=== PATIENT | female | born 1995 | race Caucasian/White ===

== ENCOUNTER 2021-01-03 15:23 | Emergency (ER) | payer OTHER, SELFPAY ==
[2021-01-03 15:32] VITALS: BP 114/52; PULSE 82; RESP 18; TEMP 37.6; O2SAT 100
--- NOTE | 2021-01-03 15:37 | ED.URI ---
HPI - URI/Sore Throat General Chief Complaint: Upper Respiratory Infection Stated Complaint: chills fever nausea Time Seen by Provider: 01/03/21 15:37 Source: patient and family Mode of arrival: ambulatory History of Present Illness HPI Narrative: patient received her second covid 19 Pfizer injection yesterday afternoon. 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 Patient reports her symptoms of nasal congestion body aches and fever started last night. Patient has not taken anything for her symptoms. Patient denies any shortness of breath or chest pain. Patient states she did not have the symptoms after she received her first visor injection. Patient has not notified her employee health of her symptoms. MD elicited complaint: fever and nasal congestion Related Data Home Medications Medication Instructions Recorded Confirmed No Home Medications 01/03/21 01/03/21 Allergies Allergy/AdvReac Type Severity Reaction Status Date / Time No Known Allergies Allergy Verified 01/03/21 15:38 Review of Systems Review of Systems: CONSTITUTIONAL: Denies chills, or sweats. Reports fever and generalized body aches EYES: Denies visual changes, redness, or discharge. ENT: Denies otalgia. Reports nasal congestion runny nose and sore throat CARDIOVASCULAR: Denies chest pain, palpitations, or edema. RESPIRATORY: Denies dyspnea. Reports occasional cough GASTROINTESTINAL: Denies abdominal pain, nausea, vomiting, or diarrhea. GENITOURINARY: Denies dysuria or hematuria. SKIN: Denies rash or itching. MUSCULOSKELETAL: Denies back pain, joint pain, or myalgia. Reports generalized body aches NEUROLOGIC: Denies headache, numbness, or weakness. PSYCHIATRIC: Denies anxiety or depression. [facility] Past Medical History Medical History (Updated 01/03/21 @ 15:51 by PREMA Butler) Upper respiratory infection Comments At time of signature, agree with nursing past medical, surgical, social and family history. There is no relevant family history pertinent to the presenting complaint Exam Narrative: The patient is a well-developed, well-nourished in no acute distress. SKIN: Skin is warm and dry without erythema, swelling or exudate. There is good turgor. No tenting. HEAD: Atraumatic. Normocephalic. No temporal or scalp tenderness. EYES: Moist and bright. Sclera and conjunctivae normal. No discharge. PERRLA. Extraocular motions intact. Gross visual acuity intact. EARS: Pinna is normal shape and contour. Clear external auditory canals. TM pearly geronimo with good cone of light, no erythema or suppuration. Bilateral cerumen noted no gross hearing deficit. NOSE: pink, moist mucosa with good air movement. Clear rhinorrhea without nasal flaring. Septum midline. Mouth: moist mucous membranes. THROAT; mild erythema noted to posterior oropharynx with moderate postnasal drainage. Without exudate or ulceration.. Uvula midline. Normal movement of soft palate. NECK: Supple and nontender with full range of motion without discomfort. No meningeal signs. LUNGS: Equal and bilateral breath sounds without wheezes, rales or rhonchi. CHEST: The chest wall is without retractions or use of accessory muscles. HEART: Has a regular rate and rhythm without murmur, gallops, click or rub. ABDOMEN: Soft, nontender with positive active bowel sounds. No rebound tenderness. EXTREMITIES: Without cyanosis, clubbing or edema. Equal 2+ distal pulses and 2 second capillary refill noted. NEUROLOGIC: alert, active, . The patient moves all extremities with normal muscle strength. Normal muscle tone is noted. Normal coordination is noted. NO focal neurological findings noted. Course Vital Signs Vital signs: Vital Signs Temperature 37.6 C H 01/03/21 15:32 Pulse Rate 82 01/03/21 15:32 Respiratory Rate 18 01/03/21 15:32 Blood Pressure 114/52 L 01/03/21 15:32 Pulse Oximetry 100 01/03/21 15:3
== END 2021-01-03 15:48 | disposition home or self-care (01) ==
PROVIDERS: Emergency Provider Nurse Practitioner Family
DX: J06.9 Acute upper respiratory infection, unspecified (principal); T50.B95A Adverse effect of other viral vaccines, initial encounter
CPT/HCPCS: 99202; G0463

== ENCOUNTER → 2021-01-07 02:45 | Outpatient (CLI) | payer OTHER, SELFPAY ==
[2021-01-08 15:30] LABS: SARS-CoV-2 RNA PCR Negative
== END ==
PROVIDERS: Visit Provider Nurse Practitioner Family
DX: Z20.822 Contact with and (suspected) exposure to COVID-19 (principal); J06.9 Acute upper respiratory infection, unspecified
CPT/HCPCS: C9803; U0003; U0005

== ENCOUNTER 2021-11-21 16:57 | Emergency (ER) | payer OTHER, SELFPAY ==
[2021-11-21 17:04] VITALS: BP 122/64; PULSE 88; RESP 20; TEMP 37.3; O2SAT 100
--- NOTE | 2021-11-21 17:09 | ED.FEMALEGU ---
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 She reports she has done 2 rounds of treatment [id number] for yeast infection, she did Monistat 1 in the day Monistat 3 with no relief in symptoms. She reports a new sexual partner 1 week ago. She reports her symptoms started the next day. She denies abdominal pain, nausea, vomiting, abnormal vaginal bleeding. Reports her last menstrual period was on October 21. MD elicited complaint: vaginal discharge Related Data Allergies Allergy/AdvReac Type Severity Reaction Status Date / Time No Known Allergies Allergy Verified 11/21/21 17:15 Review of Systems Review of Systems: CONSTITUTIONAL: Denies malaise, chills, sweats, or fever. CARDIOVASCULAR: Denies chest pain, palpitations, or edema. RESPIRATORY: Denies cough or dyspnea. GASTROINTESTINAL: Denies abdominal pain, nausea, vomiting, diarrhea GENITOURINARY: Denies dysuria, frequency, urgency, suprapubic pressure. Denies flank pain or hematuria. Reports thick yellow vaginal discharge, vaginal itching, vaginal burning SKIN: Denies rash or itching. MUSCULOSKELETAL: Denies back pain or myalgia. All systems reviewed & are unremarkable except as noted in HPI and below PMFSH Past Medical History Medical History (Updated 11/21/21 @ 17:43 by Emley Coughlin NP) Upper respiratory infection Comments At time of signature, agree with nursing past medical, surgical, social and family history. There is no relevant family history pertinent to the presenting complaint Exam Narrative: GENERAL: Well-appearing, well-nourished, and in no acute distress. HEAD: Normocephalic. EYES: PERRLA, conjunctivae clear. NECK: Supple. No lymphadenopathy CHEST: Clear to auscultation. No respiratory distress. HEART: Regular rate and rhythm. ABDOMEN: Soft, nontender upon palpation, nondistended, normal active bowel sounds, no palpable or pulsatile masses, no guarding. No CVA tenderness SKIN: Warm, dry, no rash. NEURO: Alert and oriented x3. PSYCH: Normal mood and affect : External Female Exam: normal external appearance Speculum Exam - Vagina: normal appearance of the vagina Speculum Exam - Cervix: normal appearance of the cervix and Abnormal cervical discharge present yellow Bimanual exam- vagina & uterus: normal bimanual exam Course Course Emergency Course: Patient is aware of diagnosis, understands and agrees to treatment plan. Anticipatory guidance given. Patient agrees to follow-up as directed and is aware of reasons to seek care at the emergency department. Portions of this record may have been created with voice recognition software Level of Care: Express Care Visit Vital Signs Vital signs: Reviewed. MDM - Female Genitourinary MDM Narrative Medical decision making narrative: Exam findings and UA show no acute concerns or changes; patient is non-toxic appearing and is in no distress. Patient is appropriate for outpatient treatment and follow-up. Differential Diagnosis Differential diagnosis: Likely urinary tract infection and cystitis Critical Care Time Critical Care Time Critical Care Time: No Discharge Plan Discharge Clinical Impression: Problematic vaginal discharge Patient Disposition: Home, Self-Care Condition: Stable Instructions: Antibiotic Form, Vaginal Discharge (ED) Additional Instructions: You have been tested for potential bacterial vaginosis, vaginal yeast, gonorrhea, chlamydia, and trichomoniasis today. You have received antibiotics to treat gonorrhea today, a prescription has been called into your pharmacy to treat chlamydia and trichomoniasis. You will receive a phone call in 2-3 days with the resu
[2021-11-21] MEDS: cefTRIAXone 500 MG, LIDOCAINE HCL 1% LOCAL INJ 1 ML IM (17:47)
== END 2021-11-21 18:07 | disposition home or self-care (01) ==
PROVIDERS: Emergency Provider Nurse Practitioner
DX: N89.8 Other specified noninflammatory disorders of vagina (principal)
CPT/HCPCS: 81025; 87070; 87491; 87591; 87661; 96372; 99214; G0463; J0696

== ENCOUNTER 2021-11-25 19:24 | Emergency (ER) | payer OTHER, SELFPAY ==
[2021-11-25 19:32] VITALS: BP 124/68; PULSE 87; RESP 16; TEMP 37.3; O2SAT 100
--- NOTE | 2021-11-25 19:52 | ED.GENADULT ---
HPI - General Adult General Chief complaint: Urogenital-Female Stated complaint: STD swab Source: patient Mode of arrival: ambulatory Limitations: no limitations History of Present Illness HPI narrative: Patient presents for evaluation of a bump to the vaginal area since yesterday. She was evaluated here on 11/21/2021 for vaginal discharge. She was given an injection of Rocephin and was discharged with doxycycline, Flagyl, fluconazole. She states discharge was milky at that time of her evaluation on 11/21 and is similar in appearance but has decreased in the amount since her date of service. Her LMP was 10/22/21. She has a hx of regular menstruation. Not on contraception. She is sexually active with a new male sex partner, not using condoms. He is asymptomatic. She reports some pelvic cramping. She has some burning on the skin at the site of the bump . Denies urinary symptoms otherwise. She is wondering if her symptoms are 2/2 shaving in that area. No additional complaints or concerns. Related Data Allergies Allergy/AdvReac Type Severity Reaction Status Date / Time No Known Allergies Allergy Verified 11/25/21 19:51 Review of Systems Review of Systems: CONSTITUTIONAL: Denies fever, chills, or sweats. EYES: Denies visual changes, redness, or discharge. ENT: Denies rhinorrhea, congestion, sore throat, or otalgia. CARDIOVASCULAR: Denies chest pain, palpitations, or edema. RESPIRATORY: Denies cough or dyspnea. GASTROINTESTINAL: Denies abdominal pain, nausea, vomiting, or diarrhea. GENITOURINARY: Reports milky vaginal discharge. Denies dysuria or hematuria. SKIN: Reports a bump to the vaginal area. Reports burning sensation to the skin at the site of her bump . Denies rash or itching. MUSCULOSKELETAL: Denies back pain, joint pain, or myalgia. NEUROLOGIC: Denies headache, numbness, dizziness, or weakness. PSYCHIATRIC: Denies anxiety or depression. [facility] Past Medical History Medical History (Updated 11/25/21 @ 20:12 by Gerald Byrne, PREMA, ) Upper respiratory infection Surgical History Surgical History History of appendectomy Family History Family History Mother COPD (chronic obstructive pulmonary disease) Social History Social History (Updated 11/25/21 @ 19:56 by PREMA Alford, ) Smoking packs per day: 0.5 Smoking cigarettes per day: 10.0 Smoking status: Current every day smoker Alcohol intake: current Alcohol use details: social Substance use: never Living arrangements: alone Gender identity (if verbalized by the patient): Female Sexual Orientation (if Verbalized by the Patient): Straight or Heterosexual Spiritual care concerns: No Exam Narrative: GENERAL: Well-appearing, well-nourished, and in no acute distress. HEAD: Normocephalic, atraumatic. EYES: PERRLA and EOMI. ENT: Nares clear, no rhinorrhea or epistaxis. Mucous membranes moist. Oropharynx without tonsillar hypertrophy exudate or other lesions. Bilateral TMs pearly magaña nonbulging NECK: Supple. No adenopathy or masses. No carotid bruits or JVD CHEST: Clear to auscultation. No respiratory distress. No wheezes rales or rhonchi HEART: Regular rate and rhythm. No murmur heard. Normal peripheral pulses. ABDOMEN: Soft, nontender, nondistended, normal active bowel sounds. EXTREMITIES: Normal range of motion. No edema. SKIN: Warm, dry, no rash. There is a raised area of skin noted to the left labia which is less than 1 mm in size NEURO: No focal deficits. Alert and oriented x3. PSYCH: Normal mood and affect. Course Course Emergency Course: This is a 26-year-old female who presented for evaluation of a bump to the skin of her labia. On physical exam she is small area of skin colored tissue suspected to be a skin tag. This likely would be condyloma. She has an appointment with an OB/GY
== END 2021-11-25 20:15 | disposition home or self-care (01) ==
PROVIDERS: Emergency Provider Nurse Practitioner
DX: N90.89 Other specified noninflammatory disorders of vulva and perineum (principal); Z11.3 Encounter for screening for infections with a predominantly sexual mode of transmission; F17.210 Nicotine dependence, cigarettes, uncomplicated
CPT/HCPCS: 81003; 81025; 99212; G0463

== ENCOUNTER 2022-02-06 18:47 | Emergency (ER) | payer OTHER, SELFPAY ==
--- NOTE | ~2022-02-06 | US_ITS ---
EXAMINATION: US OB <=14 wk fetus w TV DATE: 02/06/2022 21:16 INDICATION: Abdominal pain in . TECHNIQUE: Real-time transabdominal and transvaginal pelvic ultrasound was performed. COMPARISON: None. FINDINGS: TRANSABDOMINAL ULTRASOUND: The uterus measures 10.5 x 6.3 x 6.4 cm. TRANSVAGINAL ULTRASOUND: There is an intrauterine gestational sac with mean diameter of 10 mm, which correlates with an estimated gestational age of 5 weeks and 5 days +/- 4 days. A yolk sac is identifi ed. No pole is visible. The right ovary measures 2.9 x 2.4 x 2.0 cm. The left ovary measures 2. 5 x 0.9 x 0.9 cm. There is normal vascular flow in the ovaries. There is no free fluid in the pelvis. IMPRESSION: 1. Single intrauterine gestation with estimated date of delivery of 10/04/2022. Reviewed, dictated and finalized at location A.
[2022-02-06 18:52] VITALS: BP 127/61; PULSE 78; RESP 18; TEMP 36.5; O2SAT 100
[2022-02-06 19:34] LABS: Appearance Urine Clear (Clear); Basophils Percent Auto 0.3 % (0.2-1.2); Bilirubin Urine Negative (Negative); Blood Urine Negative (Negative); Color Urine Yellow (Yellow); Eosinophils Absolute Auto 0.1 K/mm3 (0-0.3); Eosinophils Percent Auto 1.5 % (0-4.4); Glucose Urine UA Negative (Negative); Hematocrit 37.4 % (37.0-47.0); Hemoglobin 12.3 g/dL (12.0-15.0); Immature Granulocyte Absolute 0.02 K/mm3 (0.00-0.031); Immature Granulocyte Percent A 0.3 % (0-0.5); Ketones Urine Trace mg/dL (Negative); Leukocyte Esterase Ur Negative LEU/UL (Negative); Lymphocytes Absolute Auto 2.43 K/mm3 (0.9-3.2); Mean Corpuscular HGB Conc 32.9 g/dl (32-36); Mean Corpuscular Hemoglobin 31.7 pg (26-34); Mean Corpuscular Volume 96.4 fl (80-100); Mean Platelet Volume 9.8 fl (7.4-10.4); Monocytes Absolute Auto 0.7 K/mm3 (0.1-0.6); Monocytes Percent Auto 10.3 % (2.6-8.5); Neutrophils Absolute Auto 3.8 K/mm3 (1.3-6.7); Neutrophils Percent Auto 53.6 % (45.5-73.1); Nitrate Urine Negative (Negative); Platelet Count Result 269 k/mm3 (150-375); Protein Urine Negative (Negative); Red Blood Count 3.88 M/mm3 (4.2-5.4); Red Cell Distribution Width 12.2 % (11.5-14.5); Specific Grav Ur 1.025 (1.001-1.035); Urobilinogen Urine 0.2 mg/dL (<2.0); White Blood Count 7.2 K/mm3 (4.5-10.0); pH Urine 6.5 (5.0-9.0)
--- NOTE | 2022-02-06 19:42 | ED.GENADULT ---
HPI - General Adult General Chief complaint: Abdominal Pain Stated complaint: positive HCG at home with dizziness Time Seen by Provider: 02/06/22 19:08 History of Present Illness HPI narrative: Patient is a 26-year-old G4, P2 SAB 1 who presents ER with lower abdominal pain. Patient's LMP was 12/28/2021. No vaginal bleeding or discharge. Has been having pain near her right ovary throughout the day. No radiation. Sharp. No aggravating or alleviating factors. She does have a positive test. Concern for ectopic . Related Data Home Medications Medication Instructions Recorded Confirmed No Home Medications 02/06/22 02/06/22 Allergies Allergy/AdvReac Type Severity Reaction Status Date / Time No Known Allergies Allergy Verified 02/06/22 19:24 Review of Systems Review of Systems: All systems reviewed & are unremarkable except as noted in HPI and below Constitutional: Constitutional: Denies chills, Denies fatigue and Denies fever(s) Respiratory: Respiratory: Denies cough and Denies dyspnea Gastrointestinal: Gastrointestinal: Denies abdominal pain, Denies nausea and Denies vomiting Genitourinary: Genitourinary: Denies hematuria, Denies nocturia, Denies dysuria and Reports pelvic pain PMFSH Past Medical History Medical History (Updated 02/06/22 @ 22:20 by Bertram Navarro MD) Upper respiratory infection Surgical History Surgical History History of appendectomy Family History Family History Mother COPD (chronic obstructive pulmonary disease) Social History Social History (Updated 11/25/21 @ 19:56 by Gerald Byrne [facility], ) Smoking packs per day: 0.5 Smoking cigarettes per day: 10.0 Smoking status: Current every day smoker Alcohol intake: current Alcohol use details: social Substance use: never Gender identity (if verbalized by the patient): Female Sexual Orientation (if Verbalized by the Patient): Straight or Heterosexual Spiritual care concerns: No Exam Narrative: GENERAL: Well-appearing, well-nourished, and in no acute distress. HEAD: Normocephalic, atraumatic. EYES: PERRL and EOMI. CHEST: Clear to auscultation. No respiratory distress. HEART: Regular rate and rhythm. Normal peripheral pulses. ABDOMEN: Soft, nontender, nondistended. Mild right adnexal tenderness. EXTREMITIES: Normal range of motion. No edema. SKIN: Warm, dry, no rash. NEURO: Alert and oriented x3. PSYCH: Normal mood and affect. Course Course Emergency Course: No ectopic . Discharge home. Vital Signs Vital signs: Vital Signs Temperature 97.7 F 02/06/22 18:52 Pulse Rate 78 02/06/22 18:52 Respiratory Rate 18 02/06/22 18:52 Blood Pressure 127/61 02/06/22 18:52 Pulse Oximetry 100 02/06/22 18:52 Oxygen Delivery Room Air 02/06/22 18:52 Temperature 97.7 F 02/06/22 18:52 Pulse Rate 68 02/06/22 20:50 Respiratory Rate 17 02/06/22 20:50 Blood Pressure 142/99 H 02/06/22 20:50 Pulse Oximetry 100 02/06/22 20:50 Oxygen Delivery Room Air 02/06/22 18:52 Medical Decision Making Vital Signs Vital Signs: Vital Signs Temperature 97.7 F 02/06/22 18:52 Pulse Rate 78 02/06/22 18:52 Respiratory Rate 18 02/06/22 18:52 Blood Pressure 127/61 02/06/22 18:52 Pulse Oximetry 100 02/06/22 18:52 Oxygen Delivery Room Air 02/06/22 18:52 Temperature 97.7 F 02/06/22 18:52 Pulse Rate 68 02/06/22 20:50 Respiratory Rate 17 02/06/22 20:50 Blood Pressure 142/99 H 02/06/22 20:50 Pulse Oximetry 100 02/06/22 20:50 Oxygen Delivery Room Air 02/06/22 18:52 Lab Data Result diagrams: 02/06/22 19:27 02/06/22 19:27 Labs: Lab Results 02/06/22 02/06/22 02/06/22 Range/Units 19:27 19:27 19:27 WBC 7.2 (4.5-10.0) K/mm3 RBC 3.88 L (4.2-5.4) M/mm3 H
[2022-02-06 19:44] LABS: Mucus Urine Rare /lpf; RBC Urine 0-2 /hpf (0-2); Squamous Epithelial Cell Urine Rare /hpf (Few); WBC Urine 0-3 /hpf
[2022-02-06 19:45] LABS: Anion Gap 10 mmol/L (8-16); Blood Urea Nitrogen 7 mg/dL (7-17); Calcium 9.1 mg/dL (8.4-10.2); Carbon Dioxide 23 mmol/L (22-30); Chloride 104 mmol/L (98-107); Estimated Glomerular Filt Rate > 60; Glucose 81 mg/dL (65-110); Potassium 3.4 mmol/L (3.4-5.0); Sodium 137 mmol/L (137-145)
[2022-02-06 19:50] LABS: Add Urine Microscopic? YES
--- NOTE | 2022-02-06 20:19 | PC.NURSE ---
Patient taken to US at this time.
[2022-02-06 20:50] VITALS: BP 142/99; PULSE 68; RESP 17; O2SAT 100
== END 2022-02-06 22:26 | disposition home or self-care (01) ==
PROVIDERS: Emergency Provider Emergency Medicine
DX: O26.891 Other specified pregnancy related conditions, first trimester (principal); R10.30 Lower abdominal pain, unspecified; O99.331 Smoking (tobacco) complicating pregnancy, first trimester; F17.210 Nicotine dependence, cigarettes, uncomplicated; Z3A.01 Less than 8 weeks gestation of pregnancy
CPT/HCPCS: 36415; 76801; 76817; 80048; 81001; 81025; 84702; 85025; 99284

== ENCOUNTER 2022-07-01 16:22 | Emergency (ER) | payer OTHER, SELFPAY ==
--- NOTE | 2022-07-01 16:32 | ED.URI ---
HPI - URI/Sore Throat General Chief Complaint: Upper Respiratory Infection Stated Complaint: Sore Throat Source: patient and RN notes reviewed History of Present Illness HPI Narrative: 26-year-old male presents urgent care to get side. Patient is reporting a sore throat times 3 days. Patient also reporting body aches and bilateral ear pain. Denies any vomiting, diarrhea, chest pain, shortness of breath. Denies any fevers or chills. Some parts of this dictation were generated by voice recognition software and may contain typographical and/or grammatical inaccuracies. Related Data Allergies Allergy/AdvReac Type Severity Reaction Status Date / Time No Known Allergies Allergy Verified 07/01/22 16:47 Review of Systems Review of Systems: CONSTITUTIONAL: Denies fever, chills, or sweats. EYES: Denies visual changes, redness, or discharge. ENT: Reports otalgia and sore throat CARDIOVASCULAR: Denies chest pain, palpitations, or edema. RESPIRATORY: Denies cough or dyspnea. GASTROINTESTINAL: Denies abdominal pain, nausea, vomiting, or diarrhea. GENITOURINARY: Denies dysuria or hematuria. SKIN: Denies rash or itching. MUSCULOSKELETAL: Reports myalgia. NEUROLOGIC: Denies headache, numbness, or weakness. [facility] Past Medical History Medical History (Updated 07/01/22 @ 17:03 by Suze Arroyo APRN) Upper respiratory infection Surgical History Surgical History History of appendectomy Family History Family History Mother COPD (chronic obstructive pulmonary disease) Social History Social History (Updated 11/25/21 @ 19:56 by Gerald Byrne, [facility], ) Smoking packs per day: 0.5 Smoking cigarettes per day: 10.0 Smoking status: Current every day smoker Alcohol intake: current Alcohol use details: social Substance use: never Living arrangements: alone Gender identity (if verbalized by the patient): Female Sexual Orientation (if Verbalized by the Patient): Straight or Heterosexual Spiritual care concerns: No Comments At the time of my signature, I reviewed and agree with the nursing past medical, surgical, social, and family history. There is no relevant family history pertinent to the patient complaint. Exam Narrative: GENERAL: This is a well-nourished, well-developed patient, in no apparent distress. HEAD: normocephalic, atraumatic. EYES: PERRL. Sclera clear/white. Vision is grossly intact. EARS: External ears normal, auditory canals clear and without drainage, TMs normal without perforation. Hearing grossly intact. NOSE: External nose normal with no obvious nasal discharge, nares without redness, no rhinorrhea. THROAT: Mucous membranes moist, posterior pharynx erythemic, no exudate noted. NECK: mild lymphadenopathy CARDIOVASCULAR: Regular rate and rhythm without murmurs, gallops, or rubs. RESPIRATORY: Clear to auscultation. Breath sounds equal bilaterally. No wheezes, rales, or rhonchi. GASTROINTESTINAL: Abdomen soft, non-tender, nondistended. Bowel sounds are active. No hepato-splenomegaly, or palpable masses. No guarding. SKIN: warm, intact with no suspicious lesions or rash, good texture and turgor. NEURO: awake, alert, and oriented to person, place and time. There were no obvious focal neurologic abnormalities. Course Course Level of Care: Express Care Visit Vital Signs Vital signs: Vital Signs Temperature 98.8 F 07/01/22 16:50 Pulse Rate 100 07/01/22 16:50 Respiratory Rate 20 07/01/22 16:50 Blood Pressure 115/82 07/01/22 16:50 Pulse Oximetry 99 07/01/22 16:50 Oxygen Delivery Room Air 07/01/22 16:50 Temperature 98.8 F 07/01/22 16:50 Pulse Rate 100 07/01/22 16:50 Respiratory Rate 20 07/01/22 16:50 Blood Pressure 115/82 07/01/22 16:50 Pulse Oximetry 99 07/01/22 16:50 Oxygen Delivery Room Air 07/01/22 16:50 Reviewed MDM
[2022-07-01 16:50] VITALS: BP 115/82; PULSE 100; RESP 20; TEMP 37.1; O2SAT 99
== END 2022-07-01 17:21 | disposition home or self-care (01) ==
PROVIDERS: Emergency Provider Nurse Practitioner Family; PCP Emergency Medicine
DX: J02.0 Streptococcal pharyngitis (principal); F17.210 Nicotine dependence, cigarettes, uncomplicated
CPT/HCPCS: 87880; 99213; G0463

== ENCOUNTER 2022-10-07 16:09 | Emergency (ER) | payer OTHER, SELFPAY ==
[2022-10-07 16:15] VITALS: BP 101/59; PULSE 91; RESP 20; TEMP 37.1; O2SAT 96
--- NOTE | 2022-10-07 16:43 | ED.EYEPROB ---
HPI - Eye Problem General Stated complaint: pink eye Source: patient and RN notes reviewed Mode of arrival: ambulatory Limitations: no limitations Related Data Allergies Allergy/AdvReac Type Severity Reaction Status Date / Time No Known Allergies Allergy Verified 07/01/22 16:47 Review of Systems Review of Systems: CONSTITUTIONAL: Denies malaise, chills, sweats, or fever. EYES: Denies visual changes. Reports redness, irritation, discharge. ENT: Denies rhinorrhea, congestion, sinus pain, otalgia or sore throat. SKIN: Denies rash or itching. NEUROLOGIC: Denies numbness, weakness, or headache. PSYCHIATRIC: Denies anxiety or depression. All systems reviewed & are unremarkable except as noted in HPI and below PMFSH Past Medical History Medical History (Updated 10/07/22 @ 16:50 by Emely Coughlin NP) Upper respiratory infection Surgical History Surgical History History of appendectomy Family History Family History Mother COPD (chronic obstructive pulmonary disease) Social History Social History (Updated 11/25/21 @ 19:56 by PREMA Alford, ) Smoking packs per day: 0.5 Smoking cigarettes per day: 10.0 Smoking status: Current every day smoker Alcohol intake: current Alcohol use details: social Substance use: never Living arrangements: alone Gender identity (if verbalized by the patient): Female Sexual Orientation (if Verbalized by the Patient): Straight or Heterosexual Spiritual care concerns: No Comments At time of signature, agree with nursing past medical, surgical, social and family history. There is no relevant family history pertinent to the presenting complaint Exam Narrative: GENERAL: Well-appearing, well-nourished, and in no acute distress. HEAD: Normocephalic, atraumatic. EYES: PERRLA, sclera clear, and EOMI. No nystagmus. Bilateral conjunctivae injected. Upper and lower eyelid unremarkable, no periorbital edema noted ENT: Nares clear, turbinates pink, no rhinorrhea or epistaxis. Mucous membranes moist. TM pearly magaña with sharp light reflex bilaterally; no tragal tenderness. NECK: Supple. CHEST: No respiratory distress. Speaks in full sentences. HEART: Regular rate and rhythm. SKIN: Warm, dry, no visible rash. NEURO: Alert and oriented x3. PSYCH: Normal mood and affect Course Course Emergency Course: Patient is aware of diagnosis, understands and agrees to treatment plan. Anticipatory guidance given. Patient agrees to follow-up as directed and is aware of reasons to seek care at the emergency department. Portions of this record may have been created with voice recognition software Level of Care: Express Care Visit Vital Signs Vital signs: Vital Signs Temperature 98.8 F 10/07/22 16:15 Pulse Rate 91 10/07/22 16:15 Respiratory Rate 20 10/07/22 16:15 Blood Pressure 101/59 L 10/07/22 16:15 Pulse Oximetry 96 10/07/22 16:15 Oxygen Delivery Room Air 10/07/22 16:15 Temperature 98.8 F 10/07/22 16:15 Pulse Rate 91 10/07/22 16:15 Respiratory Rate 20 10/07/22 16:15 Blood Pressure 101/59 L 10/07/22 16:15 Pulse Oximetry 96 10/07/22 16:15 Oxygen Delivery Room Air 10/07/22 16:15 Reviewed. MDM - Eye Problem MDM Narrative Medical decision making narrative: Consideration of the following conditions may be warranted for the presenting problem, they are not final diagnoses: Bacterial conjunctivitis, allergic conjunctivitis, viral conjunctivitis, foreign body, blepharitis, chalazion, hordeolum, corneal abrasion, preseptal cellulitis, orbital cellulitis. No evidence of proptosis, ophthalmoplegia, vision loss, pain with eye movement. Exam findings show no acute concerns or changes; patient is non-toxic appearing and is in no distress. Patient is appropriate for outpatient treatment and follow-up. Cri
== END 2022-10-07 17:04 | disposition home or self-care (01) ==
PROVIDERS: Emergency Provider Nurse Practitioner
DX: H10.9 Unspecified conjunctivitis (principal); F17.210 Nicotine dependence, cigarettes, uncomplicated
CPT/HCPCS: 99213; G0463

== ENCOUNTER 2022-10-11 14:37 | Emergency (ER) | payer OTHER, SELFPAY ==
[2022-10-11 14:46] VITALS: BP 123/69; PULSE 75; RESP 16; TEMP 37.3; O2SAT 100
--- NOTE | 2022-10-11 14:50 | ED.EYEPROB ---
HPI - Eye Problem General Chief complaint: Eye Problems Stated complaint: pink eye Time Seen by Provider: 10/11/22 14:51 Source: patient Mode of arrival: ambulatory Limitations: no limitations History of Present Illness HPI Narrative: 26-year-old female presented for complaint of left eye pain and photosensitivity for 2 days. This comes following a diagnosis of pink eye on 10/07/22, started Polytrim abx, and has used pink eye drops. States after using the pink eye drops her vision worsened, states she has blurred vision and cannot keep the eyes open. Denies continued purulent drainage, eye lid swelling, headache, dizziness, nausea or vomiting. States she has had similar problem about one year ago after treatment for pink eye. MD chief complaint: eye pain Related Data Allergies Allergy/AdvReac Type Severity Reaction Status Date / Time No Known Allergies Allergy Verified 07/01/22 16:47 Review of Systems Review of Systems: CONSTITUTIONAL: Denies body aches, fever, chills EYES:Endorses redness and pain to left eye, photophobia, visual changes ENT: Denies rhinorrhea, congestion, sore throat, or otalgia. CARDIOVASCULAR: Denies chest pain, palpitations RESPIRATORY: Denies cough or dyspnea. GASTROINTESTINAL: Denies abdominal pain, nausea, vomiting, or diarrhea. SKIN: Denies rash, itching, or wounds. MUSCULOSKELETAL: Denies back pain, joint pain, or myalgia. NEUROLOGIC: Denies headache, numbness, tingling, or weakness. All systems reviewed & are unremarkable except as noted in HPI and below PMFSH Past Medical History Medical History Upper respiratory infection Surgical History Surgical History History of appendectomy Family History Family History Mother COPD (chronic obstructive pulmonary disease) Social History Social History Smoking packs per day: 0.5 Smoking cigarettes per day: 10.0 Smoking status: Current every day smoker Alcohol intake: current Alcohol use details: social Substance use: never Living arrangements: alone Gender identity (if verbalized by the patient): Female Sexual Orientation (if Verbalized by the Patient): Straight or Heterosexual Spiritual care concerns: No Comments At time of signature, I have reviewed and agree with nursing past medical, surgical, social and family history unless otherwise noted. Please see nursing chart for further information. There is no relevant family history pertinent to the presenting complaint Exam Narrative: GENERAL: Well-appearing HEAD: Normocephalic, atraumatic. EYES: Wearing glasses/ photosensitive; mild left conjunctival injection; no eye lid swelling, redness or purulent drainage. Unable to tolerate further physical eye exam, Lid eversion was not tolerated. ENT: Mucous membranes pink and moist. No rhinorrhea. CHEST: Unlabored respirations. ABDOMEN: Soft, nontender, nondistended SKIN: Warm, dry, no rash. Normal skin turgor. NEURO: No focal deficits. Alert and oriented x3 Course Course Emergency Course: Patient is aware of diagnosis, understands and agrees to treatment plan. Anticipatory guidance given. Patient agrees to follow-up as directed and is aware of reasons to seek care at the emergency department. Portions of this record may have been created with voice recognition software Level of Care: Express Care Visit Vital Signs Vital signs: Vital Signs Temperature 99.2 F 10/11/22 14:46 Pulse Rate 75 10/11/22 14:46 Respiratory Rate 16 10/11/22 14:46 Blood Pressure 123/69 10/11/22 14:46 Pulse Oximetry 100 10/11/22 14:46 Oxygen Delivery Room Air 10/11/22 14:46 Temperature 99.2 F 10/11/22 14:46 Pulse Rate 75 10/11/22 14:46 Respiratory Rate 16 10/11/22 14:46
== END 2022-10-11 15:10 | disposition left against medical advice (07) ==
PROVIDERS: Emergency Provider Nurse Practitioner Family
DX: H53.142 Visual discomfort, left eye (principal); F17.210 Nicotine dependence, cigarettes, uncomplicated
CPT/HCPCS: 99213; G0463

== ENCOUNTER 2023-02-28 17:55 | Emergency (ER) | payer OTHER, SELFPAY ==
[2023-02-28 18:00] VITALS: BP 124/62; PULSE 85; RESP 20; TEMP 36.9; O2SAT 100
--- NOTE | 2023-02-28 18:14 | ED.URI ---
HPI - URI/Sore Throat General Chief Complaint: Upper Respiratory Infection Stated Complaint: cough Time Seen by Provider: 02/28/23 18:14 Source: patient, RN notes reviewed and old records reviewed Mode of arrival: ambulatory Limitations: no limitations History of Present Illness HPI Narrative: 27 year old female who presents to [facility] care with complaints of 2 weeks duration of cough which tends to be worse at night. Patient reports that she has used some cough drops and has taken some Robitussin cough syrup without improvement.Patient denies any fevers, chills or sweats. patient reports that cough is worse at night and she is just not resting. MD elicited complaint: cough Onset (ago): week(s) (2) Description of mucous: yellow Treatments prior to arrival: cold medicine (Robitussin) Related Data Allergies Allergy/AdvReac Type Severity Reaction Status Date / Time No Known Allergies Allergy Verified 07/01/22 16:47 Review of Systems Review of Systems: CONSTITUTIONAL: Denies malaise, chills, sweats, or fever. EYES: Denies visual changes, redness, or discharge. ENT: Reports some rhinorrhea, congestion,no sinus pain, no otalgia and no sore throat. CARDIOVASCULAR: Denies chest pain, palpitations, or edema. RESPIRATORY: Reports cough.? Denies dyspnea. GASTROINTESTINAL: Denies abdominal pain, nausea, vomiting, diarrhea SKIN: Denies rash or itching. MUSCULOSKELETAL: Denies myalgia. NEUROLOGIC: Denies headache. All systems reviewed & are unremarkable except as noted in HPI and below PMFSH Past Medical History Medical History Upper respiratory infection Surgical History Surgical History History of appendectomy Family History Family History Mother COPD (chronic obstructive pulmonary disease) Social History Social History Smoking packs per day: 0.5 Smoking cigarettes per day: 10.0 Smoking status: Current every day smoker Alcohol intake: current Alcohol use details: social Substance use: never Living arrangements: alone Gender identity (if verbalized by the patient): Female Sexual Orientation (if Verbalized by the Patient): Straight or Heterosexual Spiritual care concerns: No Comments At time of signature, agree with nursing past medical, surgical, social and family history. There is no relevant family history pertinent to the presenting complaint Exam Narrative: GENERAL: Well-appearing, well-nourished, and in no acute distress. HEAD: Normocephalic EYES: PERRLA, conjunctivae clear ENT: Nares clear, turbinates edematous and erythematous, clear discharge. Mucous membranes moist. TM pearly [place] with dull light reflex bilaterally; no tragal tenderness. Oropharynx erythematous without lesions. Tonsils not enlarged and without exudate, no drooling, no hoarseness, no trismus, uvula midline. NECK: Supple. No lymphadenopathy CHEST: Clear to auscultation, breath sounds equal. No wheezing, rhonchi, rales, or stridor. No respiratory distress, speaks in full sentences. cough noted SAO2 100% on room air HEART: Regular rate and rhythm. No murmur heard. SKIN: Warm, dry, no rash. NEURO: Alert and oriented x3. PSYCH: Normal mood and affect Course Course Emergency Course: Patient is aware of diagnosis, understands and agrees to treatment plan.? Anticipatory guidance given.? Patient agrees to follow-up as directed and is aware of reasons to seek care at the emergency department. Portions of this record may have been created with voice recognition software Level of Care: Express Care Visit Vital Signs Vital signs: Vital Signs Temperature 36.9 C 02/28/23 18:00 Pulse Rate 85 02/28/23 18:00 Respiratory Rate 20 02/28/23 18:00 Blood Pressure 12
== END 2023-02-28 18:37 | disposition home or self-care (01) ==
PROVIDERS: Emergency Provider Registered Nurse
DX: R05.1 Acute cough (principal); F17.210 Nicotine dependence, cigarettes, uncomplicated
CPT/HCPCS: 99213; G0463

== ENCOUNTER 2023-04-14 08:48 | Emergency (ER) | payer OTHER, SELFPAY ==
[2023-04-14 08:52] VITALS: BP 119/62; PULSE 77; RESP 18; TEMP 36.6; O2SAT 100
--- NOTE | 2023-04-14 09:26 | ED.FEMALEGU ---
HPI - Female Genitourinary General Chief complaint: Urogenital-Female Stated complaint: Poss UTI Time Seen by Provider: 04/14/23 09:26 Source: patient and RN notes reviewed Mode of arrival: ambulatory Limitations: no limitations History of Present Illness HPI Narrative: 27-year-old female presents with concern for urinary tract infection. She reports she had a 3 day history bladder spasms with urine frequency. She reports she had hematuria today. She reports slight nausea. She denies fever, abdominal pain, vomiting. She reports history of urinary tract infections MD elicited complaint: UTI Related Data Allergies Allergy/AdvReac Type Severity Reaction Status Date / Time No Known Allergies Allergy Verified 07/01/22 16:47 Review of Systems Review of Systems: CONSTITUTIONAL: Denies malaise, chills, sweats, or fever. CARDIOVASCULAR: Denies chest pain, palpitations, or edema. RESPIRATORY: Denies cough or dyspnea. GASTROINTESTINAL: Denies abdominal pain, vomiting, diarrhea. Reports nausea GENITOURINARY: Reports frequency, urgency, suprapubic pressure, hematuria. Denies flank pain SKIN: Denies rash or itching. MUSCULOSKELETAL: Denies back pain or myalgia. All systems reviewed & are unremarkable except as noted in HPI and below PMFSH Past Medical History Medical History Upper respiratory infection Surgical History Surgical History History of appendectomy Family History Family History Mother COPD (chronic obstructive pulmonary disease) Social History Social History Smoking packs per day: 0.5 Smoking cigarettes per day: 10.0 Smoking status: Current every day smoker Alcohol intake: current Alcohol use details: social Substance use: never Living arrangements: alone Gender identity (if verbalized by the patient): Female Sexual Orientation (if Verbalized by the Patient): Straight or Heterosexual Spiritual care concerns: No Comments At time of signature, agree with nursing past medical, surgical, social and family history. There is no relevant family history pertinent to the presenting complaint Exam Narrative: GENERAL: Well-appearing, well-nourished, and in no acute distress. HEAD: Normocephalic. EYES: PERRLA, conjunctivae clear. NECK: Supple. No lymphadenopathy CHEST: Clear to auscultation. No respiratory distress. HEART: Regular rate and rhythm. ABDOMEN: Soft, nontender upon palpation, nondistended, normal active bowel sounds, no palpable or pulsatile masses, no guarding. No CVA tenderness SKIN: Warm, dry, no rash. NEURO: Alert and oriented x3. PSYCH: Normal mood and affect Course Course Emergency Course: Patient is aware of diagnosis, understands and agrees to treatment plan. Anticipatory guidance given. Patient agrees to follow-up as directed and is aware of reasons to seek care at the emergency department. Portions of this record may have been created with voice recognition software Level of Care: Express Care Visit Vital Signs Vital signs: Vital Signs Temperature 97.8 F 04/14/23 08:52 Pulse Rate 77 04/14/23 08:52 Respiratory Rate 18 04/14/23 08:52 Blood Pressure 119/62 04/14/23 08:52 Pulse Oximetry 100 04/14/23 08:52 Oxygen Delivery Room Air 04/14/23 08:52 Temperature 97.8 F 04/14/23 08:52 Pulse Rate 77 04/14/23 08:52 Respiratory Rate 18 04/14/23 08:52 Blood Pressure 119/62 04/14/23 08:52 Pulse Oximetry 100 04/14/23 08:52 Oxygen Delivery Room Air 04/14/23 08:52 Reviewed. MDM - Female Genitourinary MDM Narrative Medical decision making narrative: Exam findings and UA show no acute concerns or changes; patient is non-toxic appearing and is in no distress. Patient is appropriate for outpatie
== END 2023-04-14 09:42 | disposition home or self-care (01) ==
PROVIDERS: Emergency Provider Nurse Practitioner
DX: N39.0 Urinary tract infection, site not specified (principal); B96.20 Unspecified Escherichia coli [E. coli] as the cause of diseases classified elsewhere; F17.210 Nicotine dependence, cigarettes, uncomplicated
CPT/HCPCS: 81003; 87077; 87086; 87186; 99213; G0463

== ENCOUNTER 2023-07-30 08:05 | Emergency (ER) | payer OTHER, SELFPAY ==
[2023-07-30 08:11] VITALS: BP 115/61; PULSE 73; RESP 16; TEMP 37.2; O2SAT 100
--- NOTE | 2023-07-30 08:34 | ED.FEMALEGU ---
HPI - Female Genitourinary General Chief complaint: Urogenital-Female Stated complaint: Vomiting/Urinary Problems/7 Weeks Time Seen by Provider: 07/30/23 08:15 Source: patient Mode of arrival: ambulatory Limitations: no limitations History of Present Illness HPI Narrative: 27-year-old female presents with complaint of urinary frequency, dribbling, burning urination, low back pain 1 day. Afebrile. Patient is approximately 7 weeks . Reports she has had nausea and vomiting for 2 weeks. Is able to keep down sips water. Purchased [id number] Unisom yesterday and took a dose last night. Message her OBGYN today for nausea medication. All Systems reviewed and negative except as noted above. Related Data Home Medications Medication Instructions Recorded Confirmed vitamin-ferrous fumarate 1 tablet PO DAILY 07/30/23 07/30/23 28 mg iron-folic acid 800 mcg tablet ( Tablet) Allergies Allergy/AdvReac Type Severity Reaction Status Date / Time sulfamethoxazole Allergy Vomiting Verified 07/30/23 08:23 [From Bactrim] trimethoprim [From Bactrim] Allergy Vomiting Verified 07/30/23 08:23 Review of Systems Review of Systems: CONSTITUTIONAL: Denies fever, chills, or sweats. EYES: Denies visual changes, redness, or discharge. ENT: Denies rhinorrhea, congestion, sore throat, or otalgia. CARDIOVASCULAR: Denies chest pain, palpitations, or edema. RESPIRATORY: Denies cough or dyspnea. GASTROINTESTINAL: Denies abdominal pain, nausea, vomiting, or diarrhea. GENITOURINARY: Reports dysuria, frequency, dribbling, low back pain. Denies hematuria. SKIN: Denies rash or itching. MUSCULOSKELETAL: Denies back pain, joint pain, or myalgia. NEUROLOGIC: Denies headache, numbness, or weakness. PSYCHIATRIC: Denies anxiety or depression. All other systems reviewed are negative, except as documented in HPI. [facility] Past Medical History Medical History Upper respiratory infection Surgical History Surgical History History of appendectomy Family History Family History Mother COPD (chronic obstructive pulmonary disease) Social History Social History Smoking packs per day: 0.5 Smoking cigarettes per day: 10.0 Smoking status: Current every day smoker Alcohol intake: current Alcohol use details: social Substance use: never Living arrangements: alone Gender identity (if verbalized by the patient): Female Sexual Orientation (if Verbalized by the Patient): Straight or Heterosexual Spiritual care concerns: No Comments At time of signature, agree with nursing past medical, surgical, social and family history. There is no relevant family history pertinent to the presenting complaint. Exam Narrative: GENERAL: This is a well-nourished, well-developed patient, in no apparent distress. HEAD: normocephalic, atraumatic. EYES: PERRL. Sclera clear/white. Vision is grossly intact. EARS: External ears normal NOSE: External nose normal NECK: Neck supple, non-tender without lymphadenopathy, masses or thyromegaly. CARDIOVASCULAR: Regular rate and rhythm without murmurs, gallops, or rubs. RESPIRATORY: Clear to auscultation. Breath sounds equal bilaterally. No wheezes, rales, or rhonchi. SKIN: warm, Dry, intact with no suspicious lesions or rash, good texture and turgor. NEURO: awake, alert, and oriented to person, place and time. There were no obvious focal neurologic abnormalities. EXTREMITIES: No joint tenderness, effusion, or edema noted. Course Course Level of Care: Express Care Visit Vital Signs Vital signs: Vital Signs Temperature 37.2 C 07/30/23 08:11 Pulse Rate 73 07/30/23 08:11 Respiratory Rate 16 07/30/23 08:11 Blood Pressure 11
== END 2023-07-30 08:39 | disposition home or self-care (01) ==
PROVIDERS: Emergency Provider Nurse Practitioner Family
DX: O23.41 Unspecified infection of urinary tract in pregnancy, first trimester (principal); B96.20 Unspecified Escherichia coli [E. coli] as the cause of diseases classified elsewhere; N39.0 Urinary tract infection, site not specified; Z3A.01 Less than 8 weeks gestation of pregnancy; O21.9 Vomiting of pregnancy, unspecified; O99.331 Smoking (tobacco) complicating pregnancy, first trimester
CPT/HCPCS: 81003; 87077; 87086; 87088; 87186; 99213; G0463

== ENCOUNTER 2023-09-04 16:15 | Emergency (ER) | payer OTHER, SELFPAY ==
--- NOTE | 2023-09-04 16:24 | ED.GENADULT ---
HPI - General Adult General Chief complaint: Urogenital-Female Stated complaint: uti Source: patient, RN notes reviewed and old records reviewed Mode of arrival: ambulatory Limitations: no limitations History of Present Illness HPI narrative: 27yr old female presents to Express Care with complaint of urinary frequency this started this a.m.. Patient denies any other symptoms. Patient states 13 weeks . Patient states had UTI 6 weeks ago and this is similar. Patient has appointment with OBGYN on Wednesday. Related Data Home Medications Medication Instructions Recorded Confirmed vitamin-ferrous fumarate 1 tablet PO DAILY 07/30/23 07/30/23 28 mg iron-folic acid 800 mcg tablet ( Tablet) Allergies Allergy/AdvReac Type Severity Reaction Status Date / Time sulfamethoxazole Allergy Vomiting Verified 07/30/23 08:23 [From Bactrim] trimethoprim [From Bactrim] Allergy Vomiting Verified 07/30/23 08:23 Review of Systems Constitutional: Constitutional: Reports no additional constitutional complaints, Denies body ache(s), Denies chills, Denies fatigue, Denies fever(s) and Denies headache(s) Eyes: Eyes: Reports no additional eye complaints and Denies blurry vision ENT: Reports system reviewed and no additional complaints, except as documented, Denies vertigo, Denies dizziness, Denies ear discharge, Denies otalgia, Denies facial pain, Denies headache(s), Denies nasal congestion, Denies nasal discharge, Denies sinus pain, Denies sinus pressure and Denies sore throat Cardiovascular: Cardiovascular: Reports no additional cardiovascular complaints, Denies chest pain, Denies chest pain at rest, Denies rapid heart rate and Denies dyspnea Respiratory: Respiratory: Reports no additional respiratory complaints, Denies chest congestion, Denies cough, Denies pain on inspiration, Denies pain with cough and Denies dyspnea Gastrointestinal: Gastrointestinal: Denies abdominal pain, Denies diarrhea, Denies nausea and Denies vomiting Genitourinary: Genitourinary: Reports as per HPI and Reports nocturia Integumentary/Breasts: Skin/Breast: Denies rash Neurologic: Reports system reviewed and no additional complaints, except as documented, Denies vertigo, Denies dizziness and Denies headache(s) Endocrine: Endocrine: Denies fatigue PMFSH Past Medical History Medical History Upper respiratory infection Surgical History Surgical History History of appendectomy Family History Family History Mother COPD (chronic obstructive pulmonary disease) Social History Social History Smoking packs per day: 0.5 Smoking cigarettes per day: 10.0 Smoking status: Current every day smoker Alcohol intake: current Alcohol use details: social Substance use: never Living arrangements: alone Gender identity (if verbalized by the patient): Female Sexual Orientation (if Verbalized by the Patient): Straight or Heterosexual Spiritual care concerns: No Comments At the time of my signature, I reviewed and agree with the nursing past medical, surgical, social, and family history. There is no relevant family history pertinent to the patient complaint. Exam Const: General: cooperative, healthy appearing, no acute distress and well nourished Nutritional Appearance: well nourished Orientation/consciousness: patient oriented x3 Limitations: no limitations HENMT: Head: normal to inspection and normocephalic Ears: external ears normal, TM's normal bilaterally, mastoids normal and Abnormal EAC present Face/Nose/Sinus: normal facial exam Face and sinus: normal facial exam Mouth: Yes Normal oral and palatal mucosa present, Yes oropharynx normal and Yes moist mucous membranes Throat: tonsils normal, u
[2023-09-04 16:27] VITALS: BP 109/80; PULSE 69; RESP 18; TEMP 36.8; O2SAT 100
== END 2023-09-04 16:41 | disposition home or self-care (01) ==
PROVIDERS: Emergency Provider Registered Nurse
DX: O26.891 Other specified pregnancy related conditions, first trimester (principal); R35.89 Other polyuria; O99.331 Smoking (tobacco) complicating pregnancy, first trimester; Z3A.13 13 weeks gestation of pregnancy; F17.210 Nicotine dependence, cigarettes, uncomplicated
CPT/HCPCS: 81003; 87086; 99213; G0463

== ENCOUNTER 2023-11-10 11:21 | Observation (INO) | payer OTHER, SELFPAY ==
[2023-11-10 11:56] VITALS: BP 114/52; PULSE 70
[2023-11-10 12:00] VITALS: BP 131/114; PULSE 78
[2023-11-10 12:15] VITALS: BP 120/57; PULSE 83
[2023-11-10 12:20] VITALS: BMI 29.4
--- NOTE | 2023-11-10 12:27 | OBADM ---
This patient, Delicia Hannon, admitted to the OB room OB Post [facility] for observation. Patient/family oriented to hospital policies and general routines including ID bracelet, bed and alarms, visiting hours, pain management, procedures, bathroom and other care routines, personal items, smoking policy, room service/diet, and visiting hours. Patient/Family are encouraged to report perceived risks to care and to ask questions if they do not understand what they are told or what they should do.
[2023-11-10 12:30] VITALS: BP 112/60; PULSE 75
[2023-11-10 12:43] VITALS: BP 109/54; PULSE 69
[2023-11-10 12:54] LABS: Appearance Urine Cloudy (Clear); Bacteria Urine None Seen /hpf; Bilirubin Urine Negative (Negative); Blood Urine Negative (Negative); Color Urine Yellow (Yellow); Glucose Urine UA Negative (Negative); Ketones Urine Negative (Negative); Leukocyte Esterase Ur Trace LEU/UL (Negative); Nitrate Urine Negative (Negative); Non Pathogenic Casts 0-2; Protein Urine Negative (Negative); RBC Urine 0-2 /hpf (0-2); Specific Grav Ur 1.021 (1.001-1.035); Squamous Epithelial Cell Urine Occasional /hpf (Few); WBC Urine 0-5 /hpf (0-3); pH Urine 7.5 (5.0-9.0)
[2023-11-10 12:59] LABS: Add Urine Microscopic? YES
--- NOTE | 2023-12-07 12:12 | PM.OBTRLD ---
OB - Triage/Final Diagnosis Visit Information Comments/Additional reasons for admission: I have assessed the risk for this patient, Delicia Hannon, and determined that she would benefit from observation care. Evaluation Laboratory results: Laboratory Tests 11/10/23 12:42 Urine Color Yellow Urine Appearance Cloudy H Urine pH 7.5 Ur Specific [place] 1.021 Urine Protein Negative Urine Glucose (UA) Negative Urine Ketones Negative Ur Blood (Man) Negative Urine Nitrate Negative Urine Bilirubin Negative Urine Urobilinogen 1.0 Leukocyte Esterase Rfl Trace H Urine RBC 0-2 Urine WBC 0-5 Ur Squamous Epith Cells Occasional Urine Bacteria None seen Urine Casts 0-2 Final Diagnosis (1) False labor: Code(s): O47.9 - False labor, unspecified Status: Acute
== END 2023-11-10 14:28 ==
PROVIDERS: Admitting Provider Obstetrics & Gynecology; Visit Provider Obstetrics & Gynecology
DX: O47.02 False labor before 37 completed weeks of gestation, second trimester (principal); Z3A.22 22 weeks gestation of pregnancy
CPT/HCPCS: 81001; G0378; G0379

== ENCOUNTER 2023-11-26 17:40 | Emergency (ER) | payer OTHER, SELFPAY ==
--- NOTE | 2023-11-26 17:45 | ECG_ITS ---
Test Date: 2023-11-26 17:52:33 Measurements Intervals [place] Rate: 80 P: 31 NV: 134 QRS: 52 QRSD: 117 T: 17 QT: 354 QTc: 410 Interpretive Statements SINUS RHYTHM WITH SINUS ARRHYTHMIA INTRAVENTRICULAR CONDUCTION DELAY BORDERLINE ST-T WAVE ABNORMALITY- INFERIOR LEADS BASELINE ARTIFACT- I, II, III, AVR, AVL, AVF BORDERLINE ECG No previous ECG available for comparison Electronically Signed On 11-27-2023 09:01:13 CDT by George Henderson D.O.
--- NOTE | 2023-11-26 17:46 | ED.ARRPALP ---
HPI - Arrhythmia/Palpitations General Chief Complaint: Arrhythmia/Palpitations <Gerald Echols APRN - Last Filed: 11/26/23 17:49> Stated Complaint: heart palpitations <Gerald Echols APRN - Last Filed: 11/26/23 17:49> Time Seen by Provider: 11/26/23 21:29 <Gerald Echlos APRN - Last Filed: 11/26/23 17:49> Focused HPI: 28-year-old female who is 25 weeks , , history of preeclampsia under the care of Dr. Alejandro presents to the emergency room for evaluation of intermittent palpitations. Patient states over the past week she has been experiencing palpitations, mostly in the evening when she is lying down. Associated with shortness of breath and occasional nausea. Patient denies any chest pain, chest tightness syncope. Patient currently on a an aspirin and vitamins. denies vaginal bleeding. Reports regular movement GENERAL: Well-appearing, well-nourished, and in no acute distress. HEAD: Normocephalic, atraumatic. CHEST: Clear to auscultation. No respiratory distress. HEART: Regular rate and rhythm. NEURO: Alert and oriented x3. Patient screened in triage and initial orders placed. Additional care and disposition to be based upon diagnostic testing and treatment. <Gerald Echols APRN - Last Filed: 11/26/23 17:49> Focused HPI: 28-year-old female who is 25 weeks , , history of preeclampsia under the care of Dr. Alejandro presents to the emergency room for evaluation of intermittent palpitations. The patient says over last 2-3 weeks when she wakes up in the morning she will develop palpitations become short of breath and then vomit. After she vomits her symptoms all resolved and she is symptom free throughout the day. Patient denies any chest pain, chest tightness syncope. She denies fevers chills productive cough or URI symptoms. No lower extremity edema. Patient currently on a an aspirin and vitamins. denies vaginal bleeding. Reports regular movement Patient is not currently experiencing any symptoms. Patient notes that she has had significant anxiety since the of her son. GENERAL: Well-appearing, well-nourished, and in no acute distress. HEAD: Normocephalic, atraumatic. CHEST: Clear to auscultation. No respiratory distress. HEART: Regular rate and rhythm. NEURO: Alert and oriented x3. Patient screened in triage and initial orders placed. Additional care and disposition to be based upon diagnostic testing and treatment. <Luis Phipps MD - Last Filed: 11/26/23 23:31> Related Data Home Medications: Home Medications Medication Instructions Recorded Confirmed vitamin-ferrous fumarate 1 tablet PO DAILY 07/30/23 11/10/23 28 mg iron-folic acid 800 mcg tablet ( Tablet) aspirin 81 mg capsule 81 mg PO DAILY 11/10/23 11/10/23 doxylamine succinate 25 mg tablet 6.25 mg PO HS PRN Nausea 11/10/23 11/10/23 (Unisom (doxylamine)) <Gerald Echols APRN - Last Filed: 11/26/23 17:49> Allergies/Adverse Reactions: Allergies Allergy/AdvReac Type Severity Reaction Status Date / Time sulfamethoxazole Allergy Vomiting Verified 07/30/23 08:23 [From Bactrim] trimethoprim [From Bactrim] Allergy Vomiting Verified 07/30/23 08:23 <Gerald Echols APRN - Last Filed: 11/26/23 17:49> [facility] Past Medical History Medical History: Medical History Upper respiratory infection <Gerald Echols APRN - Last Filed: 11/26/23 17:49> Surgical History Surgical History: Surgical History History of appendectomy <Gerald Echols APRN - Last Filed: 11/26/23 17:49> Family History Family History: Family History Mother COPD (chronic obstructive pulmonary disease) <Gerald Echols APRN - Last Filed: 11/26/23 17
[2023-11-26 17:54] VITALS: BP 126/66; PULSE 84; RESP 18; TEMP 36.5; O2SAT 100
[2023-11-26 18:41] LABS: Basophils Percent Auto 0.2 % (0.2-1.2); Eosinophils Absolute Auto 0.1 K/mm3 (0-0.3); Eosinophils Percent Auto 1.1 % (0-4.4); Hematocrit 31.9 % (37.0-47.0); Hemoglobin 10.5 g/dL (12.0-15.0); Immature Granulocyte Absolute 0.01 K/mm3 (0.00-0.031); Immature Granulocyte Percent A 0.2 % (0-0.5); Lymphocytes Absolute Auto 1.79 K/mm3 (0.9-3.2); Lymphocytes Percent Auto 28.4 % (18.3-44.2); Mean Corpuscular HGB Conc 32.9 g/dl (32-36); Mean Corpuscular Hemoglobin 32.5 pg (26-34); Mean Corpuscular Volume 98.8 fl (80-100); Monocytes Absolute Auto 0.7 K/mm3 (0.1-0.6); Monocytes Percent Auto 11.6 % (2.6-8.5); Neutrophils Absolute Auto 3.7 K/mm3 (1.3-6.7); Neutrophils Percent Auto 58.5 % (45.5-73.1); Platelet Count Result 238 k/mm3 (150-375); Red Blood Count 3.23 M/mm3 (4.2-5.4); Red Cell Distribution Width 13.1 % (11.5-14.5); White Blood Count 6.3 K/mm3 (4.5-10.0)
[2023-11-26 18:47] LABS: Appearance Urine Clear (Clear); Bacteria Urine None Seen /hpf; Bilirubin Urine Negative (Negative); Blood Urine Negative (Negative); Color Urine Yellow (Yellow); Glucose Urine UA 1+ mg/dL (Negative); Ketones Urine Trace mg/dL (Negative); Leukocyte Esterase Ur Negative LEU/UL (Negative); Nitrate Urine Negative (Negative); Non Pathogenic Casts 0-2; Protein Urine Trace mg/dL (Negative); Specific Grav Ur 1.026 (1.001-1.035); Squamous Epithelial Cell Urine Occasional /hpf (Few); WBC Urine 0-5 /hpf (0-3)
[2023-11-26 18:51] LABS: Alanine Aminotransferase 22 U/L (6-35); Albumin Level 3.7 g/dL (3.5-5.1); Alkaline Phosphatase 65 U/L (38-126); Anion Gap 8 mmol/L (4-12); Aspartate Amino Transferase 26 U/L (14-36); Bilirubin,Total 0.2 mg/dL (0.2-1.3); Blood Urea Nitrogen 7 mg/dL (7-17); Calcium 8.8 mg/dL (8.4-10.2); Carbon Dioxide 25 mmol/L (22-30); Chloride 104 mmol/L (98-107); Estimated CRCL calculation 130 ml/min; Estimated Glomerular Filt Rate > 60; Glucose 89 mg/dL (65-110); Potassium 3.4 mmol/L (3.4-5.0); Sodium 137 mmol/L (137-145)
[2023-11-26 18:55] LABS: Add Urine Microscopic? YES
[2023-11-26 19:03] LABS: Troponin I < 0.012 ng/mL (0.000-0.034)
[2023-11-26 23:20] VITALS: PULSE 74; RESP 20; O2SAT 100
== END 2023-11-26 23:30 | disposition home or self-care (01) ==
PROVIDERS: Nurse Practitioner Family; Emergency Provider Emergency Medicine
DX: O26.892 Other specified pregnancy related conditions, second trimester (principal); R00.2 Palpitations; O21.2 Late vomiting of pregnancy; O99.332 Smoking (tobacco) complicating pregnancy, second trimester; F17.210 Nicotine dependence, cigarettes, uncomplicated; Z3A.25 25 weeks gestation of pregnancy; O99.412 Diseases of the circulatory system complicating pregnancy, second trimester; I45.9 Conduction disorder, unspecified; R94.31 Abnormal electrocardiogram [ECG] [EKG]
CPT/HCPCS: 36415; 80053; 81001; 81025; 84484; 85025; 93005; 99284

== ENCOUNTER 2023-12-01 18:00 | Observation (INO) | payer OTHER, SELFPAY ==
[2023-12-01] VITALS (12 sets, daily range): BP systolic 103–114; BP diastolic 49–57; PULSE 69–81; O2SAT 99–100; BMI 29.4
--- NOTE | 2023-12-01 18:45 | PC.NURSE ---
Called Angelita Fallon CNM with pt admission. Pt refused to go to ED. PT complaining of SOB and palpitations with exertion. She states that she then feels weak and sometimes vomits. Pt denies symptoms at this time. VSS. Tracing appropriate for gestational age with one variable deceleration noted. Orders received for EKG.
--- NOTE | 2023-12-01 18:58 | ECG_ITS ---
Test Date: 2023-12-01 19:18:02 Measurements Intervals [place] Rate: 78 P: 17 CT: 140 QRS: 40 QRSD: 85 T: 7 QT: 358 QTc: 408 Interpretive Statements SINUS RHYTHM BORDERLINE ST-T WAVE ABNORMALITY- INFERIOR LEADS BASELINE ARTIFACT- I, II, III, AVR, AVL, AVF BORDERLINE ECG Compared to ECG 11/26/2023 17:52:33 NO SIGNIFICANT CHANGE Electronically Signed On 12-02-2023 06:20:58 CDT by George Henderson D.O.
--- NOTE | 2023-12-01 19:11 | PC.NURSE ---
Respiratory at bedside to do EKG.
--- NOTE | 2023-12-01 19:50 | PC.NURSE ---
EKG sent to ER doctor to review. No significant findings noted.
--- NOTE | 2023-12-01 19:55 | PC.NURSE ---
Called Angelita Fallon CNM with EKG report. September D/C home. Will set up halter monitor with cardiology from office tomorrow.
--- NOTE | 2023-12-02 17:38 | PM.OBTRLD ---
OB - Triage/Final Diagnosis Visit Information Date of evaluation: 12/01/23 Reason for evaluation: other (heart palpitations) Comments/Additional reasons for admission: I have assessed the risk for this patient, Delicia Hannon, and determined that she would benefit from observation care. Evaluation Vital signs: Vital Signs - 24 hr 12/01/23 18:09 12/01/23 18:10 12/01/23 18:14 Pulse Rate 72 Blood Pressure 107/57 L Pulse Oximetry 100 99 Oxygen Delivery 12/01/23 18:15 12/01/23 18:19 12/01/23 18:24 Pulse Rate 81 Blood Pressure 103/55 L Pulse Oximetry 100 100 Oxygen Delivery 12/01/23 18:29 12/01/23 18:30 12/01/23 18:34 Pulse Rate 69 Blood Pressure 105/51 L Pulse Oximetry 99 99 Oxygen Delivery 12/01/23 18:39 12/01/23 18:44 12/01/23 18:45 Pulse Rate 76 Blood Pressure 114/49 L Pulse Oximetry 99 99 Oxygen Delivery 12/01/23 18:30 Pulse Rate Blood Pressure Pulse Oximetry Oxygen Delivery Room Air
== END 2023-12-01 20:08 ==
PROVIDERS: Admitting Provider Obstetrics & Gynecology; Visit Provider Obstetrics & Gynecology
DX: O26.892 Other specified pregnancy related conditions, second trimester (principal); R00.2 Palpitations; Z3A.25 25 weeks gestation of pregnancy
CPT/HCPCS: 93005; G0378; G0379

== ENCOUNTER 2024-01-09 20:07 | Observation (INO) | payer OTHER, SELFPAY ==
[2024-01-09] VITALS (21 sets, daily range): BP systolic 112–132; BP diastolic 53–64; PULSE 86–116; O2SAT 96–100; BMI 29.7
--- NOTE | 2024-01-09 20:33 | OBADM ---
This patient, Delicia Hannon, admitted to the OB room OB Post 117 for observation. Patient/family oriented to hospital policies and general routines including ID bracelet, bed and alarms, visiting hours, pain management, procedures, bathroom and other care routines, personal items, smoking policy, room service/diet, and visiting hours. Patient/Family are encouraged to report perceived risks to care and to ask questions if they do not understand what they are told or what they should do.
[2024-01-09 21:21] LABS: Appearance Urine Clear (Clear); Color Urine Yellow (Yellow); Glucose Urine UA Negative (Negative); Ketones Urine Negative (Negative); Protein Urine Negative (Negative)
[2024-01-09 21:22] LABS: Add Urine Microscopic? NO; Bacteria Urine None Seen /hpf; Bilirubin Urine Negative (Negative); Blood Urine Trace-intact (Negative); Leukocyte Esterase Ur Negative LEU/UL (Negative); Nitrate Urine Negative (Negative); Non Pathogenic Casts 0-2; RBC Urine 0-2 /hpf (0-2); Squamous Epithelial Cell Urine None Seen /hpf (Few); Urobilinogen Urine 0.2 mg/dL (<2.0); WBC Urine 0-5 /hpf (0-3)
[2024-01-09] MEDS: NIFEdipine 10 MG CAPSULE PO (22:52)
--- NOTE | 2024-02-07 10:08 | PM.OBTRLD ---
OB - Triage/Final Diagnosis Visit Information Comments/Additional reasons for admission: I have assessed the risk for this patient, Delicia Hannon, and determined that she would benefit from observation care. Evaluation Laboratory results: Laboratory Tests 01/09/24 20:30 Urine Color Yellow Urine Appearance Clear Urine pH 7.0 Ur Specific [place] 1.010 Urine Protein Negative Urine Glucose (UA) Negative Urine Ketones Negative Ur Blood (Man) Trace-intact H Urine Nitrate Negative Urine Bilirubin Negative Urine Urobilinogen 0.2 Leukocyte Esterase Rfl Negative Urine RBC 0-2 Urine WBC 0-5 Ur Squamous Epith Cells None seen Urine Bacteria None seen Urine Casts 0-2 Final Diagnosis (1) Abdominal pain: Code(s): R10.9 - Unspecified abdominal pain Status: Acute
== END 2024-01-10 00:05 | disposition home or self-care (01) ==
PROVIDERS: Admitting Provider Obstetrics & Gynecology; Visit Provider Obstetrics & Gynecology
DX: O26.893 Other specified pregnancy related conditions, third trimester (principal); R10.9 Unspecified abdominal pain; Z3A.31 31 weeks gestation of pregnancy
CPT/HCPCS: 81003; A9270; G0378; G0379

== ENCOUNTER 2024-01-13 07:16 | Observation (INO) | payer OTHER, SELFPAY ==
[2024-01-13 07:31] VITALS: BP 113/65; PULSE 92; BMI 31.0
[2024-01-13 07:46] VITALS: BP 91/44; PULSE 78
[2024-01-13 08:00] VITALS: BP 114/63; PULSE 97
--- NOTE | 2024-02-07 10:19 | PM.OBTRLD ---
OB - Triage/Final Diagnosis Visit Information Comments/Additional reasons for admission: I have assessed the risk for this patient, Delicia Hannon, and determined that she would benefit from observation care. Final Diagnosis (1) False labor: Code(s): O47.9 - False labor, unspecified Status: Acute
== END 2024-01-13 08:20 | disposition home or self-care (01) ==
PROVIDERS: Admitting Provider Obstetrics & Gynecology; Visit Provider Obstetrics & Gynecology
DX: O47.03 False labor before 37 completed weeks of gestation, third trimester (principal); Z3A.32 32 weeks gestation of pregnancy
CPT/HCPCS: G0378; G0379

== ENCOUNTER 2024-03-01 20:11 | Inpatient (IN) | payer OTHER, SELFPAY ==
[2024-03-01] VITALS (16 sets, daily range): BP systolic 122; BP diastolic 53; PULSE 77–108; O2SAT 94–100; BMI 33.0
--- NOTE | 2024-03-01 21:01 | LDADM ---
This patient, Delicia Hannon, was admitted to OB Post 111 on 03/01/24 at 20:11. Plans for labor, pain management and were discussed with patient. Patient/family oriented to hospital policies and general routines including ID bracelet, bed and alarms, visiting hours, pain management, procedures, bathroom and other care routines, personal items, smoking policy, room service/diet and guest tray routines, infant security routines, and visiting hours. Patient/Family are encouraged to report perceived risks to care and to ask questions if they do not understand what they are told or what they should do. See OBIX for further documentation.
[2024-03-01 21:05] LABS: Basophils Percent Auto 0.1 % (0.2-1.2); Eosinophils Absolute Auto 0.1 K/mm3 (0-0.3); Eosinophils Percent Auto 0.7 % (0-4.4); Hematocrit 32.4 % (37.0-47.0); Immature Granulocyte Absolute 0.02 K/mm3 (0.00-0.031); Immature Granulocyte Percent A 0.3 % (0-0.5); Lymphocytes Absolute Auto 1.66 K/mm3 (0.9-3.2); Mean Corpuscular Hemoglobin 32.6 pg (26-34); Mean Corpuscular Volume 96.1 fl (80-100); Mean Platelet Volume 10.4 fl (7.4-10.4); Monocytes Absolute Auto 0.6 K/mm3 (0.1-0.6); Neutrophils Absolute Auto 4.6 K/mm3 (1.3-6.7); Neutrophils Percent Auto 65.9 % (45.5-73.1); Platelet Count Result 210 k/mm3 (150-375); Red Blood Count 3.37 M/mm3 (4.2-5.4); Red Cell Distribution Width 13.2 % (11.5-14.5); White Blood Count 6.9 K/mm3 (4.5-10.0)
[2024-03-01 21:27] LABS: Rapid Plasma Reagin Non-Reactive (NonReactive)
[2024-03-01 22:01] LABS: HIV 1/2 Ab P24 Ag Result Negative (Negative)
[2024-03-01 22:47] LABS: Rubella IgG Antibody 14.6 IU/ML
--- NOTE | 2024-03-01 22:47 | PC.NURSE ---
talked to Angelita Fallon CNM at this time. Orders recieved to give the patient Ambien
[2024-03-01] MEDS: ZOLPIDEM TARTRATE (*CRX) 5 MG TABLET PO (22:55)
[2024-03-02] VITALS (64 sets, daily range): BP systolic 71–118; BP diastolic 26–75; PULSE 53–107; RESP 12–16; TEMP 36.2–36.7; O2SAT 94–100
[2024-03-02] MEDS: ACETAMINOPHEN 500 MG TABLET 1000 MG PO (04:57)
[2024-03-02] MEDS: LACTATED RINGERS 1,000 ML 125 ML IV CONT ×2 (04:58→15:00)
--- NOTE | 2024-03-02 06:15 | PC.NURSE ---
In to start IV bolus for this AM. It was reported to this nurse that the patient is unsure if she wants a if the baby is vertex. Discussed this with the patient. Pt states she is unsure what to do. She wants to do whatever is safest. Explained there is no way to answer that question. There are risks with all types of deliveries. Discussed pt has the right to refuse a but Dr. Alejandro is also able to refuse induction. Pt will think about it.
--- NOTE | 2024-03-02 07:10 | PC.NURSE ---
Iv fluids on hold due to anesthesia stating will now be at 1230. Reported this to pt an S.O.
--- NOTE | 2024-03-02 08:15 | PC.NURSE ---
Dr. Alejandro at bedside, ultrasound performed. Fetus initially vertex then turned transverse. Pt agreeable to due to unstable lie.
--- NOTE | 2024-03-02 08:34 | P.HP_ITS ---
H&P: HPI History of Present Illness Date/Time: 03/02/24 08:34 Chief Complaint: Malposition of the fetus, polyhydramnios, unstable lie Narrative: 28-year-old multiparous female at term with unstable lie, polyhydramnios, malposition of the fetus. We have agreed to perform delivery. The patient understands the details of the procedure. The procedure has been explained in detail. She understands the risks. She understands that injuries may occur that result in hospitalization, more surgery, and severe illness. She understands risk of hemorrhage and infection. She denies any chest pain or shortness of breath. She denies any nausea, vomiting, fever, chills. Review of Systems Review of Systems: All systems reviewed & are unremarkable except as noted in HPI and below Constitutional: Constitutional: Denies chills, Denies fatigue, Denies fever(s) and Denies weakness Eyes: Eyes: Denies blurry vision, Denies change in vision, Denies loss of peripheral vision, Denies loss of vision, Denies other visual disturbances and Denies eye pain ENT: Denies vertigo, Denies dizziness, Denies hearing loss, Denies mouth pain, Denies nasal obstruction, Denies neck mass and Denies neck pain Cardiovascular: Cardiovascular: Denies chest pain, Denies diaphoresis, Denies syncope, Denies leg edema and Denies dyspnea Respiratory: Respiratory: Denies chest congestion, Denies cough, Denies hemoptysis, Denies dyspnea and Denies wheezing Gastrointestinal: Gastrointestinal: Denies abdominal pain, Denies constipation, Denies diarrhea, Denies nausea and Denies vomiting Genitourinary: Genitourinary: Denies hematuria, Denies change in libido, Denies nocturia, Denies genital lesions, Denies flank pain and Denies urinary urgency Musculoskeletal: Musculoskeletal: Denies abnormal gait, Denies back pain, Denies myalgias, Denies arthralgias, Denies joint swelling, Denies muscle weakness and Denies neck pain Integumentary/Breasts: Skin/Breast: Denies swelling, Denies breast pain, Denies breast mass, Denies dry skin, Denies nipple discharge, Denies unusual bruising and Denies jaundice Neurologic: Denies Neuro-related abnormal movements, Denies Abnormal speech present, Denies abnormal gait, Denies behavioral changes, Denies confusion, D enies vertigo, Denies dizziness, Denies syncope, Denies loss of vision, Denies memory loss, Denies convulsions and Denies weakness Psychiatric: Psychiatric: Denies abnormal sleep pattern, Denies behavioral changes, Denies change in libido, Denies confusion, Denies depression, Denies anhedonia and Denies memory loss Endocrine: Endocrine: Reports no additional endocrine complaints, Denies change in libido and Denies fatigue Hematologic/Lymphatic: Hematologic/Lymphatic: Reports no additional hematologic/lymphatic complaints Allergic/Immunologic: Allergic/Immunologic: Reports no additional allergic/immunologic complaints and Denies wheezing PMFSH Past Medical History Medical History Upper respiratory infection Surgical History Surgical History History of appendectomy Family History Family History Mother COPD (chronic obstructive pulmonary disease) Social History Social History Smoking packs per day: 0.5 Smoking cigarettes per day: 10.0 Smoking status: Never smoker Alcohol intake: current Alcohol use details: social Substance use: never Do You Feel Safe in your Home?: Yes Lack of Transportation: No Lack of Food: Never True Current Housing: I Have Housing Concerned About Future Housing: No Difficulty Paying Gas/Electric Bills: No Difficulty Paying for Meds: No Currently Unemployed: No Education: High School Diploma/GED Difficulty w/ Childcare or Family Care: No Living arrangements: alone Gender identity (if verbalized by the patient): Female Sexual Orientation (if Verbalized by the Patient): Straight or Heterosexual Spiritual care concerns: No Meds Home Medications and Allergies Home Medications Medication Instructions Recorded Confirmed Type vitamin-ferrous fumarate 1 tablet PO DAILY 07/30/23 01/13/24 History 28 mg iron-folic acid 800 mcg tablet ( Tablet) aspirin 81 mg capsule 81 mg PO DAILY 11/10/23 01/13/24 History doxylamine succinate 25 mg tablet 6.25 mg PO HS PRN Nausea 11/10/23 01/13/24 History (Unisom (doxylamine)) Allergies Allergy/AdvReac Type Severity Reaction Status Date / Time sulfamethoxazole Allergy Vomiting Verified 07/30/23 08:23 [From Bactrim] trimethoprim [From Bactrim] Allergy Vomiting Verified 07/30/23 08:23 Vital Signs Vital Signs - 24 hr 03/01/24 20:50 03/01/24 20:55 03/01/24 21:00 Pulse Rate Blood Pressure Pulse Oximetry 99 100 99 03/01/24 21:05 03/01/24 21:10 03/01/24 21:15 Pulse Rate Blood Pressure Pulse Oximetry 97 98 100 03/01/24 21:20 03/01/24 21:24 03/01/24 21:29 Pulse Rate Blood Pressure Pulse Oximetry 100 94 100 03/01/24 21:34 03/01/24 21:39 03/01/24 21:44 Pulse Rate Blood Pressure Pulse Oximetry 100 99 99 03/01/24 21:49 03/01/24 21:54 03/01/24 21:59 Pulse Rate Blood Pressure Pulse Oximetry 99 97 98 03/01/24 22:05 03/02/24 06:53 Pulse Rate 83 86 Blood Pressure 122/53 L 110/63 Pulse Oximetry Exam Const: General: cooperative, healthy appearing, comfortable and no acute distress Orientation/consciousness: oriented to person, oriented to place and oriented to time HENMT: Head: normal to inspection Ears: external ears normal Face/Nose/Sinus: Normal external nose present and normal facial exam Face and sinus: normal facial exam Eyes: General: appearance normal, both eyes and all related structures Neck: Neck: normal visual inspection, trachea midline and supple Resp: Auscultation: clear to auscultation bilaterally, no crackles, no rales, no rhonchi and no wheezes Cardio: Rate: regular rate Rhythm: regular rhythm Heart sounds: no click, no murmurs and no rubs GI: GI Palp: No abdominal tenderness, No Soft to palpation, No Tenderness to palpation present (GI) and No Palpable mass present Auscultation: normal bowel sounds Skin: General skin exam: normal color and no rashes or lesions noted Neuro: General: oriented to person, oriented to place and oriented to time Extrem: General: normal to inspection, no joint enlargement, no clubbing, cyanosis or edema, no pedal edema and no calf tenderness Psych: Appearance: grossly normal Mental Status: mental status grossly normal Speech and movement: Normal speech and movement present H&P: Results Labs Labs: Short CBC 03/01/24 Range/Units 20:34 WBC 6.9 (4.5-10.0) K/mm3 Hgb 11.0 L (12.0-15.0) g/dL Hct 32.4 L (37.0-47.0) % Plt Count 210 (150-375) k/mm3 Assessment and Plan Assessment and plan (1) Polyhydramnios: Code(s): O40.9XX0 - Polyhydramnios, unspecified trimester, not applicable or unspecified Status: Acute (2) Unstable lie of fetus: Code(s): O32.0XX0 - Maternal care for unstable lie, not applicable or unspecified Status: Acute (3) Malposition and malpresentation of fetus: Code(s): O32.9XX0 - Maternal care for malpresentation of fetus, unspecified, not applicable or unspecified Status: Acute Plan 28-year-old female with mild presentation of the fetus, unstable lie, severe polyhydramnios. We agreed to perform delivery. She understands risks, benefits, and alternatives. She has completed the informed consent process is ready to proceed.
--- NOTE | 2024-03-02 08:37 | WPDHPUPDATE1 ---
History and Physical Update Update Date/Time: 03/02/24 08:37 History and Physical has been reviewed, including an updated exam of the patient. There are NO changes in the patient's condition. Risks, benefits, and alternatives have been discussed and questions answered. Patient agrees to proceed with procedure.
--- NOTE | 2024-03-02 11:45 | WPDANESEPPF ---
Anes - Initial Pre Proc Eval Procedure: Operation Date: 03/02/24 07:30 Proposed Procedures p Section - Jeet Alejandro MD Date/Time: 03/02/24 11:45 Surgeon: Jeet Alejandro MD Pre Op Diagnosis: IOL Patient Data Age: 28 Gender: F Height: 1.57 m Weight: 82 kg Last Vital Signs Pulse 86 03/02/24 06:53 BP 110/63 03/02/24 06:53 Pulse Ox 98 03/01/24 21:59 Allergies Allergy/AdvReac Type Severity Reaction Status Date / Time No Known Allergies Allergy Verified 03/02/24 11:43 Home Medications Medication Instructions Recorded Confirmed Type vitamin-ferrous fumarate 1 tablet PO DAILY 07/30/23 01/13/24 History 28 mg iron-folic acid 800 mcg tablet ( Tablet) aspirin 81 mg capsule 81 mg PO DAILY 11/10/23 01/13/24 History doxylamine succinate 25 mg tablet 6.25 mg PO HS PRN Nausea 11/10/23 01/13/24 History (Unisom (doxylamine)) Laboratory Tests 03/01/24 20:34 WBC 6.9 K/mm3 (4.5-10.0) RBC 3.37 L M/mm3 (4.2-5.4) Hgb 11.0 L g/dL (12.0-15.0) Hct 32.4 L % (37.0-47.0) MCV 96.1 fl (80-100) MCH 32.6 pg (26-34) MCHC 34.0 g/dl (32-36) RDW 13.2 % (11.5-14.5) Plt Count 210 k/mm3 (150-375) MPV 10.4 fl (7.4-10.4) Immature Gran % (Auto) 0.3 % (0-0.5) Neut % (Auto) 65.9 % (45.5-73.1) Lymph % (Auto) 24.0 % (18.3-44.2) [place] % (Auto) 9.0 H % (2.6-8.5) Eos % (Auto) 0.7 % (0-4.4) Baso % (Auto) 0.1 L % (0.2-1.2) Lymph # (Auto) 1.66 K/mm3 (0.9-3.2) [place] # (Auto) 0.6 K/mm3 (0.1-0.6) Eos # (Auto) 0.1 K/mm3 (0-0.3) Baso # (Auto) 0.0 K/mm3 (0.0-0.1) Abs Immat Gran (auto) 0.02 K/mm3 (0.00-0.031) Absolute Neuts (auto) 4.6 K/mm3 (1.3-6.7) Absolute Nucleated RBC 0.000 K/mm3 (0.0-0.012) Nucleated RBC % 0.0 % (0.0-0.2) RPR Non-reactive (NonReactive) HIV 1&2 Ab/P24 Ag 4thGn Negative (Negative) Rubella IgG Antibody 14.6 IU/ML (10 - ) Blood Type O Positive Antibody Screen Negative Patient hx anesthesia problems: none Family hx anesthesia problems: none Results Review: All pre-operative results and documents have been reviewed as part of the pre-operative evaluation. [facility] Past Medical History Medical History (Updated 03/02/24 @ 11:45 by Abdon Combs MD) Polyhydramnios Upper respiratory infection Surgical History Surgical History History of appendectomy Family History Family History Mother COPD (chronic obstructive pulmonary disease) Social History Social History Smoking packs per day: 0.5 Smoking cigarettes per day: 10.0 Smoking status: Never smoker Alcohol intake: current Alcohol use details: social Substance use: never Do You Feel Safe in your Home?: Yes Lack of Transportation: No Lack of Food: Never True Current Housing: I Have Housing Concerned About Future Housing: No Difficulty Paying Gas/Electric Bills: No Difficulty Paying for Meds: No Currently Unemployed: No Education: High School Diploma/GED Difficulty w/ Childcare or Family Care: No Living arrangements: alone Gender identity (if verbalized by the patient): Female Sexual Orientation (if Verbalized by the Patient): Straight or Heterosexual Spiritual care concerns: No Anes - Eval Final PreProcedure Day of Procedure 03/02/24 11:45 Patient weight: obese Heart: regular rate and rhythm Lungs: clear to auscultation Airway: Mallampati scale class II Neurological: alert and oriented Last oral intake: >/= 8 hours ASA classification: II Emergent: no Anesthetic plan: proceed Anesthesia type and monitoring: regional spinal and standard monitoring Results Review: All pre-operative results and documents have been reviewed as part of the pre-operative evaluation. Informed Consent: The patient's anesthetic plan and its attendant risks and benefits were discussed with the patient/family/POA. Questions were solicited and answers provided to the satisfaction of the patient/family/POA.
[2024-03-02] MEDS: ONDANSETRON INJ 4 MG/2 ML VIAL IV PUSH (11:50)
[2024-03-02] MEDS: FAMOTIDINE 20 MG/2 ML VIAL IV PUSH (11:50)
[2024-03-02] MEDS: ceFAZolin 2 GM/D5W 50 ML 2 GM/50 ML BAG IVPB (12:25)
--- NOTE | 2024-03-02 13:17 | W.PM.OBCSD ---
OB - Delivery Note Procedure Delivery date: 03/02/24 Pre-op diagnosis: Polyhydramnios and Other (Presentation, unstable) Post-op Diagnosis: Same Procedure Performed: Primary Surgeon: Jeet Alejandro MD Anesthesia type: Spinal Description of Procedure/Findings: The patient was taken the operating room.? She was prepped and draped in dorsal supine position with a leftward tilt.? This was done after spinal anesthetic was applied.? A low-transverse skin incision was made and carried down till of the fascia with the knife.? The fascial incision was made with the knife.? The fascial incision was extended laterally with Baig scissors.? The fascia was tented upward superiorly and inferiorly the rectus muscles were dissected off bluntly.? The rectus muscles were the midline.? The preperitoneal fat and peritoneum were dissected open bluntly at the superior aspect of the rectus muscles.? The peritoneal incision was extended superior and inferior with good position of bladder.? The uterine incision was made with a scalpel down to the level of the amniotic cavity.? The amniotic cavity was entered bluntly.? The was delivered.? The cord was clamped and cut and the infant was handed off to waiting pediatric staff.? Cord bloods were obtained.? The placenta was removed manually.? The uterus was exteriorized.? The uterus was cleared of all clots, debris and membranes.? The uterus was closed in 0 Vicryl running lock fashion.? An imbricating over a was placed along the incision line as well.? The uterus was returned to the abdomen.? The gutters were cleared of all clots and debris.? The fascia was closed with 0 Vicryl running fashion.? The subcutaneous tissue was irrigated pinpoint bleeders were cauterized.? The skin was closed with subcuticular absorbable cm.? The skin incision line was covered with glue.? The patient tolerated the procedure well.? She has taken recovery room in stable condition.? Sponge lap and needle counts were correct x2.? [place] Baby Date of : 03/02/24 Gestational Age by Date: 39
[2024-03-02] MEDS: fentaNYL CITRATE INJ (*CRX) 100 MCG/2 ML VIAL 25 MCG IV PUSH (13:39)
[2024-03-02] MEDS: ACETAMINOPHEN 325 MG TABLET 650 MG PO ×2 (13:46→20:08)
[2024-03-02] MEDS: KETOROLAC 15 MG/ML VIAL (*BKC) IV PUSH ×2 (13:50→20:09)
[2024-03-02] MEDS: OXYTOCIN 30 UNITS/NS 500 ML 30 UNITS/500 ML BAG 125 UNITS IV CONT (15:00)
--- NOTE | 2024-03-02 15:36 | OBPPTRN ---
Patient transferred to post room #286 via stretcher. Support person present. Oriented to unit, room, information board, rooming in, admission packet and security measures. Patient verbalizes understanding.
[2024-03-02] MEDS: DOCUSATE SODIUM 100 MG CAPSULE PO (16:31)
[2024-03-02] MEDS: SIMETHICONE 80 MG TAB.CHEW PO (16:31)
[2024-03-02] MEDS: LIDOCAINE 5% PATCH 1 PATCH TRANSDERM (16:32)
[2024-03-02] MEDS: HYDROcodone/acetaminophen (*CRX) 5-325 MG TABLET 1 TAB PO ×2 (16:32→21:56)
[2024-03-02] MEDS: KCL 20 MEQ/D5/0.45% SOD CHL 1,000 ML 125 ML IV CONT (19:56)
[2024-03-02] MEDS: diphenhydrAMINE HCl CAP 25 MG CAPSULE PO (21:57)
[2024-03-03] MEDS: ACETAMINOPHEN 325 MG TABLET 650 MG PO ×4 (02:45→20:20)
[2024-03-03] MEDS: KETOROLAC 15 MG/ML VIAL (*BKC) IV PUSH ×2 (02:45→08:51)
[2024-03-03 04:03] VITALS: BP 88/46; PULSE 51; RESP 12; TEMP 37.2; O2SAT 96
[2024-03-03 04:59] LABS: Basophils Percent Auto 0.3 % (0.2-1.2); Eosinophils Absolute Auto 0.1 K/mm3 (0-0.3); Eosinophils Percent Auto 0.9 % (0-4.4); Hematocrit 25.1 % (37.0-47.0); Hemoglobin 8.3 g/dL (12.0-15.0); Immature Granulocyte Absolute 0.02 K/mm3 (0.00-0.031); Immature Granulocyte Percent A 0.3 % (0-0.5); Lymphocytes Absolute Auto 1.59 K/mm3 (0.9-3.2); Lymphocytes Percent Auto 21.5 % (18.3-44.2); Mean Corpuscular HGB Conc 33.1 g/dl (32-36); Mean Corpuscular Hemoglobin 32.5 pg (26-34); Mean Corpuscular Volume 98.4 fl (80-100); Monocytes Absolute Auto 0.7 K/mm3 (0.1-0.6); Monocytes Percent Auto 9.6 % (2.6-8.5); Neutrophils Percent Auto 67.4 % (45.5-73.1); Platelet Count Result 159 k/mm3 (150-375); Red Blood Count 2.55 M/mm3 (4.2-5.4); Red Cell Distribution Width 13.3 % (11.5-14.5); White Blood Count 7.4 K/mm3 (4.5-10.0)
[2024-03-03 05:13] VITALS: BP 99/52
--- NOTE | 2024-03-03 07:06 | WPDANLDPN2 ---
Anes-Prog Note L&D Date/Time: 03/03/24 07:06 Comfortable throughout: section Neuraxial method: spinal Epidural/Spinal procedure site: clean & non-tender Neuro status: Neuro function grossly intact. Cardiovascular status: normal Respiratory status: normal Airway patency: baseline Mental status: baseline Post-Op hydration status: normal Vital Signs: Last Vital Signs Temp 37.2 C 03/03/24 04:03 Pulse 51 L 03/03/24 04:03 Resp 12 03/03/24 04:03 BP 99/52 L 03/03/24 05:13 Pulse Ox 96 03/03/24 04:03 O2 Del Method Room Air 03/02/24 15:45 Pain score (VAS): 2/10 I/O: Intake & Output 03/02/24 03/02/24 03/03/24 15:59 23:59 07:59 Intake Total 1000 1000 Output Total 1565 1550 Balance -565 -550 Post-procedural complaints: none Patient feedback: Patient satisfied with anesthetic care.
--- NOTE | 2024-03-03 07:07 | WPDANLDNPN2 ---
Anes-Prog Note L&D-Neuraxial Date/Time: 03/03/24 07:07 Neuraxial medications: intrathecal PF morphine Opiod-related complaints: none Patient feedback: Patient satisfied with post-operative pain management.
[2024-03-03 07:15] VITALS: BP 92/47; PULSE 56; RESP 16; TEMP 37.3; O2SAT 100
[2024-03-03] MEDS: HYDROcodone/acetaminophen (*CRX) 5-325 MG TABLET 1 TAB PO ×4 (07:40→20:20)
[2024-03-03] MEDS: POLYSACCHARIDE IRON COMPLEX 150 MG CAPSULE PO ×2 (07:40→16:48)
[2024-03-03] MEDS: SIMETHICONE 80 MG TAB.CHEW PO ×3 (07:40→16:48)
--- NOTE | 2024-03-03 08:36 | PM.OBPNVD ---
OB - PN: Subj Subjective Date/time seen: 03/03/24 08:36 Patient comments: no complaints, pain well controlled and tolerating diet OB - PN: Obj Data Labs 03/03/24 04:20 Labs: Laboratory Results - last 24 hr 03/03/24 04:20 WBC 7.4 RBC 2.55 L Hgb 8.3 L Hct 25.1 L MCV 98.4 MCH 32.5 MCHC 33.1 RDW 13.3 Plt Count 159 MPV 11.0 H Immature Gran % (Auto) 0.3 Neut % (Auto) 67.4 Lymph % (Auto) 21.5 [place] % (Auto) 9.6 H Eos % (Auto) 0.9 Baso % (Auto) 0.3 Lymph # (Auto) 1.59 [place] # (Auto) 0.7 H Eos # (Auto) 0.1 Baso # (Auto) 0.0 Abs Immat Gran (auto) 0.02 Absolute Neuts (auto) 5.0 Absolute Nucleated RBC 0.000 Nucleated RBC % 0.0 OB - PN A/P Plan day: 2 Plan: routine care and discharge home Time Spent With Patient Time: Total time spent is greater than 50% in coordination of care (as documented) at patient's floor/unit and/or counseling patient: Exam Const: General: comfortable and no acute distress Resp: Effort & Inspection: normal respiratory effort Auscultation: no rales, no rhonchi and no wheezes Cardio: Rate: regular rate Heart sounds: no click, no murmurs and no rubs GI: GI Palp: Yes Soft to palpation and No Tenderness to palpation present (GI) Auscultation: normal bowel sounds Extrem: General: normal to inspection, no pedal edema and no calf tenderness
[2024-03-03] MEDS: MULTIVIT/MIN/PREN/FOL AC/IRON TABLET 1 TAB PO (08:54)
[2024-03-03] MEDS: DOCUSATE SODIUM 100 MG CAPSULE PO ×2 (08:54→16:48)
[2024-03-03 12:02] VITALS: BP 102/52; PULSE 58; RESP 16; TEMP 36.8; O2SAT 100
[2024-03-03] MEDS: IBUPROFEN 600 MG TABLET PO ×2 (15:20→20:20)
[2024-03-03] MEDS: LIDOCAINE 5% PATCH 1 PATCH TRANSDERM (16:49)
[2024-03-03 20:20] VITALS: BP 116/70; PULSE 71; RESP 18; TEMP 36.5; O2SAT 100
[2024-03-03] MEDS: HYDROcodone/acetaminophen (*CRX) 10-325 MG TABLET 1 TAB PO (23:35)
[2024-03-04] MEDS: ACETAMINOPHEN 325 MG TABLET 650 MG PO ×4 (02:20→23:14)
[2024-03-04] MEDS: HYDROcodone/acetaminophen (*CRX) 10-325 MG TABLET 1 TAB PO ×3 (02:20→11:12)
[2024-03-04] MEDS: IBUPROFEN 600 MG TABLET PO ×3 (02:20→14:20)
[2024-03-04 08:00] VITALS: BP 95/47; PULSE 74; RESP 16; TEMP 36.7; O2SAT 100
[2024-03-04] MEDS: MULTIVIT/MIN/PREN/FOL AC/IRON TABLET 1 TAB PO (08:12)
[2024-03-04] MEDS: DOCUSATE SODIUM 100 MG CAPSULE PO ×2 (08:13→17:27)
[2024-03-04] MEDS: POLYSACCHARIDE IRON COMPLEX 150 MG CAPSULE PO ×2 (08:13→17:27)
[2024-03-04] MEDS: SIMETHICONE 80 MG TAB.CHEW PO ×3 (08:15→17:26)
--- NOTE | 2024-03-04 09:42 | PM.OBPNVD ---
OB - PN: Subj Subjective Date/time seen: 03/04/24 09:42 Interval history: PPD#2 Doing well, sleeping when visited; discussed with Pain overall well controlled, was very active yesterday and is hurting more today Tolerating general diet Voiding without issue OB - PN: Obj Data Labs 03/03/24 04:20 OB - PN A/P Assessment and Plan (1) S/P : Code(s): Z98.891 - History of uterine scar from previous surgery Status: Acute Plan day: 2 Plan: routine care Time Spent With Patient Time: Total time spent is greater than 50% in coordination of care (as documented) at patient's floor/unit and/or counseling patient: Review of Systems Review of Systems: All systems reviewed & are unremarkable except as noted in HPI and below
[2024-03-04] MEDS: TETANUS,DIPHTHERIA,AC PERTUSSIS ADULT (0.5 ML) BOOSTRIX IM (11:13)
[2024-03-04] MEDS: HYDROcodone/acetaminophen (*CRX) 5-325 MG TABLET 1 TAB PO ×3 (14:20→23:14)
--- NOTE | 2024-03-04 17:33 | PC.NURSE ---
Patient viewed the discharge video Mother & Baby Care, The First Two Weeks . Patient was given the opportunity and encouraged to ask questions. Patient verbalized understanding of information shared and has been given the mother/baby guide for home reference.
[2024-03-04 20:00] VITALS: BP 112/70; PULSE 70; RESP 16; TEMP 36.8; O2SAT 99
[2024-03-05] MEDS: HYDROcodone/acetaminophen (*CRX) 5-325 MG TABLET 1 TAB PO ×3 (03:00→11:40)
[2024-03-05] MEDS: IBUPROFEN 600 MG TABLET PO ×2 (03:02→08:30)
[2024-03-05] MEDS: ACETAMINOPHEN 325 MG TABLET 650 MG PO ×2 (05:19→11:39)
[2024-03-05 08:00] VITALS: BP 97/47; PULSE 65; RESP 16; TEMP 36.6; O2SAT 99
--- NOTE | 2024-03-05 08:18 | PM.OBPNVD ---
OB - PN: Subj Subjective Date/time seen: 03/05/24 08:18 Interval history: PPD#3 Doing well Pain overall well controlled, having some burning of incision that improves with lidocaine patches Tolerating general diet Voiding without issue Ready for discharge home today OB - PN: Obj Data Labs 03/03/24 04:20 OB - PN A/P Assessment and Plan (1) S/P : Code(s): Z98.891 - History of uterine scar from previous surgery Status: Acute Plan day: 3 Plan: routine care and discharge home Time Spent With Patient Time: Total time spent is greater than 50% in coordination of care (as documented) at patient's floor/unit and/or counseling patient: Review of Systems Review of Systems: All systems reviewed & are unremarkable except as noted in HPI and below Exam Const: General: comfortable and no acute distress Orientation/consciousness: patient oriented x3 Resp: Effort & Inspection: normal respiratory effort GI: GI Palp: Yes Soft to palpation and No Tenderness to palpation present (GI) Other: incision c/d/i
--- NOTE | 2024-03-05 08:23 | PM.OBDSVD ---
DS: Admitting Diagnosis Discharge Date 03/05/24 Admitting Diagnosis induction of labor, transverse presentation DS: Discharge Diagnosis Discharge Diagnosis (1) S/P : Code(s): Z98.891 - History of uterine scar from previous surgery Status: Acute OB - DS: Summary OB Procedures : None OB Procedures Intrapartum: low cervical, transverse OB Procedures: : None Peripartum Data Procedures: Procedures Operation Date: 03/02/24 07:30 <No data on this case meets the specified criteria> Operation Date: 03/02/24 12:00 Actual Procedure Side Surgeon p Section Not Applicable Jeet Alejandro MD Time Spent with Patient Time attestation: Total time spent providing and/or coordinating discharge services: Discharge Plan Discharge Attending physician on discharge: Chaitanya Villanueva Discharging Clinician: Chaitanya Villanueva Patient Disposition: Home, Self-Care Activity: no shower, may drive after 2 weeks, as tolerated and pelvic rest Diet: as tolerated Patient Instructions: Antibiotic Form Stand Alone Forms: General Discharge Information Follow-up/Referrals: Jeet Alejandro MD [Physician] - 1 Week Discharge Medications: New hydrocodone-acetaminophen 5-325 mg Tablet 1 tablet PO Q3H PRN (Reason: Breakthrough Pain Rated 4-6) Qty: 18 0RF ibuprofen 600 mg Tablet 600 mg PO Q6H Qty: 30 0RF lidocaine [Lidoderm] 5 % Adhesive Patch,Medicated 1 patch transdermal DAILY PRN (Reason: Incision pain) Qty: 15 0RF docusate sodium 100 mg Capsule 100 mg PO BID Qty: 60 0RF Continued vit-iron fum-folic ac [ Tablet] 28 mg iron- 800 mcg Tablet 1 tablet PO DAILY Unisom (doxylamine) 25 mg Tablet 6.25 mg PO HS PRN (Reason: Nausea) Slow Fe 47.5 mg iron Tablet Extended Release 47.5 mg PO DAILY Date of admission: 03/01/24 20:11 Primary Care Provider: UNKNOWN,DOCTOR Admitting Provider: Jeet Alejandro Attending physician on admission: Jeet Alejandro Condition: Stable
[2024-03-05] MEDS: POLYSACCHARIDE IRON COMPLEX 150 MG CAPSULE PO (08:31)
[2024-03-05] MEDS: SIMETHICONE 80 MG TAB.CHEW PO ×2 (08:31→11:40)
[2024-03-05] MEDS: MULTIVIT/MIN/PREN/FOL AC/IRON TABLET 1 TAB PO (08:31)
[2024-03-05] MEDS: DOCUSATE SODIUM 100 MG CAPSULE PO (08:31)
[2024-03-05] MEDS: LIDOCAINE 5% PATCH 1 PATCH TRANSDERM (11:41)
[2024-03-06 10:28] VITALS: BP 122/65; PULSE 57; RESP 18; TEMP 36.7; O2SAT 100
== END 2024-03-05 12:15 | disposition home or self-care (01) | DRG 540 ==
LOC: ANHOB2 03-05 10:17 → ANHOBPP 03-06 11:09
PROVIDERS: Admitting Provider Obstetrics & Gynecology; Visit Provider Obstetrics & Gynecology
PROC: 10D00Z1 Extraction of Products of Conception, Low, Open Approach (ICD-10-PCS; CPT 59514; principal; 2024-03-02 12:00)
DX: O32.0XX1 Maternal care for unstable lie, fetus 1 (principal); O40.3XX0 Polyhydramnios, third trimester, not applicable or unspecified; O69.81X0 Labor and delivery complicated by cord around neck, without compression, not applicable or unspecified; Z3A.39 39 weeks gestation of pregnancy; Z37.0 Single live birth; Z90.49 Acquired absence of other specified parts of digestive tract
CPT/HCPCS: 36415; 85025; 86592; 86703; 86762; 86850; 86900; 86901; 90715; A9270; G0432; J0690; J1885; J2274; J2371; J2405; J2590; J3010; J3480; J7120

== ENCOUNTER 2024-03-09 11:15 | Outpatient (CLI) | payer OTHER, SELFPAY ==
[2024-03-09] VITALS (8 sets, daily range): BP systolic 112–144; BP diastolic 55–68; PULSE 43–55; RESP 16; TEMP 36.3; BMI 31.0
[2024-03-09 12:14] LABS: Basophils Percent Auto 0.2 % (0.2-1.2); Eosinophils Absolute Auto 0.1 K/mm3 (0-0.3); Eosinophils Percent Auto 1.2 % (0-4.4); Hematocrit 25.1 % (37.0-47.0); Hemoglobin 8.4 g/dL (12.0-15.0); Immature Granulocyte Absolute 0.01 K/mm3 (0.00-0.031); Immature Granulocyte Percent A 0.2 % (0-0.5); Lymphocytes Absolute Auto 1.14 K/mm3 (0.9-3.2); Lymphocytes Percent Auto 18.8 % (18.3-44.2); Mean Corpuscular HGB Conc 33.5 g/dl (32-36); Mean Corpuscular Hemoglobin 32.8 pg (26-34); Mean Platelet Volume 9.5 fl (7.4-10.4); Monocytes Absolute Auto 0.6 K/mm3 (0.1-0.6); Monocytes Percent Auto 10.4 % (2.6-8.5); Neutrophils Absolute Auto 4.2 K/mm3 (1.3-6.7); Neutrophils Percent Auto 69.2 % (45.5-73.1); Platelet Count Result 294 k/mm3 (150-375); Red Blood Count 2.56 M/mm3 (4.2-5.4); White Blood Count 6.1 K/mm3 (4.5-10.0)
[2024-03-09 12:24] LABS: Alanine Aminotransferase 28 U/L (6-35); Albumin Level 3.2 g/dL (3.5-5.1); Alkaline Phosphatase 97 U/L (38-126); Anion Gap 6 mmol/L (4-12); Aspartate Amino Transferase 29 U/L (14-36); Bilirubin,Total 0.2 mg/dL (0.2-1.3); Blood Urea Nitrogen 18 mg/dL (7-17); Calcium 8.4 mg/dL (8.4-10.2); Carbon Dioxide 27 mmol/L (22-30); Chloride 105 mmol/L (98-107); Estimated Glomerular Filt Rate > 60; Glucose 88 mg/dL (65-110); Potassium 4.3 mmol/L (3.4-5.0); Sodium 138 mmol/L (137-145); Uric Acid 4.8 mg/dL (2.5-7.5)
--- NOTE | 2024-03-09 13:28 | PC.NURSE ---
Dr. Alejandro informed of lab results, and vital signs including Pulse in the 40's. OK to discharge to home.
== END 2024-03-09 13:35 | disposition home or self-care (01) ==
LOC: ANHOBOP 11:20 → ANHOBPP 11:21
PROVIDERS: Visit Provider Obstetrics & Gynecology
DX: O16.5 Unspecified maternal hypertension, complicating the puerperium (principal)
CPT/HCPCS: 36415; 80053; 84550; 85025; 99199

== ENCOUNTER 2024-06-18 12:03 | Emergency (ER) | payer OTHER, SELFPAY ==
--- OUTSIDE RECORDS SUMMARY | 2024-06-18 12:05 | XMS_ITS | Data Portability ---
Author Organization [facility] [place] Address [address] [place] [address] [place] [address] Assessment Encounter Date Assessment Date Assessment LastModified by Organization Details LastModified Time 02/23/2024 02/23/2024 Patient is ___weeks . Discussed plan. Not available 02/23/2024 16:45:58 03/01/2024 03/01/2024 Patient is ___weeks . Discussed plan. Not available 03/01/2024 16:18:19 Plan of Treatment Reminders Order Date Submit Date Provider Last Modified By Organization Details Last Modified Time Details Appointments [facility] 2024 01:15P Molina JUAN MD Not available Not available Not available Lab None recorded. Referral None recorded. Procedures None recorded. Surgeries section (SURG) 2023 024 [id number] Amanda Surgery [facility], [address], [place], [address], 03/03/2024 16:07:54 Imaging US, obstetric , biophysic al profile 2023 024 [email or web address] [place], [address], [place], [address], 03/01/2024 20:57:08 Medication Orders None recorded. Patient TargetsNo targets recorded. Patient InstructionsNo instructions recorded. Reason for Referral None Reported. Results Created Date Observation Date Name Description Value Unit Range Abnormal Flag Note LastModifiedBy Organization Detail LastModifiedTime 02/10/2002/10/2024 CULTU RE: GROUP B STREP SCREE N, REFLE X SUSCE PTIBI LITY result report SEE RESULT S BELOW Test: Cultu re: Group B Strep , Refle x Susce ptibi lity ([facility]/ [facility] ) Speci men Sourc e: Vagin a/Rec terrance Speci men Type: Vagin al/Re ctal Speci men Date: 2023 1539 Resul t Date: 2023 1357 Resul t Statu s: Final resul t Abnor mal: No Resul ting Lab: [facility] [address] [facility] [address] Tel: CULTU RE ----- ----- ----- --- No Group B strep isola jeremy at 2 days (aleta ctive broth enhan cemen t) Not Available [facility] (Lab) [address], [place], [address], 02/13/2024 15:01:55 01/28/20 24 01/28/2024 US, obste tric, follo w-up No observ ation record ed. [facility] [address] [place], [address], 01/31/2024 11:11:12 01/31/20 24 01/28/2024 US, obste tric, follo w-up No observ ation record ed. [facility] [place] [address] [place], [address], 02/03/2024 13:42:06 02/17/20 24 02/17/2024 US, obste tric, follo w-up No observ ation record ed. [facility] [address], [place], [address], 02/17/2024 15:17:53 02/17/20 24 02/17/2024 US, obste tric, bioph ysica l profi le No observ ation record ed. [facility] [address], [place], [address], 02/17/2024 15:18:05 02/17/2002/17/2024 US, obste tric, follo w-up No observ ation record ed. [address], [place], [address], 02/18/2024 13:47:20 02/23/2002/24/2024 US, obste tric, bioph ysica l profi le No observ ation record ed. [email or web address] [place] [address], [place], [address], 02/24/2024 10:34:32 02/23/2002/23/2024 US, obste tric, bioph ysica l profi le No observ ation record ed. [email or web address] [address], [place], [address], 02/23/2024 20:59:23 03/01/2003/01/2024 US, obste tric, bioph ysica l profi le No observ ation record ed. [facility] [address], [place], [address], 03/01/2024 17:56:02 03/01/2003/01/2024 US, obste tric, bioph ysica l profi le No observ ation record ed. [email or web address] [address], [place], [address], 03/01/2024 21:25:24 Result Notes None recorded. Problems Name Problem SNOMED Code Status Onset Date Resolution Date Notes Provider Name and Address Organization Details Recorded Time Pregnanc y 72065159 Completed 202303/06/2024 Stef Zamarripa [place], [place] - [facility] 14:44:53 Past pregnanc y history of pre-ecla mpsia 3778357060 32974 Completed not delivere d early Jeet S. Beer, MD [address], [place], [address], [facility] 4 17:57:33 Large for gestatio n age fetus 661575982 Completed history of 8 lb 14 oz vaginal - prolonge d 2nd stage of labor. Jeet Juan MD [address], [place], [address], [facility] 4 17:57:33 Cystic fibrosis screenin g Completed carrier (known) - low risk Jeet Juan MD [address], [place], [address], [facility] 4 17:57:33 heart rhythm - finding 902618176 Completed not seen when she went to [facility] Jeet Juan MD [address], [place], [address], [facility] 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 4 17:57:33 History of abnormal cervical Papanico laou smear 844366250 Active 2023 3 lgsil +HPV Tiffanie Lynch [facility], [facility] 4 10:15:09 Problem Notes None recorded. Procedures Surgical History Date Name Laterality Status Provider Name and Address Organization Details Recorded Time 03/01/20 24 SECTION (SURG) completed Nicole Mandujano [facility] 03/02/2024 15:02:55 06/09/19 24 Date of Last Pap Smear completed Tiffanie Lynch [facility] 12/13/2023 10:11:19 06/09/19 24 Colposcopy completed [facility] 01/17/2024 17:22:13 06/09/19 24 Colposcopy completed [facility] 12/13/2023 10:13:06 03/22/20 23 Colposcopy completed [facility] 01/17/2024 17:23:20 05/10/19 22 termination of completed [facility] 07/20/2023 12:04:40 05/10/19 19 termination of completed [facility] 07/20/2023 12:04:37 05/10/19 17 extraction of wisdom tooth completed [facility] 07/20/2023 12:04:22 05/10/19 13 extraction of wisdom tooth completed [facility] 07/20/2023 12:04:03 05/10/19 06 Appendectomy completed [facility] 07/20/2023 12:03:41 Imaging Results Imaging Date Name Status LastModified by Organiz ation Details LastModified Time 01/28/2024 US, obstetric, follow-up completed [facility] [address] [place], [address], 01/31/2024 11:11:12 01/28/2024 US, obstetric, follow-up completed [facility] [address] [place], [address], 02/03/2024 13:42:06 02/17/2024 US, obstetric, follow-up completed [email or web address] [place] [address], [place], [address], 02/17/2024 15:17:53 02/17/2024 US, obstetric, biophysical profile completed [facility] [address], [place], [address], 02/17/2024 15:18:05 02/17/2024 US, obstetric, follow-up completed [email or web address] [address], [place], [address], 02/18/2024 13:47:20 02/24/2024 US, obstetric, biophysical profile completed [email or web address] [place] [address], [place], [address], 02/24/2024 10:34:32 02/23/2024 US, obstetric, biophysical profile completed [email or web address] [address], [place], [address], 02/23/2024 20:59:23 03/01/2024 US, obstetric, biophysical profile completed [facility] [address], [place], [address], 03/01/2024 17:56:02 03/01/2024 US, obstetric, biophysical profile completed [email or web address], [place], [address], 03/01/2024 21:25:24 Procedure Notes None recorded. Medical Equipment None Reported. Allergies No known drug allergies Medications Name Sig Start Date Stop Date Status Note LastModified by Organization Details LastModified Time amoxicillin 500 mg capsule TAKE ONE CAPSULE BY MOUTH THREE TIMES DAILY FOR 10 DAYS 06/09 completed Not Available Not Available Not Available Vitamin B-6 25 mg tablet TAKE 1 TABLET BY MOUTH 3 TIMES DAILY 12/25 completed Not Available Not Available Not Available ibuprofen 800 mg tablet TAKE 1 TABLET BY MOUTH EVERY 8 HOURS FOR 1 TO 2 DAYS PRIOR TO ONSET OF MENSES THROUGH DAY 2 TO 3 OF CYCLE EACH MONTH 06/09 completed Not Available Not Available Not Available fluconazole 150 mg tablet TAKE 1 TABLET BY MOUTH NOW. REPEAT IN 7 DAYS IF SYMPTOMS PERSIST 06/09 completed Not Available Not Available Not Available hydrocodone 5 mg-acetamin ophen 325 mg tablet 1 TABLET ORALLY EVERY 3 HOURS NEEDED FOR BREAKTHRO UGH PAIN RATED 4-6 04/12 completed Not Available Not Available Not Available sulfamethox azole 800 mg-trimetho prim 160 mg tablet TAKE 1 TABLET BY MOUTH EVERY 12 HOURS FOR 5 DAYS 06/09 completed Not Available Not Available Not Available cephalexin 500 mg capsule TAKE 1 CAPSULE BY MOUTH EVERY 12 HOURS FOR 7 DAYS 09/05 completed Not Available Not Available Not Available lidocaine 5 % topical patch APPLY 1 PATCH TO SKIN DAILY NEEDED FOR INCISION PAIN 04/12 completed Not Available Not Available Not Available polymyxin B sulfate 10,000 unit-trimet hoprim 1 mg/mL eye drops INSTILL 1 DROP IN LEFT EYE EVERY 4 HOURS WHILE AWAKE FOR 7 DAYS. DO NOT EXCEED 6 DOSES IN 24 HOURS 06/09 completed Not Available Not Available Not Available docusate sodium 100 mg capsule TAKE 1 CAPSULE BY MOUTH TWICE DAILY 04/12 completed Not Available Not Available Not Available codeine 10 mg-guaifene sin 100 mg/5 mL oral liquid TAKE 10 ML BY MOUTH EVERY 4 TO 6 HOURS NEEDED FOR COUGH 06/09 completed Not Available Not Available Not Available ibuprofen 600 mg tablet TAKE 1 TABLET BY MOUTH EVERY 6 HOURS 04/12 completed Not Available Not Available Not Available albuterol sulfate HFA 90 mcg/actuati on aerosol inhaler INHALE 2 PUFFS BY MOUTH EVERY 6 HOURS NEEDED FOR WHEEZING 06/09 completed Not Available Not Available Not Available amoxicillin 875 mg-potassiu m clavulanate 125 mg tablet TAKE 1 TABLET BY MOUTH EVERY 12 HOURS FOR 10 DAYS 06/09 completed Not Available Not Available Not Available nitrofurant oin monohydrate /macrocryst als 100 mg capsule 06/09 completed Not Available Not Available Not Available Iron (ferrous sulfate) active Not Available Not Available Not Available Unisom (doxylamine ) 04/12 completed Not Available Not Available Not Available VP GENETIC-PNV-DHA 28 mg iron-1 mg-200 mg capsule Take 1 capsule every day by oral route. 04/12 completed Not Available Not Available Not Available Paxlovid 300 mg (150 mg x 2)-100 mg tablets in a dose pack TAKE 2 NIRMATREL VIR TABLETS AND 1 RITONAVIR TABLET TOGETHER BY MOUTH TWICE DAILY FOR 5 DAYS 06/09 completed Not Available Not Available Not Available Vitals Date Recorded Body height Body mass index (BMI) Body weight Systolic blood pressure Diastolic blood pressure Provider Name and Address Organization Details Last Updated DateTime 02/23/2024 157.48 cm 32.4 kg/m2 00804.85 g 123 mm[Hg] 77 mm[Hg] [facility] 16:46:38 Date Recorded Body weight Systolic blood pressure Diastolic blood pressure Provider Name and Address Organization Details Last Updated DateTime 03/01/2024 07924.4418 6 g 123 mm[Hg] 84 mm[Hg] [facility] 03/01/2024 16:18:49 Date Recorded Body height Body mass index (BMI) Body weight Systolic blood pressure Diastolic blood pressure Systolic blood pressure Diastolic blood pressure Provider Name and Address Organization Details Last Updated DateTime 157.48 cm 30.9 kg/m2 42250.1 1 g 174 mm[Hg] 111 mm[Hg] 162 mm[Hg] 96 mm[Hg] [facility] 11:37:08 Date Recorded Body height Body mass index (BMI) Body weight Systolic blood pressure Diastolic blood pressure Provider Name and Address Organization Details Last Updated DateTime 04/12/2024 157.48 cm 28.5 kg/m2 52571.41 g 102 mm[Hg] 65 mm[Hg] [facility] 18:27:11 Social History Question Answer Notes LastModified by Organizat ion Details LastModified Time Tobacco Smoking Status Never Smoker israel levin [facility] 07/20/2023 12:03:18 What Is Your Level Of Alcohol Consumption? None [email or web address] Information not available 07/20/2023 If You Are , What Was Your Level Of Alcohol Consumption Prior To ? Occasional [email or web address] Information not available 07/20/2023 Are You Blind Or Do You Have Difficulty Seeing? No [email or web address] Information not available 07/20/2023 What Is Your Level Of Caffeine Consumption? Moderate [email or web address] Information not available 07/20/2023 In The 14 Days Before Symptom Onset, Have You Had Close Contact With A Laboratory-confir med COVID-19 While That Case Was Ill? No Information not available 06/09/2023 In The 14 Days Before Symptom Onset, Have You Had Close Contact With A Person Who Is Under Investigation For COVID-19 While That Person Was Ill? No Information not available 06/09/2023 Have You Been To An Area Known To Be High Risk For COVID-19? No Information not available 06/09/2023 Are You Deaf Or Do You Have Serious Difficulty Hearing? No [email or web address] Information not available 07/20/2023 What Type Of Diet Are You Following? REGULAR [email or web address] Information not available 07/20/2023 Do You Or Have You Ever Used E-cigarettes Or Vape? Current User Of Electronic Cigarettes [email or web address] Information not available 07/20/2023 What Is The Highest Grade Or Level Of School You Have Completed Or The Highest Degree You Have Received? 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 No Information not available 07/20/2023 Do You Use Protection During Sex? No [email or web address] Information not available 07/20/2023 Do You Use Your Seat Belt Or Car Seat Routinely? Yes [email or web address] Information not available 07/20/2023 Do You Have Smoke And Carbon Monoxide Detectors In Your Home? Yes Information not available 07/20/2023 How Much Tobacco Do You Smoke? No [email or web address] Information not available 07/20/2023 Do You Use Any Illicit Or Recreational Drugs? No Information not available 06/09/2023 Do You Use Sunscreen Routinely? No [email or web address] Information not available 07/20/2023 Have You Used IV Drugs? No [email or web address] Information not available 07/20/2023 Do You Or Have You Ever Used Any Other Forms Of Tobacco Or Nicotine? Yes [email or web address] Information not available 07/20/2023 Sex: Unknown Functional Status Question Answer Note LastModified by Organizat ion Details LastModified Time Do you have difficulty walking or climbing stairs? No [email or web address] Information not available 07/20/2023 Are you able to walk? YESWOREST [email or web address] Information not available 07/20/2023 Are you able to care for yourself? Yes [email or web address] Information not available 07/20/2023 Do you have difficulty dressing or bathing? No [email or web address] Information not available 07/20/2023 What is your exercise level? None Information not available 07/20/2023 Mental Status None recorded. Family History Relationship Description Onset Age of this Age Resolved Age Notes LastModified by Organization Details LastModified Time Paternal Aunt Malignant tumor of breast Not available 2023 12:19:05 Maternal Aunt Malignant tumor of cervix Not available 2023 12:19:14 Medical History Condition Response Allergies (Food, seasonal, environmental ) N Other Y Breast Cancer N Drug/Latex Allergies/Reactions N Blood Transfusion N Dermatologic Disorders N Lung Disease N Defects or Inherited Disease N Breast Problem N Gestational Diabetes N Hematologic disorders N Anesthesia Complications N History of STI Y Deep Vein Thrombosis N Polycystic ovary syndrome N Anxiety Disorder N Autoimmune disease N Arthritis N Infertility N Polyps N Acid Reflux (GERD) N History of abnormal pap Y Cancer N Stroke N Varicosities N Neurologic/Epilepsy N Endometriosis N High Cholesterol N Headaches N Fibromyalgia N Kidney Disease N Heart Problems N Kidney or Bladder Problems N Thyroid Problems N GI Problems N Eating Disorder N Anemia N Art (IVF or FET) N Psychiatric Illness N Ovarian Cancer N Diabetes N Pulmonary (TB, Asthma) N Hepatitis/Liver Disease N No Past Medical History N Eczema N Urinary Tract Infection N Abuse/Domestic Violence N Asthma N Trauma/Violence N Depression/ depression N Heart Disease N Pre-Eclampsia Y Hypertension N Osteoporosis N Thrombophilias N Gynecological History Statement/Question Response Abnormal Pap Y Flow Moderate Date of Last Mammogram Date of LMP 05/28/2023 N On BCP's at Conception? N STIs/STDs Y Was last menstrual period normal Y HPV Vaccine Y Colposcopy 06/09/2023 Duration of Flow (days) 5 Current Control Method None Age at First Child 21 Are cycles usually normal Y Frequency of Cycle (Q days) 28 Sexually Active? Y Menses Monthly Y Date of DEXA bone scan Age of first menstrual cycle 11 Date of Last Pap Smear 06/09/2023 Sexual Problems? N LMP Definite N Obstetrics History GPAL:G 7 P 3 0 4 3 Type Value Full Term 3 Induced 2 Spontaneous 2 Living 3 Total 7 Past Encounters Encounter ID Performer Location Encounter Start Date Encounter Closed Date Diagnosis/Indication Diagnosis SNOMED-CT Code Diagnosis ICD10 Code Diagnosis Note [id number] Smita Mariano [facility] [address] [address] 06/09/2023 11:30:49 06/09/2023 14:11:52 Low grade squamous intraepithelial lesion on cervical Papanicolaou smear 9585681994 9105 R87.612 Today we discussed HPV and abnormal pap smears in depth. Counseled on Pap/HPV guidelines /Testing/R esults with understand ing verbalized .All questions answered to patient satisfacti on. Booklet & additional resources regarding pap smear/HPV/ Pap results given. [email or web address] [email or web address].cancer.g ov/types/c ervical/un derstandin g-abnormal -hpv-and-p ap-test-re sults/unde rstanding- cervical-c hanges.pdf STD screen complete doneECC sent (not done on previous colposcopy HPV testing completed- sent Will sign up for portal so has access to her results/no esthela. Appreciati ve of informatio n and counseling .Will reach out with results.He alth Hx was reviewed and updated as reported in chart. Time spent in visit is a total of 30 mins with at least 50% of visit consisting of counseling and review of plan of care. Sexually t ransmitted infectious disease 9483930 A64 [id number] Macarena [facility] [address] [address] 07/20/2023 11:16:55 07/20/2023 11:58:23 Uterine size for dates discrepancy 523188271 O26.841 Z3A.01 [id number] Jeet Juan MD [place] [address],[place] [address] 07/20/2023 11:17:18 07/20/2023 12:35:54 Amenorrhea 34320856 N91.2 this is a 27-year-ol d female, multiparou s, who presents with amenorrhea . She has a positive test and a pelvic ultrasound reveals a 6 weeks' gestation. We discussed care in the early part of the . We discussed genetic screening in the ultrasound results today. We discussed the 12 week ultrasound . Discussed precaution s in . We spent 20 minutes face-to-fa ce. More than 50% was counseling . Venereal d isease screening 387443304 Z11.3 [id number] [facility] [address],[place] [address] 08/03/2023 13:51:47 08/03/2023 14:30:31 [id number] Jeet Juan MD [place] [address],[place] [address] 09/01/2023 15:51:10 09/01/2023 20:48:15 [id number] [facility] [address] [place] [address] 09/01/2023 15:51:25 09/01/2023 16:53:06 screening 141497132 Z36.82 Z3A.12 [id number] Jeet Juan MD [place] [address],[place] [address] 09/06/2023 11:01:33 09/07/2023 02:09:15 Routine care 755438498 Z34.92 Nausea and vomiting 1693 1999 R11.2 [id number] Jeet Juan MD [place] [address] [place] [address] 10/06/2023 14:22:57 10/06/2023 15:34:22 Routine care 587237869 Z34.92 [id number] [facility] [address] [place] [address] 10/21/2023 14:14:42 10/21/2023 15:20:57 screening for malformation 843199850 Z36.3 Z3A.20 [id number] MD Lalo Grover [address],[place] [address] 10/21/2023 15:20:37 10/21/2023 16:50:28 Routine care 384252649 Z34.92 [id number] MD Lalo Grover [address],[place] [address] 11/17/2023 16:54:11 11/17/2023 23:37:59 Routine care 078653589 Z34.92 [id number] MD Lalo Grover [address],[place] [address] 12/13/2023 09:50:36 12/13/2023 14:51:00 Routine care 294785704 Z34.92 [id number] Bhavna Smith [place] [address],[place] [address] 12/23/2023 10:51:00 12/23/2023 11:57:25 Medical examination for suspected condition 731443264 Z03.75 Z3A.29 [id number] MD Lalo Grover [address],[place] [address] 12/27/2023 15:29:37 12/27/2023 16:51:28 Routine care 886446049 Z34.92 [id number] MD Lalo Grover [address],[place] [address] 01/12/2024 17:47:42 01/13/2024 09:26:20 Irregular uterine contractions 48275361 O62.2 [id number] MD Lalo Grover [address],[place] [address] 01/17/2024 17:15:24 01/18/2024 03:38:28 Routine care 008565265 Z34.92 [id number] MD Lalo Grover [address],[place] [address] 02/04/2024 14:40:15 02/04/2024 15:18:00 Routine care 388872481 Z34.92 [id number] Jeet Juan MD [place] [address],[place] [address] 02/10/2024 15:40:55 02/10/2024 16:22:19 Routine care 918452540 Z34.92 [id number] [facility] [address],[place] [address] 02/17/2024 13:54:28 02/17/2024 14:36:54 Polyhydramnios 20912028 O40.3XX0 Z87.59 [id number] Jeet Juan MD [place] [address],[place] [address] 02/17/2024 13:54:41 02/17/2024 15:29:02 Routine care 830699718 Z34.92 [id number] Jeet Juan MD [place] [address],[place] [address] 02/23/2024 16:41:24 02/23/2024 17:21:59 Routine care 701310556 Z34.92 [id number] [facility] [address],[place] [address] 02/23/2024 17:10:19 02/24/2024 09:42:58 Polyhydramnios 57891906 O40.3XX0 Z87.59 Z3A.37 [id number] [facility] [address],[place] [address] 03/01/2024 15:28:44 03/01/2024 16:03:36 Polyhydramnios 15766052 O40.3XX0 Z87.59 Z3A.38 [id number] Jeet Juan MD [place] [address] [address] 03/01/2024 15:29:09 03/02/2024 07:48:01 Unstable lie 52020414 O32.0XX9 [id number] Jeet Juan MD [place] [address] [address] 03/09/2024 11:07:51 03/09/2024 12:11:03 Postoperative care 948118058 Z48.89 This patient is a 36-year-ol d female who presents for postop follow-up. She is 1 week postop from a delivery. Her incision is clean dry and intact. She has no complaints . Her bleeding is minimal. She denies any nausea, vomiting, fever, chills. She denies any chest pain or shortness of breath. Her baby is doing well. Her mood is good. elevated blood pressures, severe range, to be seen in [facility]. Needs CBC for severe anemia also. [id number] Jeet Juan MD [place] [address] [address] 04/12/2024 17:51:02 04/13/2024 09:43:24 care 908570393 Z39.2 this patient is a 28-year-ol d female who presents for follow-up. She is 6 weeks from a delivery. Her baby is doing well. The baby is bottle feeding. The mother is doing very well. She is not bleeding any longer. She has not had sex. She is she is going to return in 1-2 months for well-woman exam. She has an abnormal Pap smear to follow-up on. Health Concerns Section Related Observation LastModified by Organization Detai ls LastModified Time None Recorded Concern Status LastModified by Organization Details LastModified Time None Recorded Advance Directives Directive None Recorded Payers Encounter Date Sequence Insurance Name Policy Number Policy [place] Covered Member ID [place] Member ID Guarantor Name 02/23/2024 1 [employer] (MEDICAID HMO) [id number] Delicia Hannon [id number] Delicia Hannon 03/01/2024 1 [employer] (MEDICAID HMO) [id number] Delicia Hannon [id number] Delicia Hannon 03/01/2024 1 [employer] (MEDICAID HMO) [id number] Delicia Hannon [id number] Delicia Hannon 03/09/2024 1 [employer] (MEDICAID HMO) [id number] Delicia Hannon [id number] Delicia Hannon 04/12/2024 1 [employer] (MEDICAID HMO) [id number] Delicia Hannon [id number] Delicia Hannon Notes Date Note Type Note Provider Name and Address Organization Details Recorded Time 03/09/2024 text/html This patient is a 36-year-old female who presents for postop follow-up. She is 1 week postop from a delivery. Her incision is clean dry and intact. She has no complaints. Her bleeding is minimal. She denies any nausea, vomiting, fever, chills. She denies any chest pain or shortness of breath. Her baby is doing well. Her mood is good. elevated blood pressures, severe range, to be seen in L and D. Needs CBC for severe anemia also. Jeet Juan MD [address], [place], [address], [facility] 03/09/2024 12:08:37 04/12/2024 text/html this patient is a 28-year-old female who presents for follow-up. She is 6 weeks from a delivery. Her baby is doing well. The baby is bottle feeding. The mother is doing very well. She is not bleeding any longer. She has not had sex. She is she is going to return in 1-2 months for well-woman exam. She has an abnormal Pap smear to follow-up on. Jeet Juan MD [address], [place], [address], [facility] 04/12/2024 18:54:41 OBGyn Episode Ob Episode Information Episode Created Date Number of Fetuses Patient Bloodtype Patient rh Status Prepregnancy Weight lbs Domestic Partner Domestic Partner Phone Father Name Washer Operator Status 06/09/19 24 1 CLOSED Fetus Data First Name Last Name Admitted to NICU Weight (g) Sex Living Outcome Pediatric Complications Fetus ID Race Codes Race Delivery Type 3345.24 1 F Full Term [id number] Vaginal Delivery Aaron Calculation Initial Aaron Date Initial Exam Date Initial Exam Provider Initial Ultrasound Date Last Menstrual Period Date Ultra Sound Weeks Gestation 0 Eighteen To Twenty Week Aaron Update Ultra Sound Date Fundal Height At Umbil Quickening Date Ultra Sound Latest Weeks Gestation Final Aaron Confirmed By Final Aaron Confirmed Date Final Aaron Date Ultra Sound Latest Days Gestation 0 0 Menstrual History Last Menstrual Date Menses Monthly On Bcp Conception Prior Menses Frequency Hcg Plus Date Menarche Onset Age Delivery Information Delivery Date Delivery Type Labor Anesthesia Weeks Gestation Incision Type Labor Labor Length Hrs Delivered By Post Complications Tubal Sterilization Discharge Date Comments 7 40 Discharge Information Feeding Method Contraceptive Method Maternal HG B and HCT Levels Ob Episode Information Episode Created Date Number of Fetuses Patient Bloodtype Patient rh Status Prepregnancy Weight lbs Domestic Partner Domestic Partner Phone Father Name Washer Operator Status 06/09/19 24 1 CLOSED Fetus Data First Name Last Name Admitted to NICU Weight (g) Sex Living Outcome Pediatric Complications Fetus ID Race Codes Race Delivery Type , Induced [id number] Aaron Calculation Initial Aaron Date Initial Exam Date Initial Exam Provider Initial Ultrasound Date Last Menstrual Period Date Ultra Sound Weeks Gestation 0 Eighteen To Twenty Week Aaron Update Ultra Sound Date Fundal Height At Umbil Quickening Date Ultra Sound Latest Weeks Gestation Final Aaron Confirmed By Final Aaron Confirmed Date Final Aaron Date Ultra Sound Latest Days Gestation 0 0 Menstrual History Last Menstrual Date Menses Monthly On Bcp Conception Prior Menses Frequency Hcg Plus Date Menarche Onset Age Delivery Information Delivery Date Delivery Type Labor Anesthesia Weeks Gestation Incision Type Labor Labor Length Hrs Delivered By Post Complications Tubal Sterilization Discharge Date Comments 2 Discharge Information Feeding Method Contraceptive Method Maternal HG B and HCT Levels Ob Episode Information Episode Created Date Number of Fetuses Patient Bloodtype Patient rh Status Prepregnancy Weight lbs Domestic Partner Domestic Partner Phone Father Name Washer Operator Status 09/06/19 24 1 O Positive 154 CLOSED Fetus Data First Name Last Name Admitted to NICU Weight (g) Sex Living Outcome Pediatric Complications Fetus ID Race Codes Race Delivery Type 3486.98 85 F true Full Term unstable lie [id number] Primary Problems Problem Notes 12/31/23 1:45pm u/s only, 01/09 2:30pm u/s - no further follow up neededpalpitations - cancelled 48 hour monitor 12/16, called to offer 30 day as cardiology said she requested this, l/m for r/c. ,rn Problem Name Start Date End Date Resolution Snomed Code Not e Herpes simplex [id number] Cystic fibrosis screening [id number] carrier (known) - low risk heart rhythm - finding SELFRESOLVED [id number] not seen when s he went to [facility] Large for gestation age fetus [id number] history of 8 lb 14 oz vaginal - prolonged 2nd stage of labor. Past history of pre-eclampsia [id number] not deliver ed early Aaron Calculation Initial Aaron Date Initial Exam Date Initial Exam Provider Initial Ultrasound Date Last Menstrual Period Date Ultra Sound Weeks Gestation 03/11/2024 07/20/2023 08/03/2023 05/28/2023 8 Eighteen To Twenty Week Aaron Update Ultra Sound Date Fundal Height At Umbil Quickening Date Ultra Sound Latest Weeks Gestation Final Aaron Confirmed By Final Aaron Confirmed Date Final Aaron Date Ultra Sound Latest Days Gestation 0 [email or web address] 09/06/2023 03/09/20 24 0 Pre- Flowsheet Flowsheet Date 09/06/2023 Ruelas Score Blood Edema Fundus Height Fundus Units Glucose Ketones Leukocytes Nitrite Labor Signs Protein Cervic Dilation Cervic Effacement Cervic Station neg none none trace Type Weight in lbs Pre/Post Dialysis Refused Weight 158.337587145157 BP Diastolic BP Location Tested BP Systolic BP Type 71 L arm 110 sitting Fetus Heart Rate Present A 145 Fetus Movement Comments 27-year-old 7 para 2 042 at 13 weeks' gestation who presents for initial care. . Has history of preeclampsia and large for gestational age. She has taking a baby aspirin. Talked about care in detail. We discussed vaccinations. We discussed precautions. She will begin routine care. Patient c/o of nausea and vomiting, to treat with Zofran, Flowsheet Date 10/06/2023 Ruelas Score Blood Edema Fundus Height Fundus Units Glucose Ketones Leukocytes Nitrite Labor Signs Protein Cervic Dilation Cervic Effacement Cervic Station neg none none trace Type Weight in lbs Pre/Post Dialysis Refused Weight 157.450306852343 BP Diastolic BP Location Tested BP Systolic BP Type 70 L arm 112 sitting Fetus Heart Rate Present Fetus Movement A Yes Comments no complaints, no problems, routine care Flowsheet Date 10/21/2023 Ruelas Score Blood Edema Fundus Height Fundus Units Glucose Ketones Leukocytes Nitrite Labor Signs Protein Cervic Dilation Cervic Effacement Cervic Station Type Weight in lbs Pre/Post Dialysis Refused BP Diastolic BP Location Tested BP Systolic BP Type Fetus Heart Rate Present Fetus Movement Comments Flowsheet Date 10/21/2023 Ruelas Score Blood Edema Fundus Height Fundus Units Glucose Ketones Leukocytes Nitrite Labor Signs Protein Cervic Dilation Cervic Effacement Cervic Station neg none 20 none trace Type Weight in lbs Pre/Post Dialysis Refused Weight 162.942326203390 BP Diastolic BP Location Tested BP Systolic BP Type 66 L arm 105 sitting Fetus Heart Rate Present A 145 Fetus Movement A Yes Comments Patient c/o of lower abdomen cramps, , arrhythmia to see MFM, no other complaints, normal cervix. Normal cervix, normal anatomy, missed ductus arteriosus. To see MFM. We will likely get detailed scan and echocardiogram. Flowsheet Date 11/17/2023 Ruelas Score Blood Edema Fundus Height Fundus Units Glucose Ketones Leukocytes Nitrite Labor Signs Protein Cervic Dilation Cervic Effacement Cervic Station neg none 24 Type Weight in lbs Pre/Post Dialysis Refused Weight 164.17479607378 BP Diastolic BP Location Tested BP Systolic BP Type 63 L arm 114 sitting Fetus Heart Rate Present A 145 Fetus Movement A Yes Comments no complaints, no problems, routine care, recently seen MFM, cardiac evaluation completed, no echo recommended, reviewed Maternal- medicine consult, Flowsheet Date 12/13/2023 Ruelas Score Blood Edema Fundus Height Fundus Units Glucose Ketones Leukocytes Nitrite Labor Signs Protein Cervic Dilation Cervic Effacement Cervic Station Type Weight in lbs Pre/Post Dialysis Refused 166.741492945634 BP Diastolic BP Location Tested BP Systolic BP Type 72 120 Fetus Heart Rate Present Fetus Movement A Yes Comments Patient states that is havin g some BH contractions, pressure, nausea and vomiting., To check cervical length with ultrasound Flowsheet Date 12/23/2023 Ruelas Score Blood Edema Fundus Height Fundus Units Glucose Ketones Leukocytes Nitrite Labor Signs Protein Cervic Dilation Cervic Effacement Cervic Station Type Weight in lbs Pre/Post Dialysis Refused BP Diastolic BP Location Tested BP Systolic BP Type Fetus Heart Rate Present Fetus Movement Comments Flowsheet Date 12/27/2023 Ruelas Score Blood Edema Fundus Height Fundus Units Glucose Ketones Leukocytes Nitrite Labor Signs Protein Cervic Dilation Cervic Effacement Cervic Station 30 cm Type Weight in lbs Pre/Post Dialysis Refused 170.631485102998 BP Diastolic BP Location Tested BP Systolic BP Type 65 L arm 119 sitting Fetus Heart Rate Present A 129 Fetus Movement A Yes Comments no complaints, no problems, routine care, no contractions, no vaginal bleeding, no loss of fluid, no cramping Flowsheet Date 01/12/2024 Ruelas Score Blood Edema Fundus Height Fundus Units Glucose Ketones Leukocytes Nitrite Labor Signs Protein Cervic Dilation Cervic Effacement Cervic Station Type Weight in lbs Pre/Post Dialysis Refused Weight 172.806379221874 BP Diastolic BP Location Tested BP Systolic BP Type 71 L arm 111 sitting Fetus Heart Rate Present A 144 Fetus Movement A Yes Comments patient was seen recently in labor and delivery for contractions. Patient continues to have some intermittent arsen. She has concerns about work. We agreed to try to modified work. She is going to talk to her boss to see what can be done. Her cervix was examined. The baby is very high. nom Cervix appears closed. We will consider Procardia if preter ctractions become a problem. Flowsheet Date 01/17/2024 Ruelas Score Blood Edema Fundus Height Fundus Units Glucose Ketones Leukocytes Nitrite Labor Signs Protein Cervic Dilation Cervic Effacement Cervic Station Type Weight in lbs Pre/Post Dialysis Refused 172.614755553689 BP Diastolic BP Location Tested BP Systolic BP Type 70 110 Fetus Heart Rate Present A 144 Fetus Movement Comments no complaints, no problems, routine care, no contractions, no vaginal bleeding, no loss of fluid, no cramping patient requires restrictions at work due to pressure and pain issues, pressure and pain of the pelvis. Flowsheet Date 02/04/2024 Ruelas Score Blood Edema Fundus Height Fundus Units Glucose Ketones Leukocytes Nitrite Labor Signs Protein Cervic Dilation Cervic Effacement Cervic Station 36 cm Type Weight in lbs Pre/Post Dialysis Refused Weight 174.873492304652 BP Diastolic BP Location Tested BP Systolic BP Type 69 L arm 114 sitting Fetus Heart Rate Present A 154 Fetus Movement A Yes Comments no complaints, no problems, routine care, no contractions, no vaginal bleeding, no loss of fluid, no cramping Flowsheet Date 02/10/2024 Ruelas Score Blood Edema Fundus Height Fundus Units Glucose Ketones Leukocytes Nitrite Labor Signs Protein Cervic Dilation Cervic Effacement Cervic Station 0cm 0% -4 Type Weight in lbs Pre/Post Dialysis Refused Weight 175.103051510369 BP Diastolic BP Location Tested BP Systolic BP Type 71 L arm 127 sitting Fetus Heart Rate Present A 145 Fetus Movement A Yes Comments no complaints, no problems, routine care, no contractions, no vaginal bleeding, no loss of fluid, no cramping could not palpate cervix, no presenting part in the vagina or pelvis. Flowsheet Date 02/17/2024 Ruelas Score Blood Edema Fundus Height Fundus Units Glucose Ketones Leukocytes Nitrite Labor Signs Protein Cervic Dilation Cervic Effacement Cervic Station Type Weight in lbs Pre/Post Dialysis Refused BP Diastolic BP Location Tested BP Systolic BP Type Fetus Heart Rate Present Fetus Movement Comments Flowsheet Date 02/17/2024 Ruelas Score Blood Edema Fundus Height Fundus Units Glucose Ketones Leukocytes Nitrite Labor Signs Protein Cervic Dilation Cervic Effacement Cervic Station 37 cm 1cm Type Weight in lbs Pre/Post Dialysis Refused 179.630509796347 BP Diastolic BP Location Tested BP Systolic BP Type 71 L arm 113 sitting Fetus Heart Rate Present A 145 Fetus Movement A Yes Comments no complaints, no problems, routine care, no contractions, no vaginal bleeding, no loss of fluid, no cramping Flowsheet Date 02/23/2024 Ruelas Score Blood Edema Fundus Height Fundus Units Glucose Ketones Leukocytes Nitrite Labor Signs Protein Cervic Dilation Cervic Effacement Cervic Station Type Weight in lbs Pre/Post Dialysis Refused Weight 177.680858491228 BP Diastolic BP Location Tested BP Systolic BP Type 77 L arm 123 sitting Fetus Heart Rate Present A 145 Fetus Movement A Yes Comments no complaints, no problems, routine care, no contractions, no vaginal bleeding, no loss of fluid, no cramping baby's head is still high, tentative induction for next week, ultrasound today to determine position Flowsheet Date 02/23/2024 Ruelas Score Blood Edema Fundus Height Fundus Units Glucose Ketones Leukocytes Nitrite Labor Signs Protein Cervic Dilation Cervic Effacement Cervic Station Type Weight in lbs Pre/Post Dialysis Refused BP Diastolic BP Location Tested BP Systolic BP Type Fetus Heart Rate Present Fetus Movement Comments Flowsheet Date 03/01/2024 Ruelas Score Blood Edema Fundus Height Fundus Units Glucose Ketones Leukocytes Nitrite Labor Signs Protein Cervic Dilation Cervic Effacement Cervic Station Type Weight in lbs Pre/Post Dialysis Refused BP Diastolic BP Location Tested BP Systolic BP Type Fetus Heart Rate Present Fetus Movement Comments Flowsheet Date 03/01/2024 Ruelas Score Blood Edema Fundus Height Fundus Units Glucose Ketones Leukocytes Nitrite Labor Signs Protein Cervic Dilation Cervic Effacement Cervic Station 39 cm Type Weight in lbs Pre/Post Dialysis Refused 178.616604480054 BP Diastolic BP Location Tested BP Systolic BP Type 84 L arm 123 sitting Fetus Heart Rate Present A 144 Fetus Movement A Yes Comments BASIM OF 36, unstable lie, dis cussed delivery options. Should get delivered with severe poly and unstable lie. To perform . She is going to be admitted tonight and observed overnight. in the morning. Menstrual History Last Menstrual Date Menses Monthly On Bcp Conception Prior Menses Frequency Hcg Plus Date Menarche Onset Age 0105/28/2023 Genetic Screening And Infection History Question Response Note Mental Retardation/Autism false Patient's Age Will Be 35 Years Or Older At Estim ated Date of Delivery false Thalassemia (Syriac, Persian, Mediterranean, Or Background): MCV < 80 false Neural Tube Defect (Meningomyelocele, Spina Bifi da, Or Anencephaly) false Congenital Heart Defect false Down Syndrome false Jerel-Sachs (eg, Mandaen, Cajun, Latvian-Anderson) f alse Vielka Disease false Sickle Cell Disease Or Trait () false Hemophilia Or Other Blood Disorders false Muscular Dystrophy false Cystic Fibrosis false Hansford's Chorea false Intellectual Disability/Autism false If Yes, Was Person Tested For Fragile X? false Other Inherited Genetic Or Chromosomal Disorder false Maternal Metabolic Disorder (eg, Type 1 Diabetes , PKU) false Patient Or Baby's Father Had A Child With Defects Not Listed Above false Recurrent Loss, Or A Stillbirth false Medications (including Suppl ements, Vitamins, Herbs, OTC Drugs), Illicit/Recreational Drugs, Alcohol false If Yes, Agent(s) And Strength/Dosage false Any Other Genetic History false Live With Someone With TB Or Exposed To TB false Patient Or Partner Has History Of Genital Herpes false Rash Or Viral Illness Since Last Menstrual Perio d false History Of STD, Gonorrhea, Chlamydia, HPV, Syphi lis false Other Infection History false History of HIV false History of Hepatitis false Prior GBS-infected child false Hemoglobinopathy Or Carrier false Other Structural Defect false Recent Travel History Outside of Country false Delivery Information Delivery Date Delivery Type Labor Anesthesia Weeks Gestation Incision Type Labor Labor Length Hrs Delivered By Post Complications Tubal Sterilization Discharge Date Comments 4 None Regional-Sp inal 39 Low Transvers e false Beer, Jeet MD Cystic fibrosis screening , heart rhythm - finding,H erpes simplex,L arge for gestation age fetus,Pas t history of pre-eclam psia Discharge Information Feeding Method Contraceptive Method Maternal HG B and HCT Levels Ob Episode Information Episode Created Date Number of Fetuses Patient Bloodtype Patient rh Status Prepregnancy Weight lbs Domestic Partner Domestic Partner Phone Father Name Washer Operator Status 06/09/19 24 1 CLOSED Fetus Data First Name Last Name Admitted to NICU Weight (g) Sex Living Outcome Pediatric Complications Fetus ID Race Codes Race Delivery Type 4025.62 9 M Full Term [id number] Vaginal Delivery Aaron Calculation Initial Aaron Date Initial Exam Date Initial Exam Provider Initial Ultrasound Date Last Menstrual Period Date Ultra Sound Weeks Gestation 0 Eighteen To Twenty Week Aaron Update Ultra Sound Date Fundal Height At Umbil Quickening Date Ultra Sound Latest Weeks Gestation Final Aaron Confirmed By Final Aaron Confirmed Date Final Aaron Date Ultra Sound Latest Days Gestation 0 0 Menstrual History Last Menstrual Date Menses Monthly On Bcp Conception Prior Menses Frequency Hcg Plus Date Menarche Onset Age Delivery Information Delivery Date Delivery Type Labor Anesthesia Weeks Gestation Incision Type Labor Labor Length Hrs Delivered By Post Complications Tubal Sterilization Discharge Date Comments 1 40 Discharge Information Feeding Method Contraceptive Method Maternal HG B and HCT Levels Ob Episode Information Episode Created Date Number of Fetuses Patient Bloodtype Patient rh Status Prepregnancy Weight lbs Domestic Partner Domestic Partner Phone Father Name Washer Operator Status 06/09/19 24 1 CLOSED Fetus Data First Name Last Name Admitted to NICU Weight (g) Sex Living Outcome Pediatric Complications Fetus ID Race Codes Race Delivery Type , Induced [id number] Aaron Calculation Initial Aaron Date Initial Exam Date Initial Exam Provider Initial Ultrasound Date Last Menstrual Period Date Ultra Sound Weeks Gestation 0 Eighteen To Twenty Week Aaron Update Ultra Sound Date Fundal Height At Umbil Quickening Date Ultra Sound Latest Weeks Gestation Final Aaron Confirmed By Final Aaron Confirmed Date Final Aaron Date Ultra Sound Latest Days Gestation 0 0 Menstrual History Last Menstrual Date Menses Monthly On Bcp Conception Prior Menses Frequency Hcg Plus Date Menarche Onset Age Delivery Information Delivery Date Delivery Type Labor Anesthesia Weeks Gestation Incision Type Labor Labor Length Hrs Delivered By Post Complications Tubal Sterilization Discharge Date Comments 9 Discharge Information Feeding Method Contraceptive Method Maternal HG B and HCT Levels Ob Episode Information Episode Created Date Number of Fetuses Patient Bloodtype Patient rh Status Prepregnancy Weight lbs Domestic Partner Domestic Partner Phone Father Name Washer Operator Status 06/09/19 24 1 CLOSED Fetus Data First Name Last Name Admitted to NICU Weight (g) Sex Living Outcome Pediatric Complications Fetus ID Race Codes Race Delivery Type , [place] o[place] [id number] Aaron Calculation Initial Aaron Date Initial Exam Date Initial Exam Provider Initial Ultrasound Date Last Menstrual Period Date Ultra Sound Weeks Gestation 0 Eighteen To Twenty Week Aaron Update Ultra Sound Date Fundal Height At Umbil Quickening Date Ultra Sound Latest Weeks Gestation Final Aaron Confirmed By Final Aaron Confirmed Date Final Aaron Date Ultra Sound Latest Days Gestation 0 0 Menstrual History Last Menstrual Date Menses Monthly On Bcp Conception Prior Menses Frequency Hcg Plus Date Menarche Onset Age Delivery Information Delivery Date Delivery Type Labor Anesthesia Weeks Gestation Incision Type Labor Labor Length Hrs Delivered By Post Complications Tubal Sterilization Discharge Date Comments 3 Discharge Information Feeding Method Contraceptive Method Maternal HG B and HCT Levels Ob Episode Information Episode Created Date Number of Fetuses Patient Bloodtype Patient rh Status Prepregnancy Weight lbs Domestic Partner Domestic Partner Phone Father Name Washer Operator Status 06/09/19 24 1 CLOSED Fetus Data First Name Last Name Admitted to NICU Weight (g) Sex Living Outcome Pediatric Complications Fetus ID Race Codes Race Delivery Type , [place]ontane ous [id number] Aaron Calculation Initial Aaron Date Initial Exam Date Initial Exam Provider Initial Ultrasound Date Last Menstrual Period Date Ultra Sound Weeks Gestation 0 Eighteen To Twenty Week Aaron Update Ultra Sound Date Fundal Height At Umbil Quickening Date Ultra Sound Latest Weeks Gestation Final Aaron Confirmed By Final Aaron Confirmed Date Final Aaron Date Ultra Sound Latest Days Gestation 0 0 Menstrual History Last Menstrual Date Menses Monthly On Bcp Conception Prior Menses Frequency Hcg Plus Date Menarche Onset Age Delivery Information Delivery Date Delivery Type Labor Anesthesia Weeks Gestation Incision Type Labor Labor Length Hrs Delivered By Post Complications Tubal Sterilization Discharge Date Comments 6 Discharge Information Feeding Method Contraceptive Method Maternal HG B and HCT Levels
--- OUTSIDE RECORDS SUMMARY | 2024-06-18 12:06 | XMS_ITS | Data Portability ---
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 Plan of Treatment Reminders Order Date Submit Date Provider Last Modified By Organization Details Last Modified Time Details Appointments None recorde d. Lab urinaly sis, dipstic k 2020 021 [email or web address] In-Office Order, Internal Use Only DO Not Attach Compendium DO Not Attach Compendium, Do Not Delete/merge, [id number] 08:29:52 pregnan cy test, urine 2020 021 [email or web address] In-Office Order, Internal Use Only DO Not Attach Compendium DO Not Attach Compendium, Do Not Delete/merge, [id number] 16:32:04 pregnan cy test, urine 2020 021 [email or web address] In-Office Order, Internal Use Only DO Not Attach Compendium DO Not Attach Compendium, Do Not Delete/merge, [id number] 15:29:16 Referral None recorde d. Procedures None recorde d. Surgeries None recorde d. Imaging None recorde d. Medication Orders metroni dazole 500 mg tablet 2020 021 [email or web address] [facility] #[id number], [address], [place], [id number], 16:01:29 metroni dazole 500 mg tablet 2020 021 [email or web address] [facility] #78019, [address], [place], [id number], 16:01:29 NuvaRin g 0.12 mg-0.01 5 mg/24 hr vaginal 2020 021 [email or web address] [facility] [address], [place], [id number], 12:55:13 Patient TargetsNo targets recorded. Patient Instructions Encounter Date Encounter Id Patient Instructions Last Modified By Organization Details Last Modified Time 09/09/2020 [id number] bacterial vaginosis: care instructions [email or web address] Not available 09/09/2020 14:47:52 09/24/2020 [id number] bacterial vaginosis: care instructions [email or web address] Not available 09/24/2020 15:02:53 Reason for Referral None Reported. Results Created Date Observation Date Name Description Value Unit Range Abnormal Flag Note LastModifiedBy Organization Detail LastModifiedTime 07/30/19 21 07/29/2020 urina lysis , dipst ick Protein Negati ve Not Available In-Office Order Internal Use Only DO Not Attach Compendium DO Not Attach Compendium, Do Not Delete/merge, [id number] 07/29/2020 16:02:12 07/30/19 21 07/29/2020 urina lysis , dipst ick Glucose Negati ve Not Available In-Office Order Internal Use Only DO Not Attach Compendium DO Not Attach Compendium, Do Not Delete/merge, [id number] 07/29/2020 16:02:12 08/06/19 21 08/09/2020 strep tococ cus group B, cultu re, unspe cifie d speci men strep gp B culture Negati ve negati ve Cente rs for Disea se Contr ol and Preve ntion (CDC) and Ameri can Congr ess of Obste trici ans and Gynec ologi sts (ACOG ) guide lines for preve ntion of perin atal group B strep tococ sho (GBS) disea se speci fy co-co llect ion of a vagin al and recta l swab speci men to maxim ize sensi tivit y of GBS detec tion. Per the CDC and ACOG, swabb ing both the lower vagin a and rectu m subst antia lly incre ases the yield of detec tion melanie red with sampl ing the vagin a alone . Penic illin G, ampic illin , or cefaz jimmy are indic ated for intra partu m proph ylaxi s of perin atal GBS colon izati on. Refle x susce ptibi lity testi ng shoul d be perfo rmed prior to use of clind amyci n only on GBS isola esthela from penic illin -cyndy rgic women who are consi dered a high risk for anaph ylaxi s. Treat ment with vanco mycin witho ut addit ional testi ng is warra nted if resis tance to clind amyci n is noted . Not Available [facility] ([facility]) [address] [facility], [place], [address], 08/09/2020 10:37:20 08/06/19 21 08/05/2020 urina lysis , dipst ick Protein Trace Not Available In-Office Order Internal Use Only DO Not Attach Compendium DO Not Attach Compendium, Do Not Delete/merge, [id number] 08/05/2020 11:43:26 08/06/19 21 08/05/2020 urina lysis , dipst ick Glucose Negati ve Not Available In-Office Order Internal Use Only DO Not Attach Compendium DO Not Attach Compendium, Do Not Delete/merge, [id number] 08/05/2020 11:43:26 08/13/19 21 08/12/2020 urina lysis , dipst ick Protein Negati ve Not Available In-Office Order Internal Use Only DO Not Attach Compendium DO Not Attach Compendium, Do Not Delete/merge, [id number] 08/12/2020 14:06:24 08/13/19 21 08/12/2020 urina lysis , dipst ick Glucose Negati ve Not Available In-Office Order Internal Use Only DO Not Attach Compendium DO Not Attach Compendium, Do Not Delete/merge, [id number] 08/12/2020 14:06:24 08/22/19 21 08/21/2020 urina lysis , dipst ick Protein Negati ve Not Available In-Office Order Internal Use Only DO Not Attach Compendium DO Not Attach Compendium, Do Not Delete/merge, [id number] 08/21/2020 11:58:53 08/22/19 21 08/21/2020 urina lysis , dipst ick Glucose Negati ve Not Available In-Office Order Internal Use Only DO Not Attach Compendium DO Not Attach Compendium, Do Not Delete/merge, [id number] 08/21/2020 11:58:53 08/27/19 21 08/26/2020 urina lysis , dipst ick Protein Negati ve Not Available In-Office Order Internal Use Only DO Not Attach Compendium DO Not Attach Compendium, Do Not Delete/merge, [id number] 08/26/2020 15:24:54 08/27/19 21 08/26/2020 urina lysis , dipst ick Glucose Negati ve Not Available In-Office Order Internal Use Only DO Not Attach Compendium DO Not Attach Compendium, Do Not Delete/merge, [id number] 08/26/2020 15:24:54 10/16/19 21 10/15/2020 pregn malou test, urine HCG negati ve Not Available In-Office Order Internal Use Only DO Not Attach Compendium DO Not Attach Compendium, Do Not Delete/merge, [id number] 10/15/2020 16:17:42 11/07/19 21 11/06/2020 pregn malou test, urine HCG negati ve Not Available In-Office Order Internal Use Only DO Not Attach Compendium DO Not Attach Compendium, Do Not Delete/merge, [id number] 11/06/2020 14:35:11 08/23/19 21 08/22/2020 US, obste tric, follo w-up No observ ation record ed. [email or web address] Not Available 08/08 09:47:10 08/23/19 21 08/22/2020 US, obste tric, follo w-up No observ ation record ed. [email or web address] Not Available 08/08 09:47:11 Result Notes None recorded. Problems Name Problem SNOMED Code Status Onset Date Resolution Date Notes Provider Name and Address Organization Details Recorded Time Pregnanc y 15479940 Completed 201909/09/2020 YONY [place] [facility] 14:28:35 Postpart um cardiomy opathy 89096397 Completed MFM appt. 02/21/20 . No inc. risk [place]Y [place] [facility] 14:28:32 Carrier of cystic fibrosis gene mutation 713140216 Completed New FOB to get tested. [place]Y [place] [facility] 14:28:32 Nausea and vomiting 58057774 Completed 2019 Rx Zofran given. Vit B6 felix advised [place]Y [place] [facility] 14:28:32 Tobacco smoking in mother complica ting [place] [id number] 4104 Completed [place]Y [place] [facility] 14:28:32 Finding related to risk factor in pregnanc y 373151809 Completed Risk of Pre-ecla mpsia ASA 81 mg, stopped d/t eye pain YONY Nichols, [facility] 14:28:32 Low back pain 940347122 Completed PT YONY Nichols [place] [facility] 14:28:32 Administ ration of influenz a vaccine Completed 2019 Got flu shot at work YONY Nichols [facility] 14:28:32 Administ ration of diphther ia, pertussi s, and tetanus vaccine Completed 2020 Velma WashingtonYONY poonam [facility] 14:28:32 Miscarri age 82701353 Active 2015 Velma Dicksonjuan levin [facility] 17:17:24 Pregnanc y 51064676 Completed 201604/19/2017 Velma [place] poonam [facility] - [facility] 14:28:35 Breast lump 79068569 Active Velma [place] null, [facility] 6 16:57:46 Problem Notes None recorded. Procedures Surgical History Date Name Laterality Status Provider Name and Address Organization Details Recorded Time 06/03/19 18 Date of Last Pap Smear completed Velma Washington [facility] 07/05/2018 11:36:11 Appendectomy completed Christin Lin MA [facility] 05/29/2014 14:35:48 Imaging Results Imaging Date Name Status LastModified by Organiz ation Details LastModified Time 08/22/2020 US, obstetric, follow-up completed [email or web address] Information not available 08/26/2020 09:47:10 08/22/2020 US, obstetric, follow-up completed [email or web address] Information not available 08/26/2020 09:47:11 Procedure Notes None recorded. Medical Equipment None Reported. Allergies No known drug allergies Medications Name Sig Start Date Stop Date Status Note LastModified by Organization Details LastModified Time amoxicillin 500 mg capsule TAKE ONE CAPSULE BY MOUTH THREE TIMES DAILY FOR 10 DAYS 05/15 completed Not Available Not Available Not Available Vitamin B-6 25 mg tablet TK 2 TS PO HS N OR VOM OR 04/22 completed Not Available Not Available Not Available azithromyci n 250 mg tablet active Not Available Not Available Not Available ibuprofen 800 mg tablet 07/05 completed Not Available Not Available Not Available Lidocaine Viscous 2 % mucosal solution 07/05 completed Not Available Not Available Not Available fluconazole 150 mg tablet 01/15 completed Not Available Not Available Not Available valacyclovi r 1 gram tablet 07/05 completed Not Available Not Available Not Available hydrocodone 5 mg-acetamin ophen 325 mg tablet TAKE 1 TO 2 TABLETS BY MOUTH EVERY 4 TO 6 HOURS NEEDED FOR PAIN. MAXIMUM 8 TABLETS IN 24 HOURS 05/15 completed Not Available Not Available Not Available fluconazole 200 mg tablet active Not Available Not Available Not Available phenazopyri dine 200 mg tablet 07/05 completed Not Available Not Available Not Available ondansetron HCl 4 mg tablet 08/17 completed Not Available Not Available Not Available terconazole 0.8 % vaginal cream INSERT 1 APPLICATO RFUL VAGINALLY EVERY DAY 08/26 completed Not Available Not Available Not Available permethrin 5 % topical cream 01/15 completed Not Available Not Available Not Available metronidazo le 500 mg tablet TAKE 1 TABLET BY MOUTH TWICE DAILY 10/15 completed Not Available Not Available Not Available ciprofloxac in 250 mg tablet active Not Available Not Available Not Available ciprofloxac in 500 mg tablet 07/05 completed Not Available Not Available Not Available sulfamethox azole 800 mg-trimetho prim 160 mg tablet 01/15 completed Not Available Not Available Not Available amoxicillin 500 mg tablet TAKE 1 TABLET BY MOUTH EVERY 8 HOURS UNTIL FINISHED 05/15 completed Not Available Not Available Not Available Vitamin tablet Take 1 tablet every day by oral route. 04/19 completed Not Available Not Available Not Available DOK 100 mg capsule TAKE ONE CAPSULE BY MOUTH TWICE DAILY NEEDED 09/09 completed Not Available Not Available Not Available benzonatate 100 mg capsule TAKE 1 CAPSULE BY MOUTH THREE TIMES DAILY FOR UP TO 10 DAYS NEEDED FOR COUGH active Not Available Not Available No t Available cephalexin 500 mg capsule 08/21 completed Not Available Not Available Not Available aspirin 81 mg chewable tablet 03/25 completed Not Available Not Available Not Available diclofenac sodium 75 mg tablet,yecenia yed release active Not Available Not Available Not Available montelukast 10 mg tablet active Not Available Not Available Not Available ibuprofen 600 mg tablet TAKE 1 TABLET BY MOUTH EVERY 6 HOURS NEEDED FOR PAIN 05/15 completed Not Available Not Available Not Available ondansetron 4 mg disintegrat ing tablet Place 1 tablet every 6 hours by transling ual route as needed. 03/25 completed Not Available Not Available Not Available fluticasone propionate 50 mcg/actuati on nasal spray,suspe nsion active Not Available Not Available Not Available sertraline 50 mg tablet 07/05 completed Not Available Not Available Not Available amoxicillin 875 mg-potassiu m clavulanate 125 mg tablet active Not Available Not Available Not Available Vitamin 27 mg iron-0.8 mg tablet TAKE 1 TABLET BY MOUTH DAILY 09/09 completed Not Available Not Available Not Available nitrofurant oin monohydrate /macrocryst als 100 mg capsule TAKE ONE CAPSULE BY MOUTH TWICE DAILY 09/24 completed Not Available Not Available Not Available Vitamins 04/19 completed Not Available Not Available Not Available FeroSul 325 mg (65 mg iron) tablet TAKE 1 TABLET BY MOUTH TWICE DAILY 09/09 completed Not Available Not Available Not Available 28 mg iron-800 mcg tablet 06/03 completed Not Available Not Available Not Available [facility] (doxylamine ) 25 mg tablet TAKE 1 TABLET BY MOUTH EVERY NIGHT NEEDED FOR INSOMNIA OR NAUSEA OR VOMITING OR . 09/09 completed Not Available Not Available Not Available EluRyng 0.12 mg-0.015 mg/24 hr vaginal ring INSERT 1 RING VAGINALLY EVERY 4 WEEKS FOR 21 DAYS 05/15 completed Not Available Not Available Not Available Vitals Date Recorded Body height Body mass index (BMI) Systolic blood pressure Diastolic blood pressure Provider Name and Address Organization Details Last Updated DateTime 08/26/2020 157.48 cm 30.5 kg/m2 110 mm[Hg] 72 mm[Hg] Velma Felix [facility] 08/26/2020 15:21:47 Date Recorded Body weight Provider Name an d Address Organization Details Last Updated DateTime 08/26/2020 07478.53523 g Jose Davalos [facility] 021 15:31:38 Date Recorded Body height Body mass index (BMI) Body weight Systolic blood pressure Diastolic blood pressure Provider Name and Address Organization Details Last Updated DateTime 09/09/2020 157.48 cm 27 kg/m2 98467.59 3049 g 120 mm[Hg] 80 mm[Hg] Velma Felix [facility] 14:22:34 Date Recorded Body height Provider Name an d Address Organization Details Last Updated DateTime 09/24/2020 157.48 cm Velma [place] [facility] 09/24 14:48:44 Date Recorded Body height Body mass index (BMI) Body weight Systolic blood pressure Diastolic blood pressure Provider Name and Address Organization Details Last Updated DateTime 10/15/2020 157.48 cm 25.1 kg/m2 52000.95 g 114 mm[Hg] 78 mm[Hg] Guillermina Trinidad [facility] 16:04:57 Date Recorded Body height Body mass index (BMI) Body weight Systolic blood pressure Diastolic blood pressure Provider Name and Address Organization Details Last Updated DateTime 11/06/2020 157.48 cm 25.8 kg/m2 28854.24 g 110 mm[Hg] 70 mm[Hg] Guillermina Trinidad [place] [facility] 1 14:32:04 Social History Question Answer Notes LastModified by Organizat ion Details LastModified Time Tobacco Smoking Status Former Smoker quit 07/2016 Velma [place]vin, [place] [facility] 03/03/2016 15:59:37 Do You Have An Advance Directive? No Information not available 05/29/2014 What Is Your Level Of Alcohol Consumption? None [email or web address] Information not available 01/16/2020 If You Are , What Was Your Level Of Alcohol Consumption Prior To ? Occasional [email or web address] Information not available 09/14/2016 Is Anesthesia Consult Planned? No [email or web address] Information not available 09/14/2016 Plan No [email or web address] Information no t available 09/14/2016 Is Blood Transfusion Acceptable In An Emergency? Yes Information not available 11/26/2015 What Is Your Level Of Caffeine Consumption? Heavy Information not available 05/29/2014 Live With Cats/exposure To Cat Litter No [email or web address] Information not available 09/14/2016 How Much Tobacco Do You Chew? None Information not available 02/01/2015 In The 14 Days Before Symptom Onset, Have You Had Close Contact With A Laboratory-confir med COVID-19 While That Case Was Ill? No Information not available 09/09/2020 In The 14 Days Before Symptom Onset, Have You Had Close Contact With A Person Who Is Under Investigation For COVID-19 While That Person Was Ill? No Information not available 09/09/2020 Have You Been To An Area Known To Be High Risk For COVID-19? No Information not available 09/09/2020 Are You Currently Employed? Yes [email or web address] Information not available 01/16/2020 What Type Of Diet Are You Following? REGULAR Information not available 02/01/2015 Which Illicit Or Recreational Drugs Have You Used? Denies None Information not available 07/05/2018 Do You Or Have You Ever Used E-cigarettes Or Vape? Never Used Electronic Cigarettes [email or web address] Information not available 01/16/2020 Education 11 Information no t available 02/01/2015 What Is The Highest Grade Or Level Of School You Have Completed Or The Highest Degree You Have Received? [id number] Information not available 09/09/2020 What Is Your Occupation? [employer] [email or web address] Information not available 01/16/2020 Have There Been Any Changes To Your Family Or Social Situation? No [email or web address] Information no t available 09/14/2016 Frequent Air Travel No [email or web address] Information not available 09/14/2016 Are There Any Guns Present In Your Home? Yes Information not available 02/01/2015 Hard Of Hearing Or Deaf In One Or Both Ears? No Information not available 05/29/2014 Illicit Drugs Pre- Denies [email or web address] Information not available 01/16/2020 Legally Blind In One Or Both Eyes? No Information no t available 05/29/2014 Live Alone Or With Others? With Others Information not available 11/26/2015 Marital Status Single Informatio n not available 05/29/2014 What Was The Date Of Your Most Recent Tobacco Screening? 11/06/2020 [email or web address] Information not available 11/06/2020 How Many Children Do You Have? 1 Information not available 04/19/2017 Performs Monthly Self-breast Exam? Yes Information no t available 05/29/2014 Do You Have Any Pets? No [email or web address] Information not available 10/15/2020 Do You Use Protection During Sex? Always Information not available 07/05/2018 What Is Your Relationship Status? Single Information not available 11/26/2015 Do You Use Your Seat Belt Or Car Seat Routinely? Yes Information not available 09/09/2020 Seat Belts Used Routinely Yes Information not available 05/29/2014 Are You Sexually Active? Yes Information not available 11/26/2015 Smoke Alarm In Home Yes Information not available 05/29/2014 Do You Have Smoke And Carbon Monoxide Detectors In Your Home? Yes [email or web address] Information not available 09/14/2016 At What Age Did You Start Smoking Tobacco? 15 Information not available 02/01/2015 Are You Passively Exposed To Smoke? No [email or web address] Information no t available 09/14/2016 Do You Or Have You Ever Used Smokeless Tobacco? Never Used Smokeless Tobacco [email or web address] Information not available 01/16/2020 How Much Tobacco Do You Smoke? No Information not available 08/17/2016 Smoking Pre- No [email or web address] Information not available 01/16/2020 General Stress Level Medium Information not available 03/03/2016 Do You Feel Stressed (tense, Restless, Nervous, Or Anxious, Or Unable To Sleep At Night)? [id number] Information not available 09/09/2020 Do You Use Any Illicit Or Recreational Drugs? No Information not available 10/15/2020 Do You Use Sunscreen Routinely? No Information not available 05/29/2014 How Many Years Have You Smoked Tobacco? 5 [email or web address] Information not available 09/14/2016 Do You Or Have You Ever Used Any Other Forms Of Tobacco Or Nicotine? No [email or web address] Information not available 10/15/2020 Sex: Female Functional Status Question Answer Note LastModified by Organizat ion Details LastModified Time What is your exercise level? Occasional Information not available 02/01/2015 Mental Status None recorded. Family History Relationship Description Onset Age of this Age Resolved Age Notes LastModified by Organization Details LastModified Time Mother Depressive disorder [email or web address] Not available 2015 16:57:46 Mother Hypertensive disorder [email or web address] Not available 2015 16:57:46 Mother Hypercholest erolemia [email or web address] Not available 2015 16:57:46 Mother Osteoporosis [email or web address] Not avail able 11/26/2015 16:57:46 Notes:maternal grandmother a nd grandfather had several types of cancers pt is not sure of what kind Medical History Condition Response High Blood Pressure N Breast Cancer N Thyroid Problems N Kidney or Bladder Problems Y Lung Disease N Depression Y Blood Clots N GI Problems N Acne N Breast Problem Y Eating Disorder N Anemia N Anesthesia Complications N Headaches/Migraines N Ovarian Cancer N Diabetes N Anxiety Disorder N Muscle, Joint, or Bone Problems N Blood Transfusions N Seizures/Epilepsy N Polyps N Infertility N Acid Reflux (GERD) Y Cancer N Abuse/Domestic Violence N Asthma Y Endometriosis N High Cholesterol N Hepatitis N Liver Disease N Heart Disease Y Pre-Eclampsia N Osteoporosis N Gynecological History Statement/Question Response Abnormal Pap No Flow Light On BCP's at Conception? N STIs/STDs Yes HPV Vaccine Y Most Recent Mammogram Age at Menarche 10 Current Control Method None Age at First Child 21 Frequency of Cycle (Q days) 28 Sexually Active? Yes Menses Monthly Y Date of Last Pap Smear 06/03/2017 Sexual Problems? N LMP Definite Desired Control Method Vaginal Rin g Obstetrics History GPAL:G 3 P 2 0 1 2 Type Value Multiple Births 0 Full Term 2 Induced 0 Spontaneous 1 Premature 0 Living 2 Ectopics 0 Total 3 Immunizations Vaccine Type Date Status Note Provider Nam e and Address Organization Details Recorded Time Influenza, split virus, quadrivalent, preservative 0 completed Jose levin [place] - [facility] 03/25/2020 15:23:13 Tdap 7 completed Not Available [facility] 05/27/2019 02:39:18 Influenza, split virus, quadrivalent, preservative 7 completed Not Available [facility] 05/27/2019 02:50:27 Tdap 1 completed YONY Nichols, [place] - [facility] 06/17/2020 12:22:18 Past Encounters Encounter ID Performer Location Encounter Start Date Encounter Closed Date Diagnosis/Indication Diagnosis SNOMED-CT Code Diagnosis ICD10 Code Diagnosis Note [id number] [facility] ([facility]) [address] [facility] [address] [place] [address] [place], [place] [address], [place] [address] 05/29/2014 14:20:08 05/29/2014 17:37:40 Breast lump [id number] Latesha ([employer]) [address] [place] [facility] [place] [address] 02/01/2015 15:34:55 02/04/2015 11:44:38 Gynecologic examination 15032547 Normal female exam x thin Venereal d isease screening 929010496 RTO 2 weeks for results. [id number] Jose Charlton ([employer]) [address] [place] [facility] [place] [address] 10/16/2015 16:01:02 10/16/2015 17:00:59 Gynecologic examination 84457404 Z01.419 Pap was normal, dwp. Pt. to get blood work done today. RTO one week for results. [id number] Jose Charlton ([employer]) [address] [place] [address] 11/26/2015 16:46:57 01/08/2016 09:16:51 Gynecologic examination 46463901 Z01.419 Fasting cholestero l, glucose, thyroid and CBC were all normal, dwp. RTO PRN + one year for AE. Venereal d isease screening 309174236 Z11.3 Vaginal culture was negative for gonorrhea, chlamydia, trichomona s, BV, and yeast, dwp. STD panel was negative. Individual test results d/w pt. [id number] Jose Davalos Latesha ([employer]) [address] [place] [address] 03/03/2016 15:39:27 05/14/2016 10:39:02 Threatened miscarriage 76863630 O20.0 Expectatio ns and precaution s discussed. Pt. to call tomorrow for result. If decreased, miscarriag e confirmed and need to follow quants down to <5. If increased, will continue to follow based on levels. Pt. agreeable. [id number] Jose Davalos Latesha ([employer]) [address] [place] [address] 03/04/2016 15:36:48 05/14/2016 11:24:27 Complete miscarriage 475661837 O03.9 Miscarriag e confirmed with a decrease in beta hCG quant from 10 to 4, dwp. No further blood tests needed also discussed. Future fertility discussed as well. Pt. expressed understand ing. RTO PRN + 10/16/16 for AE. [id number] Jose Charlton ([employer]) [address] [place] [address] 08/17/2016 16:57:11 08/26/2016 09:56:17 Routine care 089675149 Z34.81 labs ordered. Rx PNVs sent. NEO for US at [facility] obtained. Usual cause of first trimester miscarriag e d/w pt. Precaution s for when to go to the ED discussed. RTO 4 weeks for NOB visit. 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) [address] [place] [address] 2016 14:44:50 10/28/2016 16:55:20 Routine care [id number] Z34.92 See ACOG form [id number] Jose Davalos Clarkridge (INDUSTRIAL TRUCK OPERATOR) [address] [place] [address] 11/23/2016 14:30:19 11/25/2016 11:59:12 Routine care [id number] Z34.82 See ACOG form [id number] Jose Spencerto (INDUSTRIAL TRUCK OPERATOR) [address] [place] [address] 12/28/2016 10:07:39 12/31/2016 10:25:54 Routine care [id number] Z34.82 See ACOG form [id number] Jose Dvaalos Latesha (INDUSTRIAL TRUCK OPERATOR) [address] [place] [address] 01/12/2017 14:51:29 01/14/2017 17:07:24 Routine care [id number] Z34.83 See ACOG form Administra tion of influenza vaccine 27674063 Z23 Active or passive immunization 830678485 Z23 [id number] Jose Spencerto [facility] (INDUSTRIAL TRUCK OPERATOR) [address] [place] [address] 01/26/2017 14:34:39 01/29/2017 12:03:33 Routine care [id number] Z34.83 See ACOG form [id number] Jose Davalos [facility] (INDUSTRIAL TRUCK OPERATOR) [address] [place] [address] 02/09/2017 14:10:05 02/16/2017 11:02:15 Routine care 853781110 Z34.83 [id number] Jose Davalos [facility] (INDUSTRIAL TRUCK OPERATOR) [address] [place] [address] 02/24/2017 14:21:10 02/26/2017 14:11:13 Routine care [id number] Z34.83 [id number] Jose Davalos [facility] (INDUSTRIAL TRUCK OPERATOR) [address] [place] [address] 03/02/2017 14:49:10 03/05/2017 10:14:49 Routine care [id number] Z34.83 [id number] Jose Davalos [facility] (INDUSTRIAL TRUCK OPERATOR) [address] [place] [address] 03/09/2017 15:13:14 03/12/2017 10:43:44 Routine care [id number] Z34.83 See ACOG form [id number] Jose Davalos [facility] (INDUSTRIAL TRUCK OPERATOR) [address] [place] [address] 03/16/2017 15:15:29 03/18/2017 12:32:04 Routine care [id number] Z34.83 See ACOG form [id number] Jose Davalos [facility] (INDUSTRIAL TRUCK OPERATOR) [address] [place] [address] 03/23/2017 14:07:46 03/26/2017 16:25:16 Routine care [id number] Z34.83 See ACOG form [id number] Jose Davalos [facility] (INDUSTRIAL TRUCK OPERATOR) [address] [place] [address] 03/30/2017 14:49:11 04/05/2017 11:52:49 Routine care [id number] Z34.83 See ACOG form [id number] Jose Davalos [facility] (INDUSTRIAL TRUCK OPERATOR) [address] [place] [address] 04/19/2017 14:48:11 04/22/2017 18:02:07 care 994905342 Z39.2 Still swollen. Still in the process of evaluation for cardiomyop athy. Appears to be resolving. Will continue to monitor with cardiology . Bacterial vaginosis 4197 52886 N76.0 Diagnosis d/w pt. Rx sent to pharmacy. Seth mehta discussed. [id number] Jose Meir Charlton (INDUSTRIAL TRUCK OPERATOR) [address] [place] [address] 04/26/2017 14:57:11 04/30/2017 09:30:07 care [id number] Z39.2 Danger signs discussed. RTO 05/17/17. [id number] Jose Stricklandjese Charlton (INDUSTRIAL TRUCK OPERATOR) [address] [place] [address] 05/25/2017 10:44:35 05/26/2017 14:08:46 cardiomyopathy 41458909 O90.3 Records from [facility] and Dr. Donnelly, cardiology , obtained. Pt.'s ProBNP was >800 at [facility] but EF on ECHO was normal. She had fluid on her lungs and responded well to Lasix. Preliminar y results from heart rate monitor showed sinus bradycardi a at times. Dr. Donnelly ordered a repeat ProBNP on 05/16/17. No result available per their MR.Expecta tions for resolving symptoms d/w pt. Utility of blood test for ProBNP discussed. Danger signs discussed. RTO one week for AE and final result of heart rate monitor and repeat ProBNP if not already given to pt. by Dr. Donnelly's office. [id number] Jose Meir Charlton (INDUSTRIAL TRUCK OPERATOR) [address] [place] [address] 06/03/2017 10:55:50 06/04/2017 10:16:43 Gynecologic examination 77244127 Z01.419 Last pap done 07/07/14 was negative. Pap done today. Venereal d isease screening 227972492 Z11.3 RTO one week for results. [facility] 165115247 Z30.9 control options discussed. Pt. wants the NuvaRing. Rx sent to pharmacy. Seth mehta discussed. [id number] Jose Charlton (INDUSTRIAL TRUCK OPERATOR) [address] [place] [address] 06/14/2017 15:21:42 06/18/2017 09:21:56 Gynecologic examination 80698413 Z01.419 Pap done 06/03/17 was negative, dwp. Venereal d isease screening 750257023 Z11.3 Vaginal culture was negative for gonorrhea, chlamydia, and trichomona s, dwp. STD panel was also completely negative. Individual test results dwp. [id number] Jose Meir Charlton (INDUSTRIAL TRUCK OPERATOR) [address] [place] [address] 07/05/2018 11:14:26 07/06/2018 08:59:41 Gynecologic examination 51499742 Z01.419 Last pap done 06/03/17 was negative. Therefore, no pap needed. Venereal d isease screening 486219091 Z11.3 RTO one week for results. [id number] Jose Meir Charlton (INDUSTRIAL TRUCK OPERATOR) [address] [place] [address] 08/03/2018 14:59:09 08/04/2018 10:47:21 Venereal disease screening 878897117 Z11.3 Vaginal culture was negative for gonorrhea, chlamydia, and trichomona s, dwp. STD panel was also completely negative. Individual test results dwp. [id number] Jose Meir Charlton (INDUSTRIAL TRUCK OPERATOR) [address] [place] [address] 01/16/2020 08:28:01 01/17/2020 06:01:25 Routine care 010319910 Z34.81 See ACOG form History of cardiomyopathy [id number] 43861 Z86.79 Pt. with h/o cardiomyop athy requiring Lasix on week after the delivery of her first child. M referral dwo, generated. [id number] Jose Meir Charlton (INDUSTRIAL TRUCK OPERATOR) [address] [place] [address] 02/20/2020 08:01:39 02/21/2020 09:30:58 Nausea and vomiting 47688188 R11.2 [id number] Jose Meir Charlton (INDUSTRIAL TRUCK OPERATOR) [address] [place] [address] 03/25/2020 14:16:13 03/26/2020 14:27:58 Routine care [id number] Z34.82 See ACOG form [id number] Jose Davalos [facility] (INDUSTRIAL TRUCK OPERATOR) [address] [place] [address] 04/22/2020 08:01:48 04/23/2020 07:26:41 Routine care [id number] Z34.82 See ACOG form [id number] Jose Davalos [facility] (INDUSTRIAL TRUCK OPERATOR) [address] [place] [address] 05/20/2020 08:12:59 05/22/2020 09:05:05 Routine care [id number] Z34.82 See ACOG form [id number] Joselu Davalos [facility] (INDUSTRIAL TRUCK OPERATOR) [address] [place] [address] 06/03/2020 10:03:37 06/04/2020 14:07:48 Routine care [id number] Z34.82 See ACOG form [id number] Jose Davalos [facility] (INDUSTRIAL TRUCK OPERATOR) [address] [place] [address] 06/17/2020 11:18:46 06/19/2020 10:24:13 Routine care 466747021 Z34.83 See ACOG form [id number] Joselu Davalos [facility] (INDUSTRIAL TRUCK OPERATOR) [address] [place] [address] 07/01/2020 11:44:48 07/02/2020 09:44:51 Routine care 996520038 Z34.83 See ACOG form [id number] Jose Davalos [facility] (INDUSTRIAL TRUCK OPERATOR) [address] [place] [address] 07/15/2020 12:08:37 07/16/2020 07:17:55 Routine care [id number] Z34.83 See ACOG form [id number] Jose Davalos [facility] (INDUSTRIAL TRUCK OPERATOR) [address] [place] [address] 07/29/2020 15:52:20 08/02/2020 05:01:08 Routine care [id number] Z34.83 See ACOG form [id number] Jose Spencerto (INDUSTRIAL TRUCK OPERATOR) [address] [place] [address] 08/05/2020 11:23:19 08/07/2020 08:36:48 Routine care [id number] Z34.83 See ACOG form [id number] Jose Charlton (INDUSTRIAL TRUCK OPERATOR) [address] [place] [address] 08/12/2020 13:49:59 08/14/2020 07:57:35 Routine care [id number] Z34.83 See ACOG form [id number] Jose Charlton (INDUSTRIAL TRUCK OPERATOR) [address] [place] [address] 08/21/2020 11:37:01 08/22/2020 13:27:02 Routine care 263049274 Z34.83 See ACOG form Candidal vulvovaginitis 93685798 B37.3 Reduced fe blake movement 398569972 O36.8199 [id number] Jose Spencerto (INDUSTRIAL TRUCK OPERATOR) [address] [place] [address] 08/26/2020 15:03:24 08/27/2020 12:02:38 Routine care [id number] Z34.83 See ACOG form [id number] Jose Spencerto (INDUSTRIAL TRUCK OPERATOR) [address] [place] [address] 09/09/2020 14:10:22 09/11/2020 12:51:14 Bacterial vaginosis 027561606 N76.0 Diagnosis d/w pt. Rx sent to pharmacy. Seth mehta discussed. Health con dition feared but not present [id number] 71114 Z71.1 Stitches intact, dwp. Pt with BV. See below [id number] Jose Spencerto (INDUSTRIAL TRUCK OPERATOR) [address] [place] [address] 09/24/2020 08:05:34 09/25/2020 17:12:07 Bacterial vaginosis 411324655 N76.0 Pt. lost her medication . Refill sent. [id number] Jose Davalos Latesha (INDUSTRIAL TRUCK OPERATOR) [address] [place] [address] 10/15/2020 15:55:05 10/17/2020 10:08:08 care 930279326 Z39.2 Danger signs discussed. RTO 05/17/17. Contracept ion care management 283013939 Z30.9 control options discussed. Pt. wants the Mirena IUD. Benefits, risks, and alternativ es to Mirena IUD insertion d/w pt. Pt. expressed understand ing. All pt. questions answered. UPT was negative today. RTO 2 weeks for repeat UPT and MIrena IUD insertion. [id number] Jose Davalos Latesha [facility] (INDUSTRIAL TRUCK OPERATOR) [address] [place] [address] 11/06/2020 14:23:54 11/06/2020 16:48:00 Contraception care management 813045633 Z30.9 Pt. no longer wants the Mirena IUD. She wants the NuvaRing. She has used it before, a long time ago. Instructio ns for use reviewed. Health Concerns Section Related Observation LastModified by Organization Detai ls LastModified Time None Recorded Concern Status LastModified by Organization Details LastModified Time None Recorded Advance Directives Directive N: Payers Encounter Date Sequence Insurance Name Policy Number Policy [place] Covered Member ID [place] Member ID Guarantor Name 08/26/2020 1 [facility] (MEDICAID HMO) [id number] Delicia Hannon [id number] Delicia Hannon 09/09/2020 1 [employer] [facility] [facility] [place] ([place] H[place]) [id number] Delicia Hannon [id number] Delicia Hannon 09/24/2020 1 [employer] [facility] [facility] [place] [id number] Delicia Hannon [id number] Delicia Hannon 10/15/2020 1 [employer] [facility] [facility] [place] [id number] Delicia Hannon [id number] Delicia Hannon 11/06/2020 1 [employer] [facility] [place] [id number] Delicia Hannon [id number] Delicia Hannon Notes Date Note Type Note Provider Name and Address Organization Details Recorded Time 09/09/2020 text/html Pt. presents wit h c/o popping her stitches. She went to the ED but they told her to come here to her OB's office. HAYDEN Hair SI 09/09/2020 14:51:28 09/24/2020 text/html Telephone visit due to COVID-19 pandemic. Pt. with c/o losing her medication for BV and still having a fishy discharge. HAYDEN Hair SI 09/24/2020 15:04:28 10/15/2020 text/html VisitReported bypatient.Onset/Charles ing:date of delivery: (09/02/20) Quality: Context:complicatio ns of : none; complications of labor: none; laceration: ; complications: none; feeding choice: bottle; good support from partner/family Associated Symptoms:no abnormal bleeding; no pelvic pain; laceration well healed; no constipation; no fecal incontinence; no dysuria; no urinary incontinence; no fever; no problems; no mastitis HAYDEN Hair SI 10/15/2020 16:32:32 11/06/2020 text/html Pt. presents for control. She previously wanted the Mirena IUD. She has changed her mind and now wants the NuvaRing. She used it previously, a long time ago. Jose levin AL Glenna SI 11/06/2020 15:33:14 OBGyn Episode Ob Episode Information Episode Created Date Number of Fetuses Patient Bloodtype Patient rh Status Prepregnancy Weight lbs Domestic Partner Domestic Partner Phone Father Name College President Status 01/16/20 20 1 O Positive Oskar Oconnor CLOSED Fetus Data First Name Last Name Admitted to NICU Weight (g) Sex Living Outcome Pediatric Complications Fetus ID Race Codes Race Delivery Type León Hannon false 4025.62 9 M true Full Term [id number] White Vaginal Problems Problem Notes Problem Name Start Date End Date Resolution Snomed Code Not e Administration of influenza vaccine 02/08/2020 [id number] Got flu sh ot at work Administration of diphtheria, pertussis, and tetanus vaccine 06/17/2020 024573459 Carrier of cystic fibrosis gene mutation 754901875 New F OB to get tested. Nausea and vomiting 02/20/2020 72728995 Rx Zofran given. Vit B6 felix advised Tobacco smoking in mother complicating puerperium [id number] Finding related to risk factor in 249548789 Risk of Pre-eclampsiaAS A 81 mg, stopped d/t eye pain Low back pain 703518627 PT cardiomyopathy 42752389 MFM appt. 02/21/20. No inc. risk Aaron Calculation Initial Aaron Date Initial Exam Date Initial Exam Provider Initial Ultrasound Date Last Menstrual Period Date Ultra Sound Weeks Gestation 08/29/2020 01/16/2020 [id number] 01/11/2020 11/23/2019 6 Eighteen To Twenty Week Aaron Update Ultra Sound Date Fundal Height At Umbil Quickening Date Ultra Sound Latest Weeks Gestation Final Aaron Confirmed By Final Aaron Confirmed Date Final Aaron Date Ultra Sound Latest Days Gestation 0 01/16/2020 08/30/19 21 0 Pre- Flowsheet Flowsheet Date 01/16/2020 Ruelas Score Blood Edema Fundus Height Fundus Units Glucose Ketones Leukocytes Nitrite Labor Signs Protein Cervic Dilation Cervic Effacement Cervic Station Type Weight in lbs Pre/Post Dialysis Refused BP Diastolic BP Location Tested BP Systolic BP Type Fetus Heart Rate Present Fetus Movement Comments Flowsheet Date 02/20/2020 Ruelas Score Blood Edema Fundus Height Fundus Units Glucose Ketones Leukocytes Nitrite Labor Signs Protein Cervic Dilation Cervic Effacement Cervic Station Type Weight in lbs Pre/Post Dialysis Refused BP Diastolic BP Location Tested BP Systolic BP Type Fetus Heart Rate Present Fetus Movement Comments Telephone visit due to COVID -19 pandemic. Pt. with c/o NV. She has called off work 5 times in the past 8 weeks. She did not mention this last visit 4 weeks ago. Rx Sai sent. Pt. to drop off [employer] paperwork for her job. Pt. also with c/o tailbone pain with sitting but only at work. labs discussed. Need for new FOB to get tested for CF discussed. Pt. has appt. with MFM for h/o peripartum cardiomyopathy tomorrow. Pt. encouraged to keep that appt. RTO 5 weeks for in-office appt. Quad screen, Flu shot, Anatomy US order next visit. Flowsheet Date 03/25/2020 Ruelas Score Blood Edema Fundus Height Fundus Units Glucose Ketones Leukocytes Nitrite Labor Signs Protein Cervic Dilation Cervic Effacement Cervic Station none neg Type Weight in lbs Pre/Post Dialysis Refused Weight 137.19379701745 BP Diastolic BP Location Tested BP Systolic BP Type 70 118 sitting Fetus Heart Rate Present A 150 Present Fetus Movement Comments Pt. with c/o nausea and vomi ting so severe she is unable to work. She brought FMLA papers to be filled out. Although she cannot work, she refuses to go into the ED at [facility] [employer] where she works d/t $600 copay. She is taking the anti-emetics but sx not relieved enough to work but not bad enough to go to ED due to cost. FMLA paperwork filled out. Pt. got flu shot at work approx. 02/08/2020. Quad screen discussed, ordered. Anatomy US with [facility] on 2019. Telephone visit 4 weeks due to COVID-19 pandemic. Flowsheet Date 04/22/2020 Ruelas Score Blood Edema Fundus Height Fundus Units Glucose Ketones Leukocytes Nitrite Labor Signs Protein Cervic Dilation Cervic Effacement Cervic Station Type Weight in lbs Pre/Post Dialysis Refused BP Diastolic BP Location Tested BP Systolic BP Type Fetus Heart Rate Present Fetus Movement Comments Telephone visit due to COVID -19 pandemic. Pt. doing well. She did not get Quad screen drawn. Too late now, dwp. Optional nature of test also discussed. Normal anatomy US discussed. Telephone visit 4 weeks. Flowsheet Date 05/20/2020 Ruelas Score Blood Edema Fundus Height Fundus Units Glucose Ketones Leukocytes Nitrite Labor Signs Protein Cervic Dilation Cervic Effacement Cervic Station Type Weight in lbs Pre/Post Dialysis Refused BP Diastolic BP Location Tested BP Systolic BP Type Fetus Heart Rate Present Fetus Movement Comments Telephone visit due to COVID -19 pandemic. Pt. doing well. She is not taking ASA due to eye pain when taking it. FOB has not been tested for CF mutation. Pt. to have him tested. RTO 2 weeks. Third trimester labs, TdaP next visit. Flowsheet Date 06/03/2020 Ruelas Score Blood Edema Fundus Height Fundus Units Glucose Ketones Leukocytes Nitrite Labor Signs Protein Cervic Dilation Cervic Effacement Cervic Station 29 cm Type Weight in lbs Pre/Post Dialysis Refused Weight 148.782006036535 BP Diastolic BP Location Tested BP Systolic BP Type 68 110 sitting Fetus Heart Rate Present A 135 Present Fetus Movement A Yes Comments COVID negative at ED d/t SOB . 05/31/20. Third trimester labs today. PT labor prec/kick counts discussed. RTO 2 weeks. Flowsheet Date 06/17/2020 Ruelas Score Blood Edema Fundus Height Fundus Units Glucose Ketones Leukocytes Nitrite Labor Signs Protein Cervic Dilation Cervic Effacement Cervic Station 31 cm none neg Type Weight in lbs Pre/Post Dialysis Refused Weight 156.140677670955 BP Diastolic BP Location Tested BP Systolic BP Type 70 118 sitting Fetus Heart Rate Present A 140 Present Fetus Movement A Yes Comments Third trimester labs wnl. Td aP discussed, given. Pt .went to L&D for spotting and cramping. Got Terb. Hydration discussed. Note for work given. PT labor prec/kick counts discussed. RTO 2 weeks Flowsheet Date 07/01/2020 Ruelas Score Blood Edema Fundus Height Fundus Units Glucose Ketones Leukocytes Nitrite Labor Signs Protein Cervic Dilation Cervic Effacement Cervic Station 31 cm Type Weight in lbs Pre/Post Dialysis Refused Weight 157.055466563406 BP Diastolic BP Location Tested BP Systolic BP Type 68 118 sitting Fetus Heart Rate Present A 130 Present Fetus Movement A Yes Comments PT labor prec/kick counts di scussed. Note for lifting restrictions at work given. RTO 2 weeks. Flowsheet Date 07/15/2020 Ruelas Score Blood Edema Fundus Height Fundus Units Glucose Ketones Leukocytes Nitrite Labor Signs Protein Cervic Dilation Cervic Effacement Cervic Station 33 cm none 1+ Type Weight in lbs Pre/Post Dialysis Refused Weight 155.211382401483 BP Diastolic BP Location Tested BP Systolic BP Type 64 120 sitting Fetus Heart Rate Present A 130 Present Fetus Movement A Yes Comments PT labor prec/kick counts di scussed. RTO 2 weeks. Flowsheet Date 07/29/2020 Ruelas Score Blood Edema Fundus Height Fundus Units Glucose Ketones Leukocytes Nitrite Labor Signs Protein Cervic Dilation Cervic Effacement Cervic Station 37 cm none neg Type Weight in lbs Pre/Post Dialysis Refused Weight 159.348188498311 BP Diastolic BP Location Tested BP Systolic BP Type 70 132 sitting Fetus Heart Rate Present A 130 Present Fetus Movement A Yes Comments Labor prec/kick counts discu ssed. RTO one week. Flowsheet Date 08/05/2020 Ruelas Score Blood Edema Fundus Height Fundus Units Glucose Ketones Leukocytes Nitrite Labor Signs Protein Cervic Dilation Cervic Effacement Cervic Station 36 cm none neg Type Weight in lbs Pre/Post Dialysis Refused Weight 161.29853229522 BP Diastolic BP Location Tested BP Systolic BP Type 72 120 sitting Fetus Heart Rate Present A 130 Present Fetus Movement A Yes Comments GBS done today. Labor prec/k ick counts discussed. RTO one week. [place] papers faxed and given to pt. per pt. request. Flowsheet Date 08/12/2020 Ruelas Score Blood Edema Fundus Height Fundus Units Glucose Ketones Leukocytes Nitrite Labor Signs Protein Cervic Dilation Cervic Effacement Cervic Station 37 cm none neg Type Weight in lbs Pre/Post Dialysis Refused Weight 161.613530407649 BP Diastolic BP Location Tested BP Systolic BP Type 70 120 sitting Fetus Heart Rate Present A 140 Present Fetus Movement A Yes Comments GBS negative, dwp. Pt. with c/o RAZA especially at work or if she is moving around. Pt. states, I just can't do it, as she exhales deeply. O2 sat in office = 97%. Pt. with h/o peripartum cardiomyopathy. Will send to ED for eval. T/C to ED at [facility]. RTO one week. Flowsheet Date 08/21/2020 Ruelas Score Blood Edema Fundus Height Fundus Units Glucose Ketones Leukocytes Nitrite Labor Signs Protein Cervic Dilation Cervic Effacement Cervic Station 37 cm Type Weight in lbs Pre/Post Dialysis Refused Weight 164.730210952378 BP Diastolic BP Location Tested BP Systolic BP Type 74 130 sitting Fetus Heart Rate Present A 130 Present Fetus Movement Comments Pt. checked out fine at ED. Unsure presentation. US ordered for presentation. Option of ECV vs C/S if breech d/w pt. Pt. with c/o vulvar itching. Rx terazole sent. instructions discussed. Labor prec/kick counts discussed. Pt. denies 6 movements in the hour after eating. However, she has not gone to L&D for this. Pt. to L&D for NST. RTO one week. Flowsheet Date 08/26/2020 Ruelas Score Blood Edema Fundus Height Fundus Units Glucose Ketones Leukocytes Nitrite Labor Signs Protein Cervic Dilation Cervic Effacement Cervic Station 40 cm none neg 2cm 80% -3 Type Weight in lbs Pre/Post Dialysis Refused Weight 167.209582864944 BP Diastolic BP Location Tested BP Systolic BP Type 72 110 sitting Fetus Heart Rate Present A 140 Present Fetus Movement A Yes Comments US showed vertex with polyhy dramnios. Labor prec/kick counts disucssed. IOL scheduled 09/02/20 @ 0700, dwp. Flowsheet Date 09/09/2020 Ruelas Score Blood Edema Fundus Height Fundus Units Glucose Ketones Leukocytes Nitrite Labor Signs Protein Cervic Dilation Cervic Effacement Cervic Station Type Weight in lbs Pre/Post Dialysis Refused Weight 147.71331301215 BP Diastolic BP Location Tested BP Systolic BP Type 80 120 sitting Fetus Heart Rate Present Fetus Movement Comments Menstrual History Last Menstrual Date Menses Monthly On Bcp Conception Prior Menses Frequency Hcg Plus Date Menarche Onset Age 0711/23/2019 true true 0 12 Genetic Screening And Infection History Question Response Note Patient's Age Will Be 35 Yea rs Or Older At Estimated Date of Delivery false Thalassemia (Guamanian, Maltese, Mediterranean, Or Background): MCV < 80 false Neural Tube Defect (Meningom yelocele, Spina Bifida, Or Anencephaly) false Congenital Heart Defect false Down Syndrome false Jerel-Sachs (eg, Christianity, Cajun , Finnish-Monegasque) false Vielka Disease false Sickle Cell Disease Or Trait () false Hemophilia Or Other Blood Disorders false Muscular Dystrophy false Cystic Fibrosis false pt states dr. 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's Chorea false Mental Retardation/Autism false Other Inherited Genetic Or C hromosomal Disorder false Maternal Metabolic Disorder (eg, Type 1 Diabetes, PKU) true mob maternal great grandma Patient Or Baby's Father Had A Child With Defects Not Listed Above false Recurrent Loss, Or A Stillbirth false Medications (including Suppl ements, Vitamins, Herbs, OTC Drugs), Illicit/Recreational Drugs, Alcohol true prenatals Any Other Genetic History false Live With Someone With TB Or Exposed To TB false Patient Or Partner Has Histo ry Of Genital Herpes false Rash Or Viral Illness Since Last Menstrual Period false History Of STD, Gonorrhea, C hlamydia, HPV, Syphilis true mob hpv and HSV 2 Other Infection History false History of HIV false History of Hepatitis false Prior GBS-infected child false Delivery Information Delivery Date Delivery Type Labor Anesthesia Weeks Gestation Incision Type Labor Labor Length Hrs Delivered By Post Complications Tubal Sterilization Discharge Date Comments 1 Induce d Regional-Ep idural 44.6 Jose Davalos MD Discharge Information Feeding Method Contraceptive Method Maternal HG B and HCT Levels Bottle Ob Episode Information Episode Created Date Number of Fetuses Patient Bloodtype Patient rh Status Prepregnancy Weight lbs Domestic Partner Domestic Partner Phone Father Name College President Status 08/18/19 17 1 CLOSED Fetus Data First Name Last Name Admitted to NICU Weight (g) Sex Living Outcome Pediatric Complications Fetus ID Race Codes Race Delivery Type , Spontane ous [id number] Aaron Calculation Initial Aaron Date Initial Exam [...] Domestic Partner Domestic Partner Phone Father Name College President Status 08/26/19 17 1 O Positive 97 CLOSED Fetus Data First Name Last Name Admitted to NICU Weight (g) Sex Living Outcome Pediatric Complications Fetus ID Race Codes Race Delivery Type Margarita Hewitt false [id number] [phone] F true Full Term [id number] White Vaginal Aaron Calculation Initial Aaron Date Initial Exam Date Initial Exam Provider Initial Ultrasound Date Last Menstrual Period Date Ultra Sound Weeks Gestation 03/18/2017 08/17/2016 [email or web address] 08/03/2016 06/11/2016 5 Eighteen To Twenty Week Aaron Update Ultra Sound Date Fundal Height At Umbil Quickening Date Ultra Sound Latest Weeks Gestation Final Aaron Confirmed By Final Aaron Confirmed Date Final Aaron Date Ultra Sound Latest Days Gestation 11/03/19 17 18 [email or web address] 09/01/2016 03/29/20 17 6 Pre- Flowsheet Flowsheet Date 08/17/2016 Ruelas Score Blood Edema Fundus Height Fundus Units Glucose Ketones Leukocytes Nitrite Labor Signs Protein Cervic Dilation Cervic Effacement Cervic Station none neg Type Weight in lbs Pre/Post Dialysis Refused 97.2392048201350 BP Diastolic BP Location Tested BP Systolic BP Type 60 110 sitting Fetus Heart Rate Present Fetus Movement Comments Flowsheet Date 09/14/2016 Ruelas Score Blood Edema Fundus Height Fundus Units Glucose Ketones Leukocytes Nitrite Labor Signs Protein Cervic Dilation Cervic Effacement Cervic Station none neg Type Weight in lbs Pre/Post Dialysis Refused 103.182613956974 BP Diastolic BP Location Tested BP Systolic BP Type 74 188 sitting Fetus Heart Rate Present Fetus Movement Comments labs reviewed. Posi tive CF mutation d/w pt. Need for FOB to get tested discussed. He will have test done. Referred to IM. US changes dates, dwp. RTO PRN + 4 weeks. Flowsheet Date 10/12/2016 Ruelas Score Blood Edema Fundus Height Fundus Units Glucose Ketones Leukocytes Nitrite Labor Signs Protein Cervic Dilation Cervic Effacement Cervic Station none neg Type Weight in lbs Pre/Post Dialysis Refused 110.705870000853 BP Diastolic BP Location Tested BP Systolic BP Type 60 130 sitting Fetus Heart Rate Present A 160 Present Fetus Movement Comments Quad screen discussed, order ed. FOB's CF test negative. RTO 2 weeks. Anatomy US at next visit. Flowsheet Date 2016 Ruelas Score Blood Edema Fundus Height Fundus Units Glucose Ketones Leukocytes Nitrite Labor Signs Protein Cervic Dilation Cervic Effacement Cervic Station none trace Type Weight in lbs Pre/Post Dialysis Refused 114.594606643970 BP Diastolic BP Location Tested BP Systolic BP Type 66 120 sitting Fetus Heart Rate Present A 160 Present Fetus Movement A No Comments Quad screen negative, dwp. A natomy US ordered. RTO 4 weeks. Flowsheet Date 11/23/2016 Ruelas Score Blood Edema Fundus Height Fundus Units Glucose Ketones Leukocytes Nitrite Labor Signs Protein Cervic Dilation Cervic Effacement Cervic Station none neg Type Weight in lbs Pre/Post Dialysis Refused 122.330067056334 BP Diastolic BP Location Tested BP Systolic BP Type 70 128 sitting Fetus Heart Rate Present A 160 Present Fetus Movement A Yes Comments Anatomy US wnl, dwp. Third t rimester labs next visit. RTO 4 weeks. Flowsheet Date 12/28/2016 Ruelas Score Blood Edema Fundus Height Fundus Units Glucose Ketones Leukocytes Nitrite Labor Signs Protein Cervic Dilation Cervic Effacement Cervic Station 27 cm none neg Type Weight in lbs Pre/Post Dialysis Refused 129.107321101191 BP Diastolic BP Location Tested BP Systolic BP Type 72 98 sitting Fetus Heart Rate Present A 135 Present Fetus Movement A Yes Comments Third trimester labs today. PT labor prec. discussed. TdaP next visit. RTo 2 weeks. Flowsheet Date 01/12/2017 Ruelas Score Blood Edema Fundus Height Fundus Units Glucose Ketones Leukocytes Nitrite Labor Signs Protein Cervic Dilation Cervic Effacement Cervic Station none neg Type Weight in lbs Pre/Post Dialysis Refused 137.148490829215 BP Diastolic BP Location Tested BP Systolic BP Type 76 124 sitting Fetus Heart Rate Present A 140 Present Fetus Movement A Yes Comments Third trimester labs wnl, dw p. TdaP discussed, given. Flu shot discussed, given. PT labor prec/kick counts discussed. RTO 2 weeks. Flowsheet Date 01/26/2017 Ruelas Score Blood Edema Fundus Height Fundus Units Glucose Ketones Leukocytes Nitrite Labor Signs Protein Cervic Dilation Cervic Effacement Cervic Station 31 cm 1+ trace Type Weight in lbs Pre/Post Dialysis Refused 139.412569800907 BP Diastolic BP Location Tested BP Systolic BP Type 68 112 sitting Fetus Heart Rate Present A 160 Present Fetus Movement A Yes Comments PT labor prec/kick counts di scussed. RTO 2 weeks Flowsheet Date 02/09/2017 Ruelas Score Blood Edema Fundus Height Fundus Units Glucose Ketones Leukocytes Nitrite Labor Signs Protein Cervic Dilation Cervic Effacement Cervic Station 32 cm 2+ neg Type Weight in lbs Pre/Post Dialysis Refused 144.053001502186 BP Diastolic BP Location Tested BP Systolic BP Type 64 130 sitting Fetus Heart Rate Present A 135 Present Fetus Movement A Yes Comments PT labor prec/kick counts di scussed. RTO 2 weeks Flowsheet Date 02/24/2017 Ruelas Score Blood Edema Fundus Height Fundus Units Glucose Ketones Leukocytes Nitrite Labor Signs Protein Cervic Dilation Cervic Effacement Cervic Station 33 cm none neg Type Weight in lbs Pre/Post Dialysis Refused 148.859834454641 BP Diastolic BP Location Tested BP Systolic BP Type 70 136 sitting Fetus Heart Rate Present A 145 Present Fetus Movement A Yes Comments Weight gain discussed. Labor prec/kick counts discussed. RTO one week. GBS next visit. Flowsheet Date 03/02/2017 Ruelas Score Blood Edema Fundus Height Fundus Units Glucose Ketones Leukocytes Nitrite Labor Signs Protein Cervic Dilation Cervic Effacement Cervic Station 34 none neg 0cm Type Weight in lbs Pre/Post Dialysis Refused 150.79994328225 BP Diastolic BP Location Tested BP Systolic BP Type 68 120 sitting Fetus Heart Rate Present A 135 Present Fetus Movement A Yes Comments GBS done today. Labor prec/k ick counts discussed. RTO one week. Flowsheet Date 03/09/2017 Ruelas Score Blood Edema Fundus Height Fundus Units Glucose Ketones Leukocytes Nitrite Labor Signs Protein Cervic Dilation Cervic Effacement Cervic Station none neg 0cm Type Weight in lbs Pre/Post Dialysis Refused 151.062080557510 BP Diastolic BP Location Tested BP Systolic BP Type 70 140 sitting Fetus Heart Rate Present A 150 Present Fetus Movement A Yes Comments GBS negative, dwp. Labor pre c/kick counts discussed. RTO one week Flowsheet Date 03/16/2017 Ruelas Score Blood Edema Fundus Height Fundus Units Glucose Ketones Leukocytes Nitrite Labor Signs Protein Cervic Dilation Cervic Effacement Cervic Station 37 cm none neg Type Weight in lbs Pre/Post Dialysis Refused 154.230498474685 BP Diastolic BP Location Tested BP Systolic BP Type 60 124 sitting Fetus Heart Rate Present A 140 Present Fetus Movement A Yes Comments Labor prec/kick counts discu ssed. Flowsheet Date 03/23/2017 Ruelas Score Blood Edema Fundus Height Fundus Units Glucose Ketones Leukocytes Nitrite Labor Signs Protein Cervic Dilation Cervic Effacement Cervic Station 38 cm none neg 1cm Type Weight in lbs Pre/Post Dialysis Refused 155.54813529347 BP Diastolic BP Location Tested BP Systolic BP Type 70 130 sitting Fetus Heart Rate Present A 135 Present Fetus Movement A Yes Comments Labor prec/kick counts discu ssed. RTO one week. Flowsheet Date 03/30/2017 Ruelas Score Blood Edema Fundus Height Fundus Units Glucose Ketones Leukocytes Nitrite Labor Signs Protein Cervic Dilation Cervic Effacement Cervic Station 39 cm none neg 1cm 70% -3 Type Weight in lbs Pre/Post Dialysis Refused 156.443308204549 BP Diastolic BP Location Tested BP Systolic BP Type 78 140 sitting 80 140 sitting Fetus Heart Rate Present A 140 Present Fetus Movement A Yes Comments Elevated BP. Denies s/sx pre eclampsia. Visibly swollen in face and hands. Pt. to L&D for serial BPs and PIH labs. Flowsheet Date 04/19/2017 Ruelas Score Blood Edema Fundus Height Fundus Units Glucose Ketones Leukocytes Nitrite Labor Signs Protein Cervic Dilation Cervic Effacement Cervic Station Type Weight in lbs Pre/Post Dialysis Refused 139.700082328398 BP Diastolic BP Location Tested BP Systolic BP Type 84 L arm 114 sitting Fetus Heart Rate Present Fetus Movement Comments Menstrual History Last Menstrual Date Menses Monthly On Bcp Conception Prior Menses Frequency Hcg Plus Date Menarche Onset Age 0206/11/2016 true false 12 Genetic Screening And Infection History Question Response Note Patient's Age Will Be 35 Yea rs Or Older At Estimated Date of Delivery false Thalassemia (Guamanian, Maltese, Mediterranean, Or Background): MCV < 80 false Neural Tube Defect (Meningom yelocele, Spina Bifida, Or Anencephaly) false Congenital Heart Defect false Down Syndrome false Jerel-Sachs (eg, Christianity, Cajun, Finnish-Monegasque) f alse Vielka Disease false Sickle Cell Disease Or Trait () false Hemophilia Or Other Blood Disorders false Muscular Dystrophy false Cystic Fibrosis false Ransom's Chorea false Mental Retardation/Autism false If Yes, Was Person Tested For [...] STD, Gonorrhea, Chlamydia, HPV, Syphi lis false 15 positive for HPV Other Infection History false Plans and Education First Trimester Discussed Date Discussion Item Discussion Note Discuss ed By 11/23/2016 Anticipated course of care [id number] 11/23/2016 Alcohol [id number] 11/23/2016 Intimate partner violence [place] [address] 11/23/2016 Environmental/work hazards s [id number] 11/23/2016 Screening for aneuploidy [place] [address] 11/23/2016 Nutrition counseling ; special diet; dietary precautions (mercury, listeriosis) [place] [address] 11/23/2016 Childbirth classes/hospital facilities [place] [address] 11/23/2016 HIV and other routine tests [place] [address] 11/23/2016 Risk factors identif ied by history [place] [address] 11/23/2016 Weight gain counseling [place] [address] 11/23/2016 Exercise [place] [address] 11/23/2016 Teratogens [place] [address] 11/23/2016 Use of any medicatio ns (including supplements, vitamins, herbs, or OTC drugs) [place] [address] 11/23/2016 [place] [address] 11/23/2016 Sexual activity [place] [address] 11/23/2016 Tobacco/smoking cess ation counseling (ask, advise, assess, assist, and arrange) [place] [address] 11/23/2016 Illicit/recreational drugs s [id number] 11/23/2016 Dental care [place] [address] 11/23/2016 Travel [place] [address] 11/23/2016 Seat belt use [place] [address] 11/23/2016 Indications for ultrasonography [place] [address] 11/23/2016 Avoidance of saunas or hot tubs [place] [address] 11/23/2016 Toxoplasmosis precautions (cats/raw meat) [place] [address] Second Trimester Discussed Date Discussion Item Discussion Note Discuss ed By Third Trimester Discussed Date Discussion Item Discussion Note Discuss ed By Delivery Information Delivery Date Delivery Type Labor Anesthesia Weeks Gestation Incision Type Labor Labor Length Hrs Delivered By Post Complications Tubal Sterilization Discharge Date Comments 7 Sponta neous [facility]-Ep id[facility] 41 Dr. Isabela Patton-Dr. Balderrama Discharge Information Feeding Method Contraceptive Method Maternal HG B and HCT Levels Bottle
--- OUTSIDE RECORDS SUMMARY | 2024-06-18 12:06 | XMS_ITS | Clinical Summary ---
Author Organization [facility] Address [address] [place] [address] Care Team Providers Care Operations Officer Name Role Phone No, Physician Primary Care Provider [phone] Allergies No known active allergies Medications clindamycin (CLEOCIN T) 1 % lotion Apply topically care coordinator before breakfast 2 Active ibuprofen (ADVIL,MOTRIN) 800 mg tabletIndicatio ns:Anti-inflamm atory Take 1 tablet (800 mg) every 8 hours 1-2 days prior to onset of menses through day 2-3 of cycle each month. 30 tablet 1 3 Active Additional Information Patient not taking.Reported on 06/01/2023 albuterol HFA (PROVENTIL HFA,VENTOLIN HFA,PROAIR HFA) 90 mcg/actuation inhalerIndicati ons:Bronchitis Inhale 2 puffs every 6 (six) hours as needed for wheezing 1 each 3 Active Additional Information Patient not taking.Reported on 06/01/2023 Active Problems Problem Noted Date Diagnosed Date Menorrhagia with regular cycle 12/24/2022 Breast lump 10/22/2022 10/22/2022 Back pain affecting , antepartum 201910/22/2022 Overview (10/22/2022): Last Assessment & Plan: Unexplained lower lumbar and sacral pain. No gait deficits appreciated. Maternal Medicine recommendations: 1. would benefit from evaluation by a physical therapist--our office will assist with a referral Depression 02/19/2020 10/22/2022 Overview (10/22/2022): Last Assessment & Plan: Mood appropriate without medication. Remains at risk for mood deterioration during and . Maternal Medicine recommendations: 1. Re-evaluate mood at visits 2. Would benefit from Bradycardia 05/18/2017 10/22/2022 Edema 05/18/2017 10/22/2022 Shortness of breath 05/18/2017 10/22/2022 Burst stitches, initial encounter 04/11/2017 Assessment & Plan (04/11/2017 8:52 AM DIRECTOR MUSIC): Patient is complaining of pain. 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 UTI (urinary tract infection) 04/11/2017 Assessment & Plan (04/11/2017 8:53 AM DIRECTOR MUSIC): Start IV rocephin Check urine culture Check blood culture Bilateral lower extremity edema 04/11/2017 Assessment & Plan (04/11/2017 9:00 AM DIRECTOR MUSIC): Started after delivery. R/o Peripartum Cardiomyopathy Check 2D echocardiogram Patient has elevated BNP 822. CXR no active disease. Patient reports dyspnea on exertion. Cardiology Evaluation () Cr 0.62, Trace protein in UA. Albumin 3.4 UA large blood most likely due to contamination with vaginal blood due to burst stitch. Sinus bradycardia 04/11/2017 Assessment & Plan (04/11/2017 9:07 AM DIRECTOR MUSIC): Patient reports occasional dizziness Patient states prior to delivery her heart rate was around 70-80 Patient does not take any medication. C/w telemetry monitoring EKG in Am, check 2D echo On EKG sinus bradycardia, no evidence of heart block Cardiology evaluation () Patient may need 30 days monitor in discharge Miscarriage 02/08/2016 10/22/2022 Hypertension Immunizations Name Administration Dates Next Due MMR 09/03/2020(Deferred: No longer n eeded) Tdap 09/03/2020(Deferred: Patient Ref used) Surgical History Surgery Date Site/Laterality Comments APPENDECTOMY Medical History Medical History Date Comments Asthma Seasonal allergies Vaginal delivery 04/05/2017 Social History Tobacco Use Types Packs/Day Years Used Date Smoking Tobacco: Every Day Cigarettes Smokeless Tobacco: Never Tobacco Cessation:Ready to Q uit: Not Asked; Counseling Given: Not Answered Alcohol Use Standard Drinks/Week Comments No 0 (1 standard drink = 0.6 oz pur e alcohol) PHQ-2 Answer Date Recorded PHQ-2 Total Score (If total score is 3 or more points, staff should administer the PHQ-9) 0 12/21/2022 Comments No Sex and Gender Information Value Date Recorded Sex Assigned at Not on file Legal Sex Female 7:58 AM DIRECTOR MUSIC Gender Identity Not on file Sexual Orientation Not on file Obstetrics History Para Term AB IAB SAB Ectopic Multiple Livin g Live Births 5 2 2 3 1 2 0 2 2 Date Outcome GA Total Labor Labor/2nd/3rd Weight Sex Type Anes PTL Hedy A1 A5 Name Clin IAB 6 SAB 2016 Term F Livin g 2020 Term 40w 4d 4h 13m 3h 38m/0h 29m/0h 06m 4.019 kg (8 lb 13.8 oz) M Vag-Sp ont Epidur al N Livin g 7 9 MARLYN HANNON, Nita Laird MD Complications:None Delivery Location:[facility]) 2022 SAB 4w0 d Bioche mical Last Filed Vital Signs Vital Sign Reading Time Taken Comments Blood Pressure 98/66 06/01/2023 2:20 PM DIRECTOR MUSIC Pulse 83 06/01/2023 2:20 PM DIRECTOR MUSIC Temperature 36.8 C (98.2 F) 06/01/2023 2:20 PM DIRECTOR MUSIC Respiratory Rate 18 06/01/2023 2:20 PM DIRECTOR MUSIC Oxygen Saturation 97% 06/01/2023 2:20 PM DIRECTOR MUSIC Inhaled Oxygen Concentration - - Weight 66.7 kg (147 lb) 06/01/2023 2:20 PM DIRECTOR MUSIC Height 157.5 cm (5' 2 ) 06/01/2023 2:20 PM DIRECTOR MUSIC Body Mass Index 26.89 06/01/2023 2:20 PM DIRECTOR MUSIC Plan of Treatment Health Maintenance Due Date Last Done Comments Pneumococcal vaccine <65 (1 of 2 - PCV) 10/27/1999 Varicella Vaccines (1 of 2 - 13+ 2-dose series) 2006 Cervical Cancer Screening 12/22/2023 12/21/2022, 01/2022 Depression Screening 12/22/2023 12/21/2022, 12/17/19 22 Regular Well Visit/Exam 18-64 12/22/2023 12/21/2022, 12/16/2021 Influenza Vaccine (#1) 2024 3, 02/20/2021, 02/13/2020, Additional history exists DTaP/Tdap/Td Vaccine (9 - Td or Tdap) 06/17/2030 06/17/2020, 01/12/2017, 05/20/2005, Additional history exists Hepatitis B Screening Completed 11/17/1994 , 08/31/1994, 1993 HPV Vaccines Completed 06/22/2007, 11/17/2006 Hepatitis C Screening Completed 03/19/2022 Procedures Procedure Name Priority Date/Time Associated Diagnosis Comments PAP, REFLEX HPV Routine 12/21/2022 11:43 AM CDT Well woman exam HEPATITIS C ANTIBODY Routine 03/19/2022 12:06 PM DIRECTOR MUSIC Screening for STD (sexually transmitted disease) from Last 3 Months or Most Recently Relevant to Health Maintenance Results * (ABNORMAL) Pap, reflex HPV (12/21/2022 11:43 AM CDT) CLINICAL INFORMATION: Krystin Jimenes Comment:Routine exam LMP Krystin Jimenes Comment:[id number] Previous Pap Krystin Jimenes Comment:NONE GIVEN Prev. Bx Krystin Jimenes Comment:NONE GIVEN SOURCE: Krystin Jimenes Comment:Cervix, Endocervix Pap, specimen adequacy Krystin Jimenes Comment: Satisfactory for evaluation. Endocervical/transformation zone component present. Pap, general categorization (A) Krystin Jimenes Comment:Cytology Results: Ep ithelial Cell Abnormality HPV interp (A) Krystin Jimenes Comment:Low Grade Squamous I ntraepithelial Lesion (LSIL) COMMENTS Krystin Jimenes Comment: This Pap test has been evaluated with computer assisted technology. Suggest clinical correlation and follow-up as clinically appropriate Power Plant Manager [facility] Jim[facility] Comment: KMS, CT(ASCP) CT Screening location: [place] [address] [address] [place] [address] Pathologist [facility] Comment: Adan Matamoros M.D., Board Certified in Anatomic Pathology and Cytopathology. (electronic signature) Comment [facility] Comment: EXPLANATORY NOTE: The Pap is a screening test for cervical cancer. It is not a diagnostic test and is subject to false negative and false positive results. It is most reliable when a satisfactory sample, regularly obtained, is submitted with relevant clinical findings and history, and when the Pap result is evaluated along with historic and current clinical information. Thin prep 12/21/2022 11:4 3 AM CDT 12/22/2022 2:34 AM CDT Analilia Ann NP LAB CYTOLOGY ORDERABLES Final Re sult [facility] [address] [place] [address] * Hepatitis C antibody (03/19/2022 12:06 PM DIRECTOR MUSIC) Hep C Ab Nonreactive Nonreactive DEJAN RICHEY (LASHA) Comment: Interpretive Data Nonreactive: Antibodies to HCV not detected. Does NOT exclude the possibility of recent exposure to HCV. Equivocal: Equivocal for HCV antibodies. Supplemental molecular testing will be automatically performed to determine infection status in accordance with current CDC screening recommendations. Reactive: Positive for HCV antibodies. This may represent current or past HCV infection. Supplemental molecular testing will be automatically performed to determine current infection status in accordance with current CDC screening recommendations. Interpretive data was last revised on 2019. Testing performed by: [facility], [address] [place] [address]., [id number] Blood 03/19/2022 12:0 6 PM DIRECTOR MUSIC 03/19/2022 2:15 PM DIRECTOR MUSIC us Analilia Ann MANAGER PULMONARY LAB MICROBIOLOGY - GENERAL ORDER IMELDA Edited Result - Final [facility] ([place]) [address] [facility] Department [place] [address] from Last 3 Months or Most Recently Relevant to Health Maintenance Insurance [facility] IDPA [facility] Advance Directives For more information, please contact: [phone] * Full Code (Latest Code Status on File) Date Activated Date Inactivated Comments 09/02/2020 7:03 AM 09/04/2020 3:15 AM Full CPR in case of cardiopulmonary arrest * Full Code Date Activated Date Inactivated Comments 04/11/2017 12:39 AM 04/12/2017 8:15 PM Care Teams Operations Officer Relationship Specialty Start Date End Date No, Physician PCP - General 03/30/17
--- OUTSIDE RECORDS SUMMARY | 2024-06-18 12:06 | XMS_ITS | CONTINUITY OF CARE DOCUMENT ---
Author Name shandraanthony maulikjie Address Unknown Organization [facility] Address [address] [place] [address] [address] [place] [address] Phone [phone] Care Team Providers Care Mold Yard Worker Name Role Phone Bijan Newman MD Unavailable [phone] Bijan Newman MD Unavailable [phone] PROBLEMS Condition Status Date Provider Notes Shortness of breath active Bijan Newman MD Edema active Bijan Newman MD Bradycardia active Bijan Newman MD ENCOUNTERS Date Type Provider Location Encounter Diag nosis - In-person encounter Office Visit Bijan Newman MD [facility] Office Shortness of breathEdemaBradycardia VITAL SIGNS Date Observation Value Provider Body Mass Index (Ratio) 24.69 kg/m2 Reynaldo Bernstein blood pressure, resting No Kenny tity Susan blood pressure, diastolic 80 mm[Hg] Ch astity Susan blood pressure, systolic 120 mm[Hg] Narcisa stity Susan oxygen saturation, oximetry 98 % Chastity Susan respiratory rate E&M 20 /min Chastit y Susan pulse rate 71 /min Chastity Susan weight E&M 135 [lb_av] Chastity Susan height E&M 62 [in_i] Chastity Susan ALLERGIES Allergy Name Onset Date Reaction Criticality Status SEASAONAL High Criticality active RESULTS Date Observation Value Provider Reference Range Interpretation Location pro brain natriuretic peptide 157 pg/mL [employer] 0-130 High HISTORY OF MEDICATION USE Medication Status Instructions Dates Provider Indications Com ments HYDROCODONE-ACETAM INOPHEN 5-325 MG ORAL TABLET active as needed Anum Davis SOCIAL HISTORY Date Observation Value Provider social history reviewed E&M reviewed - no changes required Bijan Newman MD social history E&M Smoking Histo ry: Martinez zapata is a former smoker. Bijan Newman MD number of years as a smoker 5 a Narcisajared Susan cigarette use yes Anum Jensenue smoking status Former smoker Anum Jensen ue FAMILY HISTORY Family Member Condition Mother Family History of Hy pertension: INSURANCE PROVIDERS Payer name Policy type / Coverage type [place] red libertarian [place] MEDICA[employer] Medicaid [id number] ADVANCE DIRECTIVES Name Date DISCUSSED - NO DECISION MADE TREATMENT PLAN Date Name Performer Cardiology:She had b radycardia and Holter was performed however results are not available yet. Rakan Bernstein Cardiology:One week after delivering a baby, the pt had some problems with the stitches. She went to [facility] and also had SOB and leg swelling. ProBNP was elevated to >800 and she was treated with IV Lasix successfully. Echo showed normal EF. Venous duplex was normal. Will obtain repeat proBNP. Rakan Bernstein Cardiology:One week after delivering a baby, the pt had some problems with the stitches. She went to [facility] and also had SOB and leg swelling. ProBNP was elevated to >800 and she was treated with IV Lasix successfully. Echo showed normal EF. Venous duplex was normal. Will obtain repeat proBNP. Rakan Bernstein Date Name PROBNP, N TERMINAL HISTORY OF PROCEDURES Procedure Date Procedure Name Provider Procedure Notes S tatus EKG Bijan Newman MD completed SNOMED-CT: [id number] Current Medications Documented Bijan Newman MD completed
--- OUTSIDE RECORDS SUMMARY | 2024-06-18 12:06 | XMS_ITS | Referral Summary ---
Author Organization [facility] Address [address] [place] [address] Care Team Providers Care Charcoal Unloader Name Role Phone No, Physician Primary Care Provider Allergies No known active allergies Medications clindamycin (CLEOCIN T) 1 % lotion Apply topically merchandising specialist before breakfast 2 Active ibuprofen (ADVIL,MOTRIN) 800 [...] 04/11/2017 Assessment & Plan (04/11/2017 8:52 AM SPLICER APPRENTICE): Patient is complaining of pain. 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 UTI (urinary tract infection) 04/11/2017 Assessment & Plan (04/11/2017 8:53 AM SPLICER APPRENTICE): Start IV rocephin Check urine culture Check blood culture Bilateral lower extremity edema 04/11/2017 Assessment & Plan (04/11/2017 9:00 AM SPLICER APPRENTICE): Started after delivery. R/o Peripartum Cardiomyopathy Check 2D echocardiogram Patient has elevated BNP 822. CXR no active disease. Patient reports dyspnea on exertion. Cardiology Evaluation () Cr 0.62, Trace protein in UA. Albumin 3.4 UA large blood most likely due to contamination with vaginal blood due to burst stitch. Sinus bradycardia 04/11/2017 Assessment & Plan (04/11/2017 9:07 AM SPLICER APPRENTICE): Patient reports occasional dizziness Patient states prior [...] n eeded) Tdap 09/03/2020(Deferred: Patient Ref used) Social History Tobacco Use Types Packs/Day Years [...] on file Legal Sex Female 7:58 AM SPLICER APPRENTICE Gender Identity Not on file Sexual Orientation Not on file Last Filed Vital Signs Vital Sign Reading Time Taken Comments Blood Pressure 98/66 06/01/2023 2:20 PM SPLICER APPRENTICE Pulse 83 06/01/2023 2:20 PM SPLICER APPRENTICE Temperature 36.8 C (98.2 F) 06/01/2023 2:20 PM SPLICER APPRENTICE Respiratory Rate 18 06/01/2023 2:20 PM SPLICER APPRENTICE Oxygen Saturation 97% 06/01/2023 2:20 PM SPLICER APPRENTICE Inhaled Oxygen Concentration - - Weight 66.7 kg (147 lb) 06/01/2023 2:20 PM SPLICER APPRENTICE Height 157.5 cm (5' 2 ) 06/01/2023 2:20 PM SPLICER APPRENTICE Body Mass Index 26.89 06/01/2023 2:20 PM SPLICER APPRENTICE Plan of Treatment Not on file Procedures Procedure Name Priority Date/Time Associated Diagnosis Comments PAP, REFLEX HPV Routine 12/21/2022 11:43 AM CDT Well woman exam HEPATITIS C ANTIBODY Routine 03/19/2022 12:06 PM SPLICER APPRENTICE Screening for STD (sexually transmitted disease) from Last 3 Months or Most Recently Relevant to Health Maintenance Results * (ABNORMAL) Pap, reflex HPV (12/21/2022 11:43 AM CDT) CLINICAL INFORMATION: Krystin Jimenes Comment:Routine exam LMP Krystin Jimenes Comment:[id number] Previous Pap Krystin Jimenes Comment:NONE GIVEN Prev. Bx Krystin Jimenes Comment:NONE GIVEN SOURCE: Krystin Jimenes Comment:Cervix, Endocervix Pap, specimen adequacy Krystin Jimenes Comment: Satisfactory for evaluation. Endocervical/transformation zone component present. Pap, general categorization (A) Krystin Jimenes Comment:Cytology Results: Ep ithelial Cell Abnormality HPV interp (A) Krystin Jimenes Comment:Low Grade Squamous I ntraepithelial Lesion (LSIL) COMMENTS Krystin JerryGlennaMachelle judith Jimenes Comment: This Pap test has been evaluated with computer assisted technology. Suggest clinical correlation and follow-up as clinically appropriate Testboard Operator Que JerryKevyn Jimenes Comment: KMS, CT(ASCP) CT Screening location: [place] [address] [address] [place] [address] [facility] Ron Jimenes Comment: Adan Matamoros M.D., Board Certified in Anatomic Pathology and Cytopathology. (electronic signature) Comment [facility] Ron Jimenes Comment: EXPLANATORY NOTE: The Pap is [...] NP LAB CYTOLOGY ORDERABLES Final Re sult [facility] [address] [place] [address] * Hepatitis C antibody (03/19/2022 12:06 PM SPLICER APPRENTICE) Hep C Ab Nonreactive Nonreactive DEJAN RICHEY [...] last revised on 2019. Testing performed by: [facility], [address] [place] [address], [place]., [address] Blood 03/19/2022 12:0 6 PM SPLICER APPRENTICE 03/19/2022 2:15 PM SPLICER APPRENTICE Analilia Ann NP LAB MICROBIOLOGY - GENERAL ORDER IMELDA Edited Result - Final [facility] ([place]) [address] [facility] [place] [address] from Last 3 Months or Most Recently Relevant to Health Maintenance [place] [address] [facility] [place] [address] [facility] [place] [address] [facility] Advance Directives For more information, please contact: [phone] * Full Code (Latest Code Status on File) Date Activated Date Inactivated Comments 09/02/2020 7:03 AM 09/04/2020 3:15 AM Full CPR in case of cardiopulmonary arrest * Full Code Date Activated Date Inactivated Comments 04/11/2017 12:39 AM 04/12/2017 8:15 PM Care Teams Charcoal Unloader Relationship Specialty Start Date End Date No, Physician PCP - General 03/30/17
--- OUTSIDE RECORDS SUMMARY | 2024-06-18 12:06 | XMS_ITS | Referral Summary ---
Author Organization [facility] Address [address] [place] [address] Care Team Providers Care Social And Political Studies Professor Name Role Phone Unavailable Primary Care Provider Unavailabl e Source Comments [facility],non-owned Affiliates and Associated Physician Practices is amultiple site organization consisting of ambulatory clinics and hospital sitesin [place], [place], [place] and [place]. This disclosure is being madepursuant to the Care Everywhere program and may not contain all information available regarding this patient. Last updated 18.[employer] [facility] Allergies No known active allergies Medications * Be aware that medications may not be up to date on this document. Alwaysverify current medications with the patient. Medication Sig Dispensed Refills Start Date End Date Status Vit-Fe Fumarate-FA ( VITAMIN) 28-0.8 MG tabletIndications: Take 1 tablet by mouth once daily Reasons: Active pyridoxine (VITAMIN B-6) 25 MG tabletIndications: Nausea and/or Vomiting in Take 2 tablets by mouth at bedtime Reasons: Nausea and Vomiting in 60 tablet 11 02/21/2020 Active doxylamine (UNISOM) 25 MG tabletIndications: Nausea and/or Vomiting in Take 1 tablet by mouth nightly as needed for Insomnia Reasons: Nausea and Vomiting in 30 tablet 11 02/21/2020 Active aspirin (ASPIRIN) 81 MG chew tabletIndications: preeclampsia prevention Take 2 tablets by mouth once daily Reasons: preeclampsia prevention 100 tablet 11 02/21/2020 Active nicotine polacrilex (NICORETTE) 4 MG gumIndications:Douglas otine Dependence Take 1 Each by mouth as needed for Smoking Cessation (2 tablets per day maximum) Reasons: Nicotine Addiction 50 Each 2 03/04/2020 Active tretinoin (RETIN-A) 0.025 % cream Pea sized amount to entire face at night - start 2-3 times a week and increase as tolerated. 30 days supply. 20 g 3 08/22/2021 Active clindamycin (CLEOCIN) 1 % lotion Apply to affected area every morning 60 mL 3 08/22/2021 Active Active Problems Problem Noted Date Diagnosed Date Tobacco smoking affecting , antepartum 02/21/2020 Assessment & Plan (02/21/2020 3:48 PM CDT): Maternal Medicine recommendations: 1. recommend complete smoking cessation 2. Prescription for nicotine replacement gum provided 3. emphasized the benefits to mother and child from and encouraged Nausea and vomiting during 02/21/2020 Assessment & Plan (02/21/2020 3:49 PM CDT): Has received a prescription for an anti-nausea medication that she has not yet picked up from the pharmacy. Maternal Medicine recommendations: 1. prescriptions provided for vitamin B6 and doxylamine 2. Also discussed the benefit of felix supplementation Back pain affecting , antepartum 2019 Assessment & Plan (02/21/2020 3:50 PM CDT): Unexplained lower lumbar and sacral pain. No gait deficits appreciated. Maternal Medicine recommendations: 1. would benefit from evaluation by a physical therapist--our office will assist with a referral Normal in multigravida 02/19/2020 Overview (02/19/2020): Dating: confident LMP of 11/23/19 c/w 6w5d u/s w/CRL of 0.85cm making LEONIDAS-->08/29/20 summary: labs requested Depression 02/19/2020 Assessment & Plan (02/21/2020 3:43 PM CDT): Mood appropriate without medication. Remains at risk for mood deterioration during and . Maternal Medicine recommendations: 1. Re-evaluate mood at visits 2. Would benefit from History of complication in G1 016 Overview (02/21/2020): Had some shortness of breath, 1 week . Had elevated pro BNP and received Lasix. Unremarkable echocardiogram [EF 55%]. Did NOT meet criteria for cardiomyopathy by Pension Adviser. Assessment & Plan (02/21/2020 3:47 PM CDT): course was complicated by what sounds like pulmonary edema. There was some transient gestational hypertension at 39 weeks which the patient reports resolved and she did not require induction of labor. She ultimately delivered at 41 weeks. When she had shortness of breath, 1 week , she was hospitalized for approximately 3 days. She denies any hypertensive blood pressures during that hospitalization. She had improvement in her symptoms by the time of discharge and did not have any further complications. I reviewed the evaluation by the Pension Adviser which was performed . Delicia did not meet criteria for cardiomyopathy nor any other cardiac disorder. We discussed that given her transient history of gestational hypertension and her first-degree family member with essential hypertension that she may be at risk for hypertensive disorders of . I recommend aspirin for preeclampsia risk reduction. Maternal Medicine recommendations: 1. aspirin for preeclampsia risk reduction--prescription provided Resolved Problems Problem Noted Date Diagnosed Date Resolved Date History of cardiomyopathy 02/19/2020 Overview (02/19/2020): History of PP cardiomyopathy, she had SOB and peripheral edema, with Pro BNP >300. She required Lasix for one week PP. Pt. Saw Pension Adviser 05/2017 after daughter was born, echo performed at that time and showed EF of 55%. No issues since per pt, she was instructed by cardiology to follow up yearly. 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 History of gastroesophageal reflux (GERD) 02/19/2020 02/21/2020 Asthma affecting , antepartum 02/19/2020 02/21/2020 Frequent UTI 02/19/2020 02/21/2020 Social History Tobacco Use Types Packs/Day Years Used Date Smoking Tobacco: Every Day Cigarettes 0.3 4 Smokeless Tobacco: Never Alcohol Use Standard Drinks/Week Comments Not Currently 0 (1 standard drink = 0.6 oz pur e alcohol) Sex and Gender Information Value Date Recorded Sex Assigned at Not on file Gender Identity Not on file Sexual Orientation Not on file Last Filed Vital Signs Vital Sign Reading Time Taken Comments Blood Pressure 117/49 02/21/2020 2:24 PM CDT Pulse 80 02/21/2020 2:24 PM CDT Temperature 36.8 C (98.3 F) 04/09/2020 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
--- OUTSIDE RECORDS SUMMARY | 2024-06-18 12:06 | XMS_ITS | Encounter Summary ---
Author Organization [facility] Address [address] [place] [address] Care Team Providers Care Parachute Packer Name Role Phone Unavailable Primary Care Provider Unavailabl e Reason for Visit * Reason Onset Date Comments Appointment 02/07/2024 Encounter Details Date Type Department Care Team (Late st Contact Info) Description 02/07/2024 Telephone [facility] - Centralized Scheduling [address] [place] [phone] Lelo Feliz MD [address] [facility] [address] [place] [id number] Appointment Social History Tobacco Use Types Packs/Day Years Used Date Smoking Tobacco: Every Day Cigarettes 0.3 4 Smokeless Tobacco: Never Alcohol Use Standard Drinks/Week Comments Not Currently 0 (1 standard drink = 0.6 oz pur e alcohol) Comments Yes Sex and Gender Information Value Date Recorded Sex Assigned at Not on file Gender Identity Not on file Sexual Orientation Not on file documented as of this encounter Miscellaneous Notes * Telephone Encounter - Aliya Kennedy - 02/07/2024 8:11 AM CDT spot on leg mole that is raised, requesting sooner appt documented in this encounter Plan of Treatment Not on file documented as of this encounter Visit Diagnoses Not on filedocumented in this encounter
--- OUTSIDE RECORDS SUMMARY | 2024-06-18 12:06 | XMS_ITS | Patient Health Summary ---
Author Organization [facility] Address [address] [place] [address] Care Team Providers Care Tripe Cooker Name Role Phone Unavailable Primary Care Provider Unavailabl e Note from [facility],non-owned Affiliates and Associated Physician Practices is amultiple site organization consisting of ambulatory clinics and hospital sitesin [place], [place], [place] and [place]. This disclosure is being madepursuant to the Care Everywhere program and may not contain all information available regarding this patient. Last updated 18.[facility] Allergies No known active allergies Medications * Be aware that medications may not be up to date on this document. Alwaysverify current medications with the patient. * Vit-Fe Fumarate-FA ( VITAMIN) 28-0.8 MG tablet Take 1 tablet by mouth once daily Reasons: * pyridoxine (VITAMIN B-6) 25 MG tablet(Started 02/21/2020) Take 2 tablets by mouth at bedtime Reasons: Nausea and Vomiting in 11 refills by 02/20/2021 * doxylamine (UNISOM) 25 MG tablet(Started 02/21/2020) Take 1 tablet by mouth nightly as needed for Insomnia Reasons: Nausea and Vomiting in 11 refills by 02/20/2021 * aspirin (ASPIRIN) 81 MG chew tablet(Started 02/21/2020) Take 2 tablets by mouth once daily Reasons: preeclampsia prevention 11 refills by 02/20/2021 * nicotine polacrilex (NICORETTE) 4 MG gum(Started 03/04/2020) Take 1 Each by mouth as needed for Smoking Cessation (2 tablets per day maximum) Reasons: Nicotine Addiction 2 refills by 03/04/2021 * tretinoin (RETIN-A) 0.025 % cream(Started 08/22/2021) Pea sized amount to entire face at night - start 2-3 times a week and increase as tolerated. 30 days supply. 3 refills by 08/22/2022 * clindamycin (CLEOCIN) 1 % lotion(Started 08/22/2021) Apply to affected area every morning 3 refills by 08/22/2022 Active Problems Problem Noted Date Diagnosed Date Tobacco smoking affecting , antepartum 02/21/2020 Nausea and vomiting during 02/21/2020 Back pain affecting , antepartum 2019 Normal in multigravida 02/19/2020 Depression 02/19/2020 History of complication in G1 016 Resolved Problems Problem Noted Date Diagnosed Date Resolved Date History of cardiomyopathy 02/19/2020 History of gastroesophageal reflux (GERD) 02/19/2020 02/21/2020 [...] 36.8 C (98.3 F) 04/09/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 Respiratory Rate - - Oxygen Saturation 100% 02/21/2020 2:24 PM CDT Inhaled Oxygen Concentration - - Weight 60.9 kg (134 lb 3.2 oz) 02/21/2020 2:24 P M CDT Height 160 cm (5' 3 ) 02/21/2020 2:24 PM CDT Body Mass Index 23.77 02/21/2020 2:24 PM CDT Procedures * SONOGRAM - COMPLETE(Performed 01/28/2024) Performed for Normal in multigravida ([facility]), Encounter for ultrasound to assess growth ([facility]), 34 weeks gestation of (HCC) * SONOGRAM - COMPLETE(Performed 12/31/2023) Performed for Normal in multigravida ([facility]), Encounter for ultrasound to assess growth ([facility]), 29 weeks gestation of ([facility]) * SONOGRAM - COMPLETE(Performed 12/03/2023) Performed for Normal in multigravida ([facility]), Encounter for follow-up ultrasound of anatomy ([facility]), Encounter for ultrasound to assess growth ([facility]) * SONOGRAM - COMPLETE(Performed 11/01/2023) Performed for Encounter for anatomic survey ([facility]), Normal in multigravida ([facility]), 21weeks gestation of ([facility]) * SONOGRAM - COMPLETE(Performed 04/09/2020) Performed for Normal in multigravida ([facility]), Encounter for anatomic survey ([facility]) * SONOGRAM - COMPLETE(Performed 02/21/2020) Performed for History of cardiomyopathy Results * SONOGRAM - COMPLETE (01/28/2024 2:33 PM CDT) Only the most recent of6 resultswithin the time period is included. Anatomical Region Laterality Modality Other 01/28/2024 2:33 PM CDT Narrative 01/28/2024 3:37 PM CDT [facility] [place] PHONE: FAX: Pat. Name: DELICIA HANNON Pat. 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 CF but fetus at low risk via [place]-FOB testing is recommended in future GCT normal per patient Mild Polyhydramnios MEASUREMENTS & AGE GROWTH EVALUATION Measurement GA Range Srce %for GA Ratios ----- ---- ------- BPD 8.8 cm 35w2d (62a5h-73p8c) Hadl BPD 80% FL/BPD 0.72 (0.71 - 0.87) HC 32.5 cm 36w6d (62x7x-21z1c) Hadl HC 81% FL/AC 0.20 (0.20 - 0.24* AC 31.6 cm 35w4d (96f8m-79f7p) Hadl AC 88% HC/AC 1.03 (0.94 - 1.13) FL 6.3 cm 32w3d (28w9y-03n1c) Hadl FL 7% CI 0.76 (0.70 - 0.86) HL 5.7 cm 33w0d (63u4m-93m6l) Indra HL 31% GA for sonogram 34w2d (39z0g-16c3b) Weight Estimate: based on (BPD,HC,AC,FL) [place] Weight: 2522 gm (2154-2891gm) Had : 5lbs, 8oz Normal: 2405 gm (1804-3006gm) Had Wt% 65% for 34w1d Heart Rate: 121 bpm Amniotic Fluid Index: 19.4cm (08.1-24.8) Q1: 8.7cm Q2: 3.8cm Q3: 2.4cm Q4: 4.5cm PROCEDURE, TECHNIQUE Technique: transabdominal EVAL, PLACENTA Presentation: transverse Placenta: anterior Heart Rate: 121 bpm Amniotic Fluid Volume: normal CLINICAL SUMMARY A single fetus is seen in transverse presentation. The measurements today are consistent with appropriate interval growth. The LEONIDAS is based on a prior ultrasound examination (confirmed). The amniotic fluid volume is within normal limits. IMPRESSION: Single, live, intrauterine at 34w1d size is appropriate for gestational age by established LEONIDAS (Measuring 34w2d, EFW 65%, AC 88%) Amniotic fluid volume: within normal limits No major malformations were seen within the limitations of ultrasound. RECOMMEND: Ultrasound as clinically indicated Thank you for allowing us the opportunity to care for your patient. Aaron Gan MD <Electronic Signature> 01/28/2024 03:37pm Vidhi Alejandro MD [facility] ORDERABLES
--- OUTSIDE RECORDS SUMMARY | 2024-06-18 12:06 | XMS_ITS | Continuity of Care Document ---
Author Organization [facility] Address [address] [place] [address] Phone Care Team Providers Care Export Packer Name Role Phone Thony Dubon MD Unavailable Unavailable Advance Directives Directive Yes / No Effective Date File Name No Information Encounters Encounter Description Practice Location Reason(s) For Visit Diagnoses Date Provider Providers Copied on Encounter [facility], [address] [place], [id number], [place] tel:[phone] [facility] No Information Jagdish Bhandari. [address] [facility] [place], [id number], [place]. tel:[phone] Family History Family Member Type Diagnosis Age At Onset No Information Payers Payer name Insurance type Covered green party ID Authoriza tion(s) No Information Social History Type Description Quantity Date Captured Comments Sex Female Smoking Status No Information Chief Complaint And Reason For Visit No Information Plan Of Treatment Date Type Action Status No Information History Of Present Illness Encounter Date Complaint History Of Prese nt Illness No Information Instructions Date Instruction Additional Infor mation No Information Assessments Type Assessment Date No Information
--- OUTSIDE RECORDS SUMMARY | 2024-06-18 12:06 | XMS_ITS | Clinical Summary ---
Author Organization [email or web address] Address [address] [place] [address] Care Team Providers Care Verification Specialist Name Role Phone Unavailable Primary Care Provider Unavailabl e Source Comments [email or web address],non-owned Affiliates and Associated Physician Practices is amultiple site organization consisting of ambulatory clinics and hospital sitesin [place], [place], [place] and [place]. This disclosure is being madepursuant to the Care Everywhere program and may not contain all information available regarding this patient. Last updated 18.[employer] [email or web address] Allergies No known active allergies Medications * [...] Did NOT meet criteria for cardiomyopathy by Commercial Collections Specialist. Assessment & Plan (02/21/2020 3:47 PM CDT): [...] complications. I reviewed the evaluation by the Commercial Collections Specialist which was performed . Delicia did not [...] Lasix for one week PP. Pt. Saw Commercial Collections Specialist 05/2017 after daughter was born, echo performed at that time and showed EF of 55%. No issues since per pt, she was instructed by cardiology to follow up yearly. 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 Respiratory Rate - - Oxygen Saturation 100% 02/21/2020 2:24 PM CDT Inhaled Oxygen Concentration - - Weight 60.9 kg (134 lb 3.2 oz) 02/21/2020 2:24 P M CDT Height 160 cm (5' 3 ) 02/21/2020 2:24 PM CDT Body Mass Index 23.77 02/21/2020 2:24 PM CDT Plan of Treatment Health Maintenance Due Date Last Done Comments HIV SCREENING 2008 HEPATITIS C SCREENING 10/22/2011 DTAP/TDAP/TD VACCINES (1 - Tdap) 2012 HEPATITIS B VACCINE (1 of 3 - 19+ 3-dose series) 2012 PNEUMOCOCCAL VACCINE (1 of 2 - PCV) 2012 PAP SMEAR 05/05/2021 05/05/2018 COVID-19 VACCINE (3 - season) 2024 01/02/2021, 12/12/2020 INFLUENZA VACCINE (#1) 2024 3, 02/20/2021, 02/13/2020, Additional history exists DEPRESSION SCREENING 05/10/2024 ZOSTER VACCINE (1 of 2) 10/27/2043 HIB VACCINE Aged Out No longer eligi ble based on patient's age to complete this topic HPV VACCINE Aged Out No longer eligi ble based on patient's age to complete this topic MENINGOCOCCAL (Group B) VACCINE Aged Out No longer eligible based on patient's age to complete this topic MENINGOCOCCAL VACCINE Aged Out No tommy alberto eligible based on patient's age to complete this topic
--- OUTSIDE RECORDS SUMMARY | 2024-06-18 12:06 | XMS_ITS | Clinical Summary ---
Author Organization [facility] Address [address] [place] [address] Phone Care Team Providers Care Data Processing Control Clerk Name Role Phone Provider, None Primary Care Provider Unavailabl e Allergies Active Allergy Reactions Criticality Noted Date Comments Other-Environmental Allergen (Not Found In Search) Other (see Comments) Medium 04/15/2021 Seasonal Medications predniSONE (DELTASONE) 10 MG TabletIndicatio ns:Bronchitis Take 4 tab PO daily x 2 days, 3 tab PO daily x 2 days, 2 tab PO daily x 2 day, 1 tab PO daily x 2 days. 20 Tab 9 Active Additional Information Patient not taking.Reported on 08/15/2019 Active Problems No known active problems Immunizations Immunization Administration Dates Next Due DTP Vaccine 12/07/1997, 5,04/21/1994,02/23,1993 Hepatitis A Vaccine, Pediatric/adolescent, 2 Dose Schedule 11/18/2005,01/06/2005 Hepatitis B Vaccine, Pediatric/adolescent 11/17/1994,08/31/1994,1993 Hib Vaccine,unspecified Formulation 11/07,04/21/1994,02/23/1994,12/29 Human Papillomavirus (HPV) V accine, Bivalent 06/22/2007,11/17/2006 Influenza Vaccine greater than 3 yrs 03/16/2019 Influenza Vaccine, Quadrivalent, PF 01/20/2023,1 ,02/13/2020 Influenza, Injectable, Quadrivalent 02/08/2020,0 01/12/2017 Influenza, Seasonal, Injecta ble, Undefined 03/16/2019 Influenza,Split Virus,Trivalent,Injectable,PF 01/26/2024 MMR Vaccine 12/27/2002,04/12/2002 OPV 12/07/1997, 4,02/23/1994,12/29 TD VACCINE 01/06/2005 TDAP Vaccine 06/17/2020, 7,01/12/2017,05/20 Family History Medical History Relation Name Comments No Known Problems Father Chronic Obstructive Pulmonary Disease Mother Diabetes Mother Hypertension Mother Relation Name Status Comments Father Alive Mother Alive Social History Tobacco Use Types Packs/Day Years Used Date Smoking Tobacco: Every Day Cigarettes Smokeless Tobacco: Never Alcohol Use Standard Drinks/Week Comments Yes 0 (1 standard drink = 0.6 oz pur e alcohol) Occasionally Comments No Sex and Gender Information Value Date Recorded Sex Assigned at Female 12/22/2022 12:54 PM CDT Legal Sex Female 8:38 PM CDT Gender Identity Female 12/22/2022 12:54 PM CDT Sexual Orientation Not on file Last Filed Vital Signs Vital Sign Reading Time Taken Comments Blood Pressure 115/68 11/15/2022 2:45 PM CDT Pulse 60 11/15/2022 2:45 PM CDT Temperature 36.3 C (97.4 F) 11/15/2022 2:45 PM CDT Respiratory Rate 14 11/15/2022 2:45 PM CDT Oxygen Saturation 100% 11/15/2022 2:45 PM CDT Inhaled Oxygen Concentration - - Weight 62.6 kg (138 lb) 11/15/2022 2:08 PM CDT Height 157.5 cm (5' 2 ) 11/15/2022 2:08 PM CDT Body Mass Index 25.24 11/15/2022 2:08 PM CDT Plan of Treatment Health Maintenance Due Date Last Done Comments Pneumococcal Immunization Combined (1 of 2 - PCV) 2012 Pap Smear 2014 Cervical Cancer Screening (CCS) 10/27/2023 HPV/Cotest 10/27/2023 SARS-COV-2 Immunization ( season) 2024 01/02/2021, 12/12/2020 DTaP/Tdap/Td Immunization (10 - Td or Tdap) 06/17/2030 06/17/2020, 01/12/2017, 01/12/2017, Additional history exists Respiratory Syncytial Virus (RSV) Immunization (Adult) (1 - 1-dose 75+ series) 2068 Hepatitis B Immunization Completed 995, 08/31/1994, 1993 Human Papillomavirus (HPV) Immunization Discontinued 06/22/2007, 11/17/2006 Hepatitis C Virus (HCV) Screening Completed 12/22/2022, 11/15/2022, 11/15/2022 Influenza Immunization Completed 4, 01/20/2023, 02/20/2021, Additional history exists Meningococcal Immunization (ACWY) Aged Out No longer eligible based on patient's age to complete this topic Rotavirus Immunization Aged Out No lo nger eligible based on patient's age to complete this topic Procedures Procedure Name Priority Date/Time Associated Diagnosis Comments HEPATITIS C ANTIBODY Routine 12/22/2022 1:11 PM CDT Personal history of exposure to potentially hazardous body fluids from Last 3 Months or Most Recently Relevant to Health Maintenance Results * HEPATITIS C ANTIBODY (12/22/2022 1:11 PM CDT) hepatitis C antibody 0.13 <1 S/CO [facility] ARCH [id number] B 12/22/2022 10:28 PM CDT [facility] Comment: Signal/Cutoff ratio < 0.79 is Nondetected Signal/Cutoff ratio 0.80-0.99 is Grayzone Signal/Cutoff ratio > 0.99 is Detected Supplemental assays are recommended if signal/cutoff ratio is >/=1.00. Signal/cutoff ratio result >/= 5.00 is 97% predictive of positivity for recombinant immunoblot assay (RIBA) and will be reported to the [place] Department of Public Health as required. Blood Venipuncture / Unknown 12/22/2022 1:11 PM CDT 12/22/2022 1:57 PM CDT us Erika Moore SOFTWARE DESIGN ANALYST, STEAM AND POWER SUPERINTENDENT CHEMISTRY ORDERABLE S Final Result [facility] [address] [place] [address], from Last 3 Months or Most Recently Relevant to Health Maintenance Insurance MEDICAID [place] [facility] IRMS Care Teams Data Processing Control Clerk Relationship Specialty Start Date End Date Provider, None [place] PCP - General 10/26/16
--- OUTSIDE RECORDS SUMMARY | 2024-06-18 12:07 | XMS_ITS | Continuity of Care Document ---
Author Organization [facility] Address [address] [facility] [place] [address] Phone Care Team Providers Care Mechanical Shovel Operator Name Role Phone Thony Dubon MD Unavailable Unavailable Advance Directives Directive Yes / No Effective Date File Name No Information Encounters Encounter Description Practice Location Reason(s) For Visit Diagnoses Date Provider Providers Copied on Encounter [facility], [address] [place], [id number], [place] tel:[phone] [facility] No Information Jagdish Bhandari. [address] [facility] [place], [id number], [place]. tel:[phone] Family History Family Member Type Diagnosis Age At Onset No Information Payers Payer name Insurance type Covered democrat ID Authoriza tion(s) No Information Social History [...]
--- OUTSIDE RECORDS SUMMARY | 2024-06-18 12:07 | XMS_ITS | CONTINUITY OF CARE DOCUMENT ---
Author Name shandraanthony maulikjie Address Unknown Organization [facility] Address [address] [place] [address] [address] [place] [address] Phone [phone] Care Team Providers Care Wheel Alignment Technician Name Role Phone Bijan Newman MD Unavailable [phone] Bijan Newman MD Unavailable [phone] PROBLEMS Condition Status Date Provider Notes Shortness of breath active Bijan Newman MD Edema active Bijan Newman MD Bradycardia active Bijan Newman MD ENCOUNTERS Date Type Provider Location Encounter Diag nosis - In-person encounter Office Visit Bijan Newman MD [facility] Shortness of breathEdemaBradycardia VITAL SIGNS Date [...] Payer name Policy type / Coverage type [place] red libertarian ID [place] MEDICA[employer] Medicaid [id number] ADVANCE DIRECTIVES Name Date DISCUSSED - NO DECISION MADE TREATMENT PLAN Date Name Performer Cardiology:She had b radycardia and Holter was performed however results are not available yet. Rakan Bernstein Cardiology:One week after delivering a baby, the pt had some problems with the stitches. She went to [facility] and also had SOB and leg swelling. ProBNP was elevated to >800 and she was treated with IV Lasix successfully. Echo showed normal EF. Venous duplex was normal. Will obtain repeat proBNP. Rakan Bernstein Cardiology:One week after delivering a baby, the pt had some problems with the stitches. She went to [facility] and also had SOB and leg swelling. ProBNP was elevated to >800 and she was treated with IV Lasix successfully. Echo showed normal EF. Venous duplex was normal. Will obtain repeat proBNP. Rakan Bernstein Date Name PROBNP, N TERMINAL HISTORY OF PROCEDURES Procedure Date Procedure Name Provider Procedure Notes S tatus EKG Bijan Newman MD completed SNOMED-CT: [id number] Current Medications Documented Bijan Newman MD completed
[2024-06-18 12:08] VITALS: BP 131/55; PULSE 85; RESP 20; TEMP 37.1; O2SAT 100
--- NOTE | 2024-06-18 12:58 | ED.EYEPROB ---
HPI - Eye Problem General Chief complaint: Eye Problems Stated complaint: poss pink eye Time Seen by Provider: 06/18/24 12:58 Source: patient, RN notes reviewed and old records reviewed Mode of arrival: ambulatory Limitations: no limitations History of Present Illness HPI Narrative: patient presents with complaints of left eye irritation and drainage. 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 She does not wear contacts, does not use eye makeup. She denies any visual disturbances. She denies any injury or trauma. She reports that she has had pinkeye in the past and this feels similar. Symptoms began a couple of days ago, worsened today Related Data Allergies Allergy/AdvReac Type Severity Reaction Status Date / Time No Known Allergies Allergy Verified 06/18/24 12:14 Review of Systems Review of Systems: All systems reviewed & are unremarkable except as noted in HPI and below Constitutional: Constitutional: Reports no additional constitutional complaints Eyes: Eyes: Reports eye discharge (left) and Reports irritation (left) ENT: Reports system reviewed and no additional complaints, except as documented Cardiovascular: Cardiovascular: Reports no additional cardiovascular complaints Respiratory: Respiratory: Reports no additional respiratory complaints Gastrointestinal: Gastrointestinal: Reports no additional gastrointestinal complaints [facility] Past Medical History Medical History (Updated 06/18/24 @ 13:02 by Nanda Murillo APRN) Polyhydramnios Upper respiratory infection Surgical History Surgical History History of appendectomy Family History Family History Mother COPD (chronic obstructive pulmonary disease) Social History Social History Smoking packs per day: 0.5 Smoking cigarettes per day: 10.0 Smoking status: Never smoker Alcohol intake: current Alcohol use details: social Substance use: never Do You Feel Safe in your Home?: Yes Lack of Transportation: No Lack of Food: Never True Current Housing: I Have Housing Concerned About Future Housing: No Difficulty Paying Gas/Electric Bills: No Difficulty Paying for Meds: No Currently Unemployed: No Education: High School Diploma/GED Difficulty w/ Childcare or Family Care: No Living arrangements: alone Gender identity (if verbalized by the patient): Female Sexual Orientation (if Verbalized by the Patient): Straight or Heterosexual Spiritual care concerns: No Comments At the time of my signature, I reviewed and agree with the nursing past medical, surgical, social, and family history. There is no relevant family history pertinent to the patient complaint. Exam Const: General: cooperative, no acute distress, alert and awake Orientation/consciousness: oriented to person, oriented to place and oriented to time HENMT: Head: normal to inspection Eyes: Conjunctivae: conjunctival abnormality left conjunctival injection and discharge Sclera: scleral abnormality left scleral injection Resp: Effort & Inspection: normal respiratory effort and able to speak in complete sentences Auscultation: clear to auscultation bilaterally, no crackles, no rales, no rhonchi and no wheezes Cardio: Palpation: normal PMI Rate: regular rate Rhythm: regular rhythm Heart sounds: S1 normal heart sound present and S2 normal heart sound present Neuro: General: oriented to person, oriented to place and oriented to time Cranial nerves: Yes CN's II-XII intact bilaterally Psych: Appearance: grossly normal Thought process: Normal thought process present Insight: Good insight present (Psych) Judgement: Good judgement present (Psych) Course Course Level of Care: Express Care Visit Vital Signs Vital signs: Vital Signs Temperature 98.7 F 06/18/24 12:08 Pulse Rate 85 06/18/24 12:08 Respiratory Rate 20 06/18/24 12:08 Blood Pressure 131/55 L 06/18/24 12:08 Pulse Oximetry 100 06/18/24 12:08 Oxygen Delivery Room Air 06/18/24 12:08 Temperature 98.7 F 06/18/24 12:08 Pulse Rate 85 06/18/24 12:08 Respiratory Rate 20 06/18/24 12:08 Blood Pressure 131/55 L 06/18/24 12:08 Pulse Oximetry 100 06/18/24 12:08 Oxygen Delivery Room Air 06/18/24 12:08 Reviewed MDM - Eye Problem MDM Narrative Medical decision making narrative: history and exam consistent with conjunctivitis. Treat as same. Discharge instructions reviewed with patient, as well as provided in writing per nursing staff. The instructions also include specific and strict return/GO TO THE ER as well as f/u information. All questions have been answered, and the patient deny any further questions with discharge and discharge plan. Some parts of this dictation were generated by voice recognition software and may contain typographical and/or grammatical inaccuracies. Differential Diagnosis Differential diagnosis: Likely corneal abrasion and conjunctivitis Medical Records Attestation: I reviewed the patient's medical records. Discharge Plan Discharge Clinical Impression: Bacterial conjunctivitis Patient Disposition: Home, Self-Care Condition: Stable Instructions: Antibiotic Form, Conjunctivitis (ED) Additional Instructions: Use medications as prescribed. Follow with primary care provider. Emergency department for new or worse symptoms Patient Language: Japanese Prescriptions: New tobramycin 0.3 % drops 1 drp LEFT EYE Q4H 7 Days Qty: 5 0RF Follow-up/Referrals: PHYSICIAN,RN RECRUITMENT [Primary Care Provider] - Stand Alone Forms: Work/School Release IP Time of Disposition: 13:03
== END 2024-06-18 13:07 | disposition home or self-care (01) ==
PROVIDERS: Emergency Provider Nurse Practitioner Family
DX: H10.9 Unspecified conjunctivitis (principal)
CPT/HCPCS: 99213; G0463

== ENCOUNTER 2024-09-18 17:31 | Emergency (ER) | payer OTHER, SELFPAY ==
--- OUTSIDE RECORDS SUMMARY | 2024-09-18 17:34 | XMS_ITS | Clinical Summary ---
Author Organization [facility] Address [address] [place] [address] Care Team Providers Care Janitor Head Name Role Phone Unavailable Primary Care Provider Unavailabl e Source Comments [facility],non-owned Affiliates and Associated Physician Practices is amultiple site organization consisting of ambulatory clinics and hospital sitesin [place], [place], [place] and [place]. This disclosure is being madepursuant to the Care Everywhere program and may not contain all information available regarding this patient. Last updated 18.[facility] [place] Allergies No known active allergies Medications * Be aware that medications may not be up to date on this document. Alwaysverify current medications with the patient. Vit-Fe Fumarate-FA ( VITAMIN) 28-0.8 MG tabletIndicatio ns: Take 1 tablet by mouth once daily Reasons: Active pyridoxine (VITAMIN B-6) 25 MG tabletIndicatio ns:Nausea and/or Vomiting in Take 2 tablets by mouth at bedtime Reasons: Nausea and Vomiting in 60 tablet 11 0 Active doxylamine (UNISOM) 25 MG tabletIndicatio ns:Nausea and/or Vomiting in Take 1 tablet by mouth nightly as needed for Insomnia Reasons: Nausea and Vomiting in 30 tablet 11 0 Active aspirin (ASPIRIN) 81 MG chew tabletIndicatio ns:preeclampsia prevention Take 2 tablets by mouth once daily Reasons: preeclampsia prevention 100 tablet 11 0 Active nicotine polacrilex (NICORETTE) 4 MG gumIndications: Nicotine Dependence Take 1 Each by mouth as needed for Smoking Cessation (2 tablets per day maximum) Reasons: Nicotine Addiction 50 Each 2 0 Active tretinoin (RETIN-A) 0.025 % cream Pea sized amount to entire face at night - start 2-3 times a week and increase as tolerated. 30 days supply. 20 g 3 2 Active clindamycin (CLEOCIN) 1 % lotion Apply to affected area every morning 60 mL 3 2 Active Active Problems Problem Noted Date Diagnosed [...] Did NOT meet criteria for cardiomyopathy by Maintenance Electrician. Assessment & Plan (02/21/2020 3:47 PM CDT): [...] complications. I reviewed the evaluation by the Maintenance Electrician which was performed . Delicia did not [...] Lasix for one week PP. Pt. Saw Maintenance Electrician 05/2017 after daughter was born, echo performed at that time and showed EF of 55%. No issues since per pt, she was instructed by cardiology to follow up yearly. Previous diamond mounter: Bijan Newman. History of gastroesophageal reflux (GERD) [...] = 0.6 oz pur e alcohol) Comments No Sex and Gender Information Value Date Recorded Sex Assigned at Not on file Legal Sex Female 5:36 AM DIRECTOR OF WOMEN'S SERVICES Gender Identity Not on file Sexual Orientation Not on file Last Filed Vital Signs Vital Sign Reading Time Taken Comments Blood Pressure 117/49 02/21/2020 2:24 PM CDT Pulse 80 02/21/2020 2:24 PM CDT Temperature 36.8 C (98.3 F) 04/09/2020 2:28 PM DIRECTOR OF WOMEN'S SERVICES Respiratory Rate - - Oxygen Saturation 100% 02/21/2020 2:24 PM CDT Inhaled Oxygen Concentration - - Weight 60.9 kg (134 lb 3.2 oz) 02/21/2020 2:24 P M CDT Height 160 cm (5' 3 ) 02/21/2020 2:24 PM CDT Body Mass Index 23.77 02/21/2020 2:24 PM CDT Plan of Treatment Health Maintenance Due Date Last Done Comments PAP SMEAR 1993 DTAP/TDAP/TD VACCINES (1 - Tdap) 2012 HEPATITIS B VACCINE (1 of 3 - 19+ 3-dose series) 2012 PNEUMOCOCCAL VACCINE (1 of 2 - PCV) 2012 COVID-19 VACCINE (3 - 2023- season) 2024 01/02/2021, 12/12/2020 DEPRESSION SCREENING 05/10/2024 INFLUENZA VACCINE (Season Ended) 2025 01/20/2023, 02/20/2021, 02/13/2020, Additional history exists ZOSTER VACCINE (1 of 2) 10/27/2043 HEPATITIS C SCREENING Completed 12/22/2022 HIV SCREENING Completed 12/13/2023, 09/06/2023 HIB VACCINE Aged Out No longer eligi ble based on patient's age to complete this topic HPV VACCINE Aged Out No longer eligi ble based on patient's age to complete this topic MENINGOCOCCAL (Group B) VACCINE SHARED DECISION-MAKING Aged Out No longer eligible based on patient's age to complete this topic MENINGOCOCCAL GROUPS A/C/Y/W VACCINE Aged Out No longer eligible based on patient's age to complete this topic Insurance [facility]
--- OUTSIDE RECORDS SUMMARY | 2024-09-18 17:34 | XMS_ITS | Continuity of Care Document ---
Author Organization [facility] Address [address] [facility] [place] [address] Phone Care Team Providers Care Payroll Lead Name Role Phone Thony Dubon MD Unavailable Unavailable Advance Directives Directive Yes / No Effective Date File Name No Information Encounters Encounter Description Practice Location Reason(s) For Visit Diagnoses Date Provider Providers Copied on Encounter [facility], [address] [place], [id number], [place] tel:[phone] [facility] No Information Jagdish Bhandari. [address] [facility] [place], [id number], [place]. tel:[phone] Family History Family Member Type Diagnosis Age At Onset No Information Payers Payer name Insurance type Covered libertarian ID Authoriza tion(s) No Information Social History [...]
--- OUTSIDE RECORDS SUMMARY | 2024-09-18 17:34 | XMS_ITS | Clinical Summary ---
Author Organization [facility] Address [address] [place] [address] Phone Care Team Providers Care Plant Inspector Name Role Phone Provider, None Primary Care [...] CDT) hepatitis C antibody 0.13 <1 S/CO [facility] ARCH [id number] B 12/22/2022 10:28 PM CDT [facility] Comment: Signal/Cutoff ratio < 0.79 is Nondetected Signal/Cutoff ratio 0.80-0.99 is Grayzone Signal/Cutoff ratio > 0.99 is Detected Supplemental assays are recommended if signal/cutoff ratio is >/=1.00. Signal/cutoff ratio result >/= 5.00 is 97% predictive of positivity for recombinant immunoblot assay (RIBA) and will be reported to the [place] Department of Public Health as required. Blood Venipuncture / Unknown 12/22/2022 1:11 PM CDT 12/22/2022 1:57 PM CDT us Erika Moore BARREL LAPPER, AUTOMOTIVE PARTS COUNTERPERSON CHEMISTRY ORDERABLE S Final Result [facility] [address] [place] [address], from Last 3 Months or Most Recently Relevant to Health Maintenance Insurance MEDICAID [place] [facility] IRMS Care Teams Plant Inspector Relationship Specialty Start Date End Date Provider, None [place] PCP - General 10/26/16
--- OUTSIDE RECORDS SUMMARY | 2024-09-18 17:34 | XMS_ITS | Data Portability ---
Author Organization [facility] [place] Address [address] [place] [address] Assessment Encounter Date Assessment Date Assessment LastModified by Organization Details LastModified Time 06/22/2024 06/22/2024 The patient and I disscussed the various causes of abnormal uterine bleeding, including polyps, fibroids, hyperplasia, atypia, anovulation, etc. We reviewed the typical evaluation with labs, pelvic US and possible endometrial biopsy. Briefly discussed the options available for treatment (depending on the results of evaluation) such as hormonal treatment (OCPs, progestins), Mirena, endometrial ablation, and surgery. We spent more than 30 minutes face to face. Annual gynecological exam performed. Patient will come back in a year unless there are new symptoms. The patient and I disscussed the various causes of abnormal uterine bleeding, including polyps, fibroids, hyperplasia, atypia, anovulation, etc. We reviewed the typical evaluation with labs, pelvic US and possible endometrial biopsy. Briefly discussed the options available for treatment (depending on the results of evaluation) such as hormonal treatment (OCPs, progestins), Mirena, endometrial ablation, and surgery. We spent more than 30 minutes face to face. [email or web address] Not available 06/22/2024 14:46:09 Plan of Treatment Reminders Order Date Submit Date Provider Last Modified By Organization Details Last Modified Time Details Appointments None recorded. Lab lipid panel, blood 2024 025 [facility] (Lab), [address], [place], [address], 04:03:06 CBC w/ auto diff 2024 025 [facility] (Lab), [address], [place], [address], 5 23:59:49 CMP, serum or plasma 2024 025 [facility] (Lab), [address], [place], [address], 5 23:59:52 lipid panel, blood 2024 025 [facility] ([facility]), [address], [place], [address], 5 23:59:52 TSH, serum or plasma 2024 025 [facility] (Lab), [address], [place], [address], 5 04:05:28 25-hydroxyv itamin D2 + 25-hydroxyv itamin D3, QN, serum or plasma 2024 025 [facility] (Lab), [address], [place], [address], 5 23:59:51 unlisted lab - 17-oh progesteron e, lc/MS/MS 2024 025 [facility] (Lab), [address], [place], [address], 5 23:59:52 dhea-sulfat e, serum 2024 025 [facility] (Lab), [address], [place], [address], 5 23:59:50 hormone panel, serum or plasma 2024 025 [facility] (Lab), [address], [place], [address], 5 23:59:51 HbA1c (hemoglobin A1c), blood 2024 025 [facility] (Lab), [address], [place], [address], 5 23:59:49 progesteron e, serum 2024 025 [facility] ([facility]), [address], [place], [address], 5 23:59:50 prolactin, serum 2024 025 [facility] (Lab), [address], [place], [address], 5 23:59:50 shbg (sex hormone-bin ding globulin), serum 2024 025 [facility] (Lab), [address], [place], [address], 5 23:59:51 testosteron e free/testos terone total, ratio, serum 2024 025 [facility] ([facility]), [address], [place], [address], 5 23:59:52 TSH, serum or plasma 2024 025 [facility] ([facility]), [address] [place], [address], 5 23:59:49 vitamin B12 + folate, serum or blood 2024 025 [facility] ([facility]), [address], [place], [address], 5 23:59:51 iron + TIBC + ferritin, serum 2024 025 [facility] ([facility]), [address], [place], [address], 5 23:59:49 reticulocyt e count, auto, blood 2024 025 [facility] ([facility]), [address], [place], [address], 23:59:48 Referral None recorded. Procedures None recorded. Surgeries None recorded. Imaging US, pelvis [address], [facility] [address], [place], [address], 5 22:39:45 US, transvagina l [address], [facility] [address], [address], [place], [address], 5 22:39:45 Medication Orders Loestrin Fe 1/20 (28-Day) 1 mg-20 mcg (21)/75 mg (7) tablet 2024 025 [id number], [address], [place], [place], [id number], 5 12:46:32 Patient TargetsNo targets recorded. Patient InstructionsNo instructions recorded. Reason for Referral None Reported. Results Created Date Observation Date Name Description Value Unit Range Abnormal Flag Note LastModifiedBy Organization Detail LastModifiedTime 02/10/20 24 02/10/2024 CULTU RE: GROUP B STREP SCREE N, REFLE X SUSCE PTIBI LITY result report SEE RESULT S BELOW Test: Cultu re: Group B Strep , Refle x Susce ptibi lity ([facility] ) Speci men Sourc e: Vagin a/Rec terrance Speci men Type: Vagin al/Re ctal Speci men Date: 2023 1539 Resul t Date: 2023 1357 Resul t Statu s: Final resul t Abnor mal: No Resul ting Lab: [facility] [address] [facility] [address] Tel: CULTU RE ----- ----- ----- --- No Group B strep isola jeremy at 2 days (aleta haqueive broth johnathon wong) Not Available [facility] (Lab) [address], [place], [address], 02/13/2024 15:01:55 06/22/19 25 06/22/2024 IMAGE GUIDE D PAP AND HPV REGAR DLESS image guided Pap, HPV regardless of Pap result SEE RESULT S BELOW CASE REPOR T: Cytol ogy Gynec ologi radha Repor t Case: [id number] Autho allysonisabellatricia henderson Provi vance: Rupert Alejandro MD Colle cted: 06/22 1440 Order ing Locat ion: [place] Patho logy Recei wendy: 06/23 0651 First Camie n: Luisa Scanlon, CT Speci men: Vic holt Pap - Image d, Cervi x STATE MENT OF ADEQU ACY: Satis facto ry for evalu ation Trans forma tion zone compo nent prese nt ----- ----- ----- ----- ----- ----- ----- ----- ----- ----- ----- ----- ----- ----- ----- ----- ----- ---- FINAL DIAGN OSIS: Negat william for Intra epith elial Ese clarke or Jeannie cisneros ([facility]) . Elect nirmala diaz by Luisa Scanlon, CT on 2024 at 1659 SK[address] CLIPPER ----- ----- ----- ----- ----- ----- ----- ----- ----- ----- ----- ----- ----- ----- ----- ----- ----- ---- HPV RESUL TS: HPV mRNA E6/E7 : No HPV mRNA Detec jeremy NOTE: This high risk HPV mRNA assay detec ts fourt een high- risk HPV types (16, 18, 31, 33, 35, 39, 45, 51, 52, 56, 58, 59, 66, 68) witho ut diffe renti ation . COMME NT: This speci men was revie wed by a Cytot echno logis t and/o r Patho logis t (as indic ated in this repor t) after evalu ation using the Thinp rep Imagi ng Syste m. CLINI RADHA INFOR MATIO N: Menst rual Statu s: LMP (if appli cable ): Clini radha Histo ry/Pr eviou s Pap: Type of Neopl mimi (if appli cable ): Signi fican t Clini radha Findi ngs: Other Histo ry: Hormo jignesh (if appli cable ): PAP EDUCA MIKE L NOTE: The Pap Test is a scree jonathon test with an inher ent false negat william rate. Liqui d-bas ed sampl ing may decre ase, but will not elimi hector, false negat william resul ts. A negat william resul t does not precl ude the prese nce and/o r devel opmen t of disea se, since the prese nce of abnor mal cells in the sampl e depen ds on the locat ion of the lesio n and sampl ing techn ique. Sheela nued regul ar scree jonathon is the best metho d of cance r preve ntion . If repor jeremy cytol ogic findi ng do not corre late with physi radha and/o r histo rical findi ngs, furth er inves tigat ion is recom darian d, as clini laron warra nted. Not Available [facility] (Lab) [address], [place], [address], 06/27/2024 01:46:29 06/22/19 25 06/22/2024 RETIC ULOCY TE COUNT reticulocyte count percent 1.34 % 0.50-2 .50 Not Available [facility] (Lab) [address], [place], [address], 07/02/2024 23:59:48 06/22/19 25 06/22/2024 RETIC ULOCY TE COUNT reticulocyte count absolute 57.50 10'3/ uL no define d refere nce range Not Available [facility] (Lab) [address], [place], [address], 07/02/2024 23:59:48 06/22/19 25 06/22/2024 CBC W/DIF F WBC 7.2 10'3/ uL 3.5-10 .5 Not Available [facility] (Lab) [address], [place], [address], 07/02/2024 23:59:49 06/22/19 25 06/22/2024 CBC W/DIF F RBC 4.29 10'6/ uL (based on docume nted legal sex) 3.80-5 .20 Not Available [facility] (Lab) [address], [place], [address], 07/02/2024 23:59:49 06/22/19 25 06/22/2024 CBC W/DIF F HGB 13.0 g/dL (based on docume nted legal sex) 11.6-1 5.4 Not Available [facility] (Lab) [address], [place], [address], 07/02/2024 23:59:49 06/22/19 25 06/22/2024 CBC W/DIF F HCT 41.1 % (based on docume nted legal sex) 34.0-4 5.0 Not Available [facility] (Lab) [address], [place], [address], 07/02/2024 23:59:49 06/22/19 25 06/22/2024 CBC W/DIF F MCV 95.8 fL 80.0-9 9.0 Not Available [facility] (Lab) [address], [place], [address], 07/02/2024 23:59:49 02/13/20 25 06/22/2024 CBC W/DIF F MCH 30.3 pg 27.0-3 4.0 Not Available [facility] (Lab) [address], [place], [address], 07/02/2024 23:59:49 06/22/19 25 06/22/2024 CBC W/DIF F MCHC 31.6 g/dL 32.0-3 5.5 low Not Available [facility] (Lab) [address], [place], [address], 07/02/2024 23:59:49 06/22/19 25 06/22/2024 CBC W/DIF F RDW 13.1 % 11.0-1 5.0 Not Available [facility] (Lab) [address], [place], [address], 07/02/2024 23:59:49 06/22/19 25 06/22/2024 CBC W/DIF F plt 382 10'3/ uL 150-40 0 Not Available [facility] (Lab) [address], [place], [address], 07/02/2024 23:59:49 06/22/19 25 06/22/2024 CBC W/DIF F MPV 10.6 fL 8.8-12 .1 Not Available [facility] (Lab) [address], [place], [address], 07/02/2024 23:59:49 06/22/19 25 06/22/2024 CBC W/DIF F neutrophils 61.3 % 34.0-7 3.0 Not Available [facility] (Lab) [address], [place], [address], 07/02/2024 23:59:49 06/22/19 25 06/22/2024 CBC W/DIF F lymphocytes 30.1 % 15.0-5 0.0 Not Available [facility] (Lab) [address], [place], [address], 07/02/2024 23:59:49 06/22/19 25 06/22/2024 CBC W/DIF F monocytes 7.5 % 1.0-15 .0 Not Available [facility] (Lab) [address], [place], [address], 07/02/2024 23:59:49 06/22/19 25 06/22/2024 CBC W/DIF F eosinophils 0.7 % 0.0-8. 0 Not Available [facility] (Lab) [address], [place], [address], 07/02/2024 23:59:49 06/22/19 25 06/22/2024 CBC W/DIF F basophils 0.3 % 0.0-2. 0 Not Available [facility] (Lab) [address], [place], [address], 07/02/2024 23:59:49 06/22/19 25 06/22/2024 CBC W/DIF F immature granulocytes 0.1 % no define d refere nce range Immat ure Granu locyt es (IG) repre sents autom ated enume ratio n of Metam yeloc ytes, Myelo cytes and Promy elocy esthela when IG is < 5%. Blast s are not inclu ded in IG and repor jeremy separ ately if prese nt. Not Available [facility] (Lab) [address], [place], [address], 07/02/2024 23:59:49 06/22/19 25 06/22/2024 CBC W/DIF F absolute neutrophils 4.4 10'3/ uL 1.5-8. 0 Not Available [facility] (Lab) [address] [place], [address], 07/02/2024 23:59:49 06/22/19 25 06/22/2024 CBC W/DIF F absolute lymphocytes 2.2 10'3/ uL 1.0-4. 0 Not Available [facility] (Lab) [address], [place], [address], 07/02/2024 23:59:49 06/22/19 25 06/22/2024 CBC W/DIF F absolute monocytes 0.5 10'3/ uL 0.2-1. 0 Not Available [facility] (Lab) [address], [place], [address], 07/02/2024 23:59:49 06/22/19 25 06/22/2024 CBC W/DIF F absolute eosinophils 0.1 10'3/ uL 0.0-0. 6 Not Available [facility] (Lab) [address], [place], [address], 07/02/2024 23:59:49 06/22/19 25 06/22/2024 CBC W/DIF F absolute basophils 0.0 10'3/ uL 0.0-0. 3 Not Available [facility] (Lab) [address], [place], [address], 07/02/2024 23:59:49 06/22/19 25 06/22/2024 CBC W/DIF F absolute immature granulocytes 0.0 10'3/ uL 0.00-0 .10 Refer ence range s for nonbi nary/ inter sex or unspe cifie d gende r patie nts have not been estab lishe d. Pleas e [facility] for range s estab lishe d for cisge nder patie nts and evalu ate in the clini radha claudia xt of the indiv idual patie nt: [email or web address] :[email or web address] g/Gen derX Not Available [facility] (Lab) [address], [place], [address], 07/02/2024 23:59:49 06/22/1906/22/2024 HEMOG LOBIN A1C hemoglobin A1C 5.2 % 4.0-5. 6 The Ameri can Diabe esthela [employer] iatio n recom mends that a prima ry goal of thermonique grayson d be a HBA1C of < 7% and that physi mercedes baptiste the treat ment regim en in patie nts with HBA1C value s consi stent ly > 8%. <5.7% Isabella l 5.7 - 6.4% Incre ased risk for diabe esthela >=6.5 % Diagn ostic of diabe esthela <7.0% Goal of thera py >8.0% Actio n sugge sted Not Available [facility] (Lab) [address], [place], [address], 07/02/2024 23:59:49 06/22/19 25 06/22/2024 KARINA TIN / IRON / TRANS KARINA N / TIBC iron 85 ug/dL 40-170 Not Available [facility] (Lab) [address], [place], [address], 07/02/2024 23:59:49 06/22/19 25 06/22/2024 KARINA TIN / IRON / TRANS KARINA N / TIBC transferrin 281 mg/dL 200-36 0 Not Available [facility] (Lab) [address], [place], [address], 07/02/2024 23:59:49 06/22/19 25 06/22/2024 KARINA TIN / IRON / TRANS KARINA N / TIBC ferritin 21.6 NG/mL 8.0-25 2.0 Not Available [facility] (Lab) [address] [place], [address], 07/02/2024 23:59:49 06/22/19 25 06/22/2024 KARINA TIN / IRON / TRANS KARINA N / TIBC TIBC 393 ug/dL 250-45 0 Not Available [facility] (Lab) [address] [place], [address], 07/02/2024 23:59:49 06/22/19 25 06/22/2024 KARINA TIN / IRON / TRANS KARINA N / TIBC iron saturation 22 % 20-55 Not Available [facility] (Lab) [address] [place], [address], 07/02/2024 23:59:49 06/22/19 25 06/22/2024 TSH, REFLE X FREE T4 TSH 2.09 uIU/m L 0.30-5 .33 Not Available [facility] (Lab) [address], [place], [address], 07/02/2024 23:59:49 06/22/19 25 06/22/2024 DHEA SULFA TE DHEA-sulfate 194 ug/dL Femal e Range s Age(y ) Range (ug/d L) 10-15 34-28 0 15-20 65-36 8 20-25 148-4 07 25-35 99-34 0 35-45 61-33 7 45-55 35-25 6 55-65 19-20 5 65-75 9-246 > 75 12-15 4 Not Available [facility] (Lab) [address], [place], [address], 07/02/2024 23:59:50 06/22/19 25 06/22/2024 PROGE STERO NE progesterone 0.91 NG/mL This assay was perfo rmed using [employer] ratio n reage nts and test kits. Value s obtai cindy with other assay metho ds or kits canno t be used inter alas eably . Femal e Proge stero ne Range s: Folli cular phase 0.06- 0.89 ng/mL Ovula tion phase 0.12- 12.00 ng/mL Lutea l phase 1.83- 23.90 ng/mL Postm enopa usal <0.05 -0.13 ng/mL Healt hy Pregn ant Women 1st Trime ster 11.0- 44.30 2nd Trime ster 25.40 -83.3 0 3rd Trime ster 58.70 -214. 00 Not Available [facility] (Lab) [address], [place], [address], 07/02/2024 23:59:50 06/22/19 25 06/22/2024 PROLA CTIN prolactin, total 16.10 NG/mL 4.79-2 3.30 This assay was perfo rmed using [employer] ratio n reage nts and test kits. Value s obtai cindy with other assay metho ds or kits canno t be used inter [facility] . Not Available [facility] (Lab) [address] [place], [address], 07/02/2024 23:59:50 06/22/19 25 06/22/2024 FSH, LH, ESTRA DIOL estradiol 113.0 pg/mL This assay was perfo rmed using [employer] ratio n reage nts and test kits. Value s obtai cindy with other assay metho ds or kits canno t be used inter [facility] . Femal e Estra diol Range s: Folli cular phase 12.4- 233 pg/mL Ovula tion phase 41.0- 398 pg/mL Lutea l phase 22.3- 341 pg/mL Postm enopa usal <5-13 8 pg/mL Healt hy Pregn ant Women 1st Trime ster 154-3 243 pg/mL 2nd Trime ster 1561- 10482 pg/mL 3rd Trime ster 8525- >3000 0 pg/mL Not Available [facility] (Lab) [address], [place], [address], 07/02/2024 23:59:50 06/22/19 25 06/22/2024 FSH, LH, ESTRA DIOL FSH 9.1 mIU/m L This assay was perfo rmed using [employer] n reage nts and test kits. Value s obtai cindy with other assay metho ds or kits canno t be used inter [facility] . Femal es Folli cular : 3.5-1 2.5 mIU/m L Ovula tion: 4.7-2 1.5 mIU/m L Lutea l: 1.7-7 .7 mIU/m L Postm enopa use: 25.8- 134.8 mIU/m L Not Available [facility] (Lab) [address], [place], [address], 07/02/2024 23:59:50 06/22/19 25 06/22/2024 FSH, LH, ESTRA DIOL LH 22.8 mIU/m L This assay was perfo rmed using [employer] n reage nts and test kits. Value s obtai cindy with other assay metho ds or kits canno t be used inter alas eably . Femal es Mid-F ollic ular: 2.4-1 2.6 mIU/m L Mid-C ycle: 14.0- 95.6 mIU/m L Mid-L uteal : 1.0-1 1.4 mIU/m L Postm enopa use: 7.7-5 8.5 mIU/m L Not Available [facility] (Lab) [address], [place], [address], 07/02/2024 23:59:50 06/22/19 25 06/22/2024 HUMAN SEX HORMO NE JAZZY NG GLOBU ALEXA sex hormone binding globulin 50.5 nmole s/L 18.2-1 35.5 Not Available [facility] (Lab) [address] [place], [address], 07/02/2024 23:59:51 06/22/19 25 06/22/2024 VITAM IN B12 / FOLAT E PANEL vitamin B12 225 pg/mL 180-91 4 Isabella l Range : 180-9 14 pg/mL . Indet ermin ate Range : 145-1 80 pg/mL . Defic ient Range : <=145 pg/mL . Not Available [facility] (Lab) [address], [place], [address], 07/02/2024 23:59:51 06/22/19 25 06/22/2024 VITAM IN B12 / FOLAT E PANEL folate, serum 15.3 NG/mL 6.0-20 .0 Not Available [facility] (Lab) [address] [place], [address], 07/02/2024 23:59:51 06/22/19 25 06/22/2024 VITAM IN D, 25-OH (TOTA L D2/D3 ) vitamin D, 25-hydroxy, total 15.9 NG/mL 30.0-1 00.0 low Sugge stive of Defic iency : <20 ng/mL Sugge stive of Insuf ficie ncy: 20-29 ng/mL Sugge stive of Suffi cienc y: 30-10 0 ng/mL Sugge stive of Toxic ity: >150 ng/mL Not Available [facility] (Lab) [address], [place], [address], 07/02/2024 23:59:51 06/22/19 25 06/22/2024 CMP(C OMPRE HENSI VE METAB OLIC PANEL ) sodium 139 mmol/ L 133-14 6 Not Available [facility] (Lab) [address], [place], [address], 07/02/2024 23:59:52 06/22/19 25 06/22/2024 CMP(C OMPRE HENSI VE METAB OLIC PANEL ) potassium 3.8 mmol/ L 3.5-5. 1 Not Available [facility] (Lab) [address], [place], [address], 07/02/2024 23:59:52 06/22/19 25 06/22/2024 CMP(C OMPRE HENSI VE METAB OLIC PANEL ) chloride 103 mmol/ L 98-107 Not Available [facility] (Lab) [address] [place], [address], 07/02/2024 23:59:52 06/22/19 25 06/22/2024 CMP(C OMPRE HENSI VE METAB OLIC PANEL ) carbon dioxide 27 mmol/ L 21-31 Not Available [facility] (Lab) [address] [place], [address], 07/02/2024 23:59:52 06/22/19 25 06/22/2024 CMP(C OMPRE HENSI VE METAB OLIC PANEL ) anion gap 9 mmol/ L 4-13 Not Available [facility] (Lab) [address], [place], [address], 07/02/2024 23:59:52 06/22/19 25 06/22/2024 CMP(C OMPRE HENSI VE METAB OLIC PANEL ) blood urea nitrogen 11 mg/dL 7-[address] [facility] (Lab) [address], [place], [address], 07/02/2024 23:59:52 06/22/19 25 06/22/2024 CMP(C OMPRE HENSI VE METAB OLIC PANEL ) creatinine 0.57 mg/dL 0.60-1 .30 low Not Available [facility] (Lab) [address], [place], [address], 07/02/2024 23:59:52 06/22/19 25 06/22/2024 CMP(C OMPRE HENSI VE METAB OLIC PANEL ) egfrcr (CKD-epi 2020) >90 mL/mi n/1.7 3_m2 >=60 Not Available [facility] (Lab) [address], [place], [address], 07/02/2024 23:59:52 06/22/19 25 06/22/2024 CMP(C OMPRE HENSI VE METAB OLIC PANEL ) calcium 9.3 mg/dL 8.3-10 .5 Not Available [facility] (Lab) [address], [place], [address], 07/02/2024 23:59:52 06/22/19 25 06/22/2024 CMP(C OMPRE HENSI VE METAB OLIC PANEL ) glucose 91 mg/dL 70-100 Not Available [facility] (Lab) [address], [place], [address], 07/02/2024 23:59:52 06/22/19 25 06/22/2024 CMP(C OMPRE HENSI VE METAB OLIC PANEL ) protein, total 7.2 g/dL 6.4-8. 3 Not Available [facility] (Lab) [address], [place], [address], 07/02/2024 23:59:52 06/22/19 25 06/22/2024 CMP(C OMPRE HENSI VE METAB OLIC PANEL ) albumin 4.4 g/dL 3.5-5. 0 Not Available [facility] (Lab) [address], [place], [address], 07/02/2024 23:59:52 06/22/19 25 06/22/2024 CMP(C OMPRE HENSI VE METAB OLIC PANEL ) ALT 18 units /L 9-43 Not Available [facility] (Lab) [address], [place], [address], 07/02/2024 23:59:52 06/22/19 25 06/22/2024 CMP(C OMPRE HENSI VE METAB OLIC PANEL ) alkaline phosphatase 81 units /L 34-104 Not Available [facility] (Lab) [address], [place], [address], 07/02/2024 23:59:52 06/22/19 25 06/22/2024 CMP(C OMPRE HENSI VE METAB OLIC PANEL ) AST 15 units /L 13-39 Not Available [facility] (Lab) [address], [place], [address], 07/02/2024 23:59:52 06/22/19 25 06/22/2024 CMP(C OMPRE HENSI VE METAB OLIC PANEL ) bilirubin, total 0.3 mg/dL 0.2-1. 2 Not Available [facility] (Lab) [address], [place], [address], 07/02/2024 23:59:52 06/22/19 25 06/22/2024 LIPID PANEL ,AMA (LDL- CALC) total cholesterol 218 mg/dL 0-[address] [facility] (Lab) [address], [place], [address], 07/02/2024 23:59:52 06/22/19 25 06/22/2024 LIPID PANEL ,AMA (LDL- CALC) triglyceride s 87 mg/dL 0-150 NCEP Refer ence Value s for Trigl yceri pita: Isabella l: <150 mg/dL Borde rline High: 150 - 199 mg/dL High: 200 - 499 mg/dL Very High: >/= 500 mg/dL Not Available [facility] (Lab) [address], [place], [address], 07/02/2024 23:59:52 06/22/19 25 06/22/2024 LIPID PANEL ,AMA (LDL- CALC) HDL cholesterol 55 mg/dL >[address] [facility] (Lab) [address], [place], [address], 07/02/2024 23:59:52 06/22/19 25 06/22/2024 LIPID PANEL ,AMA (LDL- CALC) LDL cholesterol 144 mg/dL 0-99 high Cutof f value s recom darian d by the Natio nal Shea stero l Educa tion Progr am: MARC ABLE: Shea stero l <200 mg/dL LDL <100 mg/dL BORDE RLINE : Shea stero l 200-2 39 mg/dL LDL 101-1 59 mg/dL HIGHE R RISK: Shea stero l >240 mg/dL LDL >160 mg/dL , HDL <40 mg/dL Not Available [facility] (Lab) [address], [place], [address], 07/02/2024 23:59:52 06/22/19 25 06/22/2024 LIPID PANEL ,AMA (LDL- CALC) non-HDL cholesterol 163 mg/dL no refere nce range A reaso nable goal for non-H DL shea stero l is one that is 30 mg/dL highe r than the LDL shea stero l goal. Not Available [facility] (Lab) [address] [place], [address], 07/02/2024 23:59:52 06/22/19 25 06/22/2024 LIPID PANEL ,AMA (LDL- CALC) chol/HDL ratio 4.0 . 0.0-5. 0 On September 01, 2022, [facility] labor atori hardy alas ed the equat ion for calcu raysa g estim ated low-d ensit y lipop rotei n-cho leste rol (LDL- C) from the Fried adalid equat ion to the Libert[employer] n/Hop eliza equat ion. This new equat ion is only valid for lipid panel s with trigl yceri pita < 400 mg/dL . Studi es have demon strat ed that this new equat ion will impro ve the accur acy of LDL-C , espec ially in scena vivar when LDL-C alvin ntrat ions are relat ively low (< 100 mg/dL ), trigl yceri pita are eleva jeremy, or patie nt is non-f astin g. Refer ences : - Libertad clarke, Ruiz Goldstein, Christopher Fleming , [facility] savage garces, Diomedes Deal, Diomedes flores, Soham Carty. [facility] , and Chao Coyne . 2013. Comp ariso n of a Novel Metho d vs the Fried adalid Equat ion for Estim ating Low-D ensit y Lipop rotei n Shea stero l Level s from the Stand gallito Lipid Profi le. DESTIN: The Journ al of the Ameri can Medic al Assoc iatio n 310 (19): 2060- . - Chau crystal V, Emily J, Mikael crystal A, Rory M, Champ e R, Janet crystal E, Duyen [facility] RS, Stanford SR, Libertad clarke SS. Fast ing Versu s Nonfa sting and Low-D ensit y Lipop rotei n Shae stero l Accur acy. Circu latio n. 2017May 11;137 (1):1 0-19. Not Available [facility] (Lab) [address], [place], [address], 07/02/2024 23:59:52 06/22/1906/22/2024 TESTO STERO NE, FREE( DIALY SIS) AND TOTAL (LC/M S/MS) testosterone , total 29 NG/dL 2-45 For addit ional jayson kumar e refer to http: //igor clarke.que stdia gnost ics.c om/fa q/ Total Testo stero neLCM SMSFA Q165 (This link is being provi ded for infor briana nal/ educa mike l purpo ses only. ) This test was devel oped and its pih tical perfo rmanc e tato cteri stics have been deter mined by [facility] [place], [place]. It has not been clear ed or appro wendy by the U.S. Food and Drug Admin istra tion. This assay has been valid ated pursu ant to the CLIA regul ation s and is used for clini radha purpo ses. Not Available [facility] (Lab) [address], [place], [address], 07/02/2024 23:59:52 06/22/19 25 06/22/2024 TESTO STERO NE, FREE( DIALY SIS) AND TOTAL (LC/M S/MS) testosterone , free 2.8 pg/mL 0.1-6. 4 This test was devel oped and its phi tical perfo rmanc e tato cteri stics have been deter mined by [facility] [place] [facility] [place]. It has not been clear ed or appro wendy by the U.S. Food and Drug Admin istra tion. This assay has been valid ated pursu ant to the CLIA regul ation s and is used for clini radha purpo ses. Perfo rming Organ izati on Madai clarke: Site ID: AMD Name: [facility] mando s [facility]evon [facility] Insti tute Addre ss: [id number] [address] [place], [place] Direc tor: Marge Calvo MD PhD Not Available [facility] (Lab) [address], [place], [address], 07/02/2024 23:59:52 06/22/19 25 06/22/2024 17-OH PROGE STERO NE 17-hydroxypr ogesterone, lc/MS/MS 125 NG/dL Adult Femal e Refer ence Range s for 17-Hy droxy proge stero ne: Pre-M enopa usal Mid Folli cular : 23-10 2 ng/dL Pre-M enopa usal Surge : 67-34 9 ng/dL Pre-M enopa usal Mid Lutea l: 139-4 31 ng/dL Postm enopa usal Phase : < or = 45 ng/dL Pregn malou: First Trime ster: 78-45 7 ng/dL Secon d Trime ster: 90-35 7 ng/dL Third Trime ster: 144-5 78 ng/dL This test was devel oped and its phi tical perfo rmanc e tato cteri stics have been deter mined by [facility]. It has not been clear ed or appro wendy by FDA. This assay has been valid ated pursu ant to the CLIA regul ation s and is used for clini radha purpo ses. Perfo rming Organ izati on Infor matio n: Site ID: EZ Name: [facility] ostic s/[facility] Alfredo [place] , Addre ss: [id number] [facility] [place] [address] Direc tor: Elena rollins MD,Ph D,JUAN CARLOS Not Available [facility] (Lab) [address] [facility], [place], [address], 07/02/2024 23:59:52 02/17/20 24 02/17/2024 US, obste tric, follo w-up No observ ation record ed. [facility] [address], [place], [address], 02/17/2024 15:17:53 02/17/20 24 02/17/2024 US, obste tric, bioph ysica l profi le No observ ation record ed. [facility] [address], [place], [address], 02/17/2024 15:18:05 02/17/2002/17/2024 US, obste tric, follo w-up No observ ation record ed. [facility] [address], [place], [address], 02/18/2024 13:47:20 02/23/2002/24/2024 US, obste tric, bioph ysica l profi le No observ ation record ed. [email or web address] [facility] [address], [place], [address], 02/24/2024 10:34:32 02/23/2002/23/2024 US, obste tric, bioph ysica l profi le No observ ation record ed. [email or web address] [address], [place], [address], 02/23/2024 20:59:23 03/01/20 24 03/01/2024 US, obste tric, bioph ysica l profi le No observ ation record ed. [email or web address] [facility] [address], [place], [address], 03/01/2024 17:56:02 03/01/20 24 03/01/2024 US, obste tric, bioph ysica l profi le No observ ation record ed. [email or web address] [address], [place], [address], 03/01/2024 21:25:24 07/11/19 25 07/10/2024 US, pelvi s No observ ation record ed. [email or web address] [facility] [address], [place], [address], 07/10/2024 17:20:55 07/11/19 25 07/10/2024 US, trans vagin al No observ ation record ed. [email or web address] [facility] [address], [place], [address], 07/10/2024 17:21:16 07/11/19 25 07/10/2024 US, pelvi s No observ ation record ed. [email or web address] [address], [place], [address], 07/10/2024 21:53:35 Result Notes None recorded. Problems Name Problem SNOMED Code Status Onset Date Resolution Date Notes Provider Name and Address Organization Details Recorded Time Pregnanc y 58205757 Completed 202303/06/2024 Stef levin, [facility] 4 14:44:53 Past pregnanc y history of pre-ecla mpsia 8199245806 83824 Completed not delivere d early Jeet Alejandro MD [address], [place], [address], [facility] 4 17:57:33 Large for gestatio n age fetus 851606316 Completed history of 8 lb 14 oz vaginal - prolonge d 2nd stage of labor. Jeet Alejandro MD [address], [place], [address], [facility] 4 17:57:33 Cystic fibrosis screenin g Completed carrier (known) - low risk Jeet Alejandro MD [address], [place], [address], [facility] 4 17:57:33 heart rhythm - finding 849280057 Completed not seen when she went to [facility] Jeet Alejandro MD [address], [place], [address], [facility] 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 4 17:57:33 History of abnormal cervical Papanico laou smear 926927777 Active 2023 3 lgsil +HPV Tiffanie levin, [facility] 4 10:15:09 Herpes simplex 96560467 Active 2024 Tiffanie levin, [facility] 5 12:33:32 Problem Notes None recorded. Procedures Surgical History Date Name Laterality Status Provider Name and Address Organization Details Recorded Time 06/22/19 25 Date of Last Pap Smear completed Tiffaniemiguel Lynch [facility] 07/15/2024 12:32:35 03/01/20 24 SECTION (SURG) completed Nicole Mandujano [facility] 03/02/2024 15:02:55 06/09/19 24 Colposcopy completed Tiffaniemiguel Lynch [facility] 01/17/2024 17:22:13 06/09/19 24 Colposcopy completed Tiffaniemiguel Lynch [facility] 12/13/2023 10:13:06 03/22/20 23 Colposcopy completed Tiffaniemiguel Lynch [facility] 01/17/2024 17:23:20 05/10/19 22 termination of completed Tiffanie Lynch [facility] 07/20/2023 12:04:40 05/10/19 19 termination of completed Tiffanie Lynch [facility] 07/20/2023 12:04:37 05/10/19 17 extraction of wisdom tooth completed Tiffaniemiguel [email or web address] [facility] 07/20/2023 12:04:22 05/10/19 13 extraction of wisdom tooth completed Tiffanie Lynch [facility] 07/20/2023 12:04:03 05/10/19 06 Appendectomy completed Tiffanie Lynch [facility] 07/20/2023 12:03:41 Imaging Results Imaging Date Name Status LastModified by Organization Details LastModified Time 02/17/2024 US, obstetric, follow-up completed [facility] [address], [place], [address], 02/17/2024 15:17:53 02/17/2024 US, obstetric, biophysical profile completed [place] [address], [place], [address], 02/17/2024 15:18:05 02/17/2024 US, obstetric, follow-up completed [email or web address] [address], [place], [address], 02/18/2024 13:47:20 02/24/2024 US, obstetric, biophysical profile completed [address], [place], [address], 02/24/2024 10:34:32 02/23/2024 US, obstetric, biophysical profile completed [email or web address] [address], [place], [address], 02/23/2024 20:59:23 03/01/2024 US, obstetric, biophysical profile completed [facility] [address], [place], [address], 03/01/2024 17:56:02 03/01/2024 US, obstetric, biophysical profile completed [email or web address] [address], [place], [address], 03/01/2024 21:25:24 07/10/2024 US, pelvis completed [email or web address] [facility] [address], [place], [address], 07/10/2024 17:20:55 07/10/2024 US, transvaginal completed [email or web address] [facility] [address], [place], [address], 07/10/2024 17:21:16 07/10/2024 US, pelvis completed [email or web address] [address], [place], [address], 07/10/2024 21:53:35 Procedure Notes None recorded. Medical Equipment None [...] completed Not Available Not Available Not Available tobramycin 0.3 % eye drops INSTILL 1 DROP INTO LEFT EYE EVERY 4 HOURS FOR 7 DAYS 07/15 completed Not Available Not Available Not Available [...] completed Not Available Not Available Not Available ergocalcife rol (vitamin D2) 1,250 mcg (50,000 unit) capsule TAKE 1 CAPSULE BY MOUTH EVERY WEEK active Not Available Not Available No t Available ibuprofen 600 mg tablet TAKE 1 [...] Not Available Not Available Iron (ferrous sulfate) 06/22 completed Not Available Not Available Not Available Unisom (doxylamine ) 04/12 completed Not Available Not Available Not Available FOUNTAIN CLERK-PNV-DHA 28 mg iron-1 mg-200 mg capsule Take 1 capsule every day by oral route. 04/12 completed Not Available Not Available Not Available Blisovi Fe 05/29 (28) 1 mg-20 mcg (21)/75 mg (7) tablet TAKE 1 TABLET BY MOUTH EVERY DAY active Not Available Not Available No t Available Paxlovid 300 mg (150 mg x [...] and Address Organization Details Last Updated DateTime 4 157.48 cm 30.9 kg/m2 99081.1 1 g 174 mm[Hg] 111 mm[Hg] 162 mm[Hg] 96 mm[Hg] [facility] 4 11:37:08 Date Recorded Body height Body mass index (BMI) Body weight Systolic blood pressure Diastolic blood pressure Provider Name and Address Organization Details Last Updated DateTime 04/12/2024 157.48 cm 28.5 kg/m2 20700.41 g 102 mm[Hg] 65 mm[Hg] [facility] 4 18:27:11 Date Recorded Body height Body mass index (BMI) Body weight Systolic blood pressure Diastolic blood pressure Provider Name and Address Organization Details Last Updated DateTime 06/22/2024 157.48 cm 29.1 kg/m2 18344.19 g 109 mm[Hg] 76 mm[Hg] [facility] 5 14:24:47 Date Recorded Body height Body mass index (BMI) Body weight Systolic blood pressure Diastolic blood pressure Provider Name and Address Organization Details Last Updated DateTime 07/15/2024 157.48 cm 29.3 kg/m2 79561.78 g 127 mm[Hg] 78 mm[Hg] Tiffanie Lynch [facility] 5 12:31:07 Social History Question Answer Notes LastModified by Organizat ion Details LastModified Time Tobacco Smoking Status Never Smoker vape Tiffanie Lynch [facility], [facility] 07/20/2023 12:03:18 If You Are , What Was Your Level Of Alcohol Consumption Prior To ? Occasional [email or web address] Information not available 07/20/2023 Are You Blind Or Do You Have Difficulty Seeing? No [email or web address] Information n ot available 07/20/2023 What Is Your Level Of Caffeine Consumption? Moderate [email or web address] Information not available 07/20/2023 In The 14 Days Before Symptom Onset, Have You Had Close Contact With A Laboratory-confirm ed COVID-19 While That Case Was Ill? No Information n ot available 06/09/2023 In The 14 Days Before Symptom Onset, Have You Had Close Contact With A Person Who Is Under Investigation For COVID-19 While That Person Was Ill? No Information not available 06/09/2023 Have You Been To An Area Known To Be High Risk For COVID-19? No Information not available 06/09/2023 Are You Deaf Or Do You Have Serious Difficulty Hearing? No [email or web address] Information not available 07/20/2023 What Type Of Diet Are You Following? REGULAR [email or web address] Information n ot available 07/20/2023 What Is The Highest Grade Or Level Of School You Have Completed Or The Highest Degree You Have Received? [id number] [email or web address] Information not available 07/20/2023 Are There Any Guns Present In Your Home? No [email or web address] Information not available 07/20/2023 Do You Use Protection During Sex? No [email or web address] Information not available 07/20/2023 Do You Use Your Seat Belt Or Car Seat Routinely? Yes [email or web address] Information not available 07/20/2023 Do You Have Smoke And Carbon Monoxide Detectors In Your Home? Yes [email or web address] Information not available 07/20/2023 How Much Tobacco Do You Smoke? No [email or web address] Information not available 07/20/2023 Do You Use Sunscreen Routinely? No [email or web address] Information not available 07/20/2023 Have You Used IV Drugs? No [email or web address] Information not available 07/20/2023 Sex: Unknown Functional Status Question Answer Note LastModified by Organizat ion Details LastModified Time Do you use any illicit or recreational drugs? No Information not available 06/09/2023 Do you or have you ever used any other forms of tobacco or nicotine? Yes [email or web address] Information not available 07/20/2023 What is your level of alcohol consumption? None [email or web address] Information not available 07/20/2023 Do you have difficulty walking or climbing stairs? No [email or web address] Information not available 07/20/2023 Are you able to walk? YESWOREST [email or web address] Information not available 07/20/2023 Are you able to care for yourself? 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 No [email or web address] Information not available 07/20/2023 Do you or have you ever used e-cigarettes or vape? Current user of electronic cigarettes [email or web address] Information not available 07/20/2023 What is your exercise level? None [email or web address] Information not available 07/20/2023 Mental Status None recorded. Family History Relationship Description Onset Age of this Age Resolved Age Notes LastModified by Organization Details LastModified Time Paternal Aunt Malignant tumor of breast Not available 2023 12:19:05 Maternal Aunt Malignant tumor of cervix Not available 2023 12:19:14 Medical History Condition Response Allergies (Food, seasonal, environmental ) N Other Y Drug/Latex Allergies/Reactions N Blood Transfusion N Breast Cancer N Dermatologic Disorders N Lung Disease N Defects or Inherited Disease N Breast Problem N Gestational Diabetes N Hematologic disorders N Anesthesia Complications N History of STI Y Deep Vein Thrombosis N Polycystic ovary syndrome N Anxiety Disorder N Autoimmune disease N Arthritis N Polyps N Infertility N Acid Reflux (GERD) N History of abnormal pap Y Cancer N Varicosities N Stroke N Neurologic/Epilepsy N Endometriosis N High Cholesterol N Fibromyalgia N Headaches N Kidney Disease N Heart Problems N Thyroid Problems N Kidney or Bladder Problems N GI Problems N Eating Disorder [...] N Thrombophilias N Gynecological History Statement/Question Response Date of Last Mammogram Flow Moderate Date of LMP 06/21/2024 N Was last menstrual period normal Y STIs/STDs Y Date of Last Colonoscopy Abnormal Pap Y On BCP's at Conception? N HPV Vaccine Y Colposcopy 06/09/2023 Duration of Flow (days) 5 Current Control Method Condoms Age at First Child 21 Are cycles usually normal Y Frequency of Cycle (Q days) 28 Sexually Active? Y Menses Monthly Y Date of DEXA bone scan Age of first menstrual cycle 11 Date of Last Pap Smear 06/22/2024 Sexual Problems? N LMP Definite N Obstetrics History GPAL:G 7 P 3 0 4 3 Type Value Full Term 3 Induced 2 Spontaneous 2 Living 3 Total 7 Past Encounters Encounter ID Performer Location Encounter Start Date Encounter Closed Date Diagnosis/Indication Diagnosis SNOMED-CT Code Diagnosis ICD10 Code Diagnosis Note [id number] Smita Mariaon [facility] [address] [address] 06/09/2023 11:30:49 06/09/2023 14:11:52 Low grade squamous intraepithelial lesion on cervical Papanicolaou smear 9935095587 9105 R87.612 Today we discussed HPV and [...] of care. Sexually t ransmitted infectious disease 3555405 A64 [id number] Jeet Alejandro MD [facility] [address] [address] 07/20/2023 11:16:55 07/20/2023 11:58:23 Uterine size for dates discrepancy 077777076 O26.841 Z3A.01 [id number] Jeet Alejandro MD [facility] [address] [address] 07/20/2023 11:17:18 07/20/2023 12:35:54 Amenorrhea 97462609 N91.2 this is a 27-year-ol d female, [...] was counseling . Venereal d isease screening 045746505 Z11.3 [id number] MD Lalo Grover [address],[place] [address] 08/03/2023 13:51:47 08/03/2023 14:30:31 [id number] MD Lalo Grover [address],[place] [address] 09/01/2023 15:51:10 09/01/2023 20:48:15 [id number] Jeet Alejandro MD [facility] [address],[place] [address] 09/01/2023 15:51:25 09/01/2023 16:53:06 screening 226388884 Z36.82 Z3A.12 [id number] Jeet Alejandro MD [facility] [address],[place] [address] 09/06/2023 11:01:33 09/07/2023 02:09:15 Routine care 454394491 Z34.92 Nausea and vomiting 1693 1999 R11.2 [id number] Jeet Alejandro MD [facility] [address],[place] [address] 10/06/2023 14:22:57 10/06/2023 15:34:22 Routine care 143753709 Z34.92 [id number] MD Lalo Grover [address],[place] [address] 10/21/2023 14:14:42 10/21/2023 15:20:57 screening for malformation 021824545 Z36.3 Z3A.20 [id number] MD Lalo Grover [address],[place] [address] 10/21/2023 15:20:37 10/21/2023 16:50:28 Routine care 528797151 Z34.92 [id number] MD Lalo Grover [address],[place] [address] 11/17/2023 16:54:11 11/17/2023 23:37:59 Routine care 286943469 Z34.92 [id number] MD Lalo Grover [address],[place] [address] 12/13/2023 09:50:36 12/13/2023 14:51:00 Routine care 302289420 Z34.92 [id number] MD Lalo Grover [address],[place] [address] 12/23/2023 10:51:00 12/23/2023 11:57:25 Medical examination for suspected condition 446989040 Z03.75 Z3A.29 [id number] MD Lalo Grover [address],[place] [address] 12/27/2023 15:29:37 12/27/2023 16:51:28 Routine care 038504574 Z34.92 [id number] MD Lalo Grover [address],[place] [address] 01/12/2024 17:47:42 01/13/2024 09:26:20 Irregular uterine contractions 88802896 O62.2 [id number] MD Lalo Grover [address],[place] [address] 01/17/2024 17:15:24 01/18/2024 03:38:28 Routine care 253335714 Z34.92 [id number] MD Lalo Grover [address],[place] [address] 02/04/2024 14:40:15 02/04/2024 15:18:00 Routine care 396317145 Z34.92 [id number] MD Lalo Grover [address],[place] [address] 02/10/2024 15:40:55 02/10/2024 16:22:19 Routine care 405123366 Z34.92 [id number] MD Lalo Grover [address],[place] [address] 02/17/2024 13:54:28 02/17/2024 14:36:54 Polyhydramnios 35847387 O40.3XX0 Z87.59 [id number] MD Lalo Grover [address],[place] [address] 02/17/2024 13:54:41 02/17/2024 15:29:02 Routine care 761524836 Z34.92 [id number] MD Lalo Grover [address],[place] [address] 02/23/2024 16:41:24 02/23/2024 17:21:59 Routine care 330197552 Z34.92 [id number] MD Lalo Grover [address],[place] [address] 02/23/2024 17:10:19 02/24/2024 09:42:58 Polyhydramnios 03828485 O40.3XX0 Z87.59 Z3A.37 [id number] MD Lalo Grover [address],[place] [address] 03/01/2024 15:28:44 03/01/2024 16:03:36 Polyhydramnios 48246004 O40.3XX0 Z87.59 Z3A.38 [id number] MD Lalo Grover [address],[place] [address] 03/01/2024 15:29:09 03/02/2024 07:48:01 Unstable lie 31965445 O32.0XX9 [id number] MD Lalo Grover [address] [address] 03/09/2024 11:07:51 03/09/2024 12:11:03 Postoperative care 042284180 Z48.89 This patient is a 36-year-ol d [...] D. Needs CBC for severe anemia also. [id number] Jeet Alejandro MD [facility] [address],[place] [address] 04/12/2024 17:51:02 04/13/2024 09:43:24 care 496761890 Z39.2 this patient is a 28-year-ol d [...] an abnormal Pap smear to follow-up on. [id number] Jeet Alejandro MD [facility] [address],[facility] [place] [address] 06/22/2024 13:58:15 06/22/2024 15:07:02 Abnormal uterine bleeding 4151656328 9100 N93.9 Menorrhagia 697524348 N9 2.0 Gynecologi c examination 08774897 Z01.419 Annual gynecologi radha exam performed. Patient will come back in a year unless there are new symptoms. Suggest Calcium with Vitamin D if not eating in diet. Patient advised to get annual flu shot. Recommend yearly physicals and preform monthly breast exams. Genetic testing is available for patients with family history of cancer. Engage in safe sexual practices, use condoms. Encouraged to have daily exercise. Avoid tobacco and illicit drugs, moderation of alcohol. If BMI greater than 25 dietary consult advised. If you have any questions please call or email. Pap smear- today laboratory evaluation - today Anemia 080645263 D64.9 [id number] Jeet Alejandro MD [facility] [address] [address] 07/10/2024 13:49:09 07/10/2024 14:43:32 Menorrhagia 357556315 N92.0 [id number] Jeet Alejandro MD [facility] [address] [address] 07/15/2024 11:59:39 07/17/2024 10:43:03 Menorrhagia 474454253 N92.0 This patient is a 28-year-ol d female presents for follow up on ultrasound and menorrhagi a. Her ultrasound is normal. We discussed those results. Talked about heavy bleeding. Talked about treatment of heavy bleeding. We agreed to oral contracept william pills. The pills was prescribed . She is given precaution s and instructio ns. Talked about the risks, benefits, and alternativ es to oral contracept william pills. Combined oral contracept william pills. She will have a low-dose pill. Hypercholesterolemia 136 10748 E78.00 Health Concerns Section Related Observation LastModified by Organization Detai ls LastModified Time None Recorded Concern Status LastModified by Organization Details LastModified Time None Recorded Advance Directives Directive None Recorded Payers Encounter Date Sequence Insurance Name Policy Number Policy [place] Covered Member ID [place] Member ID Guarantor Name 03/09/2024 1 [facility] (MEDICAID HMO) [id number] Delicia Hannon [id number] Delicia Hannon 04/12/2024 1 [facility] (MEDICAID HMO) [id number] Delicia Hannon [id number] Delicia Hannon 06/22/2024 1 [facility] (MEDICAID HMO) [id number] Delicia Hannon [id number] Delicia Hannon 07/10/2024 1 [facility] (MEDICAID HMO) [id number] Delicia Hannon [id number] Delicia Hannon 07/15/2024 1 [facility] (MEDICAID HMO) [id number] Delicia Hannon [id number] Delicia Hannon Notes Date Note Type Note [...] Needs CBC for severe anemia also. Jeet Alejandro MD [address], [place], [address], [facility] 03/09/2024 12:08:37 04/12/2024 text/html this patient [...] abnormal Pap smear to follow-up on. Jeet Alejandro MD [address], [place], [address], [facility] 04/12/2024 18:54:41 06/22/2024 text/html Annual GYNReport ed bypatient.History:n o gynecologic complaints Menstrual cycle:Menorrhagia Urinary symptoms:No hematuria Vulva:No genital lesion Vagina:Normal vaginal discharge Breast:No breast pain; No breast lump Current Contraception:Satis fied with current contraception; Condoms Sexual complaints:No sexual complaints; No pain during intercourse Menopausal Symptoms:No menopausal symptoms Psychological symptoms:No depression; No anxiety Preventive measures:Encourage self breast examination; Encourage regular exercise Jeet Alejandro MD [address], [place], [address], [facility] 06/22/2024 15:05:28 07/15/2024 text/html This patient is a 28-year-old female presents for follow up on ultrasound and menorrhagia. Her ultrasound is normal. We discussed those results. Talked about heavy bleeding. Talked about treatment of heavy bleeding. We agreed to oral contraceptive pills. The pills was prescribed. She is given precautions and instructions. Talked about the risks, benefits, and alternatives to oral contraceptive pills. Combined oral contraceptive pills. She will have a low-dose pill. Spent over 30 minutes in the patient's care in total. Jeet Alejandro MD [address], [place], [address], [facility] 07/15/2024 12:54:09 OBGyn Episode Ob Episode Information Episode Created Date Number of Fetuses Patient Bloodtype Patient rh Status Prepregnancy Weight lbs Domestic Partner Domestic Partner Phone Father Name Teacher Kindergarten Status 06/09/19 24 1 CLOSED Fetus Data First Name Last Name Admitted to NICU Weight (g) Sex Living Outcome Pediatric Complications Fetus ID Race Codes Race Delivery Type 3345.24 1 F Full Term 54470 Vaginal Delivery Aaron Calculation Initial Aaron Date [...] Domestic Partner Domestic Partner Phone Father Name Teacher Kindergarten Status 06/09/19 24 1 CLOSED Fetus Data First Name Last Name Admitted to NICU Weight (g) Sex Living Outcome Pediatric Complications Fetus ID Race Codes Race Delivery Type , Induced 86450 Aaron Calculation Initial Aaron Date Initial Exam [...] Post Complications Tubal Sterilization Discharge Date Comments Discharge Information Feeding Method Contraceptive Method Maternal HG B and HCT Levels Ob Episode Information Episode Created Date Number of Fetuses Patient Bloodtype Patient rh Status Prepregnancy Weight lbs Domestic Partner Domestic Partner Phone Father Name Teacher Kindergarten Status 09/06/19 24 1 O Positive 154 CLOSED Fetus Data First Name Last Name Admitted to NICU Weight (g) Sex Living Outcome Pediatric Complications Fetus ID Race Codes Race Delivery Type 3486.98 85 F true Full Term unstable lie [address] Primary Problems Problem Notes 12/31/23 1:45pm u/s only, 01/09 2:30pm u/s - no further follow up neededpalpitations - cancelled 48 hour monitor 12/16, called to offer 30 day as cardiology said she requested this, l/m for r/c. bgrn Problem Name Start Date End Date Resolution Snomed Code Not e Herpes simplex [id number] HSV1 Cystic fibrosis screening [id number] carrier (known) - low risk heart rhythm - finding SELFRESOLVED [id number] not seen when s he went to [facility] Large for gestation age fetus [id number] history of 8 lb 14 oz vaginal - prolonged 2nd stage of labor. Past history of pre-eclampsia [id number] not deliver ed early Aaron Calculation Initial [...] Weight in lbs Pre/Post Dialysis Refused Weight 158.535669278669 BP Diastolic BP Location Tested BP Systolic [...] Weight in lbs Pre/Post Dialysis Refused Weight 157.977000757368 BP Diastolic BP Location Tested BP Systolic [...] Weight in lbs Pre/Post Dialysis Refused Weight 162.714601796723 BP Diastolic BP Location Tested BP Systolic [...] Weight in lbs Pre/Post Dialysis Refused Weight 164.81096998070 BP Diastolic BP Location Tested BP Systolic [...] Type Weight in lbs Pre/Post Dialysis Refused 166.015915380495 BP Diastolic BP Location Tested BP Systolic [...] Type Weight in lbs Pre/Post Dialysis Refused 170.065991633447 BP Diastolic BP Location Tested BP Systolic [...] Weight in lbs Pre/Post Dialysis Refused Weight 172.501557331137 BP Diastolic BP Location Tested BP Systolic [...] Type Weight in lbs Pre/Post Dialysis Refused 172.031194555332 BP Diastolic BP Location Tested BP Systolic [...] Weight in lbs Pre/Post Dialysis Refused Weight 174.711607358141 BP Diastolic BP Location Tested BP Systolic [...] Weight in lbs Pre/Post Dialysis Refused Weight 175.244554069267 BP Diastolic BP Location Tested BP Systolic [...] Type Weight in lbs Pre/Post Dialysis Refused 179.329214827579 BP Diastolic BP Location Tested BP Systolic [...] Weight in lbs Pre/Post Dialysis Refused Weight 177.122753740317 BP Diastolic BP Location Tested BP Systolic [...] Type Weight in lbs Pre/Post Dialysis Refused 178.171518429886 BP Diastolic BP Location Tested BP Systolic [...] Estim ated Date of Delivery false Thalassemia (Swiss, Tunisian, Mediterranean, Or Background): MCV < 80 false Neural Tube Defect (Meningomyelocele, Spina Bifi da, Or Anencephaly) false Congenital Heart Defect false Down Syndrome false Jerel-Sachs (eg, Mosque, Cajun, Equatorial Guinean-Cymraes) f alse Vielka Disease false Sickle Cell Disease Or Trait () false Hemophilia Or Other Blood Disorders false Muscular Dystrophy false Cystic Fibrosis false Eren's Chorea false Intellectual Disability/Autism false If Yes, [...] Regional-Sp inal 39 Low Transvers e false Jeet Alejandro MD Cystic fibrosis screening , heart rhythm - finding,H erpes simplex,L arge for gestation age fetus,Pas t history of pre-eclam psia Discharge Information Feeding Method Contraceptive Method Maternal HG B and HCT Levels Ob Episode Information Episode Created Date Number of Fetuses Patient Bloodtype Patient rh Status Prepregnancy Weight lbs Domestic Partner Domestic Partner Phone Father Name Teacher Kindergarten Status 06/09/19 24 1 CLOSED Fetus Data First Name Last Name Admitted to NICU Weight (g) Sex Living Outcome Pediatric Complications Fetus ID Race Codes Race Delivery Type 4025.62 9 M Full Term 21148 Vaginal Delivery Aaron Calculation Initial Aaron Date [...] Domestic Partner Domestic Partner Phone Father Name Teacher Kindergarten Status 06/09/19 24 1 CLOSED Fetus Data First Name Last Name Admitted to NICU Weight (g) Sex Living Outcome Pediatric Complications Fetus ID Race Codes Race Delivery Type , Induced 81089 Aaron Calculation Initial Aaron Date Initial Exam [...] Domestic Partner Domestic Partner Phone Father Name Teacher Kindergarten Status 06/09/19 24 1 CLOSED Fetus Data First Name Last Name Admitted to NICU Weight (g) Sex Living Outcome Pediatric Complications Fetus ID Race Codes Race Delivery Type , Spontane ous 89031 Aaron Calculation Initial Aaron Date Initial Exam [...] Domestic Partner Domestic Partner Phone Father Name Teacher Kindergarten Status 06/09/19 24 1 CLOSED Fetus Data First Name Last Name Admitted to NICU Weight (g) Sex Living Outcome Pediatric Complications Fetus ID Race Codes Race Delivery Type , Spontane ous 38305 Aaron Calculation Initial Aaron Date Initial Exam [...]
--- OUTSIDE RECORDS SUMMARY | 2024-09-18 17:34 | XMS_ITS | CONTINUITY OF CARE DOCUMENT ---
Author Name shandraanthony shandraanthony Address Unknown Organization [facility] Address [address] [place] [address] [address] [place] [address] Phone [phone] Care Team Providers Care Fence Rider Name Role Phone Bijan Newman MD Unavailable [phone] Bijan Newman MD Unavailable [phone] PROBLEMS Condition Status Date Provider Notes Shortness of breath active Bijan Newman MD Edema active Bijan Newman MD Bradycardia active Bijan Newmna MD ENCOUNTERS Date Type Provider Location Encounter Diag nosis - In-person encounter Office Visit Bijan Newman MD [facility] Shortness of breathEdemaBradycardia VITAL SIGNS Date [...] Payer name Policy type / Coverage type [place] red libertarian [place] Medicaid [id number] ADVANCE DIRECTIVES Name Date DISCUSSED - NO DECISION MADE TREATMENT PLAN Date Name Performer Cardiology:She had b radycardia and Holter was performed however results are not available yet. Rakan Bernstein Cardiology:One week after delivering a baby, the pt had some problems with the stitches. She went to [facility] and also had SOB and leg swelling. ProBNP was elevated to >800 and she was treated with IV Lasix successfully. Echo showed normal EF. Venous duplex was normal. Will obtain repeat proBNP. Rakan Bernstein Cardiology:One week after delivering a baby, the pt had some problems with the stitches. She went to [facility] and also had SOB and leg swelling. ProBNP was elevated to >800 and she was treated with IV Lasix successfully. Echo showed normal EF. Venous duplex was normal. Will obtain repeat proBNP. Rakan Bernstein Date Name PROBNP, N TERMINAL HISTORY OF PROCEDURES Procedure Date Procedure Name Provider Procedure Notes S tatus EKG Bijan Newman MD completed SNOMED-CT: [id number] Current Medications Documented Bijan Newman MD completed
--- OUTSIDE RECORDS SUMMARY | 2024-09-18 17:34 | XMS_ITS | Referral Summary ---
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 UTI (urinary tract infection) 04/11/2017 Assessment & Plan (04/11/2017 8:53 AM DISTRICT DIRECTOR): Start IV rocephin Check urine culture Check blood culture Bilateral lower extremity edema 04/11/2017 Assessment & Plan (04/11/2017 9:00 AM DISTRICT DIRECTOR): Started after delivery. R/o Peripartum Cardiomyopathy Check 2D echocardiogram Patient has elevated BNP 822. CXR no active disease. Patient reports dyspnea on exertion. Cardiology Evaluation () Cr 0.62, Trace protein in UA. Albumin 3.4 UA large blood most likely due to contamination with vaginal blood due to burst stitch. Sinus bradycardia 04/11/2017 Assessment & Plan (04/11/2017 9:07 AM DISTRICT DIRECTOR): Patient reports occasional dizziness Patient states prior to delivery her heart rate was around 70-80 Patient does not take any medication. C/w telemetry monitoring EKG in Am, check 2D echo On EKG sinus bradycardia, no evidence of heart block Cardiology evaluation () Patient may need 30 days monitor in discharge Miscarriage 02/08/2016 10/22/2022 Hypertension Immunizations Immunization Administration Dates Next Due MMR 09/03/2020(Deferred: No [...] on file Legal Sex Female 7:58 AM DISTRICT DIRECTOR Gender Identity Not on file Sexual Orientation Not on file Last Filed Vital Signs Vital Sign Reading Time Taken Comments Blood Pressure 98/66 06/01/2023 2:20 PM DISTRICT DIRECTOR Pulse 83 06/01/2023 2:20 PM DISTRICT DIRECTOR Temperature 36.8 C (98.2 F) 06/01/2023 2:20 PM DISTRICT DIRECTOR Respiratory Rate 18 06/01/2023 2:20 PM DISTRICT DIRECTOR Oxygen Saturation 97% 06/01/2023 2:20 PM DISTRICT DIRECTOR Inhaled Oxygen Concentration - - Weight 66.7 kg (147 lb) 06/01/2023 2:20 PM DISTRICT DIRECTOR Height 157.5 cm (5' 2 ) 06/01/2023 2:20 PM DISTRICT DIRECTOR Body Mass Index 26.89 06/01/2023 2:20 PM DISTRICT DIRECTOR Plan of Treatment Not on file Procedures Procedure Name Priority Date/Time Associated Diagnosis Comments PAP, REFLEX HPV Routine 12/21/2022 11:43 AM CDT Well woman exam HEPATITIS C ANTIBODY Routine 03/19/2022 12:06 PM DISTRICT DIRECTOR Screening for STD (sexually transmitted disease) from Last 3 Months or Most Recently Relevant to Health Maintenance Results * (ABNORMAL) Pap, reflex HPV (12/21/2022 11:43 AM CDT) CLINICAL INFORMATION: Krystin Jimenes Comment:Routine exam LMP Krystin Jimenes Comment:[id number] Previous Pap Krystin Jimenes Comment:NONE GIVEN Prev. [...] clinical correlation and follow-up as clinically appropriate Associate Program Manager Que JerryKevyn Jimenes Comment: KMS, CT(ASCP) CT Screening location: [place] [address] [address] [address] Pathologist [facility] Ron Jimenes Comment: Adan Matamoros M.D., Board Certified in Anatomic Pathology and Cytopathology. (electronic signature) Comment [facility] Ron Jimenes Comment: EXPLANATORY NOTE: The [...] NP LAB CYTOLOGY ORDERABLES Final Re sult [facility] [address] [place] [address] * Hepatitis C antibody (03/19/2022 12:06 PM DISTRICT DIRECTOR) Hep C Ab Nonreactive Nonreactive DEJAN RICHEY [...] last revised on 2019. Testing performed by: [facility], [address] [place] [address], [place]., [address] Blood 03/19/2022 12:0 6 PM DISTRICT DIRECTOR 03/19/2022 2:15 PM DISTRICT DIRECTOR Analilia Ann NP LAB MICROBIOLOGY - GENERAL ORDER IMELDA Edited Result - Final [facility] ([place]) 1 [facility] Department [place] [address] from Last 3 Months or Most Recently Relevant to Health Maintenance [place] [place] [address] [facility] [place] [address] [place] [address] [facility] Advance Directives For more information, please contact: [phone] * Full Code (Latest Code Status on File) Date Activated Date Inactivated Comments 09/02/2020 7:03 AM 09/04/2020 3:15 AM Full CPR in case of cardiopulmonary arrest * Full Code Date Activated Date Inactivated Comments 04/11/2017 12:39 AM 04/12/2017 8:15 PM Care Teams Jewel Flat Surfacer Relationship Specialty Start Date End Date No, Physician PCP - General 03/30/17
--- OUTSIDE RECORDS SUMMARY | 2024-09-18 17:34 | XMS_ITS | Clinical Summary ---
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 UTI (urinary tract infection) 04/11/2017 Assessment & Plan (04/11/2017 8:53 AM COMPUTER SUPPORT TECHNICIAN): Start IV rocephin Check urine culture Check blood culture Bilateral lower extremity edema 04/11/2017 Assessment & Plan (04/11/2017 9:00 AM COMPUTER SUPPORT TECHNICIAN): Started after delivery. R/o Peripartum Cardiomyopathy Check 2D echocardiogram Patient has elevated BNP 822. CXR no active disease. Patient reports dyspnea on exertion. Cardiology Evaluation () Cr 0.62, Trace protein in UA. Albumin 3.4 UA large blood most likely due to contamination with vaginal blood due to burst stitch. Sinus bradycardia 04/11/2017 Assessment & Plan (04/11/2017 9:07 AM COMPUTER SUPPORT TECHNICIAN): Patient reports occasional dizziness Patient states prior [...] on file Legal Sex Female 7:58 AM COMPUTER SUPPORT TECHNICIAN Gender Identity Not on file Sexual Orientation [...] Nita Laird MD Complications:None Delivery Location:[facility] 2022 SAB 4w0 d Bioche mical Last Filed Vital Signs Vital Sign Reading Time Taken Comments Blood Pressure 98/66 06/01/2023 2:20 PM COMPUTER SUPPORT TECHNICIAN Pulse 83 06/01/2023 2:20 PM COMPUTER SUPPORT TECHNICIAN Temperature 36.8 C (98.2 F) 06/01/2023 2:20 PM COMPUTER SUPPORT TECHNICIAN Respiratory Rate 18 06/01/2023 2:20 PM COMPUTER SUPPORT TECHNICIAN Oxygen Saturation 97% 06/01/2023 2:20 PM COMPUTER SUPPORT TECHNICIAN Inhaled Oxygen Concentration - - Weight 66.7 kg (147 lb) 06/01/2023 2:20 PM COMPUTER SUPPORT TECHNICIAN Height 157.5 cm (5' 2 ) 06/01/2023 2:20 PM COMPUTER SUPPORT TECHNICIAN Body Mass Index 26.89 06/01/2023 2:20 PM COMPUTER SUPPORT TECHNICIAN Plan of Treatment Health Maintenance Due Date Last Done Comments Varicella Vaccines (1 of 2 - 13+ 2-dose series) 2006 Pneumococcal vaccine <65 (1 of 2 - PCV) 2012 Cervical Cancer Screening 12/22/2023 12/21/2022, 01/2022 Depression Screening 12/22/2023 12/21/2022, 12/17/19 22 Regular Well Visit/Exam 18-64 12/22/2023 12/21/2022, 12/16/2021 Influenza Vaccine (Season Ended) 2025 01/20/2023, 02/20/2021, 02/13/2020, Additional history exists DTaP/Tdap/Td Vaccine (9 - Td or Tdap) 06/17/2030 06/17/2020, 01/12/2017, 05/20/2005, Additional history exists Hepatitis B Screening Completed 11/17/1994 , 08/31/1994, 1993 HPV Vaccines Completed 06/22/2007, 11/17/2006 Hepatitis C Screening Completed 03/19/2022 Procedures Procedure Name Priority Date/Time Associated Diagnosis Comments PAP, REFLEX HPV Routine 12/21/2022 11:43 AM CDT Well woman exam HEPATITIS C ANTIBODY Routine 03/19/2022 12:06 PM COMPUTER SUPPORT TECHNICIAN Screening for STD (sexually transmitted disease) from Last 3 Months or Most Recently Relevant to Health Maintenance Results * (ABNORMAL) Pap, reflex HPV (12/21/2022 11:43 AM CDT) CLINICAL INFORMATION: Krystin Jimenes Comment:Routine exam LMP Krystin Jimenes Comment:[id number] Previous Pap Krystin Jimenes Comment:NONE GIVEN Prev. [...] clinical correlation and follow-up as clinically appropriate Environmental Program Manager Que [facility] Jimenes Comment: KMS, CT(ASCP) CT Screening location: [place] [address] [address] [place] [address] Pathologist [facility] Jim[facility] Comment: Adan Matamoros M.D., Board Certified in Anatomic Pathology and Cytopathology. (electronic signature) Comment [facility] Jimenes Comment: EXPLANATORY NOTE: The Pap is [...] NP LAB CYTOLOGY ORDERABLES Final Re sult [facility] [address] [place] [address] * Hepatitis C antibody (03/19/2022 12:06 PM COMPUTER SUPPORT TECHNICIAN) Hep C Ab Nonreactive Nonreactive DEJAN RICHEY [...] last revised on 2019. Testing performed by: [facility], [address] [place] [address]., [address] Blood 03/19/2022 12:0 6 PM COMPUTER SUPPORT TECHNICIAN 03/19/2022 2:15 PM COMPUTER SUPPORT TECHNICIAN us Analilia Ann BEARING RING ASSEMBLER LAB MICROBIOLOGY - GENERAL ORDER IMELDA Edited Result - Final [facility] ([place]) 1 [facility] [place] [address] from Last 3 Months or Most Recently Relevant to Health Maintenance Insurance [facility] IDPA [facility] Advance Directives For more information, please contact: [phone] * Full Code (Latest Code Status on File) Date Activated Date Inactivated Comments 09/02/2020 7:03 AM 09/04/2020 3:15 AM Full CPR in case of cardiopulmonary arrest * Full Code Date Activated Date Inactivated Comments 04/11/2017 12:39 AM 04/12/2017 8:15 PM Care Teams Administrative Medical Director Relationship Specialty Start Date End Date No, Physician PCP - General 03/30/17
--- OUTSIDE RECORDS SUMMARY | 2024-09-18 17:34 | XMS_ITS | Encounter Summary ---
Author Organization [facility] Address [address] [facility] [place] [address] Care Team Providers Care Rn Palliative Care Name Role Phone Unavailable Primary Care Provider Unavailabl e Reason for Visit * Reason Onset Date Comments Appointment 02/07/2024 Encounter Details Date Type Department Care Team (Late st Contact Info) Description 02/07/2024 Telephone [facility] - Centralized Scheduling [address] [place] [id number] Lelo Feliz MD [address] [facility] [address] [place] [address] Appointment Social History Tobacco Use Types Packs/Day Years Used Date Smoking Tobacco: Every Day Cigarettes 0.3 4 Smokeless Tobacco: Never Alcohol Use Standard Drinks/Week Comments Not Currently 0 (1 standard drink = 0.6 oz pur e alcohol) Comments Yes Sex and Gender Information Value Date Recorded Sex Assigned at Not on file Legal Sex Female 5:36 AM PCAS Gender Identity Not on file Sexual Orientation [...]
--- OUTSIDE RECORDS SUMMARY | 2024-09-18 17:35 | XMS_ITS | CONTINUITY OF CARE DOCUMENT ---
Author Name shandraanthony shandraanthony Address Unknown Organization [facility] Address [address] [place] [address] [address] [place] [address] Phone [phone] Care Team Providers Care Emergency Service Worker Name Role Phone Bijan Newman MD Unavailable [phone] Bijan Newman MD Unavailable [phone] PROBLEMS Condition Status Date Provider Notes Shortness of breath active Bijan Newman MD Edema active Bijan Newman MD Bradycardia active Bijan Newman MD ENCOUNTERS Date Type Provider Location Encounter Diag nosis - In-person encounter Office Visit Bijan Newman MD [facility] Shortness of breathEdemaBradycardia VITAL SIGNS Date [...] Payer name Policy type / Coverage type [place] red democrat ID [place] MEDICA[place] Medicaid [id number] ADVANCE DIRECTIVES Name Date DISCUSSED - NO DECISION MADE TREATMENT PLAN Date Name Performer Cardiology:She had b radycardia and Holter was performed however results are not available yet. Rakan Bernstein Cardiology:One week after delivering a baby, the pt had some problems with the stitches. She went to [facility] and also had SOB and leg swelling. ProBNP was elevated to >800 and she was treated with IV Lasix successfully. Echo showed normal EF. Venous duplex was normal. Will obtain repeat proBNP. Rakan Bernstein Cardiology:One week after delivering a baby, the pt had some problems with the stitches. She went to [facility] and also had SOB and leg swelling. ProBNP was elevated to >800 and she was treated with IV Lasix successfully. Echo showed normal EF. Venous duplex was normal. Will obtain repeat proBNP. Rakan Bernstein Date Name PROBNP, N TERMINAL HISTORY OF PROCEDURES Procedure Date Procedure Name Provider Procedure Notes S tatus EKG Bijan Newman MD completed SNOMED-CT: [id number] Current Medications Documented Bijan Newman MD completed
--- OUTSIDE RECORDS SUMMARY | 2024-09-18 17:35 | XMS_ITS | Data Portability ---
Author Organization [facility] Address [address] [place] [address] Care Team Providers Care Homogenizer Operator Name Role Phone JOSE DAVALOS Eap Clinician Assessment No assessment recorded. Plan of Treatment Reminders Order Date Submit Date Provider Last Modified By Organization Details Last Modified Time Details Appointments None recorde d. Lab pregnan cy test, urine 2020 021 [email or web address] In-Office Order, Internal Use Only DO Not Attach Compendium DO Not Attach Compendium, Do Not Delete/merge, [id number] 15:29:16 pregnan cy test, urine 2020 021 [email or web address] In-Office Order, Internal Use Only DO Not Attach Compendium DO Not Attach Compendium, Do Not Delete/merge, [id number] 16:32:04 urinaly sis, dipstic k 2020 021 [email or web address] In-Office Order, Internal Use Only DO Not Attach Compendium DO Not Attach Compendium, Do Not Delete/merge, [id number] 08:29:52 Referral None recorde d. Procedures None recorde d. Surgeries None recorde d. Imaging None recorde d. Medication Orders NuvaRin g 0.12 mg-0.01 5 mg/24 hr vaginal 2020 021 [facility], [address], [place], [id number], 2 12:55:13 metroni dazole 500 mg tablet 2020 021 [email or web address] [facility], [address], [place], [id number], 16:01:29 metroni dazole 500 mg tablet 2020 021 [email or web address] [facility] #59175, [address], [place], [id number], 16:01:29 Patient TargetsNo targets recorded. Patient Instructions Encounter Date Encounter Id Patient Instructions Last Modified By Organization Details Last Modified Time 09/09/2020 [id number] bacterial vaginosis: care instructions [email or web address] Not available 09/09/2020 14:47:52 09/24/2020 [id number] bacterial vaginosis: care instructions Not available 09/24/2020 15:02:53 Reason for Referral None Reported. Results Created Date Observation Date Name Description Value Unit Range Abnormal Flag Note LastModifiedBy Organization Detail LastModifiedTime 07/30/19 21 07/29/2020 urina lysis , dipst ick Protein Negati ve Not Available In-Office Order Internal Use Only DO Not Attach Compendium DO Not Attach Compendium, Do Not Delete/merge, [id number] 07/29/2020 16:02:12 07/30/19 21 07/29/2020 urina lysis , dipst ick Glucose Negati ve Not Available In-Office Order Internal Use Only DO Not Attach Compendium DO Not Attach Compendium, Do Not Delete/merge, [id number] 07/29/2020 16:02:12 08/06/19 21 08/09/2020 strep tococ [...] n is noted . Not Available [facility] ([facility]) [address] [facility] [address], [place], [address], 08/09/2020 10:37:20 08/06/19 21 08/05/2020 urina lysis , dipst ick Protein Trace Not Available In-Office Order Internal Use Only DO Not Attach Compendium DO Not Attach Compendium, Do Not Delete/merge, [id number] 08/05/2020 11:43:26 08/06/19 21 08/05/2020 urina lysis , dipst ick Glucose Negati ve Not Available In-Office Order Internal Use Only DO Not Attach Compendium DO Not Attach Compendium, Do Not Delete/merge, [id number] 08/05/2020 11:43:26 08/13/19 21 08/12/2020 urina lysis , dipst ick Protein Negati ve Not Available In-Office Order Internal Use Only DO Not Attach Compendium DO Not Attach Compendium, Do Not Delete/merge, [id number] 08/12/2020 14:06:24 08/13/19 21 08/12/2020 urina lysis , dipst ick Glucose Negati ve Not Available In-Office Order Internal Use Only DO Not Attach Compendium DO Not Attach Compendium, Do Not Delete/merge, [id number] 08/12/2020 14:06:24 08/22/19 21 08/21/2020 urina lysis , dipst ick Protein Negati ve Not Available In-Office Order Internal Use Only DO Not Attach Compendium DO Not Attach Compendium, Do Not Delete/merge, [id number] 08/21/2020 11:58:53 08/22/19 21 08/21/2020 urina lysis , dipst ick Glucose Negati ve Not Available In-Office Order Internal Use Only DO Not Attach Compendium DO Not Attach Compendium, Do Not Delete/merge, [id number] 08/21/2020 11:58:53 08/27/19 21 08/26/2020 urina lysis , dipst ick Protein Negati ve Not Available In-Office Order Internal Use Only DO Not Attach Compendium DO Not Attach Compendium, Do Not Delete/merge, [id number] 08/26/2020 15:24:54 08/27/19 21 08/26/2020 urina lysis , dipst ick Glucose Negati ve Not Available In-Office Order Internal Use Only DO Not Attach Compendium DO Not Attach Compendium, Do Not Delete/merge, [id number] 08/26/2020 15:24:54 10/16/19 21 10/15/2020 pregn malou test, urine HCG negati ve Not Available In-Office Order Internal Use Only DO Not Attach Compendium DO Not Attach Compendium, Do Not Delete/merge, [id number] 10/15/2020 16:17:42 11/07/19 21 11/06/2020 pregn malou test, urine HCG negati ve Not Available In-Office Order Internal Use Only DO Not Attach Compendium DO Not Attach Compendium, Do Not Delete/merge, [id number] 11/06/2020 14:35:11 08/23/19 21 08/22/2020 US, obste tric, follo w-up No observ ation record ed. [email or web address] Not Available 08/08 09:47:10 08/23/19 21 08/22/2020 US, obste tric, follo w-up No observ ation record ed. [email or web address] Not Available 08/08 09:47:11 Result Notes None recorded. Problems Name Problem SNOMED Code Status Onset Date Resolution Date Notes Provider Name and Address Organization Details Recorded Time Pregnanc y 50850228 Completed 201909/09/2020 YONY [place] [facility] 14:28:35 Postpart um cardiomy opathy 34805052 Completed MFM appt. 02/21/20 . No inc. risk [place]Y [place] [facility] 14:28:32 Carrier of cystic fibrosis gene mutation 700537450 Completed New FOB to get tested. [place]ONY [place] [facility] 14:28:32 Nausea and vomiting 27637890 Completed 2019 Rx Zofran given. Vit B6 felix advised [place]Y [place] [facility] 14:28:32 Tobacco smoking in mother complica ting [place] [id number] 4104 Completed [place]Y [place] [facility] 14:28:32 Finding related to risk factor in pregnanc y 101528638 Completed Risk of Pre-ecla mpsia ASA 81 mg, stopped d/t eye pain YONY Nichols, [facility] 14:28:32 Low back pain 758066143 Completed [place] YONY Nichols [place] [facility] 14:28:32 Administ ration of influenz a vaccine Completed 2019 Got flu shot at work YONY Nichols [facility] 14:28:32 Administ ration of diphther ia, pertussi s, and tetanus vaccine Completed 2020 Velma WashingtonYONY poonam [facility] 14:28:32 Miscarri age 40902395 Active 2015 Velma Dicksonjuan levin [facility] - [facility] 7 17:17:24 Pregnanc y 88413862 Completed 201604/19/2017 Velma Washington MA poonam [facility] - [facility] 14:28:35 Breast lump 24073384 Active Velma Washington null, [facility] 6 16:57:46 Problem Notes None recorded. Procedures Surgical History Date Name Laterality Status Provider Name and Address Organization Details Recorded Time 06/03/19 18 Date of Last Pap Smear completed Velma Washington [facility] 07/05/2018 11:36:11 Appendectomy completed Christin Lin MA [facility] 05/29/2014 14:35:48 Imaging Results Imaging Date Name Status LastModified by Organiz ation Details LastModified Time 08/22/2020 US, obstetric, follow-up completed [email or web address] Information not available 08/26/2020 09:47:10 08/22/2020 US, obstetric, follow-up completed [email or web address] Information not available 08/26/2020 09:47:11 Procedure Notes [...] kg/m2 110 mm[Hg] 72 mm[Hg] Velma Felix [facility] 08/26/2020 15:21:47 Date Recorded Body weight Provider Name an d Address Organization Details Last Updated DateTime 08/26/2020 41947.71722 g Jose Davalos [facility] 021 15:31:38 Date Recorded Body height Body mass index (BMI) Body weight Systolic blood pressure Diastolic blood pressure Provider Name and Address Organization Details Last Updated DateTime 09/09/2020 157.48 cm 27 kg/m2 27899.59 3049 g 120 mm[Hg] 80 mm[Hg] Velma Felix [facility] 14:22:34 Date Recorded Body height Provider Name an d Address Organization Details Last Updated DateTime 09/24/2020 157.48 cm Velma Winona [facility] 09/24 14:48:44 Date Recorded Body height Body mass index (BMI) Body weight Systolic blood pressure Diastolic blood pressure Provider Name and Address Organization Details Last Updated DateTime 10/15/2020 157.48 cm 25.1 kg/m2 39768.95 g 114 mm[Hg] 78 mm[Hg] Guillermina Trinidad [facility] 16:04:57 Date Recorded Body height Body mass index (BMI) Body weight Systolic blood pressure Diastolic blood pressure Provider Name and Address Organization Details Last Updated DateTime 11/06/2020 157.48 cm 25.8 kg/m2 04295.24 g 110 mm[Hg] 70 mm[Hg] Guillermina Trinidad [place] [facility] 14:32:04 Social History Question Answer Notes LastModified by Organizat ion Details LastModified Time Tobacco Smoking Status Former Smoker quit 07/2016 Velma [place], [place] - [facility] 03/03/2016 15:59:37 Do You Have An Advance Directive? No Information not available 05/29/2014 If You Are , What Was Your Level Of Alcohol Consumption Prior To ? Occasional Information not available 09/14/2016 Is Anesthesia Consult Planned? No [email or web address] Information not available 09/14/2016 Plan No [email or web address] Information no t available 09/14/2016 Is Blood Transfusion Acceptable In An Emergency? Yes Information not available 11/26/2015 What Is Your Level Of Caffeine Consumption? Heavy Information not available 05/29/2014 Live With Cats/exposure To Cat Litter No [email or web address] Information not available 09/14/2016 How Much Tobacco [...] For COVID-19? No Information not available 09/09/2020 What Type Of Diet Are You Following? REGULAR Information not available 02/01/2015 Which Illicit Or Recreational Drugs Have You Used? Denies None Information not available 07/05/2018 Education 11 Information no t available 02/01/2015 What Is The Highest Grade Or Level Of School You Have Completed Or The Highest Degree You Have Received? [id number] Information not available 09/09/2020 Have There Been Any Changes To Your Family Or Social Situation? No [email or web address] Information no t available 09/14/2016 Frequent Air Travel No [email or web address] Information not available 09/14/2016 Are There Any Guns Present In Your Home? Yes Information not available 02/01/2015 Hard Of Hearing Or Deaf In One Or Both Ears? No Information not available 05/29/2014 Illicit Drugs Pre- Denies [email or web address] Information not available 01/16/2020 Legally Blind In One Or Both Eyes? No Information no t available 05/29/2014 Live Alone Or With Others? With Others Information not available 11/26/2015 Marital Status Single Informatio n not available 05/29/2014 What Was The Date Of Your Most Recent Tobacco Screening? 11/06/2020 [email or web address] Information not available 11/06/2020 How Many Children Do You Have? 1 Information not available 04/19/2017 Performs Monthly Self-breast Exam? Yes Information no t available 05/29/2014 Do You Have Any Pets? No [email or web address] Information not available 10/15/2020 Do You Use [...] Carbon Monoxide Detectors In Your Home? Yes [email or web address] Information not available 09/14/2016 At What Age Did You Start Smoking Tobacco? 15 Information not available 02/01/2015 Are You Passively Exposed To Smoke? No [email or web address] Information no t available 09/14/2016 How Much Tobacco Do You Smoke? No Information not available 08/17/2016 Smoking Pre- No [email or web address] Information not available 01/16/2020 General Stress Level Medium Information not available 03/03/2016 Do You Use Sunscreen Routinely? No Information not available 05/29/2014 How Many Years Have You Smoked Tobacco? 5 [email or web address] Information not available 09/14/2016 Sex: Female Functional Status Question Answer Note LastModified by Organizat ion Details LastModified Time Do you use any illicit or recreational drugs? No [email or web address] Information not available 10/15/2020 Do you or have you ever used any other forms of tobacco or nicotine? No [email or web address] Information not available 10/15/2020 What is your level of alcohol consumption? None [email or web address] Information not available 01/16/2020 Do you or have you ever used smokeless tobacco? Never used smokeless tobacco [email or web address] Information not available 01/16/2020 Are you currently employed? 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 Never used electronic cigarettes [email or web address] Information not available 01/16/2020 What is your exercise level? Occasional Information not available 02/01/2015 Mental Status Question Answer Note LastModified by Organization D etails LastModified Time Do you feel stressed (tense, restless, nervous, or anxious, or unable to sleep at night)? [id number] [email or web address] Information not available 09/09/2020 Family History Relationship Description Onset Age of [...] Problems N Kidney or Bladder Problems Y GI Problems N Depression Y Blood Clots N Lung Disease N Acne N Breast Problem Y Eating Disorder N Anemia N Anesthesia Complications N Headaches/Migraines N Anxiety Disorder N Diabetes N Ovarian Cancer N Muscle, Joint, or Bone Problems N [...] split virus, quadrivalent, preservative 0 completed Jose levin, [place] - [facility] 03/25/2020 15:23:13 Tdap 7 completed Not Available [facility] 05/27/2019 02:39:18 Influenza, split virus, quadrivalent, preservative 7 completed Not Available [facility] 05/27/2019 02:50:27 Tdap 1 completed YONY Nihcols, [place] - [facility] 06/17/2020 12:22:18 Past Encounters Encounter ID Performer Location Encounter Start Date Encounter Closed Date Diagnosis/Indication Diagnosis SNOMED-CT Code Diagnosis ICD10 Code Diagnosis Note [id number] MD Lasha Hunter [facility] ([place] [address]) [address] [facility] [address] [place], [place] [address] [address] 05/29/2014 14:20:08 05/29/2014 17:37:40 Breast lump 79216478 [id number] MD Latesha Schaffer (FIELD MARKETING REPRESENTATIVE) [address] [facility] [place] [place] [address] 02/01/2015 15:34:55 02/04/2015 11:44:38 Gynecologic examination 37938750 Normal female exam x thin Venereal d isease screening 901282523 RTO 2 weeks for results. [id number] MD Latesha Schaffer (FIELD MARKETING REPRESENTATIVE) [address] [facility] [place] [address] 10/16/2015 16:01:02 10/16/2015 17:00:59 Gynecologic examination 59966531 Z01.419 Pap was normal, dwp. Pt. to get blood work done today. RTO one week for results. [id number] [facility] MARKETING REPRESENTATIVE) [address] [facility] [place] [address] 11/26/2015 16:46:57 01/08/2016 09:16:51 Gynecologic examination 97731334 Z01.419 Fasting cholestero l, glucose, thyroid and CBC were all normal, dwp. RTO PRN + one year for AE. Venereal d isease screening 652977263 Z11.3 Vaginal culture was negative for gonorrhea, chlamydia, trichomona s, BV, and yeast, dwp. STD panel was negative. Individual test results d/w pt. [id number] MD Latesha Schaffer (FIELD MARKETING REPRESENTATIVE) [address] [place] [address] 03/03/2016 15:39:27 05/14/2016 10:39:02 Threatened miscarriage 45606531 O20.0 Expectatio ns and precaution s discussed. Pt. to call tomorrow for result. If decreased, miscarriag e confirmed and need to follow quants down to <5. If increased, will continue to follow based on levels. Pt. agreeable. [id number] MD Latesha Schaffer (FIELD MARKETING REPRESENTATIVE) [address] [place] [address] 03/04/2016 15:36:48 05/14/2016 11:24:27 Complete miscarriage 265374982 O03.9 Miscarriag e confirmed with a decrease in beta hCG quant from 10 to 4, dwp. No further blood tests needed also discussed. Future fertility discussed as well. Pt. expressed understand ing. RTO PRN + 10/16/16 for AE. [id number] MD aLtesha Schaffer (FIELD MARKETING REPRESENTATIVE) [address] [facility] [place] [address] 08/17/2016 16:57:11 08/26/2016 09:56:17 Routine care 313503438 Z34.81 labs ordered. Rx PNVs sent. NEO for US at [facility] obtained. Usual cause of first trimester miscarriag e d/w pt. Precaution s for when to go to the ED discussed. RTO 4 weeks for NOB visit. Missed period 60506075 N 92.5 UPT positive, p [id number] MD Shelli Schafferhalto (FIELD MARKETING REPRESENTATIVE) [address] [place] [address] 09/14/2016 13:51:04 09/15/2016 11:49:07 Routine care 174708063 Z34.81 See ACOG form [id number] MD Shelli Schafferhalto (FIELD MARKETING REPRESENTATIVE) [address] [place] [address] 10/12/2016 14:32:08 10/16/2016 11:56:42 Routine care 098892181 Z34.92 See ACOG form [id number] MD Shelli Schafferhalto (FIELD MARKETING REPRESENTATIVE) [address] [facility] [place] [address] 2016 14:44:50 10/28/2016 16:55:20 Routine care 103089158 Z34.92 See ACOG form [id number] MD Shelli Schafferhalto (FIELD MARKETING REPRESENTATIVE) [address] [place] [address] 11/23/2016 14:30:19 11/25/2016 11:59:12 Routine care 956911964 Z34.82 See ACOG form [id number] MD Shelli Schafferhalto (FIELD MARKETING REPRESENTATIVE) [address] [place] [address] 12/28/2016 10:07:39 12/31/2016 10:25:54 Routine care 663132220 Z34.82 See ACOG form [id number] MD Shelli Schafferhalto (FIELD MARKETING REPRESENTATIVE) [address] [facility] [address] 01/12/2017 14:51:29 01/14/2017 17:07:24 Routine care 723414944 Z34.83 See ACOG form Administra tion of influenza vaccine 39948535 Z23 Active or passive immunization 791240148 Z23 [id number] MD Latesha Schaffer (FIELD MARKETING REPRESENTATIVE) [address] [facility] [place] [address] 01/26/2017 14:34:39 01/29/2017 12:03:33 Routine care 380286847 Z34.83 See ACOG form [id number] MD Shelli Schafferhalto (FIELD MARKETING REPRESENTATIVE) [address] [place] [address] 02/09/2017 14:10:05 02/16/2017 11:02:15 Routine care 512145783 Z34.83 [id number] MD Shelli Schafferhalto (FIELD MARKETING REPRESENTATIVE) [address] [place] [address] 02/24/2017 14:21:10 02/26/2017 14:11:13 Routine care 532871109 Z34.83 [id number] MD Latesha Schaffer (FIELD MARKETING REPRESENTATIVE) [address] [place] [address] 03/02/2017 14:49:10 03/05/2017 10:14:49 Routine care 985754076 Z34.83 [id number] MD Latesha Schaffer (FIELD MARKETING REPRESENTATIVE) [address] [place] [address] 03/09/2017 15:13:14 03/12/2017 10:43:44 Routine care 387333818 Z34.83 See ACOG form [id number] MD Shelli Schafferhalto (FIELD MARKETING REPRESENTATIVE) [address] [place] [address] 03/16/2017 15:15:29 03/18/2017 12:32:04 Routine care 131544093 Z34.83 See ACOG form [id number] MD Shelli Schafferhalto (FIELD MARKETING REPRESENTATIVE) [address] [place] [address] 03/23/2017 14:07:46 03/26/2017 16:25:16 Routine care 901875057 Z34.83 See ACOG form [id number] MD Shelli Schafferhalto (FIELD MARKETING REPRESENTATIVE) [address] [place] [address] 03/30/2017 14:49:11 04/05/2017 11:52:49 Routine care 086517044 Z34.83 See ACOG form [id number] MD Latesha Schaffer (FIELD MARKETING REPRESENTATIVE) [address] [place] [address] 04/19/2017 14:48:11 04/22/2017 18:02:07 care 943111330 Z39.2 Still swollen. Still in the process of evaluation for cardiomyop athy. Appears to be resolving. Will continue to monitor with cardiology . Bacterial vaginosis 4197 37165 N76.0 Diagnosis d/w pt. Rx sent to pharmacy. Seth mehta discussed. [id number] MD Latesha Schaffer (FIELD MARKETING REPRESENTATIVE) [address] [place] [address] 04/26/2017 14:57:11 04/30/2017 09:30:07 care 502898856 Z39.2 Danger signs discussed. RTO 05/17/17. [id number] MD Latesha Schaffer (FIELD MARKETING REPRESENTATIVE) [address] [place] [address] 05/25/2017 10:44:35 05/26/2017 14:08:46 cardiomyopathy 53703192 O90.3 Records from [facility] and Dr. Donnelly, cardiology , obtained. Pt.'s ProBNP was >800 at [facility] but EF on ECHO was normal. [...] given to pt. by Dr. Donnelly's office. [id number] MD Latesha Schaffer (FIELD MARKETING REPRESENTATIVE) [address] [place] [address] 06/03/2017 10:55:50 06/04/2017 10:16:43 Gynecologic examination 11171688 Z01.419 Last pap done 07/07/14 was negative. Pap done today. Venereal d isease screening 883309169 Z11.3 RTO one week for results. Contracept ion care management 986390391 Z30.9 control options discussed. Pt. wants the NuvaRing. Rx sent to pharmacy. Melaio janine discussed. [id number] MD Latesha Schaffer (FIELD MARKETING REPRESENTATIVE) [address] [place] [address] 06/14/2017 15:21:42 06/18/2017 09:21:56 Gynecologic examination 07697553 Z01.419 Pap done 06/03/17 was negative, dwp. Venereal d isease screening 202731765 Z11.3 Vaginal culture was negative for gonorrhea, chlamydia, and trichomona s, dwp. STD panel was also completely negative. Individual test results dwp. [id number] MD Latesha Schaffer (FIELD MARKETING REPRESENTATIVE) [address] [place] [address] 07/05/2018 11:14:26 07/06/2018 08:59:41 Gynecologic examination 66005532 Z01.419 Last pap done 06/03/17 was negative. Therefore, no pap needed. Venereal d isease screening 751878496 Z11.3 RTO one week for results. [id number] MD Latesha Schaffer (FIELD MARKETING REPRESENTATIVE) [address] [place] [address] 08/03/2018 14:59:09 08/04/2018 10:47:21 Venereal disease screening 054277893 Z11.3 Vaginal culture was negative for gonorrhea, chlamydia, and trichomona s, dwp. STD panel was also completely negative. Individual test results dwp. [id number] MD Latesha Schaffer (FIELD MARKETING REPRESENTATIVE) [address] [facility] [place] [address] 01/16/2020 08:28:01 01/17/2020 06:01:25 Routine care 333151729 Z34.81 See ACOG form History of cardiomyopathy 3773172039 90471 Z86.79 Pt. with h/o cardiomyop athy requiring Lasix on week after the delivery of her first child. MFM referral dwo, generated. [id number] MD Latesha Schaffer (FIELD MARKETING REPRESENTATIVE) [address] [place] [address] 02/20/2020 08:01:39 02/21/2020 09:30:58 Nausea and vomiting 25210013 R11.2 [id number] MD Shelli Schafferhalto (FIELD MARKETING REPRESENTATIVE) [address] [facility] [place] [address] 03/25/2020 14:16:13 03/26/2020 14:27:58 Routine care 910814365 Z34.82 See ACOG form [id number] MD Shelli Schafferhalto (FIELD MARKETING REPRESENTATIVE) [address] [facility] [address] 04/22/2020 08:01:48 04/23/2020 07:26:41 Routine care 031144956 Z34.82 See ACOG form [id number] MD Latesha Schaffer (FIELD MARKETING REPRESENTATIVE) [address] [place] [address] 05/20/2020 08:12:59 05/22/2020 09:05:05 Routine care 057246817 Z34.82 See ACOG form [id number] MD Shelli Schafferhalto (FIELD MARKETING REPRESENTATIVE) [address] [facility] [place] [address] 06/03/2020 10:03:37 06/04/2020 14:07:48 Routine care 837080279 Z34.82 See ACOG form [id number] MD Shelli Schafferhalto (FIELD MARKETING REPRESENTATIVE) [address] [place] [facility] [place] [address] 06/17/2020 11:18:46 06/19/2020 10:24:13 Routine care 380055310 Z34.83 See ACOG form [id number] MD Shelli Schafferhalto (FIELD MARKETING REPRESENTATIVE) [address] [place] [address] 07/01/2020 11:44:48 07/02/2020 09:44:51 Routine care 582746592 Z34.83 See ACOG form [id number] MD Shelli Schafferhalto (FIELD MARKETING REPRESENTATIVE) [address] [facility] [place] [address] 07/15/2020 12:08:37 07/16/2020 07:17:55 Routine care 364022632 Z34.83 See ACOG form [id number] MD Latesha Schaffer (FIELD MARKETING REPRESENTATIVE) [address] [facility] [place] [address] 07/29/2020 15:52:20 08/02/2020 05:01:08 Routine care 233866494 Z34.83 See ACOG form [id number] MD Latesha Schaffer (FIELD MARKETING REPRESENTATIVE) [address] [place] [address] 08/05/2020 11:23:19 08/07/2020 08:36:48 Routine care 011856755 Z34.83 See ACOG form [id number] MD Latesha Schaffer (FIELD MARKETING REPRESENTATIVE) [address] [place] [facility] [place] [address] 08/12/2020 13:49:59 08/14/2020 07:57:35 Routine care [id number] Z34.83 See ACOG form [id number] MD Latesha Schaffer (FIELD MARKETING REPRESENTATIVE) [address] [place] [address] 08/21/2020 11:37:01 08/22/2020 13:27:02 Routine care [id number] Z34.83 See ACOG form Candidal vulvovaginitis [id number] B37.3 Reduced fe blake movement 067877878 O36.8199 [id number] MD Latesha Schaffer (FIELD MARKETING REPRESENTATIVE) [address] [place] [facility] [place] [address] 08/26/2020 15:03:24 08/27/2020 12:02:38 Routine care [id number] Z34.83 See ACOG form [id number] MD Latesha Schaffer (FIELD MARKETING REPRESENTATIVE) [address] [place] [facility] [place] [address] 09/09/2020 14:10:22 09/11/2020 12:51:14 Bacterial vaginosis [id number] N76.0 Diagnosis d/w pt. Rx sent to pharmacy. Seth mehta discussed. Health con dition feared but not present [id number] 62222 Z71.1 Stitches intact, dwp. Pt with BV. See below [id number] [facility] (FIELD MARKETING REPRESENTATIVE) [address] [place] [address] 4 09/24/2020 08:05:34 09/25/2020 17:12:07 Bacterial vaginosis 433349891 N76.0 Pt. lost her medication . Refill sent. [id number] MD Latesha Schaffer (FIELD MARKETING REPRESENTATIVE) [address] [place] [address] 10/15/2020 15:55:05 10/17/2020 10:08:08 care [id number] Z39.2 Danger signs discussed. RTO 05/17/17. Contracept ion care management [id number] Z30.9 control options discussed. Pt. wants the Mirena IUD. Benefits, risks, and alternativ es to Mirena IUD insertion d/w pt. Pt. expressed understand ing. All pt. questions answered. UPT was negative today. RTO 2 weeks for repeat UPT and MIrena IUD insertion. [id number] 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 no longer wants the Mirena [...] Carlisle Member ID Guarantor Name 08/26/2020 1 [facility] (MEDICAID HM) [id number] 0003 Delicia Hannon [id number] Delicia Hannon 09/09/2020 1 [facility] (MEDICAID HM) [id number] 0003 Delicia Hannon [id number] Delicia Hannon 09/24/2020 1 [facility] (MEDICAID HM) [id number] 0003 Delicia Hannon [id number] Delicia Hannon 10/15/2020 1 [facility] (MEDICAID HMO) [id number] 0003 Delicia Hannon [id number] Delicia Hannon 11/06/2020 1 [facility] (MEDICAID HMO) [id number] 0003 Delicia Hannon [id number] Delicia Hannon Notes Date Note Type Note Provider Name and Address Organization Details Recorded Time 09/09/2020 text/html Pt. presents wit h c/o popping her stitches. She went to the ED but they told her to come here to her OB's office. Jose levin, [facility] 09/09/2020 14:51:28 09/24/2020 text/html Telephone visit due to COVID-19 pandemic. Pt. with c/o losing her medication for BV and still having a fishy discharge. Jose levin, [facility] 09/24/2020 15:04:28 10/15/2020 text/html VisitReported bypatient.Onset/Charles ing:date of delivery: (09/02/20) Quality: Context:complicatio ns of : none; complications of labor: none; laceration: ; complications: none; feeding choice: bottle; good support from partner/family Associated Symptoms:no abnormal bleeding; no pelvic pain; laceration well healed; no constipation; no fecal incontinence; no dysuria; no urinary incontinence; no fever; no problems; no mastitis Jose levin, [facility] 10/15/2020 16:32:32 11/06/2020 text/html Pt. presents for control. She previously wanted the Mirena IUD. She has changed her mind and now wants the NuvaRing. She used it previously, a long time ago. Jose levin, [facility] 11/06/2020 15:33:14 OBGyn Episode Ob Episode Information Episode Created Date Number of Fetuses Patient Bloodtype Patient rh Status Prepregnancy Weight lbs Domestic Partner Domestic Partner Phone Father Name General Warehouse Associate Status 01/16/20 20 1 O Positive Oskar Anastasia CLOSED Fetus Data First Name Last Name Admitted to NICU Weight (g) Sex Living Outcome Pediatric Complications Fetus ID Race Codes Race Delivery Type León Hannon false 4025.62 9 M true Full Term 47027 2106-3 White Vaginal Problems Problem Notes Problem Name Start Date End Date Resolution Snomed Code Not e Administration of influenza vaccine 02/08/2020 [id number] Got flu sh ot at work Administration of diphtheria, pertussis, and tetanus vaccine 06/17/2020 [id number] Carrier of cystic fibrosis gene mutation 782387396 New F OB to get tested. Nausea and vomiting 02/20/2020 [id number] Rx Zofran given. Vit B6 felix advised Tobacco smoking in mother complicating puerperium [id number] Finding related to risk factor in [id number] Risk of Pre-eclampsiaAS A 81 mg, stopped d/t eye pain Low back pain 903092839 PT cardiomyopathy [id number] [facility] appt. 02/21/20. No inc. risk Aaron Calculation Initial Aaron Date Initial Exam Date Initial Exam Provider Initial Ultrasound Date Last Menstrual Period Date Ultra Sound Weeks Gestation 08/29/2020 01/16/2020 [email or web address] 01/11/2020 11/23/2019 6 Eighteen To Twenty Week Aaron Update Ultra Sound Date Fundal Height At Umbil Quickening Date Ultra Sound Latest Weeks Gestation Final Aaron Confirmed By Final Aaron Confirmed Date Final Aaron Date Ultra Sound Latest Days Gestation 0 [email or web address] 01/16/2020 08/30/19 21 0 Pre-cheng Flowsheet Flowsheet Date 01/16/2020 Ruelas Score Blood [...] this last visit 4 weeks ago. Rx Zofran sent. Pt. to drop off [employer] paperwork for her job. Pt. also with [...] Weight in lbs Pre/Post Dialysis Refused Weight 137.01069094040 BP Diastolic BP Location Tested BP Systolic BP Type 70 118 sitting Fetus Heart Rate Present A 150 Present Fetus Movement Comments Pt. with c/o nausea and vomi ting so severe she is unable to work. She brought FMLA papers to be filled out. Although she cannot work, she refuses to go into the ED at [facility] where she works d/t $600 copay. She is taking the anti-emetics but sx not relieved enough to work but not bad enough to go to ED due to cost. FMLA paperwork filled out. Pt. got flu shot at work approx. 02/08/2020. Quad screen discussed, ordered. Anatomy US with MFM on 2019. Telephone visit 4 weeks due [...] Weight in lbs Pre/Post Dialysis Refused Weight 148.311869751438 BP Diastolic BP Location Tested BP Systolic [...] Weight in lbs Pre/Post Dialysis Refused Weight 156.023980438235 BP Diastolic BP Location Tested BP Systolic [...] Weight in lbs Pre/Post Dialysis Refused Weight 157.878900295657 BP Diastolic BP Location Tested BP Systolic [...] Weight in lbs Pre/Post Dialysis Refused Weight 155.303124662816 BP Diastolic BP Location Tested BP Systolic [...] Weight in lbs Pre/Post Dialysis Refused Weight 159.653218766302 BP Diastolic BP Location Tested BP Systolic [...] Weight in lbs Pre/Post Dialysis Refused Weight 161.67028816535 BP Diastolic BP Location Tested BP Systolic BP Type 72 120 sitting Fetus Heart Rate Present A 130 Present Fetus Movement A Yes Comments GBS done today. Labor prec/k ick counts discussed. RTO one week. FMLA papers faxed and given to pt. per pt. request. Flowsheet Date 08/12/2020 Ruelas Score Blood Edema Fundus Height Fundus Units Glucose Ketones Leukocytes Nitrite Labor Signs Protein Cervic Dilation Cervic Effacement Cervic Station 37 cm none neg Type Weight in lbs Pre/Post Dialysis Refused Weight 161.005389135588 BP Diastolic BP Location Tested BP Systolic [...] ED for eval. T/C to ED at [facility]. RTO one week. Flowsheet Date 08/21/2020 Ruelas Score Blood Edema Fundus Height Fundus Units Glucose Ketones Leukocytes Nitrite Labor Signs Protein Cervic Dilation Cervic Effacement Cervic Station 37 cm Type Weight in lbs Pre/Post Dialysis Refused Weight 164.161267979125 BP Diastolic BP Location Tested BP Systolic [...] Weight in lbs Pre/Post Dialysis Refused Weight 167.281094277296 BP Diastolic BP Location Tested BP Systolic [...] Weight in lbs Pre/Post Dialysis Refused Weight 147.02592051563 BP Diastolic BP Location Tested BP Systolic [...] At Estimated Date of Delivery false Thalassemia (Croatian, Finnish, Mediterranean, Or Background): MCV < 80 false Neural Tube Defect (Meningom yelocele, Spina Bifida, Or Anencephaly) false Congenital Heart Defect false Down Syndrome false Jerel-Sachs (eg, Oriental Orthodox, Cajun , Kittitian-Rice) false Vielka Disease false Sickle Cell Disease Or Trait () false Hemophilia Or Other Blood Disorders false Muscular Dystrophy false Cystic Fibrosis false pt states dr. yony goodson told her she carried a gene the last time she was Eren's Chorea false Mental Retardation/Autism false Other Inherited [...] Domestic Partner Domestic Partner Phone Father Name General Warehouse Associate Status 08/18/19 17 1 CLOSED Fetus Data First Name Last Name Admitted to NICU Weight (g) Sex Living Outcome Pediatric Complications Fetus ID Race Codes Race Delivery Type , Spontane ous [id number] Aaron Calculation Initial Aaron Date Initial Exam [...] Domestic Partner Domestic Partner Phone Father Name General Warehouse Associate Status 08/26/19 17 1 O Positive 97 CLOSED Fetus Data First Name Last Name Admitted to NICU Weight (g) Sex Living Outcome Pediatric Complications Fetus ID Race Codes Race Delivery Type Margarita Hewitt false 3316.89 15 F true Full Term 27110 2106-3 White Vaginal Aaron Calculation Initial Aaron Date Initial Exam Date Initial Exam Provider Initial Ultrasound Date Last Menstrual Period Date Ultra Sound Weeks Gestation 03/18/2017 08/17/2016 [email or web address] 08/03/2016 06/11/2016 5 Eighteen To Twenty Week Aaron Update Ultra Sound Date Fundal Height At Umbil Quickening Date Ultra Sound Latest Weeks Gestation Final Aaron Confirmed By Final Aaron Confirmed Date Final Aaron Date Ultra Sound Latest Days Gestation 11/03/19 17 18 [email or web address] 09/01/2016 03/29/20 17 6 Pre-cheng Flowsheet Flowsheet Date 08/17/2016 Ruelas Score Blood Edema Fundus Height Fundus Units Glucose Ketones Leukocytes Nitrite Labor Signs Protein Cervic Dilation Cervic Effacement Cervic Station none neg Type Weight in lbs Pre/Post Dialysis Refused 97.2378200590432 BP Diastolic BP Location Tested BP Systolic BP Type 60 110 sitting Fetus Heart Rate Present Fetus Movement Comments Flowsheet Date 09/14/2016 Ruelas Score Blood Edema Fundus Height Fundus Units Glucose Ketones Leukocytes Nitrite Labor Signs Protein Cervic Dilation Cervic Effacement Cervic Station none neg Type Weight in lbs Pre/Post Dialysis Refused 103.988542801403 BP Diastolic BP Location Tested BP Systolic [...] Type Weight in lbs Pre/Post Dialysis Refused 110.709563700529 BP Diastolic BP Location Tested BP Systolic [...] Type Weight in lbs Pre/Post Dialysis Refused 114.367040801612 BP Diastolic BP Location Tested BP Systolic [...] Type Weight in lbs Pre/Post Dialysis Refused 122.224159532603 BP Diastolic BP Location Tested BP Systolic [...] Type Weight in lbs Pre/Post Dialysis Refused 129.433737657949 BP Diastolic BP Location Tested BP Systolic [...] Type Weight in lbs Pre/Post Dialysis Refused 137.938422569564 BP Diastolic BP Location Tested BP Systolic [...] Type Weight in lbs Pre/Post Dialysis Refused 139.147624875004 BP Diastolic BP Location Tested BP Systolic [...] Type Weight in lbs Pre/Post Dialysis Refused 144.396440171318 BP Diastolic BP Location Tested BP Systolic [...] Type Weight in lbs Pre/Post Dialysis Refused 148.467613716552 BP Diastolic BP Location Tested BP Systolic [...] Type Weight in lbs Pre/Post Dialysis Refused 150.71421154832 BP Diastolic BP Location Tested BP Systolic [...] Type Weight in lbs Pre/Post Dialysis Refused 151.224772493554 BP Diastolic BP Location Tested BP Systolic [...] Type Weight in lbs Pre/Post Dialysis Refused 154.443462741222 BP Diastolic BP Location Tested BP Systolic [...] Type Weight in lbs Pre/Post Dialysis Refused 155.19058141729 BP Diastolic BP Location Tested BP Systolic [...] Type Weight in lbs Pre/Post Dialysis Refused 156.913353083354 BP Diastolic BP Location Tested BP Systolic [...] Type Weight in lbs Pre/Post Dialysis Refused 139.795974933146 BP Diastolic BP Location Tested BP Systolic [...] At Estimated Date of Delivery false Thalassemia (Croatian, Finnish, Mediterranean, Or Background): MCV < 80 false Neural Tube Defect (Meningom yelocele, Spina Bifida, Or Anencephaly) false Congenital Heart Defect false Down Syndrome false Jerel-Sachs (eg, Oriental Orthodox, Cajun, Kittitian-Rice) f alse Vielka Disease false Sickle Cell Disease Or Trait () false Hemophilia Or Other Blood Disorders false Muscular Dystrophy false Cystic Fibrosis false Eren's Chorea false Mental Retardation/Autism false If Yes, [...] ed By 11/23/2016 Anticipated course of care [place] [address] 11/23/2016 Alcohol [place] [address] 11/23/2016 Intimate partner violence [place] [address] 11/23/2016 Environmental/work hazards s [email or web address] 11/23/2016 [facility]/2016 Nutrition counseling ; special diet; dietary precautions (mercury, listeriosis) [place] [address] 11/23/2016 Childbirth classes/hospital facilities [place] [address] 11/23/2016 HIV and other routine tests [place] [address] 11/23/2016 Risk factors identif ied by history [place] [address] 11/23/2016 [facility]/23/2016 Exercise [place] [address] 11/23/2016 Teratogens [place] [address] 11/23/2016 Use of any medicatio ns (including supplements, vitamins, herbs, or OTC drugs) [place] [address] 11/23/2016 [place] [address] 11/23/2016 Sexual activity [place] [address] 11/23/2016 Tobacco/smoking cess ation counseling (ask, advise, assess, assist, and arrange) [place] [address] 11/23/2016 Illicit/recreational drugs [place] [address] 11/23/2016 Dental care [place] [address] 11/23/2016 Travel [place] [address] 11/23/2016 Seat belt use [place] [address] 11/23/2016 Indications for ultrasonography [place] [address] 11/23/2016 Avoidance of saunas or hot tubs [place] [address] 11/23/2016 Toxoplasmosis precautions (cats/raw meat) [place] [address] Second Trimester Discussed Date Discussion Item Discussion Note Discuss ed By Third Trimester Discussed Date Discussion Item Discussion Note Discuss ed By Delivery Information Delivery Date Delivery Type Labor Anesthesia Weeks Gestation Incision Type Labor Labor Length Hrs Delivered By Post Complications Tubal Sterilization Discharge Date Comments 7 Sponta neous Regional-Ep idural 41 Dr[address] Mar Ped-Dr. Balderrama Discharge Information Feeding Method Contraceptive Method Maternal HG B and HCT Levels Bottle
--- OUTSIDE RECORDS SUMMARY | 2024-09-18 17:35 | XMS_ITS | Continuity of Care Document ---
Author Organization [facility] Address [address] 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 [address] [facility] [place], [id number], [place]. tel:[phone] Family History Family Member Type Diagnosis Age [...]
[2024-09-18 17:39] VITALS: BP 137/67; PULSE 83; RESP 20; TEMP 37.1; O2SAT 100
[2024-09-18 17:55] LABS: EDSTREPNEGPOS1 Negative (Negative)
--- NOTE | 2024-09-18 18:34 | ED_ITS ---
HPI - URI/Sore Throat General Chief Complaint: Upper Respiratory Infection Stated Complaint: sorethroat,cough Time Seen by Provider: 09/18/24 18:30 Source: patient, RN notes reviewed and old records reviewed Mode of arrival: ambulatory Limitations: no limitations History of Present Illness HPI Narrative: 28 year old female who presents to [facility] care with complaints of cough and sore throat for the past 3 days. Patient reports that son recently had strep throat. Patient reports that she has been taking Naprosyn for her symptoms with last dose 1t 1100 today. Patient reports no known fevers chills or body aches. MD elicited complaint: cough and sore throat Onset (ago): day(s) (3) Severity: mild Description of mucous: clear Able to tolerate fluids by mouth: Yes Treatments prior to arrival: other (Naproxen) Related Data Home Medications ?Medication ?Instructions ?Recorded ?Confirmed ?Last Taken ?Type ergocalciferol (vitamin D2) 1,250 09/19/24 Unknown History mcg (50,000 unit) capsule norethindrone 1 mg-ethinyl tablet 09/19/24 Unknown History estradiol 20 mcg (21)-iron 75 mg (7) tablet (Blisovi Fe 05/29 (28)) Allergies Allergy/AdvReac Type Severity Reaction Status Date / Time No Known Allergies Allergy Verified 09/19/24 08:54 Review of Systems Review of Systems: CONSTITUTIONAL: Denies malaise, chills, sweats, or fever. EYES: Denies visual changes, redness, or discharge. ENT: Reports rhinorrhea, congestion,no sinus pain, no otalgia and positive for sore throat. CARDIOVASCULAR: Denies chest pain, palpitations, or edema. RESPIRATORY: Reports cough.? Denies dyspnea. GASTROINTESTINAL: Denies abdominal pain, nausea, vomiting, diarrhea SKIN: Denies rash or itching. MUSCULOSKELETAL: Denies myalgia. NEUROLOGIC: Denies headache. All systems reviewed & are unremarkable except as noted in HPI and below PMFSH Past Medical History Medical History (Updated 09/19/24 @ 16:27 by Susana Nair NP) Polyhydramnios Upper respiratory infection Surgical History Surgical History (Updated 09/19/24 @ 16:25 by Susana Nair NP) S/P History of appendectomy Family History Family History Mother COPD (chronic obstructive pulmonary disease) Social History Social History Smoking packs per day: 0.5 Smoking cigarettes per day: 10.0 Smoking status: Current every day smoker Tobacco type: e-cigarettes/vaping Additional smoking assessment comments: former cigarette smoker quit 2.5 years ago now vapes Alcohol intake: current Alcohol use details: social Substance use: never Do You Feel Safe in your Home?: Yes Lack of Transportation: No Lack of Food: Never True Current Housing: I Have Housing Concerned About Future Housing: No Difficulty Paying Gas/Electric Bills: No Difficulty Paying for Meds: No Currently Unemployed: No Education: High School Diploma/GED Difficulty w/ Childcare or Family Care: No Living arrangements: alone Gender identity (if verbalized by the patient): Female Sexual Orientation (if Verbalized by the Patient): Straight or Heterosexual Spiritual care concerns: No Comments At time of signature, agree with nursing past medical, surgical, social and family history. There is no relevant family history pertinent to the presenting complaint Exam Narrative: GENERAL: Well-appearing, well-nourished, and in no acute distress. HEAD: Normocephalic EYES: PERRLA, conjunctivae clear ENT: Nares clear, turbinates edematous and erythematous, clear discharge. Mucous membranes moist. TM pearly magaña with dull light reflex bilaterally; no tragal tenderness. Oropharynx erythematous without lesions. Tonsils not enlarged and without exudate, no drooling, no hoarseness, no trismus, uvula midline.post nasal drainage NECK: Supple. No lymphadenopathy CHEST: Clear to auscultation, breath sounds equal. No wheezing, rhonchi, rales, or stridor. No respiratory distress, speaks in full sentences. dry cough noted SAO2 100% on room air HEART: Regular rate and rhythm. No murmur heard. SKIN: Warm, dry, no rash. NEURO: Alert and oriented x3. PSYCH: Normal mood and affect Course Course Emergency Course: Patient is aware of diagnosis, understands and agrees to treatment plan.? Anticipatory guidance given.? Patient agrees to follow-up as directed and is aware of reasons to seek care at the emergency department. Portions of this record may have been created with voice recognition software Level of Care: Express Care Visit Vital Signs Vital signs: Vital Signs Temperature 37.1 C 09/18/24 17:39 Pulse Rate 83 09/18/24 17:39 Respiratory Rate 20 09/18/24 17:39 Blood Pressure 137/67 09/18/24 17:39 Pulse Oximetry 100 09/18/24 17:39 Oxygen Delivery Room Air 09/18/24 17:39 Temperature 37.1 C 09/18/24 17:39 Pulse Rate 83 09/18/24 17:39 Respiratory Rate 20 09/18/24 17:39 Blood Pressure 137/67 09/18/24 17:39 Pulse Oximetry 100 09/18/24 17:39 Oxygen Delivery Room Air 09/18/24 17:39 Reviewed MDM - URI/Sore Throat MDM Narrative Medical decision making narrative: Differential diagnosis considered: Dubose virus, strep pharyngitis, allergic rhinitis, upper respiratory tract infection, sinusitis, rhinosinusitis, nasopharyngitis. viral pharyngitis, otitis media, otitis externa, pneumonia, bronchitis, viral cough syndrome, viral syndrome, and influenza.? Exam findings show no acute concerns or changes; patient is non-toxic appearing and is in no distress.? Patient is appropriate for outpatient treatment and follow-up. Differential Diagnosis Differential diagnosis: Likely upper respiratory infection, viral infection, pharyngitis and other (strep pharyngitis) Medical Records Attestation: I reviewed the patient's medical records. Lab Data Attestation: I reviewed the patient's lab results. Lab results narrative: strep screen negative, culture sent Labs: Lab Results 09/18/24 Range/Units 17:45 POC Grp A Strep Screen Negative (Negative) reviewed Critical Care Time Critical Care Time Critical Care Time: No Discharge Plan Discharge Clinical Impression: Upper respiratory infection Qualifiers: URI type: unspecified URI Qualified Code(s): J06.9 - Acute upper respiratory infection, unspecified Pharyngitis Qualifiers: Pharyngitis/tonsillitis etiology: unspecified etiology Qualified Code(s): J02.9 - Acute pharyngitis, unspecified Patient Disposition: Home Condition: Stable Instructions: Pharyngitis (ED), Upper Respiratory Infection (ED) Additional Instructions: Increase fluids especially juices and water Ffxd-xxp-uoncstl cough and cold medicine of your choice for your symptoms Zyrtec Claritin or Magdalena daily Tylenol Or ibuprofen for any fever pain heat to the face 20-30 minutes 4-6 times a day for pain Salt water gargles, throat lozenges or throat sprays as desired Your strep test today was negative. A throat culture will be sent to the laboratory for further testing. IF the test is positive, you will receive a phone call within 48 hours and an appropriate antibiotic will be initiated at that time. If your symptoms persist, change or worsen significantly before you can contact your personal physician then please, without delay, go to the emergency department for further evaluation. Follow-up with PCP in 7-10 days or sooner if needed Follow up with PCP soon in regards to your blood pressure which is elevated above threshold for referral. Blood pressure above 120/80 may indicate pre- hypertension. Patient Language: Maltese Prescriptions: No Action norethindrone-e.estradiol-iron [Blisovi Fe 05/29 (28)] 1 mg-20 mcg (21)/75 mg (7) tablet ergocalciferol (vitamin D2) 1,250 mcg (50,000 unit) capsule tobramycin 0.3 % drops 1 drp RIGHT EYE Q4H 7 Days Qty: 5 0RF Follow-up/Referrals: PHYSICIAN,MEDICAL EQUIPMENT TECHNICIAN [Primary Care Provider] - Time of Disposition: 18:44 Quality [place] Coma Scale Eyes: Open Verbal: Oriented and Alert Motor: Follows Commands Ritesh Coma Total Score: 15
== END 2024-09-18 18:48 | disposition home or self-care (01) ==
PROVIDERS: Emergency Provider Registered Nurse
DX: J06.9 Acute upper respiratory infection, unspecified (principal); J02.9 Acute pharyngitis, unspecified; F17.290 Nicotine dependence, other tobacco product, uncomplicated
CPT/HCPCS: 87081; 87880; 99213; G0463

== ENCOUNTER 2024-09-19 08:40 | Emergency (ER) | payer OTHER, SELFPAY ==
[2024-09-19 08:45] VITALS: BP 141/55; PULSE 85; RESP 20; TEMP 37.1; O2SAT 100
--- NOTE | 2024-09-19 08:47 | ED.EYEPROB ---
HPI - Eye Problem General Chief complaint: Eye Problems Stated complaint: Poss. [facility] Time Seen by Provider: 09/19/24 08:50 Source: patient Mode of arrival: ambulatory Limitations: no limitations History of Present Illness HPI Narrative: Delicia is a 28-year-old female patient presenting to the clinic today with complaints of possible pinkeye. Reports that her symptoms started last night with some aching in her eye and watering. States that she woke up this morning and her eye was matted shut. Is having some yellow drainage. Eye is itchy-aching at this time. States her infant daughter has similar symptoms. She denies any fevers, chills, body aches. Was seen yesterday for a scratchy throat tested negative for strep. Denies any eye injury or foreign body in the eye. Related Data Home Medications ?Medication ?Instructions ?Recorded ?Confirmed ?Last Taken ?Type ergocalciferol (vitamin D2) 1,250 09/19/24 Unknown History mcg (50,000 unit) capsule norethindrone 1 mg-ethinyl tablet 09/19/24 Unknown History estradiol 20 mcg (21)-iron 75 mg (7) tablet (Blisovi Fe 05/29 (28)) Allergies Allergy/AdvReac Type Severity Reaction Status Date / Time No Known Allergies Allergy Verified 09/19/24 08:54 Review of Systems Review of Systems: Pertinent positives per HPI. Patient denies any fever, chills, rash, headache, visual changes, dizziness, cough, runny nose, sore throat, shortness of breath, chest pain, palpitations, nausea, vomiting, diarrhea, constipation, abdominal pain, or any urinary issues. FOR[facility]LY [facility] Past Medical History Medical History Polyhydramnios Upper respiratory infection Surgical History Surgical History History of appendectomy Family History Family History Mother COPD (chronic obstructive pulmonary disease) Social History Social History Smoking packs per day: 0.5 Smoking cigarettes per day: 10.0 Smoking status: Current every day smoker Tobacco type: e-cigarettes/vaping Additional smoking assessment comments: former cigarette smoker quit 2.5 years ago now vapes Alcohol intake: current Alcohol use details: social Substance use: never Do You Feel Safe in your Home?: Yes Lack of Transportation: No Lack of Food: Never True Current Housing: I Have Housing Concerned About Future Housing: No Difficulty Paying Gas/Electric Bills: No Difficulty Paying for Meds: No Currently Unemployed: No Education: High School Diploma/GED Difficulty w/ Childcare or Family Care: No Living arrangements: alone Gender identity (if verbalized by the patient): Female Sexual Orientation (if Verbalized by the Patient): Straight or Heterosexual Spiritual care concerns: No Comments At the time of my signature, I reviewed and agree with the nursing past medical, surgical, social, and family history. There is no relevant family history pertinent to the patient complaint. Exam Narrative: General: Well-developed, well nourished, in no apparent distress Head: Normocephalic, atraumatic Eyes: Pupils equally round and reactive to light bilaterally, EOM intact, right sclera and conjunctive clear, no discharge, lids normal, left sclera and conjunctiva injected with yellow mucopurulent discharge. Right lids normal Ears: TMs intact and clear, ear canals clear, no drainage, grossly hearing normal. Nose: Nares patent, no discharge, no inflammation, no sinus tenderness. Mouth: Oropharynx without lesions or masses, good dentition, MMM. Neck: Supple, trachea midline, no enlargement of anterior or posterior cervical nodes, no thyroid masses or goiter palpable. Cardio: Regular rate and rhythm, s1 and s2 normal, no murmur appreciated. Resp: Clear to auscultation bilaterally anteriorly and posteriorly, no rhonchi, rales, wheezing or rubs Course Course Emergency Course: Portions of this record may have been created with voice recognition software. Level of Care: Express Care Visit Vital Signs Vital signs: Vital Signs Temperature 37.1 C 09/19/24 08:45 Pulse Rate 85 09/19/24 08:45 Respiratory Rate 20 09/19/24 08:45 Blood Pressure 141/55 H 09/19/24 08:45 Pulse Oximetry 100 09/19/24 08:45 Oxygen Delivery Room Air 09/19/24 08:45 Temperature 37.1 C 09/19/24 08:45 Pulse Rate 85 09/19/24 08:45 Respiratory Rate 20 09/19/24 08:45 Blood Pressure 141/55 H 09/19/24 08:45 Pulse Oximetry 100 09/19/24 08:45 Oxygen Delivery Room Air 09/19/24 08:45 Vital signs reviewed MDM - Eye Problem MDM Narrative Medical decision making narrative: At the time of visit patient is resting comfortably on the exam table. Patient appears to be nontoxic. Plan: I suspect patient has conjunctivitis. Prescription for tobramycin eyedrops was sent to the pharmacy. Supportive measures were discussed with the patient and they voiced understanding discharge instructions and agrees to treatment plan. Return precautions reviewed Differential Diagnosis Differential diagnosis: Likely corneal abrasion, conjunctivitis, acute iritis, hyphema, periorbital cellulitis, subconjunctival hemorrhage, glaucoma, corneal ulcer and ruptured globe Discharge Plan Discharge Clinical Impression: Conjunctivitis Qualifiers: Conjunctivitis type: acute Acute conjunctivitis type: unspecified Laterality: right Qualified Code(s): H10.31 - Unspecified acute conjunctivitis, right eye Patient Disposition: Home Condition: Stable Instructions: Antibiotic Form, Conjunctivitis (ED) Additional Instructions: Conjunctivitis is considered contagious for 24 hours while on the antibiotic. Practice good hand washing techniques Avoid touching eyes Instill eyedrops as prescribed-tobramycin May use warm moist washcloth to help remove eye discharge If eyes are matted shut-do not pry eyes open-use a warm moist cloth to loosen matting and wipe matter away from eye May take Tylenol/Motrin as needed for pain or fever May take Benadryl as needed for itching Follow-up with your PCP in 3-5 days if symptoms persist or sooner if they worsen Go to the emergency room if you develop any fever that is not controlled by Tylenol or Motrin, loss of vision, eye pain, increase eye swelling,visual changes, headache, confusion, lethargy, weakness, chest pain, or shortness of breath. Patient Language: Yi Prescriptions: New tobramycin 0.3 % drops 1 drp RIGHT EYE Q4H 7 Days Qty: 5 0RF No Action norethindrone-e.estradiol-iron [Blisovi Fe 05/29 (28)] 1 mg-20 mcg (21)/75 mg (7) tablet ergocalciferol (vitamin D2) 1,250 mcg (50,000 unit) capsule Follow-up/Referrals: UNKNOWN,DOCTOR [Primary Care Provider] - Stand Alone Forms: Work/School Release IP Time of Disposition: 08:56 Quality NIHSS Nursing Documentation ED NIHSS nursing documentation: reviewed/agree
--- OUTSIDE RECORDS SUMMARY | 2024-09-19 08:48 | XMS_ITS | CONTINUITY OF CARE DOCUMENT ---
Author Name shandraanthony shandraanthony Address Unknown Organization [facility] Address [id number] [place] [address] [address] [place] [address] Phone [phone] Care Team Providers Care Ultimate Hoops Trainer Name Role Phone Bijan Newman MD Unavailable [phone] Bijan Newman MD Unavailable [phone] PROBLEMS Condition Status Date Provider Notes Bradycardia active Bijan Newman MD Edema active Bijan Newman MD Shortness of breath active Bijan Newman MD ENCOUNTERS Date Type Provider Location Encounter Diag nosis - In-person encounter Office Visit Bijan Newman MD [facility] Office Shortness of breathEdemaBradycardia VITAL SIGNS Date [...] Payer name Policy type / Coverage type Guy red libertarian ID [place] MED[place] Medicaid [id number] ADVANCE DIRECTIVES Name Date DISCUSSED - NO DECISION MADE TREATMENT PLAN Date Name Performer Cardiology:She had b radycardia and Holter was performed however results are not available yet. Rakan Bernstein Cardiology:One week after delivering a baby, the pt had some problems with the stitches. She went to [facility] and also had SOB and leg swelling. ProBNP was elevated to >800 and she was treated with IV Lasix successfully. Echo showed normal EF. Venous duplex was normal. Will obtain repeat proBNP. Rakan Bernstein Cardiology:One week after delivering a baby, the pt had some problems with the stitches. She went to [facility] and also had SOB and leg swelling. ProBNP was elevated to >800 and she was treated with IV Lasix successfully. Echo showed normal EF. Venous duplex was normal. Will obtain repeat proBNP. Rakan Bernstein Date Name PROBNP, N TERMINAL HISTORY OF PROCEDURES Procedure Date Procedure Name Provider Procedure Notes S tatus EKG Bijan Newman MD completed SNOMED-CT: [id number] Current Medications Documented Bijan Newman MD completed
--- OUTSIDE RECORDS SUMMARY | 2024-09-19 08:48 | XMS_ITS | Encounter Summary ---
Author Organization [facility] Address [address] [facility] [place] [address] Care Team Providers Care Special Diet Cook Name Role Phone Unavailable Primary Care Provider Unavailabl e Reason for Visit * Reason Onset Date Comments Appointment 02/07/2024 Encounter Details Date Type Department Care Team (Late st Contact Info) Description 02/07/2024 Telephone [facility] - Centralized Scheduling [address] [place] [id number] Lelo Feliz MD [address] [facility] [address] [place] [address] Appointment Social History Tobacco Use Types Packs/Day Years Used Date Smoking Tobacco: Every Day Cigarettes 0.3 4 Smokeless Tobacco: Never Alcohol Use Standard Drinks/Week Comments Not Currently 0 (1 standard drink = 0.6 oz pur e alcohol) Comments Yes Sex and Gender Information Value Date Recorded Sex Assigned at Not on file Legal Sex Female 5:36 AM MEMORIAL COUNSELOR Gender Identity Not on file Sexual Orientation [...]
--- OUTSIDE RECORDS SUMMARY | 2024-09-19 08:48 | XMS_ITS | Continuity of Care Document ---
Author Organization [facility] Address [address] [facility] [place] [address] Phone Care Team Providers Care Menhaden Vessel Pilot Name Role Phone Thony Dubon MD Unavailable Unavailable Advance Directives Directive Yes / No Effective Date File Name No Information Encounters Encounter Description Practice Location Reason(s) For Visit Diagnoses Date Provider Providers Copied on Encounter [facility], [address] [place], [place], [id number], [place] tel:[phone] [facility] No Information Jagdish Bhandari. [address] [facility] [place] [place], [place], [id number], [place]. tel:[phone] Family History Family Member Type Diagnosis Age At Onset No Information Payers Payer name Insurance type Covered republican ID Authoriza tion(s) No Information Social History [...]
--- OUTSIDE RECORDS SUMMARY | 2024-09-19 08:48 | XMS_ITS | Clinical Summary ---
Author Organization [facility] Address [address] [place] [address] Phone Care Team Providers Care Campground Manager Name Role Phone Provider, None Primary Care [...] CDT) hepatitis C antibody 0.13 <1 S/[facility] ARCH [id number] B 12/22/2022 10:28 PM CDT [facility] Comment: Signal/Cutoff ratio < 0.79 is Nondetected Signal/Cutoff ratio 0.80-0.99 is Grayzone Signal/Cutoff ratio > 0.99 is Detected Supplemental assays are recommended if signal/cutoff ratio is >/=1.00. Signal/cutoff ratio result >/= 5.00 is 97% predictive of positivity for recombinant immunoblot assay (RIBA) and will be reported to the [place] Department of Public Health as required. Blood Venipuncture / Unknown 12/22/2022 1:11 PM CDT 12/22/2022 1:57 PM CDT us Erika Moore SEWER PIPE OFFBEARER, TAI CHI INSTRUCTOR CHEMISTRY ORDERABLE S Final Result [facility] [address] [place] [address], from Last 3 Months or Most Recently Relevant to Health Maintenance Insurance MEDICAID [place] [facility] IRMS Care Teams Campground Manager Relationship Specialty Start Date End Date Provider, None [place] PCP - General 10/26/16
--- OUTSIDE RECORDS SUMMARY | 2024-09-19 08:48 | XMS_ITS | Clinical Summary ---
Author Organization [facility] Address [address] [place] [address] Care Team Providers Care Pile Driving Superintendent Name Role Phone Unavailable Primary Care Provider Unavailabl e Source Comments [facility],non-owned Affiliates and Associated Physician Practices is amultiple site organization consisting of ambulatory clinics and hospital sitesin [place], [place], [place] and [place]. This disclosure is being madepursuant to the Care Everywhere program and may not contain all information available regarding this patient. Last updated 18.[facility] [employer] Video Allergies No known active allergies Medications * [...] Did NOT meet criteria for cardiomyopathy by Insole And Outsole Splitter. Assessment & Plan (02/21/2020 3:47 PM CDT): [...] complications. I reviewed the evaluation by the Insole And Outsole Splitter which was performed . Delicia did not [...] Lasix for one week PP. Pt. Saw Insole And Outsole Splitter 05/2017 after daughter was born, echo performed at that time and showed EF of 55%. No issues since per pt, she was instructed by cardiology to follow up yearly. Previous dishtank operator: Bijan Newman. History of gastroesophageal reflux (GERD) [...] on file Legal Sex Female 5:36 AM CLAY CARMAN Gender Identity Not on file Sexual Orientation Not on file Last Filed Vital Signs Vital Sign Reading Time Taken Comments Blood Pressure 117/49 02/21/2020 2:24 PM CDT Pulse 80 02/21/2020 2:24 PM CDT Temperature 36.8 C (98.3 F) 04/09/2020 2:28 PM CLAY CARMAN Respiratory Rate - - Oxygen Saturation 100% [...] patient's age to complete this topic Insurance [facility]
--- OUTSIDE RECORDS SUMMARY | 2024-09-19 08:48 | XMS_ITS | Clinical Summary ---
Author Organization [facility] Address [address] [place] [address] Care Team Providers Care Corporate Strategy Analyst Name Role Phone No, Physician Primary Care Provider [phone] Allergies No known active allergies Medications clindamycin (CLEOCIN T) 1 % lotion Apply topically admitting clerk before breakfast 2 Active ibuprofen (ADVIL,MOTRIN) 800 [...] Assessment & Plan (04/11/2017 8:52 AM DIRECTOR OF AGRONOMY): Patient is complaining of pain. ED contacted who was manufacturing plant controller for EXCAVATING CONTRACTOR and he said nothing to worry about. UTI (urinary tract infection) 04/11/2017 Assessment & Plan (04/11/2017 8:53 AM DIRECTOR OF AGRONOMY): Start IV rocephin Check urine culture Check blood culture Bilateral lower extremity edema 04/11/2017 Assessment & Plan (04/11/2017 9:00 AM DIRECTOR OF AGRONOMY): Started after delivery. R/o Peripartum Cardiomyopathy Check 2D echocardiogram Patient has elevated BNP 822. CXR no active disease. Patient reports dyspnea on exertion. Cardiology Evaluation () Cr 0.62, Trace protein in UA. Albumin 3.4 UA large blood most likely due to contamination with vaginal blood due to burst stitch. Sinus bradycardia 04/11/2017 Assessment & Plan (04/11/2017 9:07 AM DIRECTOR OF AGRONOMY): Patient reports occasional dizziness Patient states prior [...] file Legal Sex Female 7:58 AM DIRECTOR OF AGRONOMY Gender Identity Not on file Sexual Orientation [...] Blood Pressure 98/66 06/01/2023 2:20 PM DIRECTOR OF AGRONOMY Pulse 83 06/01/2023 2:20 PM DIRECTOR OF AGRONOMY Temperature 36.8 C (98.2 F) 06/01/2023 2:20 PM DIRECTOR OF AGRONOMY Respiratory Rate 18 06/01/2023 2:20 PM DIRECTOR OF AGRONOMY Oxygen Saturation 97% 06/01/2023 2:20 PM DIRECTOR OF AGRONOMY Inhaled Oxygen Concentration - - Weight 66.7 kg (147 lb) 06/01/2023 2:20 PM DIRECTOR OF AGRONOMY Height 157.5 cm (5' 2 ) 06/01/2023 2:20 PM DIRECTOR OF AGRONOMY Body Mass Index 26.89 06/01/2023 2:20 PM DIRECTOR OF AGRONOMY Plan of Treatment Health Maintenance Due Date [...] C ANTIBODY Routine 03/19/2022 12:06 PM DIRECTOR OF AGRONOMY Screening for STD (sexually transmitted disease) from Last 3 Months or Most Recently Relevant to Health Maintenance Results * (ABNORMAL) Pap, reflex HPV (12/21/2022 11:43 AM CDT) CLINICAL INFORMATION: Krystin Jimenes Comment:Routine exam LMP Krystin Jimenes Comment:[id number] Previous Pap Krystin Jimenes Comment:NONE GIVEN Prev. [...] clinical correlation and follow-up as clinically appropriate Compensation Associate Que [facility] Jimenes Comment: KMS, CT(ASCP) CT Screening location: [place] [address] [address] [place] [address] Pathologist [facility] Comment: Adan Matamoros M.D., Board Certified in Anatomic Pathology and Cytopathology. (electronic signature) Comment [facility] Comment: EXPLANATORY NOTE: The Pap is [...] NP LAB CYTOLOGY ORDERABLES Final Re sult [facility] [address] [place] [address] * Hepatitis C antibody (03/19/2022 12:06 PM DIRECTOR OF AGRONOMY) Hep C Ab Nonreactive Nonreactive DEJAN RICHEY [...] last revised on 2019. Testing performed by: [facility], [address] [place] [address]., [id number] Blood 03/19/2022 12:0 6 PM DIRECTOR OF AGRONOMY 03/19/2022 2:15 PM DIRECTOR OF AGRONOMY us Analilia Ann MARINE ENGINEERING TEACHER LAB MICROBIOLOGY - GENERAL ORDER IMELDA Edited Result - Final [facility] ([place]) [address] [facility] [place] [address] from Last 3 Months or Most Recently Relevant to Health Maintenance Insurance [facility]PA [facility] Advance Directives For more information, please contact: [phone] * Full Code (Latest Code Status on File) Date Activated Date Inactivated Comments 09/02/2020 7:03 AM 09/04/2020 3:15 AM Full CPR in case of cardiopulmonary arrest * Full Code Date Activated Date Inactivated Comments 04/11/2017 12:39 AM 04/12/2017 8:15 PM Care Teams Corporate Strategy Analyst Relationship Specialty Start Date End Date No, Physician PCP - General 03/30/17
--- OUTSIDE RECORDS SUMMARY | 2024-09-19 08:48 | XMS_ITS | Referral Summary ---
Author Organization [facility] Address [address] [place] [address] Care Team Providers Care Diesel Engine Pipe Fitter Name Role Phone No, Physician Primary Care Provider [phone] Allergies No known active allergies Medications clindamycin (CLEOCIN T) 1 % lotion Apply topically electrocardiograph technician before breakfast 2 Active ibuprofen (ADVIL,MOTRIN) 800 [...] 04/11/2017 Assessment & Plan (04/11/2017 8:52 AM HOT WORT SETTLER): Patient is complaining of pain. ED contacted who was experimental electronics developer for CLINICAL ORTHOPTIST and he said nothing to worry about. UTI (urinary tract infection) 04/11/2017 Assessment & Plan (04/11/2017 8:53 AM HOT WORT SETTLER): Start IV rocephin Check urine culture Check blood culture Bilateral lower extremity edema 04/11/2017 Assessment & Plan (04/11/2017 9:00 AM HOT WORT SETTLER): Started after delivery. R/o Peripartum Cardiomyopathy Check 2D echocardiogram Patient has elevated BNP 822. CXR no active disease. Patient reports dyspnea on exertion. Cardiology Evaluation () Cr 0.62, Trace protein in UA. Albumin 3.4 UA large blood most likely due to contamination with vaginal blood due to burst stitch. Sinus bradycardia 04/11/2017 Assessment & Plan (04/11/2017 9:07 AM HOT WORT SETTLER): Patient reports occasional dizziness Patient states prior [...] on file Legal Sex Female 7:58 AM HOT WORT SETTLER Gender Identity Not on file Sexual Orientation Not on file Last Filed Vital Signs Vital Sign Reading Time Taken Comments Blood Pressure 98/66 06/01/2023 2:20 PM HOT WORT SETTLER Pulse 83 06/01/2023 2:20 PM HOT WORT SETTLER Temperature 36.8 C (98.2 F) 06/01/2023 2:20 PM HOT WORT SETTLER Respiratory Rate 18 06/01/2023 2:20 PM HOT WORT SETTLER Oxygen Saturation 97% 06/01/2023 2:20 PM HOT WORT SETTLER Inhaled Oxygen Concentration - - Weight 66.7 kg (147 lb) 06/01/2023 2:20 PM HOT WORT SETTLER Height 157.5 cm (5' 2 ) 06/01/2023 2:20 PM HOT WORT SETTLER Body Mass Index 26.89 06/01/2023 2:20 PM HOT WORT SETTLER Plan of Treatment Not on file Procedures Procedure Name Priority Date/Time Associated Diagnosis Comments PAP, REFLEX HPV Routine 12/21/2022 11:43 AM CDT Well woman exam HEPATITIS C ANTIBODY Routine 03/19/2022 12:06 PM HOT WORT SETTLER Screening for STD (sexually transmitted disease) from Last 3 Months or Most Recently Relevant to Health Maintenance Results * (ABNORMAL) Pap, reflex HPV (12/21/2022 11:43 AM CDT) CLINICAL INFORMATION: Krystin Jimenes Comment:Routine exam LMP Krystin Jimenes Comment:[id number] Previous Pap Krystin Jimenes Comment:NONE GIVEN Prev. [...] clinical correlation and follow-up as clinically appropriate Metallurgical Specialist Que JerryKevyn Jimenes Comment: KMS, CT(ASCP) CT Screening location: [place] [address] [address] [place] [address] Pathologist [facility] Ron Jimenes Comment: Adan Matamoros M.D., Board Certified in Anatomic Pathology and Cytopathology. (electronic signature) Comment [facility] Ron Jimenes Comment: EXPLANATORY NOTE: The Pap [...] NP LAB CYTOLOGY ORDERABLES Final Re sult [facility] [address] [place] [address] * Hepatitis C antibody (03/19/2022 12:06 PM HOT WORT SETTLER) Hep C Ab Nonreactive Nonreactive DEJAN RICHEY [...] last revised on 2019. Testing performed by: [facility], [address] [place] [address], [place]., [address] Blood 03/19/2022 12:0 6 PM HOT WORT SETTLER 03/19/2022 2:15 PM HOT WORT SETTLER Analilia Ann NP LAB MICROBIOLOGY - GENERAL ORDER IMELDA Edited Result - Final [facility] ([place]) [address] [facility] Department [place] [address] from Last 3 Months or Most Recently Relevant to Health Maintenance [place] [address] [facility] [place] [address] [facility] [place] [address] [facility] Advance Directives For more information, please contact: [phone] * Full Code (Latest Code Status on File) Date Activated Date Inactivated Comments 09/02/2020 7:03 AM 09/04/2020 3:15 AM Full CPR in case of cardiopulmonary arrest * Full Code Date Activated Date Inactivated Comments 04/11/2017 12:39 AM 04/12/2017 8:15 PM Care Teams Diesel Engine Pipe Fitter Relationship Specialty Start Date End Date No, Physician PCP - General 03/30/17
--- OUTSIDE RECORDS SUMMARY | 2024-09-19 08:49 | XMS_ITS | CONTINUITY OF CARE DOCUMENT ---
Author Name shandraanthony shandraanthony Address Unknown Organization [facility] Address [address] [place] [address] [address] [place] [address] Phone [phone] Care Team Providers Care Mining Manager Name Role Phone Bijan Newman MD Unavailable [phone] Bijan Newman MD Unavailable [phone] PROBLEMS Condition Status Date Provider Notes Shortness of breath active Bijan Newman MD Edema active Bijan Newman MD Bradycardia active Bijan Newman MD ENCOUNTERS Date Type Provider Location Encounter Diag nosis - In-person encounter Office Visit Bijan [facility] MD [facility] Shortness of breathEdemaBradycardia VITAL SIGNS Date [...] Payer name Policy type / Coverage type [place] red libertarian ID [place] Medicaid [id number] ADVANCE DIRECTIVES Name Date DISCUSSED - NO DECISION MADE TREATMENT PLAN Date Name Performer Cardiology:She had b radycardia and Holter was performed however results are not available yet. Rakan Bernstein Cardiology:One week after delivering a baby, the pt had some problems with the stitches. She went to [facility] and also had SOB and leg swelling. ProBNP was elevated to >800 and she was treated with IV Lasix successfully. Echo showed normal EF. Venous duplex was normal. Will obtain repeat proBNP. Rakan Bernstein Cardiology:One week after delivering a baby, the pt had some problems with the stitches. She went to [facility] and also had SOB and leg swelling. ProBNP was elevated to >800 and she was treated with IV Lasix successfully. Echo showed normal EF. Venous duplex was normal. Will obtain repeat proBNP. Rakan Bernstein Date Name PROBNP, N TERMINAL HISTORY OF PROCEDURES Procedure Date Procedure Name Provider Procedure Notes S tatus EKG Bijan Newman MD completed SNOMED-CT: [id number] Current Medications Documented Bijan Newman MD completed
--- OUTSIDE RECORDS SUMMARY | 2024-09-19 08:49 | XMS_ITS | Continuity of Care Document ---
Author Organization [facility] Address [address] [facility] [place] [address] Phone Care Team Providers Care Health Technician Name Role Phone Thony Dubon MD Unavailable Unavailable Advance Directives Directive Yes / No Effective Date File Name No Information Encounters Encounter Description Practice Location Reason(s) For Visit Diagnoses Date Provider Providers Copied on Encounter [facility], [address] [place], [place], [id number], [place] tel:[phone] [facility] No Information Jagdish Bhandari. [address] [facility] [place], [place], [id number], [place]. tel:[phone] Family History Family Member Type Diagnosis Age At Onset No Information Payers Payer name Insurance type Covered alliance party ID Authoriza tion(s) No Information Social [...]
== END 2024-09-19 08:58 | disposition home or self-care (01) ==
PROVIDERS: Emergency Provider Nurse Practitioner Family
DX: H10.31 Unspecified acute conjunctivitis, right eye (principal); F17.290 Nicotine dependence, other tobacco product, uncomplicated
CPT/HCPCS: 99213; G0463

== ENCOUNTER 2025-01-25 16:34 | Emergency (ER) | payer OTHER, SELFPAY ==
--- OUTSIDE RECORDS SUMMARY | 2025-01-25 16:36 | XMS_ITS | Clinical Summary ---
Author Organization [facility] Address [address] [place] [address] Phone Care Team Providers Care Police Lieutenant Patrol Name Role Phone Provider, None Primary Care [...] 2:08 PM CDT Height 157.5 cm (5' 2) 11/15/2022 2:08 PM CDT Body Mass Index 25.24 11/15/2022 2:08 PM CDT Plan of Treatment Health Maintenance Due Date Last Done Comments Pap Smear 2014 Cervical Cancer Screening (CCS) 10/27/2023 HPV/Cotest 10/27/2023 Influenza Immunization (#1) 01/08/202501/08, 01/20/2023, 02/20/2021, Additional history exists SARS-COV-2 Immunization ( season) 2025 01/02/2021, 12/12/2020 DTaP/Tdap/Td Immunization (10 - Td or Tdap) 06/17/2030 06/17/2020, 01/12/2017, 01/12/2017, Additional history exists Respiratory Syncytial Virus (RSV) Immunization (Adult) (1 - 1-dose 75+ series) 2068 Hepatitis B Immunization Completed 995, 08/31/1994, 1993 Human Papillomavirus (HPV) Immunization Completed 06/22/2007, 11/17/2006 Hepatitis C Virus (HCV) Screening Completed 12/22/2022, 11/15/2022 Meningococcal Immunization (ACWY) Aged Out No longer eligible based on patient's age to complete this topic Pneumococcal Immunization Combined Aged Out No longer eligible based on [...] CDT) hepatitis C antibody 0.13 <1 S/CO [facility] ARCH [id number] B 12/22/2022 10:28 PM CDT [facility] Comment: Signal/Cutoff ratio < 0.79 is Nondetected Signal/Cutoff ratio 0.80-0.99 is Grayzone Signal/Cutoff ratio > 0.99 is Detected Supplemental assays are recommended if signal/cutoff ratio is >/=1.00. Signal/cutoff ratio result >/= 5.00 is 97% predictive of positivity for recombinant immunoblot assay (RIBA) and will be reported to the [place] Department of Public Health as required. Blood Venipuncture / Unknown 12/22/2022 1:11 PM CDT 12/22/2022 1:57 PM CDT us Erika L Behrends WARPING MACHINE OPERATOR, NETWORKING ENGINEER CHEMISTRY ORDERABLE S Final Result [facility] [address] [place] [address], [place] from Last 3 Months or Most Recently Relevant to Health Maintenance Insurance MEDICAID [place] [facility] GENER[facility] Member Subscriber Plan / Payer (Ef fective 2022-Present) Name:Delicia Hannon Relation to Subscriber:Self Name:Delicia Hannon Payer ID:PAPER Group ID:[id number] Type:Not on file Address: [address] IRMS Care Teams Police Lieutenant Patrol Relationship Specialty Start Date End Date Provider, None [place] PCP - General 10/26/16
--- OUTSIDE RECORDS SUMMARY | 2025-01-25 16:36 | XMS_ITS | Clinical Summary ---
Author Organization [facility] Address [address] [place] [address] Care Team Providers Care Tire Mounter Name Role Phone Unavailable Primary Care Provider Unavailabl e Source Comments [facility],non-owned Affiliates and Associated Physician Practices is amultiple site organization consisting of ambulatory clinics and hospital sitesin [place], [place], [place] and [place]. This disclosure is being madepursuant to the Care Everywhere program and may not contain all information available regarding this patient. Last updated 18.OPS [place] [facility] Allergies No known active allergies Medications * [...] benefit from History of complication in G1 01/01/2 016 Overview (02/21/2020): Had some shortness of breath, 1 week . Had elevated pro BNP and received Lasix. Unremarkable echocardiogram [EF 55%]. Did NOT meet criteria for cardiomyopathy by Watch Train Inspector. Assessment & Plan (02/21/2020 3:47 PM CDT): [...] complications. I reviewed the evaluation by the Watch Train Inspector which was performed . Delicia did not [...] Lasix for one week PP. Pt. Saw Watch Train Inspector 05/2017 after daughter was born, echo performed at that time and showed EF of 55%. No issues since per pt, she was instructed by cardiology to follow up yearly. Previous household manager: Bijan Newman. 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 Gender Identity Not on file Sexual Orientation Not on file Last Filed Vital Signs Vital Sign Reading Time Taken Comments Blood Pressure 117/49 02/21/2020 2:24 PM CDT Pulse 80 02/21/2020 2:24 PM CDT Temperature 36.8 C (98.3 F) 04/09/2020 2:28 PM DIABETES TERRITORY MANAGER Respiratory Rate - - Oxygen Saturation 100% 02/21/2020 2:24 PM CDT Inhaled Oxygen Concentration - - Weight 60.9 kg (134 lb 3.2 oz) 02/21/2020 2:24 P M CDT Height 160 cm (5' 3) 02/21/2020 2:24 PM CDT Body Mass Index 23.77 02/21/2020 2:24 PM CDT Plan of Treatment Health Maintenance Due Date Last Done Comments DTAP/TDAP/TD VACCINES (1 - Tdap) 2012 HEPATITIS B VACCINE (1 of 3 - 19+ 3-dose series) 2012 PNEUMOCOCCAL VACCINE (1 of 2 - PCV) 2012 PAP SMEAR 2014 HPV VACCINE (1 - 3-dose SCDM series) 2020 DEPRESSION SCREENING 05/10/2024 COVID-19 VACCINE (3 - 2024- season) 2025 01/02/2021, 12/12/2020 INFLUENZA VACCINE (#1) 2025 , 02/20/2021, 02/13/2020, Additional history exists ZOSTER VACCINE [...] patient's age to complete this topic Insurance [facility]
--- OUTSIDE RECORDS SUMMARY | 2025-01-25 16:36 | XMS_ITS | Encounter Summary ---
Author Organization [facility] Address [address] [facility] [place] [address] Care Team Providers Care Cane Burner Name Role Phone Unavailable Primary Care Provider Unavailabl e Reason for Visit * Reason Onset Date Comments Appointment 02/07/2024 Encounter Details Date Type Department Care Team (Late st Contact Info) Description 02/07/2024 Telephone [facility] - Centralized Scheduling [address] [place] [phone] Lelo Feliz MD [address] [facility] [address] [place] [id number] Appointment Social History Tobacco Use Types Packs/Day Years Used Date Smoking Tobacco: Every Day Cigarettes 0.3 4 Smokeless Tobacco: Never Alcohol Use Standard Drinks/Week Comments Not Currently 0 (1 standard drink = 0.6 oz pur e alcohol) Comments Yes Sex and Gender Information Value Date Recorded Sex Assigned at Not on file 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
--- OUTSIDE RECORDS SUMMARY | 2025-01-25 16:36 | XMS_ITS | Clinical Summary ---
Author Organization [facility] Address [address] [place] [address] Care Team Providers Care Light Adjuster Name Role Phone No, Physician Primary Care Provider [phone] Allergies No known active allergies Medications clindamycin (CLEOCIN T) 1 % lotion Apply topically silver lap machine tender before breakfast 2 Active ibuprofen (ADVIL,MOTRIN) 800 [...] 04/11/2017 Assessment & Plan (04/11/2017 8:52 AM MED ADMIN): Patient is complaining of pain. ED contacted who was train control electronic technician for SERVICE PROVIDER and he said nothing to worry about. UTI (urinary tract infection) 04/11/2017 Assessment & Plan (04/11/2017 8:53 AM MED ADMIN): Start IV rocephin Check urine culture Check blood culture Bilateral lower extremity edema 04/11/2017 Assessment & Plan (04/11/2017 9:00 AM MED ADMIN): Started after delivery. R/o Peripartum Cardiomyopathy Check 2D echocardiogram Patient has elevated BNP 822. CXR no active disease. Patient reports dyspnea on exertion. Cardiology Evaluation () Cr 0.62, Trace protein in UA. Albumin 3.4 UA large blood most likely due to contamination with vaginal blood due to burst stitch. Sinus bradycardia 04/11/2017 Assessment & Plan (04/11/2017 9:07 AM MED ADMIN): Patient reports occasional dizziness Patient states prior to delivery her heart rate was around 70-80 Patient does not take any medication. C/w telemetry monitoring EKG in Am, check 2D echo On EKG sinus bradycardia, no evidence of heart block Cardiology evaluation () Patient may need 30 days monitor in discharge Miscarriage 02/08/2016 10/22/2022 Hypertension Encounters Date Type Department Care Team Description 01/19/2025 3:41 PM CDT - 01/19/2025 5:27 PM CDT Emergency [facility] Emergency Department [address] [place] [address] Chest pain, unspecified type (Primary Dx) Discharge Disposition: Discharge to home or self care from Last 3 Months Immunizations Immunization Administration Dates Next Due MMR [...] staff should administer the PHQ-9) 0 12/21/2022 Personal Safety Answer Date Recorded Have you ever been in or are you currently in a harmful physical or emotional relationship or is someone making you feel afraid or unsafe? Denies 01/19/2025 Comments No Sex and Gender Information Value Date Recorded Sex Assigned at Not on file Legal Sex Female 7:58 AM MED ADMIN Gender Identity Not on file Sexual Orientation [...] al N Livin g 7 9 MARLYN HANNON Sonia Marie, MD Complications:None Delivery Location:[facility] ([facility] 2022 SAB 4w0 d Bioche mical Last Filed Vital Signs Vital Sign Reading Time Taken Comments Blood Pressure 120/74 01/19/2025 5:25 PM CDT Pulse 58 01/19/2025 5:25 PM CDT Temperature 36.9 C (98.5 F) 01/19/2025 3:50 PM CDT Respiratory Rate 14 01/19/2025 5:25 PM CDT Oxygen Saturation 99% 01/19/2025 5:25 PM CDT Inhaled Oxygen Concentration - - Weight 72.6 kg (160 lb) 01/19/2025 3:50 PM CDT Height 157.5 cm (5' 2) 01/19/2025 3:50 PM CDT Body Mass Index 29.26 01/19/2025 3:50 PM CDT Plan of Treatment Health Maintenance Due Date Last Done Comments Varicella Vaccines (1 of 2 - 13+ 2-dose series) 2006 Pneumococcal vaccine <65 (1 of 2 - PCV) 2012 Cervical Cancer Screening 12/22/2023 12/21/2022, 01/2022 Depression Screening 12/22/2023 12/21/2022, 12/17/19 22 Regular Well Visit/Exam 18-64 12/22/2023 12/21/2022, 12/16/2021 Influenza Vaccine (#1) 2025 , 01/20/2023, 02/20/2021, Additional history exists DTaP/Tdap/Td Vaccine (10 - T d or Tdap) 03/04/2034 03/04/2024, 06/17/2020, 01/12/2017, Additional history exists Hepatitis B Screening Completed 11/17/1994 , 08/31/1994, 1993 HPV Vaccines Completed 06/22/2007, 11/17/2006 Hepatitis C Screening Completed 03/19/2022 Procedures Procedure Name Priority Date/Time Associated Diagnosis Comments XR CHEST PA LATERAL 2 VIEWS ED 01/19/2025 4:38 PM CDT EGFR STAT 01/19/2025 4:01 PM CDT DIFFERENTIAL AUTO STAT 01/19/2025 4:0 1 PM CDT TROPONIN T HIGH-SENSITIVITY SERIES (BASELINE, 2HR, 4HR, 6HR) STAT 01/19/2025 4:01 PM CDT COMPREHENSIVE METABOLIC PANEL STAT 01/19/2025 4:01 PM CDT CBC WITH AUTO DIFFERENTIAL STAT 01/19/2025 4:01 PM CDT ECG 12-LEAD STAT 01/19/2025 3:53 PM CDT PAP, REFLEX HPV Routine 12/21/2022 11:43 AM CDT Well woman exam HEPATITIS C ANTIBODY Routine 03/19/2022 12:06 PM MED ADMIN Screening for STD (sexually transmitted disease) from Last 3 Months or Most Recently Relevant to Health Maintenance Results * XR Chest PA Lateral 2 Views (If patient hemodynamically stable and ambulatory) (01/19/2025 4:38 PM CDT) Anatomical Region Laterality Modality Body, Chest N/A Computed Radiogr aphy 01/19/2025 4:46 PM CDT Narrative 01/19/2025 4:47 PM CDT EXAM DESCRIPTION: XR CHEST PA LATERAL 2 VIEWS REASON FOR STUDY: chest pain C/o intermittent chest pain that radiates to her left shoulder and under her left breast since Wednesday. Pt reports she had some cardiac issues in the past but she is unsure of exactly what it was. Pt used to Smoker, but [employer] Asthma TECHNIQUE: Two views COMPARISON: 04/10/2017 FINDINGS: Heart size and vascularity appear normal. Aortic arch well-defined on the left. Lungs are well expanded without consolidation, effusion or pneumothorax. IMPRESSION: No acute findings. THIS IS AN ELECTRONICALLY VERIFIED FINAL REPORT 01/19/2025 4:47 PM - Electronically signed by Jim Cedeno M.D. RB: IFRAH Report ID: [id number] Reading Location: [id number] Procedure Note Jim Cedeno MD - 01/19/2025 EXAM DESCRIPTION: XR CHEST PA LATERAL 2 VIEWS REASON FOR STUDY: chest pain C/o intermittent chest pain that radiates to her left shoulder and underher left breast since Wednesday. Pt reports she had some cardiac issues inthe past but she is unsure of exactly what it was. Pt used to Smoker, but [employer] Asthma TECHNIQUE: Two views COMPARISON: 04/10/2017 FINDINGS: Heart size and vascularity appear normal. Aortic arch well-defined onthe left. Lungs are well expanded without consolidation, effusion or pneumothorax. IMPRESSION: No acute findings. THIS IS AN ELECTRONICALLY VERIFIED FINAL REPORT 01/19/2025 4:47 PM - Electronically signed by Jim Cedeno M.D. RB: IFRAH Report ID: [id number] Reading Location: [place] [address] Henry Acosta MD IMG XR PROCEDURES Final Res ult * Troponin T high-sensitivity series (baseline, 2hr, 4hr, 6hr) (01/19/2025 4:01 PM CDT) Pathologist [facility] Trop T hs <6 <=14 ng/L [facility] ([place]) Comment: Interpretive Data For further hscTnT resources including the diagnostic algorithm and an aid in interpretation, copy and paste this link: https://nrl.testcatalog.org/show/hsTrop Current Interpretive Data last revised 2020. Blood 01/19/2025 4:01 PM CDT 01/19/2025 4:24 PM CDT Henry Acosta MD LAB BLOOD ORDERABLES Final Result [facility] ([place]) 1 [facility] Department [place] [address] * eGFR (01/19/2025 4:01 PM CDT) Pathologist [facility] eGFR >90 >=60 mL/min/1. 73 m2 Comment: Interpretive Data Reference Interval Normal >/= 90 mL/min/1.73m2 Mildly decreased* 60 - 89 mL/min/1.73m2 Mildly to moderately decreased 45 - 59 mL/min/1.73m2 Moderately to severely decreased 30 - 44 mL/min/1.73m2 Severely decreased 15 - 29 mL/min/1.73m2 Kidney Failure < 15 mL/min/1.73m2 *Relative to young adult level Estimated glomerular filtration rate is determined by the 2020 CKD-EPI equation recommended by the National Kidney Foundation (A Unifying Approach to GFR Estimation: Recommendations of the NKF-ASK Task Force on Reassessing the Inclusion of Race in Diagnosing Kidney Disease, JASN 202). The CKD-EPI equation should not be used for patients with unstable renal function and has not been validated in children and those over 70. Current interpretive data was last reviewed 2021. Blood 01/19/2025 4:01 PM CDT 01/19/2025 4:24 PM CDT us Henry Acosta MD LAB BLOOD ORDERABLES Final Result [facility] ([place]) 1 [facility] Department [place] [address] * Differential, auto (01/19/2025 4:01 PM CDT) Neutrophil abs 2.89 1.50 - 6.50 K/cumm Imm gran abs 0.01 0.00 - 0.10 K/cumm [facility] ([place]) Lymphocyte abs 2.75 0.80 - 3.30 K/cumm [facility] ([place]) Monocyte abs 0.49 0.20 - 0.80 K/cumm [facility] ([place]) Eosinophil abs 0.09 0.00 - 0.50 K/cumm [facility] ([place]) Basophil abs 0.03 0.00 - 0.10 K/cumm [facility] ([place]) Neutrophil pct 46.2 % [facility] ([place]) Comment: Interpretive Data Percent cell count reference ranges are not reported, since discordance with absolute values may lead to misinterpretation of CBC data. Current Interpretive Data was last revised on 2017. Imm gran pct 0.2 % [facility] ([place]) Comment: Interpretive Data Percent cell count reference ranges are not reported, since discordance with absolute values may lead to misinterpretation of CBC data. Current Interpretive Data was last revised on 2017. Lymphocyte pct 43.9 % [facility] ([place]) Comment: Interpretive Data Percent cell count reference ranges are not reported, since discordance with absolute values may lead to misinterpretation of CBC data. Current Interpretive Data was last revised on 2017. Monocyte pct 7.8 % [facility] ([place]) Comment: Interpretive Data Percent cell count reference ranges are not reported, since discordance with absolute values may lead to misinterpretation of CBC data. Current Interpretive Data was last revised on 2017. Eosinophil pct 1.4 % [facility] ([place]) Comment: Interpretive Data Percent cell count reference ranges are not reported, since discordance with absolute values may lead to misinterpretation of CBC data. Current Interpretive Data was last revised on 2017. Basophil pct 0.5 % [facility] ([place]) Comment: Interpretive Data Percent cell count reference ranges are not reported, since discordance with absolute values may lead to misinterpretation of CBC data. Current Interpretive Data was last revised on 2017. Blood 01/19/2025 4:01 PM CDT 01/19/2025 4:25 PM CDT Henry Acosta MD LAB BLOOD ORDERABLES Final Result [facility] ([place]) 1 [facility] Department [place] [address] * CBC with auto differential (01/19/2025 4:01 PM CDT) WBC 6.26 3.80 - 9.90 K/cumm Hgb 13.3 11.9 - 15.5 g/dL [facility] ([place]) Hct 39.8 35.6 - 45.5 % [facility] ([place]) Plt 301 150 - 400 K/cumm [facility] ([place]) MPV 10.0 9.1 - 12.3 fL [facility] ([place]) RBC 4.40 3.90 - 5.20 M/cumm [facility] ([place]) MCV 90.5 81.3 - 96.4 fL [facility] ([place]) MCH 30.2 27.1 - 33.3 pg [facility] ([place]) MCHC 33.4 32.3 - 35.7 g/dL [facility] ([place]) RDW CV 12.3 11.1 - 14.9 % [facility] ([place]) RDW SD 40.8 35.7 - 48.1 fL [facility] ([place]) NRBC abs 0.00 0.00 - 0.01 K/cumm [facility] ([place]) Blood Venous blood specimen / Unknown 01/19/2025 4:01 PM CDT 01/19/2025 4:25 PM CDT Henry Acosta MD LAB BLOOD ORDERABLES Final Result [facility] ([place]) 1 [facility] Department [place] [address] * (ABNORMAL) Comprehensive metabolic panel (01/19/2025 4:01 PM CDT) Sodium 138 135 - 145 mmol/L [facility] ([place]) Potassium, pl 3.8 3.3 - 4.9 mmol/L [facility] ([place]) Chloride 105 97 - 110 mmol/L [facility] ([place]) CO2 20(L) 22 - 32 mmol/L [facility] ([place]) Anion gap 13 2 - 15 mmol/L [facility] ([place]) BUN 13 6 - 25 mg/dL [facility] ([place]) Creatinine 0.60 0.60 - 1.10 mg/dL [facility] ([place]) Glucose 127 70 - 199 mg/dL [facility] ([place]) Comment: Interpretive Data Fasting glucose >/= 126 mg/dl is diagnostic for diabetes. Fasting is defined as no caloric intake for at least 8 hours. Fasting glucose between 100 mg/dl to 125 mg/dl is diagnostic of prediabetes. In a patient with classic symptoms of hyperglycemia or hyperglycemic crisis, a random glucose >/= 200 mg/dl is diagnostic for diabetes. In the absence of unequivocal hyperglycemia, results should be confirmed by repeat testing. The classification and Diagnosis of Diabetes Diabetes Care 2021; 46: S19-S40. Current interpretive data was last revised 2022. Calcium 9.5 8.5 - 10.3 mg/dL [facility] ([place]) Bilirubin, total <0.2 0.1 - 1.2 mg/dL [facility] ([place]) Protein, pl 7.7 6.5 - 8.5 g/dL [facility] ([place]) Albumin 4.4 3.5 - 5.0 g/dL [facility] ([place]) Alk phos 86 40 - 130 Units/L [facility] ([place]) ALT 19 7 - 45 Units/L [facility] ([place]) AST 26 10 - 45 Units/L [facility] ([place]) Comment:Hemolysis present. R esults may be affected. Blood 01/19/2025 4:01 PM CDT 01/19/2025 4:24 PM CDT Henry Acosta MD LAB BLOOD ORDERABLES Final Result Performing Organization Address City/[facility]/ZIP Co de Phone Number DE[facility] ([place]) 1 [facility] Department [place] [address] * ECG 12 lead (01/19/2025 3:53 PM CDT) 01/19/2025 3:53 PM CDT Narrative [facility] [employer] - 01/20/2025 10:43 AM CDT Vent Rate: 82 bpm RR Interval: 730 msec [place] Interval: 134 msec QRS Duration: 102 msec QT Interval: 345 msec QTC Interval: 383 msec P-R-T [place]: 42 - 79 - 42 degrees IMPRESSION: SINUS RHYTHM MINIMAL ST DEPRESSION [0.025+ mV ST DEPRESSION] BORDERLINE ECG NO CHANGE FROM PREVIOUS TRACING NOTED Electronically Signed By: Solo Woodward MD Henry Acosta MD ECG ORDERABLES Final Resul t Performing Organization Address City/[facility]/ZIP Co de Phone Number [facility] [employer] [facility] * (ABNORMAL) Pap, reflex HPV (12/21/2022 11:43 AM CDT) [facility] CLINICAL INFORMATION: Krystin EdwardsGlennaMachelle judith Jimenes Comment:Routine exam LMP Krystin EdwardsGlennaMachelle wong Jalil Comment:[id number] Previous Pap Krystin JerryGlennaMachelle judith Jimenes Comment:NONE GIVEN Prev. Bx Krystin Jimenes Comment:NONE GIVEN SOURCE: Krystin Jimenes Comment:Cervix, Endocervix Pap, specimen adequacy Krystin Jimenes Comment: Satisfactory for evaluation. Endocervical/transformation zone component present. Pap, general categorization (A) Krystin Jimenes Comment:Cytology Results: Ep ithelial Cell Abnormality HPV interp (A) Krystin Jimenes Comment:Low Grade Squamous I ntraepithelial Lesion (LSIL) COMMENTS Krystin JerryKevyn Jimenes Comment: This Pap test has been evaluated with computer assisted technology. Suggest clinical correlation and follow-up as clinically appropriate [employer] Access[employer] Installer Que st Ron Jimenes Comment: KMS, CT(ASCP) CT Screening location: Krystin [place] Pending sale to [facility] Administration [place] [address] Pathologist Krystin Jimenes Comment: Adan Matamoros M.D., Board Certified in Anatomic Pathology and Cytopathology. (electronic signature) Comment Krystin JerryGlennaMachelle wong Jalil Comment: EXPLANATORY NOTE: The Pap is a [...] 3 AM CDT 12/22/2022 2:34 AM CDT us Analilia Ann NP LAB CYTOLOGY ORDERABLES Final Re sult [facility] [address] [address] [place] [address] * Hepatitis C antibody (03/19/2022 12:06 PM MED ADMIN) [facility] Hep C Ab Nonreactive Nonreactive [facility] ([place]) Comment: Interpretive Data Nonreactive: Antibodies to [...] revised on 2019. Testing performed by: [facility], [address] [place] [address]., [id number] Blood 03/19/2022 12:0 6 PM MED ADMIN 03/19/2022 2:15 PM MED ADMIN Analilia Ann NP LAB MICROBIOLOGY - GENERAL ORDER IMELDA Edited Result - Final [facility] ([place]) 1 [facility] Department of Laboratories [place], [place] [id number] from Last 3 Months or Most Recently Relevant to Health Maintenance Insurance [facility] [place] [address] [facility] Advance Directives For more information, please contact: [phone] * Full Code (Latest Code Status on File) Date Activated Date Inactivated Comments 09/02/2020 7:03 AM 09/04/2020 3:15 AM Full CPR in case of cardiopulmonary arrest * Full Code Date Activated Date Inactivated Comments 04/11/2017 12:39 AM 04/12/2017 8:15 PM Care Teams Light Adjuster Relationship Specialty Start Date End Date No, Physician PCP - General 03/30/17
--- NOTE | 2025-01-25 16:41 | ED.SKABFB ---
HPI - Skin/Abscess/Foreign Bdy General Chief complaint: Skin/Abscess/Foreign Body Stated complaint: rash on arms Time Seen by Provider: 01/25/25 16:35 Source: patient Mode of arrival: ambulatory Limitations: no limitations History of Present Illness HPI narrative: Delicia is a 29-year-old female patient presenting to the clinic today with complaints of rash on her bilateral hands, left antecubital, and medial bilateral thighs. States the rash is itchy. Reports she does have a slight itchy rash to her medial thighs. Symptoms been there for approximately 2 days. Has tried hydrocortisone cream without relief. Related Data Home Medications ?Medication ?Instructions ?Recorded ?Confirmed ?Last Taken ?Type norethindrone 1 mg-ethinyl tablet 09/19/24 Unknown History estradiol 20 mcg (21)-iron 75 mg (7) tablet (Blisovi Fe 05/29 (28)) Allergies Allergy/AdvReac Type Severity Reaction Status Date / Time No Known Allergies Allergy Verified 01/25/25 16:36 Review of Systems Review of Systems: Pertinent positives per HPI. Patient denies any fever, chills, rash, headache, visual changes, dizziness, cough, runny nose, sore throat, shortness of breath, chest pain, palpitations, nausea, vomiting, diarrhea, constipation, abdominal pain, or any urinary issues. [facility] Past Medical History Medical History (Updated 01/25/25 @ 16:44 by Antolin Gorman APRN) Polyhydramnios Upper respiratory infection Surgical History Surgical History S/P History of appendectomy Family History Family History Mother COPD (chronic obstructive pulmonary disease) Social History Social History Smoking packs per day: 0.5 Smoking cigarettes per day: 10.0 Smoking status: Current every day smoker Tobacco type: e-cigarettes/vaping Additional smoking assessment comments: former cigarette smoker quit 2.5 years ago now vapes Alcohol intake: current Alcohol use details: social Substance use: never Do You Feel Safe in your Home?: Yes Lack of Transportation: No Lack of Food: Never True Current Housing: I Have Housing Concerned About Future Housing: No Difficulty Paying Gas/Electric Bills: No Difficulty Paying for Meds: No Currently Unemployed: No Education: High School Diploma/GED Difficulty w/ Childcare or Family Care: No Living arrangements: alone Gender identity (if verbalized by the patient): Female Sexual Orientation (if Verbalized by the Patient): Straight or Heterosexual Spiritual care concerns: No Comments At the time of my signature, I reviewed and agree with the nursing past medical, surgical, social, and family history. There is no relevant family history pertinent to the patient complaint. Exam Narrative: General: Well-developed, well nourished, in no apparent distress Head: Normocephalic, atraumatic. Cardio: Regular rate and rhythm, s1 and s2 normal, no murmur appreciated. Resp: Clear to auscultation bilaterally, no rhonchi, rales, wheezing or rubs. Integumentary: [place], warm, and dry, scattered vesicular bumps to the fingers/ hands and has a red dry mildly raised scaly appearing rash to the left antecubital and the medial thighs. Course Course Emergency Course: Portions of this record may have been created with voice recognition software. Level of Care: Express Care Visit Vital Signs Vital signs: Vital signs reviewed MDM - Skin/Abscess/Foreign Bdy MDM Narrative Medical decision making narrative: At the time of visit patient is resting comfortably on the exam table. Patient appears to be nontoxic. Complaints of rash on her bilateral hands, left antecubital, and medial bilateral thighs. States the rash is itchy. Reports she does have a slight itchy rash to her medial thighs. Symptoms been there for approximately 2 days. Has tried hydrocortisone cream without relief. On exam patient has scattered vesicular bumps to the fingers/ hands and has a red dry mildly raised scaly appearing rash to the left antecubital and the medial thighs. 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 Prescription for triamcinolone cream was sent to the pharmacy. Supportive measures were discussed with the patient and they voiced understanding discharge instructions and agrees to treatment plan. Return precautions reviewed Differential Diagnosis Differential diagnosis: Likely abscess of skin or subcutaneous tissue, viral exanthem, dermatophytosis, urticaria, herpes zoster, allergic reaction to drug, cellulitis, eczema, insect bites, impetigo and contact dermatitis Discharge Plan Discharge Clinical Impression: Dermatitis Patient Disposition: Home Condition: Stable Instructions: Antibiotic Form, Dermatitis (ED) Additional Instructions: Apply triamcinolone cream as directed Avoid hot showers Avoid scratching as this can cause a secondary infection Moisturize skin twice daily using an non scented lotion such as Lubriderm, Aquaphor, or Cetaphil. May take benadryl 25-50mg every 6 hours as needed for itching. Follow up with your PCP in 3-5 days if symptoms persist or sooner if they worsen Go to the Emergency Room if symptoms worsen- fever, rash spreading with treatment, shortness of breath, tongue swelling, drooling, or chest pain Patient Language: Danish Prescriptions: New triamcinolone acetonide 0.1 % cream 1 applic topical BID 7 Days Qty: 30 0RF No Action norethindrone-e.estradiol-iron [Blisovi Fe 05/29 (28)] 1 mg-20 mcg (21)/75 mg (7) tablet Follow-up/Referrals: UNKNOWN,DOCTOR [Primary Care Provider] Time of Disposition: 16:45 Quality NIHSS Nursing Documentation ED NIHSS nursing documentation: reviewed/agree
[2025-01-25 16:50] VITALS: BP 108/67; PULSE 61; RESP 18; TEMP 36.8; O2SAT 100
== END 2025-01-25 16:53 | disposition home or self-care (01) ==
PROVIDERS: Emergency Provider Nurse Practitioner Family
DX: L30.9 Dermatitis, unspecified (principal); F17.290 Nicotine dependence, other tobacco product, uncomplicated
CPT/HCPCS: 99213; G0463